=== PATIENT | male | born 1955 | race Caucasian/White ===

== ENCOUNTER 2017-09-08 15:36 | Inpatient (IN) | payer OTHER, MEDICARE ==
[~2017-09-08] VITALS: Ht 177.8 cm; Wt 88.0 kg
[~2017-09-08 15:36] MED LIST: ASPI-612 PO; ASPI325T70 PO; ATOR40TA59 PO; CARV6.252 PO; CLOP75TA PO; HYDR-2758 PO; LISI10TA2 PO; OMEG300C PO; PANT40TA3 PO; PANT40TA5 PO; PRAV40TA2 PO; RANO500T2 PO
--- NOTE | 2017-09-08 15:54 | EKG ---
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
--- NOTE | 2017-09-08 15:54 | PHYS DOC ---
Past Medical History Past Medical History: CAD, CVA, MS Additional Past Medical Histor: cvd Past Surgical History: Appendectomy, Cholecystectomy, Coronary Bypass Surgery, Other Additional Past Surgical Histo: SBO SURGERY, 3x bypass x 2 Alcohol Use: Occasionally Drug Use: None Adult General Chief Complaint Chief Complaint: CHEST PAIN HPI HPI Patient is a 62 year old male with chest pain 62-year-old male history of coronary artery disease status post CABG. This morning began having chest pain radiating to his left shoulder into his jaw. It is worse with ambulation. It's been constant. He has had no pain like this in over a year. He went to see his hand rounder Dr. Gaines who saw him and asked that he come here for evaluation of ongoing chest pain. He has no other current complaints right now. He denies diabetes or other significant medical problems. He did take aspirin today and has been taking his medicines. Review of Systems Review of Systems Constitutional: Denies fever or chills Eyes: Denies change in visual acuity, redness, or eye pain HENT: Denies nasal congestion or sore throat Respiratory: Denies cough or shortness of breath Cardiovascular: No additional information not addressed in HPI GI: Denies abdominal pain, nausea, vomiting, bloody stools or diarrhea : Denies dysuria or hematuria Musculoskeletal: Denies back pain or joint pain Integument: Denies rash or skin lesions Neurologic: Denies headache, focal weakness or sensory changes Endocrine: Denies polyuria or polydipsia Family History Family History non contributory Current Medications Current Medications Current Medications Medications (Trade) Dose Ordered Sig/[facility] Start Time Stop Time Status Last Admin Dose Admin Ketorolac Tromethamine (Toradol) 15 mg 1X ONCE 09/08/17 17:30 09/08/17 17:31 DC 09/08/17 17:29 15 MG Nitroglycerin/ Dextrose 250 ml @ 3 mls/hr 1X ONCE 09/08/17 16:00 09/12/17 03:19 09/08/17 16:15 3 MLS/HR Allergies Allergies Allergies Coded Allergies Type Severity Reaction Last Updated Verified morphine Adverse Reaction Mild Agitation 02/24/17 Yes Physical Exam Physical Exam Constitutional: Well developed, well nourished, no acute distress, non-toxic appearance. HENT: Normocephalic, atraumatic, bilateral external ears normal, oropharynx moist, no oral exudates, nose normal. Eyes: PERRLA, EOMI, conjunctiva normal, no discharge. Neck: Normal range of motion, no tenderness, supple, no stridor. Cardiovascular:Heart rate regular rhythm, no murmur Lungs & Thorax: Bilateral breath sounds clear to auscultation Abdomen: Bowel sounds normal, soft, no tenderness, no masses, no pulsatile masses. Skin: Warm, dry, no erythema, no rash. [ Back: No tenderness, no CVA tenderness. Extremities: No tenderness, no cyanosis, no clubbing, ROM intact, no edema. Neurologic: Alert and oriented X 3, normal motor function, normal sensory function, no focal deficits noted. Psychologic: Affect normal, judgement normal, mood normal. Current Patient Data Vital Signs Vital Signs Date Time Temp Pulse Resp B/P (MAP) Pulse Ox O2 Delivery O2 Flow Rate FiO2 09/08/17 17:40 63 19 141/70 (93) 99 Room Air 09/08/17 15:51 97.7 97.7 Lab Values Laboratory Tests Test 09/08/17 15:55 09/08/17 18:04 White Blood Count 6.6 x10^3/uL (4.0-11.0) Red Blood Count 4.41 x10^6/uL (4.30-5.70) Hemoglobin 13.5 g/dL (13.0-17.5) Hematocrit 39.4 % (39.0-53.0) Mean Corpuscular Volume 90 fL (79-100) Mean Corpuscular Hemoglobin 31 pg (25-35) Mean Corpuscular Hemoglobin Concent 34 g/dL (31-37) Red Cell Distribution Width 13.5 % (11.5-14.5) Platelet Count 176 x10^3/uL (140-400) Neutrophils (%) (Auto) 53 % (31-73) Lymphocytes (%) (Auto) 39 % (24-48) Monocytes (%) (Auto) 7 % (0-9) Eosinophils (%) (Auto) 1 % (0-3) Basophils (%) (Auto) 0 % (0-3) Neutrophils # (Auto) 3.5 x10^3uL (1.8-7.7) Lymphocytes # (Auto) 2.6 x10^3/uL (1.0-4.8) Monocytes # (Auto) 0.4 x10^3/uL (0.0-1.1) Eosinophils # (Auto) 0.1 x10^3/uL (0.0-0.7) Basophils # (Auto) 0.0 x10^3/uL (0.0-0.2) Sodium Level 140 mmol/L (136-145) Potassium Level 3.7 mmol/L (3.5-5.1) Chloride Level 105 mmol/L (98-107) Carbon Dioxide Level 27 mmol/L (21-32) Anion Gap 8 (6-14) Blood Urea Nitrogen 21 mg/dL (8-26) Creatinine 1.0 mg/dL (0.7-1.3) Estimated GFR (Cockcroft-Gault) 76.0 BUN/Creatinine Ratio 21 (6-20) H Glucose Level 114 mg/dL (70-99) H Calcium Level 8.5 mg/dL (8.5-10.1) Total Bilirubin 0.4 mg/dL (0.2-1.0) Aspartate Amino Transferase (AST) 13 U/L (15-37) L Alanine Aminotransferase (ALT) 24 U/L (16-63) Alkaline Phosphatase 80 U/L (46-116) Troponin I Quantitative < 0.017 ng/mL (0.000-0.055) Total Protein 7.2 g/dL (6.4-8.2) Albumin 3.9 g/dL (3.4-5.0) Albumin/Globulin Ratio 1.2 (1.0-1.7) Lactic Acid Level 1.3 mmol/L (0.4-2.0) Laboratory Tests 09/08/17 15:55 Laboratory Tests 09/08/17 15:55 EKG EKG Normal sinus rhythm with RSR prime without acute findings of ischemia. Interpretation Time: 1545 Radiology/Procedures Radiology/Procedures [Chest x-rays interpreted by radiologist no acute abnormalities. Course & Med Decision Making Course & Med Decision Making Pertinent Labs and Imaging studies reviewed. (See chart for details) 1554: Ongoing chest pain with known history coronary artery disease has already taken aspirin. I will initiate nitroglycerin for the pain. Anticipated admission Patient essentially has a negative workup here. However given his history will admit to telemetry to Dr. vela. Dr. Gaines does not buy and recommends an NPI in the morning. Dragon Disclaimer Dragon Disclaimer This electronic medical record was generated, in whole or in part, using a voice recognition dictation system. Departure Departure Referrals: NO PCP (PCP) DENVER WHITE MD Sep 08, 2017 15:54
[2017-09-08] MEDS ORDERED: NITROGLYCERIN PREMIX 250 ML IV ONE (16:00)
[2017-09-08 16:07] LABS: BASO % 0 % (0-3); EOS % 1 % (0-3); HEMATOCRIT 39.4 % (39.0-53.0); HEMOGLOBIN 13.5 g/dL (13.0-17.5); LYMPH # 2.6 x10^3/uL (1.0-4.8); LYMPH % 39 % (24-48); MEAN CORPUSCULAR HEMOGLOBIN 31 pg (25-35); MEAN CORPUSCULAR HGB CONC 34 g/dL (31-37); MEAN CORPUSCULAR VOLUME 90 fL (79-100); MONO % 7 % (0-9); NEUT % 53 % (31-73); PLATELET COUNT 176 x10^3/uL (140-400); RED BLOOD COUNT 4.41 x10^6/uL (4.30-5.70); RED CELL DISTRIBUTION WIDTH 13.5 % (11.5-14.5); WHITE BLOOD COUNT 6.6 x10^3/uL (4.0-11.0)
[2017-09-08 16:19] LABS: CALCIUM 8.5 mg/dL (8.5-10.1); POTASSIUM 3.7 mmol/L (3.5-5.1)
[2017-09-08 16:25] LABS: ALBUMIN 3.9 g/dL (3.4-5.0); ALBUMIN/GLOBULIN RATIO 1.2 (1.0-1.7); TOTAL BILIRUBIN 0.4 mg/dL (0.2-1.0); TOTAL PROTEIN 7.2 g/dL (6.4-8.2)
--- NOTE | 2017-09-08 16:52 | RAD ---
Portable chest, 09/08/2017: History: Midsternal pressure Comparison is made to a study from 02/23/2017. There has been a previous median sternotomy. A left-sided transvenous pacemaker remains in place with 2 leads extending in the right heart. The heart size and pulmonary vascularity are normal. No pulmonary infiltrates are seen. There is no evidence of pleural fluid. IMPRESSION: No acute cardiopulmonary abnormality is detected.
[2017-09-08] MEDS ORDERED: KETOROLAC 15 MG/ML VIAL. IV ONE (17:30)
--- NOTE | 2017-09-08 18:22 | PDOC1 ---
History and Physical Date of Admission Date of Admission DATE: 09/08/17 TIME: 18:18 Identification/Chief Complaint Chief Complaint chest pain and neck pain Problems: Source Source: Chart review, Patient History of Present Illness History of Present Illness Mr. North is a 62-year-old male, admit from ER for acute chest pain radiating to his left shoulder into his jaw. Nitro gtt has caused a headache, and his left neck hurts worse, chest pain maybe better. 8/10 pain Pain was worse with ambulation. It's been constant. He has had no pain like this in over a year. Dr. Gaines saw him in clinic and here, would like to r/o and consider MPI in AM Past Medical History Past Medical History history of coronary artery disease status post CABG and pacer Cardiovascular: CAD, HTN, Syncope, Hyperlipidemia, Other CENTRAL NERVOUS SYSTEM: CVA GI: GERD Psych: Anxiety, Other Past Surgical History Past Surgical History: Appendectomy, Cholecystectomy, CABG, Other Family History Family History: Diabetes Social History ALCOHOL: social Drugs: Ecstasy Current Medications Current Medications Current Medications Nitroglycerin/ Dextrose 250 ml @ 3 mls/hr 1X ONCE IV Last administered on 16:15; Start 09/08/17 at 16:00; Stop 09/12/17 at 03:19 Ketorolac Tromethamine (Toradol) 15 mg 1X ONCE IV Last administered on 17:29; Start 09/08/17 at 17:30; Stop 09/08/17 at 17:31; Status DC Active Scripts Active Ranexa (Ranolazine) 500 Mg Tab.er.12h 1,000 Mg PO BID Atorvastatin Calcium 40 Mg Tablet 40 Mg PO QHS Protonix (Pantoprazole Sodium) 40 Mg Tablet. 40 Mg PO BID Reported Aspirin Ec (Aspirin) 81 Mg Tablet.dr 81 Mg PO DAILY08 Carvedilol 6.25 Mg Tablet 6.25 Mg PO BIDWMEALS Fish Oil ([place]-3 Fatty Acids) 300 Mg Capsule 300 Mg PO DAILY Clopidogrel (Clopidogrel Bisulfate) 75 Mg Tablet 75 Mg PO DAILY07 Allergies Allergies: Coded Allergies: morphine (Verified Adverse Reaction, Mild, Agitation, 02/24/17) ROS General: No: Chills, Night Sweats, Fatigue, Malaise, Appetite, Other PSYCHOLOGICAL ROS: No: Anxiety, Behavioral Disorder, Concentration difficultie , Decreased libido, Depression, Disorientation, Hallucinations, Hostility, Irritablity, Memory difficulties, Mood Swings, Obsessive thoughts, Other Eyes: No Blurry vision, No Decreased vision, No Double vision, No Dry eyes, No Excessive tearing, No Eye Pain, No Itchy Eyes, No Loss of vision, No Photophobia , No Scotomata, No Uses contacts, No Uses glasses, No Other HEENT: No: Heacaches, Visual Changes, Hearing change, Nasal congestion, Nasal discharge, Oral lesions, Sinus pain, Sore Throat, Epistaxis, Sneezing, Snoring, Tinnitus, Vertigo, Vocal changes, Other ALLERGY AND IMMUNOLOGY: No: Hives, Insect Bite Sensitivity, Itchy/Watery Eyes, Nasal Congestion, Post Nasal Drip, Seasonal Allergies, Other Respiratory: No: Cough, Hemoptysis, Orthopnea, Pleuritic Pain, Shortness of breath, SOB with excertion, Sputum Changes, Stridor, Tachypnea, Wheezing, Other Cardiovascular: yes Chest Pain, No Palpitations, No Orthopnea, No Paroxysmal Noc. Dyspnea, No Edema, No Lt Headedness, No Other Gastrointestinal: No Nausea, No Vomiting, No Abdominal Pain, No Diarrhea, No Constipation, No Melena, No Hematochezia, No Other Genitourinary: No Dysuria, No Frequency, No Incontinence, No Hematuria, No Retention, No Discharge, No Urgency, No Pain, No Flank Pain, No Other, No , No , No , No , No , No , No Musculoskeletal: Yes Joint Pain, No Gait Disturbance, No Joint Stiffness, No Joint Swelling, No Muscle Pain, No Muscular Weakness, No Pain In:, No Swelling In:, No Other Neurological: No Behavorial Changes, No Bowel/Bladder ControlChng, No Confusion , No Dizziness, No Gait Disturbance, No Headaches, No Impaired Coord/balance, No Memory Loss, No Numbness/Tingling, No Seizures, No Speech Problems, No Tremors, No Visual Changes, No Weakness, No Other Skin: Yes Dry Skin, No Eczema, No Hair Changes, No Lumps, No Mole Changes, No Mottling, No Nail Changes, No Pruritus, No Rash, No Skin Lesion Changes, No Other, No Acne Physical Exam General: Alert, Oriented X3, Cooperative, mild distress HEENT: Atraumatic, EOMI, Mucous membr. moist/pink Lungs: Clear to auscultation, Normal air movement Heart: S1S2, no gallops, no murmurs Extremities: No edema Skin: No rashes, No significant lesion Neuro: Normal speech, Normal tone, Cranial nerves 3-12 NL Psych/Mental Status: Mental status NL Vitals Vitals Vital Signs Date Time Temp Pulse Resp B/P (MAP) Pulse Ox O2 Delivery O2 Flow Rate FiO2 09/08/17 16:35 65 138/79 (98) 98 Room Air 09/08/17 15:51 97.7 16 97.7 Labs Labs Laboratory Tests Test 09/08/17 15:55 White Blood Count 6.6 x10^3/uL (4.0-11.0) Red Blood Count 4.41 x10^6/uL (4.30-5.70) Hemoglobin 13.5 g/dL (13.0-17.5) Hematocrit 39.4 % (39.0-53.0) Mean Corpuscular Volume 90 fL (79-100) Mean Corpuscular Hemoglobin 31 pg (25-35) Mean Corpuscular Hemoglobin Concent 34 g/dL (31-37) Red Cell Distribution Width 13.5 % (11.5-14.5) Platelet Count 176 x10^3/uL (140-400) Neutrophils (%) (Auto) 53 % (31-73) Lymphocytes (%) (Auto) 39 % (24-48) Monocytes (%) (Auto) 7 % (0-9) Eosinophils (%) (Auto) 1 % (0-3) Basophils (%) (Auto) 0 % (0-3) Neutrophils # (Auto) 3.5 x10^3uL (1.8-7.7) Lymphocytes # (Auto) 2.6 x10^3/uL (1.0-4.8) Monocytes # (Auto) 0.4 x10^3/uL (0.0-1.1) Eosinophils # (Auto) 0.1 x10^3/uL (0.0-0.7) Basophils # (Auto) 0.0 x10^3/uL (0.0-0.2) Sodium Level 140 mmol/L (136-145) Potassium Level 3.7 mmol/L (3.5-5.1) Chloride Level 105 mmol/L (98-107) Carbon Dioxide Level 27 mmol/L (21-32) Anion Gap 8 (6-14) Blood Urea Nitrogen 21 mg/dL (8-26) Creatinine 1.0 mg/dL (0.7-1.3) Estimated GFR (Cockcroft-Gault) 76.0 BUN/Creatinine Ratio 21 (6-20) Glucose Level 114 mg/dL (70-99) Calcium Level 8.5 mg/dL (8.5-10.1) Total Bilirubin 0.4 mg/dL (0.2-1.0) Aspartate Amino Transf (AST/SGOT) 13 U/L (15-37) Alanine Aminotransferase (ALT/SGPT) 24 U/L (16-63) Alkaline Phosphatase 80 U/L (46-116) Troponin I Quantitative < 0.017 ng/mL (0.000-0.055) Total Protein 7.2 g/dL (6.4-8.2) Albumin 3.9 g/dL (3.4-5.0) Albumin/Globulin Ratio 1.2 (1.0-1.7) Laboratory Tests Test 09/08/17 15:55 White Blood Count 6.6 x10^3/uL (4.0-11.0) Red Blood Count 4.41 x10^6/uL (4.30-5.70) Hemoglobin 13.5 g/dL (13.0-17.5) Hematocrit 39.4 % (39.0-53.0) Mean Corpuscular Volume 90 fL (79-100) Mean Corpuscular Hemoglobin 31 pg (25-35) Mean Corpuscular Hemoglobin Concent 34 g/dL (31-37) Red Cell Distribution Width 13.5 % (11.5-14.5) Platelet Count 176 x10^3/uL (140-400) Neutrophils (%) (Auto) 53 % (31-73) Lymphocytes (%) (Auto) 39 % (24-48) Monocytes (%) (Auto) 7 % (0-9) Eosinophils (%) (Auto) 1 % (0-3) Basophils (%) (Auto) 0 % (0-3) Neutrophils # (Auto) 3.5 x10^3uL (1.8-7.7) Lymphocytes # (Auto) 2.6 x10^3/uL (1.0-4.8) Monocytes # (Auto) 0.4 x10^3/uL (0.0-1.1) Eosinophils # (Auto) 0.1 x10^3/uL (0.0-0.7) Basophils # (Auto) 0.0 x10^3/uL (0.0-0.2) Sodium Level 140 mmol/L (136-145) Potassium Level 3.7 mmol/L (3.5-5.1) Chloride Level 105 mmol/L (98-107) Carbon Dioxide Level 27 mmol/L (21-32) Anion Gap 8 (6-14) Blood Urea Nitrogen 21 mg/dL (8-26) Creatinine 1.0 mg/dL (0.7-1.3) Estimated GFR (Cockcroft-Gault) 76.0 BUN/Creatinine Ratio 21 (6-20) Glucose Level 114 mg/dL (70-99) Calcium Level 8.5 mg/dL (8.5-10.1) Total Bilirubin 0.4 mg/dL (0.2-1.0) Aspartate Amino Transf (AST/SGOT) 13 U/L (15-37) Alanine Aminotransferase (ALT/SGPT) 24 U/L (16-63) Alkaline Phosphatase 80 U/L (46-116) Troponin I Quantitative < 0.017 ng/mL (0.000-0.055) Total Protein 7.2 g/dL (6.4-8.2) Albumin 3.9 g/dL (3.4-5.0) Albumin/Globulin Ratio 1.2 (1.0-1.7) VTE Prophylaxis Ordered VTE Prophylaxis Devices: Yes VTE Pharmacological Prophylaxi: Yes Assessment/Plan Assessment/Plan angina, R.o ACS has history of CAD, morphine allergy, try oxycodone, tramadol given in ER, after aspirin, Dr. Gaines to follow also GERD has pacer admit ZULEYMA LITTLE MD Sep 08, 2017 18:22
[2017-09-08] MEDS: fentaNYL PF VIAL 100 MCG/2 ML VIAL IV PRN ×3 (18:41→23:29)
[2017-09-08 19:00] VITALS: BP 166/88
[2017-09-08] MEDS: ATORVASTATIN CALCIUM 40 MG TABLET. PO SCH (20:48)
[2017-09-08] MEDS: PANTOPRAZOLE 40 MG TABLET.DR. PO SCH (20:48)
[2017-09-08] MEDS: RANOLAZINE 500 MG TAB.ER.12H PO SCH (20:49)
[2017-09-08 23:00] VITALS: BP 133/69
[2017-09-09 03:00] VITALS: BP 129/73
[2017-09-09] MEDS: fentaNYL PF VIAL 100 MCG/2 ML VIAL IV PRN ×4 (03:03→21:16)
[2017-09-09] MEDS: CLOPIDOGREL BISULFATE 75 MG TABLET PO SCH ×2 (05:55→07:00)
[2017-09-09 07:00] VITALS: BP 130/73
[2017-09-09] MEDS: CARVEDILOL 6.25 MG TABLET. PO SCH ×2 (08:00→17:47)
[2017-09-09] MEDS: ASPIRIN ENTERIC COATED 81 MG TABLET.DR. PO SCH (09:07)
[2017-09-09] MEDS: PANTOPRAZOLE 40 MG TABLET.DR. PO SCH ×2 (09:07→21:00)
[2017-09-09] MEDS: RANOLAZINE 500 MG TAB.ER.12H PO SCH ×2 (09:08→21:01)
--- NOTE | 2017-09-09 10:34 | PDOC2 ---
CONSULT Date of Consult Date of Consult DATE: 09/09/17 TIME: 10:22 Reason for Consult Reason for Consult: Angina Referring Physician Referring Physician: Dr. Madalyn Ruiz Identification/Chief Complaint Chief Complaint Chest pain Problems: Source Source: Patient History of Present Illness Reason for Visit: Mr. North is a 62 year old male with a hx of CAD, HTN, syncope, hyperlipidemia, post CABG, pacer; presents with sternal/substernal chest pain. It started yesterday morning, where he came and visited me and was sent to the ED later that day. The pain still persists. He stated that the chest pain felt like a sharp knife through the center of the chest, with someone sitting on his chest (pressure). He stated that it became worse with exercise, and got better with rest. The pain radiated to his neck, jaw, and shoulder. He also got dizzy and short of breath with exertion. He stated he has had episodes like this twice now, both right before his CABG's in the past. He stated that the pain was an 8/10 during the worst part of the episode, and about a 6/10 right now. He also has migraines caused by nitroglycerin. Past Medical History Cardiovascular: CAD, HTN, Syncope, Hyperlipidemia, Other CENTRAL NERVOUS SYSTEM: CVA GI: GERD Psych: Anxiety, Other Past Surgical History Past Surgical History: Appendectomy, Cholecystectomy, CABG, Other Family History Family History: Diabetes Social History ALCOHOL: social Drugs: Ecstasy Lives: with Family Domestic Violence: Neg Current Problem List Problem List Problems Medical Problems: (1) CAD (coronary artery disease) of artery bypass graft Status: Acute (2) Chest pain Status: Acute Current Medications Current Medications Current Medications Nitroglycerin/ Dextrose 250 ml @ 3 mls/hr 1X ONCE IV Last administered on 16:15; Start 09/08/17 at 16:00; Stop 09/12/17 at 03:19 Ketorolac Tromethamine (Toradol) 15 mg 1X ONCE IV Last administered on 17:29; Start 09/08/17 at 17:30; Stop 09/08/17 at 17:31; Status DC Aspirin (Ecotrin) 81 mg DAILY08 PO Last administered on 09/09/17 09:07; Start 09/09/17 at 08:00 Atorvastatin Calcium (Lipitor) 40 mg QHS PO Last administered on 09/08/17 20: 48; Start 09/08/17 at 21:00 Carvedilol (Coreg) 6.25 mg BIDWMEALS PO ; Start 09/09/17 at 08:00 Clopidogrel Bisulfate (Plavix) 75 mg DAILY07 PO Last administered on 07:00; Start 09/09/17 at 07:00 Pantoprazole Sodium (Protonix) 40 mg BID PO Last administered on 09/09/17 09: 07; Start 09/08/17 at 21:00 Ranolazine (Ranexa) 1,000 mg BID PO Last administered on 09/09/17 09:08; Start 09/08/17 at 21:00 Fentanyl Citrate (Fentanyl 2ml Vial) 50 mcg PRN Q2HR PRN IV PAIN Last administered on 09/09/17 09:07; Start 09/08/17 at 18:45 Active Scripts Active Ranexa (Ranolazine) 500 Mg Tab.er.12h 1,000 Mg PO BID Atorvastatin Calcium 40 Mg Tablet 40 Mg PO QHS Protonix (Pantoprazole Sodium) 40 Mg Tablet.dr 40 Mg PO BID Reported Aspirin Ec (Aspirin) 81 Mg Tablet.dr 81 Mg PO DAILY08 Carvedilol 6.25 Mg Tablet 6.25 Mg PO BIDWMEALS Fish Oil ([place]-3 Fatty Acids) 300 Mg Capsule 300 Mg PO DAILY Clopidogrel (Clopidogrel Bisulfate) 75 Mg Tablet 75 Mg PO DAILY07 Allergies Allergies: Coded Allergies: morphine (Verified Adverse Reaction, Mild, Agitation, 02/24/17) Physical Exam General: Alert, Oriented X3, Cooperative HEENT: Atraumatic, PERRLA, EOMI Lungs: Clear to auscultation, Normal air movement Heart: Regular rate, Normal S1, Normal S2, No murmurs Abdomen: Normal bowel sounds, Soft, No tenderness Extremities: No clubbing, No cyanosis, No edema Skin: No rashes, No breakdown, No significant lesion Psych/Mental Status: Mental status NL, Mood NL MUSCULOSKELETAL: No joint tenderness, No deformity, No swelling Vitals VITALS Vital Signs Date Time Temp Pulse Resp B/P (MAP) Pulse Ox O2 Delivery O2 Flow Rate FiO2 09/09/17 09:08 68 130/73 09/09/17 09:07 96 Room Air 09/09/17 07:00 97.4 18 97.4 Labs Labs Laboratory Tests Test 09/08/17 15:55 09/08/17 18:04 09/09/17 04:42 White Blood Count 6.6 x10^3/uL (4.0-11.0) Red Blood Count 4.41 x10^6/uL (4.30-5.70) Hemoglobin 13.5 g/dL (13.0-17.5) Hematocrit 39.4 % (39.0-53.0) Mean Corpuscular Volume 90 fL (79-100) Mean Corpuscular Hemoglobin 31 pg (25-35) Mean Corpuscular Hemoglobin Concent 34 g/dL (31-37) Red Cell Distribution Width 13.5 % (11.5-14.5) Platelet Count 176 x10^3/uL (140-400) Neutrophils (%) (Auto) 53 % (31-73) Lymphocytes (%) (Auto) 39 % (24-48) Monocytes (%) (Auto) 7 % (0-9) Eosinophils (%) (Auto) 1 % (0-3) Basophils (%) (Auto) 0 % (0-3) Neutrophils # (Auto) 3.5 x10^3uL (1.8-7.7) Lymphocytes # (Auto) 2.6 x10^3/uL (1.0-4.8) Monocytes # (Auto) 0.4 x10^3/uL (0.0-1.1) Eosinophils # (Auto) 0.1 x10^3/uL (0.0-0.7) Basophils # (Auto) 0.0 x10^3/uL (0.0-0.2) Sodium Level 140 mmol/L (136-145) Potassium Level 3.7 mmol/L (3.5-5.1) Chloride Level 105 mmol/L (98-107) Carbon Dioxide Level 27 mmol/L (21-32) Anion Gap 8 (6-14) Blood Urea Nitrogen 21 mg/dL (8-26) Creatinine 1.0 mg/dL (0.7-1.3) Estimated GFR (Cockcroft-Gault) 76.0 BUN/Creatinine Ratio 21 (6-20) Glucose Level 114 mg/dL (70-99) Calcium Level 8.5 mg/dL (8.5-10.1) Total Bilirubin 0.4 mg/dL (0.2-1.0) Aspartate Amino Transf (AST/SGOT) 13 U/L (15-37) Alanine Aminotransferase (ALT/SGPT) 24 U/L (16-63) Alkaline Phosphatase 80 U/L (46-116) Troponin I Quantitative < 0.017 ng/mL (0.000-0.055) < 0.017 ng/mL (0.000-0.055) Total Protein 7.2 g/dL (6.4-8.2) Albumin 3.9 g/dL (3.4-5.0) Albumin/Globulin Ratio 1.2 (1.0-1.7) Lactic Acid Level 1.3 mmol/L (0.4-2.0) Laboratory Tests Test 09/08/17 15:55 09/08/17 18:04 09/09/17 04:42 White Blood Count 6.6 x10^3/uL (4.0-11.0) Red Blood Count 4.41 x10^6/uL (4.30-5.70) Hemoglobin 13.5 g/dL (13.0-17.5) Hematocrit 39.4 % (39.0-53.0) Mean Corpuscular Volume 90 fL (79-100) Mean Corpuscular Hemoglobin 31 pg (25-35) Mean Corpuscular Hemoglobin Concent 34 g/dL (31-37) Red Cell Distribution Width 13.5 % (11.5-14.5) Platelet Count 176 x10^3/uL (140-400) Neutrophils (%) (Auto) 53 % (31-73) Lymphocytes (%) (Auto) 39 % (24-48) Monocytes (%) (Auto) 7 % (0-9) Eosinophils (%) (Auto) 1 % (0-3) Basophils (%) (Auto) 0 % (0-3) Neutrophils # (Auto) 3.5 x10^3uL (1.8-7.7) Lymphocytes # (Auto) 2.6 x10^3/uL (1.0-4.8) Monocytes # (Auto) 0.4 x10^3/uL (0.0-1.1) Eosinophils # (Auto) 0.1 x10^3/uL (0.0-0.7) Basophils # (Auto) 0.0 x10^3/uL (0.0-0.2) Sodium Level 140 mmol/L (136-145) Potassium Level 3.7 mmol/L (3.5-5.1) Chloride Level 105 mmol/L (98-107) Carbon Dioxide Level 27 mmol/L (21-32) Anion Gap 8 (6-14) Blood Urea Nitrogen 21 mg/dL (8-26) Creatinine 1.0 mg/dL (0.7-1.3) Estimated GFR (Cockcroft-Gault) 76.0 BUN/Creatinine Ratio 21 (6-20) Glucose Level 114 mg/dL (70-99) Calcium Level 8.5 mg/dL (8.5-10.1) Total Bilirubin 0.4 mg/dL (0.2-1.0) Aspartate Amino Transf (AST/SGOT) 13 U/L (15-37) Alanine Aminotransferase (ALT/SGPT) 24 U/L (16-63) Alkaline Phosphatase 80 U/L (46-116) Troponin I Quantitative < 0.017 ng/mL (0.000-0.055) < 0.017 ng/mL (0.000-0.055) Total Protein 7.2 g/dL (6.4-8.2) Albumin 3.9 g/dL (3.4-5.0) Albumin/Globulin Ratio 1.2 (1.0-1.7) Lactic Acid Level 1.3 mmol/L (0.4-2.0) Assessment/Plan Assessment/Plan Mr. North is a 62 year old male with a hx of CAD, HTN, syncope, hyperlipidemia, post CABG, pacer; presents with sternal/substernal chest pain. Assessment and Plan: * Angina- MPI stress test, and then depending on results will have further recommendations. Thank you very much for asking me to participate in the care of this patient TALIA OLEA MD Sep 09, 2017 10:34
[2017-09-09 10:57] VITALS: BP 136/81
[2017-09-09] MEDS ORDERED: REGADENOSON 0.4 MG/5 ML DISP.SYRIN. IV ONE (13:00)
[2017-09-09] MEDS: NITROGLYCERIN 0.2MG/HR PATCH. TD SCH (13:30)
--- NOTE | 2017-09-09 14:46 | PDOC ---
PROGRESS NOTES Chief Complaint Chief Complaint angina, R.o ACS has history of CAD, GERD has pacer ongoing chest pain, some pleuritic component, but no benefit to NSAID yesterday History of Present Illness History of Present Illness morphine allergy, try oxycodone PRN, some benefit to fentanyl tramadol given in ER, no benefit to pain MPI stress test today Vitals Vitals Vital Signs Date Time Temp Pulse Resp B/P (MAP) Pulse Ox O2 Delivery O2 Flow Rate FiO2 09/09/17 13:39 96 Room Air 09/09/17 10:57 97.6 63 18 136/81 (99) 97.6 Physical Exam General: Alert, Oriented X3, Cooperative Heart: Regular rate, Normal S1, Normal S2, No murmurs Lungs: Clear Abdomen: Normal bowel sounds, Soft, No tenderness Extremities: No clubbing, No cyanosis, No edema Skin: No rashes, No breakdown, No significant lesion Labs LABS Laboratory Tests Test 09/08/17 15:55 09/08/17 18:04 09/09/17 04:42 White Blood Count 6.6 x10^3/uL (4.0-11.0) Red Blood Count 4.41 x10^6/uL (4.30-5.70) Hemoglobin 13.5 g/dL (13.0-17.5) Hematocrit 39.4 % (39.0-53.0) Mean Corpuscular Volume 90 fL (79-100) Mean Corpuscular Hemoglobin 31 pg (25-35) Mean Corpuscular Hemoglobin Concent 34 g/dL (31-37) Red Cell Distribution Width 13.5 % (11.5-14.5) Platelet Count 176 x10^3/uL (140-400) Neutrophils (%) (Auto) 53 % (31-73) Lymphocytes (%) (Auto) 39 % (24-48) Monocytes (%) (Auto) 7 % (0-9) Eosinophils (%) (Auto) 1 % (0-3) Basophils (%) (Auto) 0 % (0-3) Neutrophils # (Auto) 3.5 x10^3uL (1.8-7.7) Lymphocytes # (Auto) 2.6 x10^3/uL (1.0-4.8) Monocytes # (Auto) 0.4 x10^3/uL (0.0-1.1) Eosinophils # (Auto) 0.1 x10^3/uL (0.0-0.7) Basophils # (Auto) 0.0 x10^3/uL (0.0-0.2) Sodium Level 140 mmol/L (136-145) Potassium Level 3.7 mmol/L (3.5-5.1) Chloride Level 105 mmol/L (98-107) Carbon Dioxide Level 27 mmol/L (21-32) Anion Gap 8 (6-14) Blood Urea Nitrogen 21 mg/dL (8-26) Creatinine 1.0 mg/dL (0.7-1.3) Estimated GFR (Cockcroft-Gault) 76.0 BUN/Creatinine Ratio 21 (6-20) Glucose Level 114 mg/dL (70-99) Calcium Level 8.5 mg/dL (8.5-10.1) Total Bilirubin 0.4 mg/dL (0.2-1.0) Aspartate Amino Transf (AST/SGOT) 13 U/L (15-37) Alanine Aminotransferase (ALT/SGPT) 24 U/L (16-63) Alkaline Phosphatase 80 U/L (46-116) Troponin I Quantitative < 0.017 ng/mL (0.000-0.055) < 0.017 ng/mL (0.000-0.055) Total Protein 7.2 g/dL (6.4-8.2) Albumin 3.9 g/dL (3.4-5.0) Albumin/Globulin Ratio 1.2 (1.0-1.7) Lactic Acid Level 1.3 mmol/L (0.4-2.0) Review of Systems Review of Systems no n.vd chest pain 05/19 Assessment and Plan Assessmemt and Plan Problems Medical Problems: (1) CAD (coronary artery disease) of artery bypass graft Status: Acute (2) Chest pain Status: Acute Problems: Comment Review of Relevant I have reviewed the following items mirian (where applicable) has been applied. Labs Laboratory Tests Test 09/08/17 15:55 09/08/17 18:04 09/09/17 04:42 White Blood Count 6.6 x10^3/uL (4.0-11.0) Red Blood Count 4.41 x10^6/uL (4.30-5.70) Hemoglobin 13.5 g/dL (13.0-17.5) Hematocrit 39.4 % (39.0-53.0) Mean Corpuscular Volume 90 fL (79-100) Mean Corpuscular Hemoglobin 31 pg (25-35) Mean Corpuscular Hemoglobin Concent 34 g/dL (31-37) Red Cell Distribution Width 13.5 % (11.5-14.5) Platelet Count 176 x10^3/uL (140-400) Neutrophils (%) (Auto) 53 % (31-73) Lymphocytes (%) (Auto) 39 % (24-48) Monocytes (%) (Auto) 7 % (0-9) Eosinophils (%) (Auto) 1 % (0-3) Basophils (%) (Auto) 0 % (0-3) Neutrophils # (Auto) 3.5 x10^3uL (1.8-7.7) Lymphocytes # (Auto) 2.6 x10^3/uL (1.0-4.8) Monocytes # (Auto) 0.4 x10^3/uL (0.0-1.1) Eosinophils # (Auto) 0.1 x10^3/uL (0.0-0.7) Basophils # (Auto) 0.0 x10^3/uL (0.0-0.2) Sodium Level 140 mmol/L (136-145) Potassium Level 3.7 mmol/L (3.5-5.1) Chloride Level 105 mmol/L (98-107) Carbon Dioxide Level 27 mmol/L (21-32) Anion Gap 8 (6-14) Blood Urea Nitrogen 21 mg/dL (8-26) Creatinine 1.0 mg/dL (0.7-1.3) Estimated GFR (Cockcroft-Gault) 76.0 BUN/Creatinine Ratio 21 (6-20) Glucose Level 114 mg/dL (70-99) Calcium Level 8.5 mg/dL (8.5-10.1) Total Bilirubin 0.4 mg/dL (0.2-1.0) Aspartate Amino Transf (AST/SGOT) 13 U/L (15-37) Alanine Aminotransferase (ALT/SGPT) 24 U/L (16-63) Alkaline Phosphatase 80 U/L (46-116) Troponin I Quantitative < 0.017 ng/mL (0.000-0.055) < 0.017 ng/mL (0.000-0.055) Total Protein 7.2 g/dL (6.4-8.2) Albumin 3.9 g/dL (3.4-5.0) Albumin/Globulin Ratio 1.2 (1.0-1.7) Lactic Acid Level 1.3 mmol/L (0.4-2.0) Laboratory Tests Test 09/08/17 15:55 09/08/17 18:04 09/09/17 04:42 White Blood Count 6.6 x10^3/uL (4.0-11.0) Red Blood Count 4.41 x10^6/uL (4.30-5.70) Hemoglobin 13.5 g/dL (13.0-17.5) Hematocrit 39.4 % (39.0-53.0) Mean Corpuscular Volume 90 fL (79-100) Mean Corpuscular Hemoglobin 31 pg (25-35) Mean Corpuscular Hemoglobin Concent 34 g/dL (31-37) Red Cell Distribution Width 13.5 % (11.5-14.5) Platelet Count 176 x10^3/uL (140-400) Neutrophils (%) (Auto) 53 % (31-73) Lymphocytes (%) (Auto) 39 % (24-48) Monocytes (%) (Auto) 7 % (0-9) Eosinophils (%) (Auto) 1 % (0-3) Basophils (%) (Auto) 0 % (0-3) Neutrophils # (Auto) 3.5 x10^3uL (1.8-7.7) Lymphocytes # (Auto) 2.6 x10^3/uL (1.0-4.8) Monocytes # (Auto) 0.4 x10^3/uL (0.0-1.1) Eosinophils # (Auto) 0.1 x10^3/uL (0.0-0.7) Basophils # (Auto) 0.0 x10^3/uL (0.0-0.2) Sodium Level 140 mmol/L (136-145) Potassium Level 3.7 mmol/L (3.5-5.1) Chloride Level 105 mmol/L (98-107) Carbon Dioxide Level 27 mmol/L (21-32) Anion Gap 8 (6-14) Blood Urea Nitrogen 21 mg/dL (8-26) Creatinine 1.0 mg/dL (0.7-1.3) Estimated GFR (Cockcroft-Gault) 76.0 BUN/Creatinine Ratio 21 (6-20) Glucose Level 114 mg/dL (70-99) Calcium Level 8.5 mg/dL (8.5-10.1) Total Bilirubin 0.4 mg/dL (0.2-1.0) Aspartate Amino Transf (AST/SGOT) 13 U/L (15-37) Alanine Aminotransferase (ALT/SGPT) 24 U/L (16-63) Alkaline Phosphatase 80 U/L (46-116) Troponin I Quantitative < 0.017 ng/mL (0.000-0.055) < 0.017 ng/mL (0.000-0.055) Total Protein 7.2 g/dL (6.4-8.2) Albumin 3.9 g/dL (3.4-5.0) Albumin/Globulin Ratio 1.2 (1.0-1.7) Lactic Acid Level 1.3 mmol/L (0.4-2.0) Medications Current Medications Nitroglycerin/ Dextrose 250 ml @ 3 mls/hr 1X ONCE IV Last administered on 16:15; Start 09/08/17 at 16:00; Stop 09/09/17 at 12:59; Status DC Ketorolac Tromethamine (Toradol) 15 mg 1X ONCE IV Last administered on 17:29; Start 09/08/17 at 17:30; Stop 09/08/17 at 17:31; Status DC Aspirin (Ecotrin) 81 mg DAILY08 PO Last administered on 09/09/17 09:07; Start 09/09/17 at 08:00 Atorvastatin Calcium (Lipitor) 40 mg QHS PO Last administered on 09/08/17 20: 48; Start 09/08/17 at 21:00 Carvedilol (Coreg) 6.25 mg BIDWMEALS PO ; Start 09/09/17 at 08:00 Clopidogrel Bisulfate (Plavix) 75 mg DAILY07 PO Last administered on 07:00; Start 09/09/17 at 07:00 Pantoprazole Sodium (Protonix) 40 mg BID PO Last administered on 09/09/17 09: 07; Start 09/08/17 at 21:00 Ranolazine (Ranexa) 1,000 mg BID PO Last administered on 09/09/17 09:08; Start 09/08/17 at 21:00 Fentanyl Citrate (Fentanyl 2ml Vial) 50 mcg PRN Q2HR PRN IV PAIN Last administered on 09/09/17 13:09; Start 09/08/17 at 18:45 Nitroglycerin (Nitro-Dur) 1 patch DAILY TD ; Start 09/09/17 at 13:30 Regadenoson (Lexiscan) 0.4 mg 1X ONCE IV ; Start 09/09/17 at 13:00; Stop at 13:02; Status DC Active Scripts Active Ranexa (Ranolazine) 500 Mg Tab.er.12h 1,000 Mg PO BID Atorvastatin Calcium 40 Mg Tablet 40 Mg PO QHS Protonix (Pantoprazole Sodium) 40 Mg Tablet.dr 40 Mg PO BID Reported Aspirin Ec (Aspirin) 81 Mg Tablet.dr 81 Mg PO DAILY08 Carvedilol 6.25 Mg Tablet 6.25 Mg PO BIDWMEALS Fish Oil (Ubly-3 Fatty Acids) 300 Mg Capsule 300 Mg PO DAILY Clopidogrel (Clopidogrel Bisulfate) 75 Mg Tablet 75 Mg PO DAILY07 Vitals/I & O Vital Sign - Last 24 Hours 09/08/17 09/08/17 09/08/17 09/08/17 15:51 16:09 16:20 16:25 Temp 97.7 97.7 Pulse 84 68 70 64 Resp 16 B/P (MAP) 192/92 (125) 148/77 (100) 148/78 (101) 140/76 (97) Pulse Ox 99 97 98 97 O2 Delivery Room Air Room Air Room Air Room Air 09/08/17 09/08/17 09/08/17 09/08/17 16:30 16:35 17:10 17:15 Pulse 63 65 65 65 Resp 15 14 B/P (MAP) 138/77 (97) 138/79 (98) 144/78 (100) 140/76 (97) Pulse Ox 97 98 65 96 O2 Delivery Room Air Room Air Room Air Room Air 09/08/17 09/08/17 09/08/17 09/08/17 17:20 17:25 17:30 17:35 Pulse 63 63 66 65 Resp 12 15 19 16 B/P (MAP) 145/88 (107) 141/81 (101) 168/83 (111) 139/79 (99) Pulse Ox 97 98 97 97 O2 Delivery Room Air Room Air Room Air Room Air 09/08/17 09/08/17 09/08/17 09/08/17 17:40 18:41 19:00 19:00 Temp 97.6 97.6 97.6 97.6 Pulse 63 66 83 Resp 19 18 18 16 B/P (MAP) 141/70 (93) 166/88 (114) 166/88 (114) Pulse Ox 99 99 98 97 O2 Delivery Room Air Room Air Room Air Room Air 09/08/17 09/08/17 09/08/17 09/08/17 20:49 21:03 23:00 23:29 Temp 97.7 97.7 Pulse 83 67 Resp 20 18 20 B/P (MAP) 166/88 133/69 (90) Pulse Ox 99 100 99 O2 Delivery Room Air Room Air Room Air 09/09/17 09/09/17 09/09/17 09/09/17 03:00 03:03 03:33 07:00 Temp 97.7 97.4 97.7 97.4 Pulse 68 76 Resp 18 18 18 18 B/P (MAP) 129/73 (91) 130/73 (92) Pulse Ox 96 99 96 O2 Delivery Room Air Room Air Room Air 09/09/17 09/09/17 09/09/17 09/09/17 07:52 09:07 09:08 10:57 Temp 97.6 97.6 Pulse 68 63 Resp 18 B/P (MAP) 130/73 136/81 (99) Pulse Ox 96 96 O2 Delivery Room Air Room Air Room Air 09/09/17 09/09/17 13:09 13:39 Pulse Ox 96 96 O2 Delivery Room Air Room Air ZULEYMA LITTLE MD Sep 09, 2017 14:46
[2017-09-09 15:00] VITALS: BP 137/84
[2017-09-09] MEDS: oxyCODONE/APAP 7.5/325 1 TAB TABLET PO PRN ×2 (17:51→23:34)
[2017-09-09 19:00] VITALS: BP 144/80
--- NOTE | 2017-09-09 19:27 | RAD ---
APPROVED REPORT Test Type: Pharmacological Stress Nurse/Tech: cain smith Test Indications: CHEST PAIN Cardiac History: IA, CABG, PACEMAKER, SEE EHR Medications: SEE EHR Medical History: PAST SMOKER, SEE EHR Resting ECG: SR Resting Heart Rate: 67 bpm Resting Blood Pressure: 152/83mmHg Pretest Chest Pain: No chest pain Nurse/Tech Notes NO RESPIRATORY DISTRESS, NO CHEST PAIN STATED. Consent: The procedure was explained to the patient in lay terms. Informed consent was witnessed. Jm eout was entered into [employer]. History and Stress Test performed by Carmela Cox, AMINA, ARRT (R) (N) Pharm. Details Pharmacologic stress testing was performed using 0.4mg per 5ml of regadenoson given intravenously ove r 7-10 seconds. Stress Symptoms NAUSEA, VOMITTING. POST EXERCISE Reason for Termination: Infusion complete Max HR: 139 bpm Max Blood Pressure: 165/95mmHg Chest Pain: No. Arrhythmia: No. ST Change: No. Conclusion 1. No electrocardiographic changes suggestive of myocardial ischemia with pharmacological stress. 2. No perfusion defects to suggest myocardial ischemia or scar. 3. Normal wall motion and wall thickening with an ejection fraction of 69%. 4. Scan indicates low risk for future cardiac events.
[2017-09-09] MEDS: ATORVASTATIN CALCIUM 40 MG TABLET. PO SCH (21:00)
[2017-09-09 23:05] VITALS: BP 132/78
[2017-09-10] MEDS: fentaNYL PF VIAL 100 MCG/2 ML VIAL IV PRN ×2 (03:07→09:44)
[2017-09-10 03:30] VITALS: BP 131/83
[2017-09-10] MEDS: CLOPIDOGREL BISULFATE 75 MG TABLET PO SCH (06:32)
[2017-09-10 07:00] VITALS: BP 104/68
[2017-09-10] MEDS: NITROGLYCERIN 0.2MG/HR PATCH. TD SCH (09:00)
--- NOTE | 2017-09-10 09:28 | PDOC ---
PROGRESS NOTES Subjective Subjective Max stated that he was feeling better, and he was ready to go home. He had his stress test, and it said it made him feel a little bit sick, flushed, but said the reaction stopped soon after. He denied weakness, syncope, and endorsed some slight chest pain and shortness of breath on exertion (to bathroom). Objective Objective Vital Signs Date Time Temp Pulse Resp B/P (MAP) Pulse Ox O2 Delivery O2 Flow Rate FiO2 09/10/17 07:00 97.4 83 18 104/68 (80) 98 Room Air 97.4 Physical Exam Physical Exam no significant changes Assessment Assessment The MPI is normal with a normal LV EF. Pt may be discharged to have further work up as an out-pt. Problems Medical Problems: (1) CAD (coronary artery disease) of artery bypass graft Status: Acute (2) Chest pain Status: Acute Plan Plan of Care Mr. North is a 62 year old male with a hx of CAD, HTN, syncope, hyperlipidemia, post CABG, pacer; presents with sternal/substernal chest pain. Assessment and Plan: * Angina- MPI stress test, and then depending on results will have further recommendations. Thank you very much for asking me to participate in the care of this patient Comment Review of Relevant I have reviewed the following items mirian (where applicable) has been applied. Labs Laboratory Tests Test 09/08/17 15:55 09/08/17 18:04 09/09/17 04:42 White Blood Count 6.6 x10^3/uL (4.0-11.0) Red Blood Count 4.41 x10^6/uL (4.30-5.70) Hemoglobin 13.5 g/dL (13.0-17.5) Hematocrit 39.4 % (39.0-53.0) Mean Corpuscular Volume 90 fL (79-100) Mean Corpuscular Hemoglobin 31 pg (25-35) Mean Corpuscular Hemoglobin Concent 34 g/dL (31-37) Red Cell Distribution Width 13.5 % (11.5-14.5) Platelet Count 176 x10^3/uL (140-400) Neutrophils (%) (Auto) 53 % (31-73) Lymphocytes (%) (Auto) 39 % (24-48) Monocytes (%) (Auto) 7 % (0-9) Eosinophils (%) (Auto) 1 % (0-3) Basophils (%) (Auto) 0 % (0-3) Neutrophils # (Auto) 3.5 x10^3uL (1.8-7.7) Lymphocytes # (Auto) 2.6 x10^3/uL (1.0-4.8) Monocytes # (Auto) 0.4 x10^3/uL (0.0-1.1) Eosinophils # (Auto) 0.1 x10^3/uL (0.0-0.7) Basophils # (Auto) 0.0 x10^3/uL (0.0-0.2) Sodium Level 140 mmol/L (136-145) Potassium Level 3.7 mmol/L (3.5-5.1) Chloride Level 105 mmol/L (98-107) Carbon Dioxide Level 27 mmol/L (21-32) Anion Gap 8 (6-14) Blood Urea Nitrogen 21 mg/dL (8-26) Creatinine 1.0 mg/dL (0.7-1.3) Estimated GFR (Cockcroft-Gault) 76.0 BUN/Creatinine Ratio 21 (6-20) Glucose Level 114 mg/dL (70-99) Calcium Level 8.5 mg/dL (8.5-10.1) Total Bilirubin 0.4 mg/dL (0.2-1.0) Aspartate Amino Transf (AST/SGOT) 13 U/L (15-37) Alanine Aminotransferase (ALT/SGPT) 24 U/L (16-63) Alkaline Phosphatase 80 U/L (46-116) Troponin I Quantitative < 0.017 ng/mL (0.000-0.055) < 0.017 ng/mL (0.000-0.055) Total Protein 7.2 g/dL (6.4-8.2) Albumin 3.9 g/dL (3.4-5.0) Albumin/Globulin Ratio 1.2 (1.0-1.7) Lactic Acid Level 1.3 mmol/L (0.4-2.0) Medications Current Medications Nitroglycerin/ Dextrose 250 ml @ 3 mls/hr 1X ONCE IV Last administered on t 16:15; Start 09/08/17 at 16:00; Stop 09/09/17 at 12:59; Status DC Ketorolac Tromethamine (Toradol) 15 mg 1X ONCE IV Last administered on 17:29; Start 09/08/17 at 17:30; Stop 09/08/17 at 17:31; Status DC Aspirin (Ecotrin) 81 mg DAILY08 PO Last administered on 09/09/17 09:07; Start 09/09/17 at 08:00 Atorvastatin Calcium (Lipitor) 40 mg QHS PO Last administered on 09/09/17 21: 00; Start 09/08/17 at 21:00 Carvedilol (Coreg) 6.25 mg BIDWMEALS PO Last administered on 09/09/17 17:47; Start 09/09/17 at 08:00 Clopidogrel Bisulfate (Plavix) 75 mg DAILY07 PO Last administered on 09/10/17 06:32; Start 09/09/17 at 07:00 Pantoprazole Sodium (Protonix) 40 mg BID PO Last administered on 09/09/17 21: 00; Start 09/08/17 at 21:00 Ranolazine (Ranexa) 1,000 mg BID PO Last administered on 09/09/17 21:01; Start 09/08/17 at 21:00 Fentanyl Citrate (Fentanyl 2ml Vial) 50 mcg PRN Q2HR PRN IV PAIN Last administered on 09/10/17 03:07; Start 09/08/17 at 18:45 Nitroglycerin (Nitro-Dur) 1 patch DAILY TD ; Start 09/09/17 at 13:30 Regadenoson (Lexiscan) 0.4 mg 1X ONCE IV Last administered on 09/09/17 15:35 ; Start 09/09/17 at 13:00; Stop 09/09/17 at 13:02; Status DC Oxycodone/ Acetaminophen (Percocet 7.5/ 325) 1 tab PRN Q4HRS PRN PO PAIN Last administered on 09/09/17 23:34; Start 09/09/17 at 15:30 Active Scripts Active Ranexa (Ranolazine) 500 Mg Tab.er.12h 1,000 Mg PO BID Atorvastatin Calcium 40 Mg Tablet 40 Mg PO QHS Protonix (Pantoprazole Sodium) 40 Mg Tablet. 40 Mg PO BID Reported Aspirin Ec (Aspirin) 81 Mg Tablet.dr 81 Mg PO DAILY08 Carvedilol 6.25 Mg Tablet 6.25 Mg PO BIDWMEALS Fish Oil (Otis-3 Fatty Acids) 300 Mg Capsule 300 Mg PO DAILY Clopidogrel (Clopidogrel Bisulfate) 75 Mg Tablet 75 Mg PO DAILY07 Vitals/I & O Vital Sign - Last 24 Hours 09/09/17 09/09/17 09/09/17 09/09/17 10:57 13:09 15:00 17:47 Temp 97.6 97.5 97.6 97.5 Pulse 63 64 77 Resp 18 18 B/P (MAP) 136/81 (99) 137/84 (101) 148/85 Pulse Ox 96 96 97 O2 Delivery Room Air Room Air Room Air 09/09/17 09/09/17 09/09/17 09/09/17 17:51 19:00 19:54 21:01 Temp 98.2 98.2 Pulse 72 72 Resp 18 B/P (MAP) 144/80 (101) 144/80 Pulse Ox 97 97 O2 Delivery Room Air Room Air Room Air 09/09/17 09/09/17 09/09/17 09/10/17 21:16 23:05 23:34 00:45 Temp 97.9 97.9 Pulse 82 Resp 16 B/P (MAP) 132/78 (96) Pulse Ox 97 97 97 97 O2 Delivery Room Air Room Air Room Air Room Air 09/10/17 09/10/17 09/10/17 09/10/17 03:07 03:30 03:42 07:00 Temp 98.1 97.4 98.1 97.4 Pulse 66 83 Resp 18 18 B/P (MAP) 131/83 (99) 104/68 (80) Pulse Ox 97 98 97 98 O2 Delivery Room Air Room Air Room Air Room Air TALIA OLEA MD Sep 10, 2017 09:28
[2017-09-10] MEDS: RANOLAZINE 500 MG TAB.ER.12H PO SCH (09:34)
[2017-09-10] MEDS: PANTOPRAZOLE 40 MG TABLET.DR. PO SCH (09:35)
[2017-09-10] MEDS: CARVEDILOL 6.25 MG TABLET. PO SCH (09:35)
[2017-09-10] MEDS: ASPIRIN ENTERIC COATED 81 MG TABLET.DR. PO SCH (09:35)
[2017-09-10 10:48] VITALS: BP 104/68
[2017-09-10] MEDS ORDERED: OXYC1TAB8 PO (12:17)
== END 2017-09-10 14:24 | disposition home or self-care (01) | DRG 303 ==
LOC: ER 15:36 → 2 SOUTH 18:27
PROVIDERS: ADMIT Internal Medicine; ATTEND Internal Medicine
DX: I25.119 Atherosclerotic heart disease of native coronary artery with unspecified angina pectoris (principal); E78.5 Hyperlipidemia, unspecified; F41.9 Anxiety disorder, unspecified; G43.909 Migraine, unspecified, not intractable, without status migrainosus; I10 Essential (primary) hypertension; K21.9 Gastro-esophageal reflux disease without esophagitis; Z83.3 Family history of diabetes mellitus; Z86.73 Personal history of transient ischemic attack (TIA), and cerebral infarction without residual deficits; Z88.5 Allergy status to narcotic agent; Z90.49 Acquired absence of other specified parts of digestive tract; Z95.0 Presence of cardiac pacemaker; I25.2 Old myocardial infarction
CPT/HCPCS: 36415; 71010; 78452; 80053; 83605; 84484; 85025; 93005; 93017; 96361; 96374; 96375; 96376; A9500; J1885; J2785; J3010; J3490; 99285-25

== ENCOUNTER → 2018-04-21 | Day surgery (SDC) | payer OTHER ==
[~2018-04-21] MED LIST changes: -ASPI-612 PO; -ASPI325T70 PO; -ATOR40TA59 PO; -CARV6.252 PO; -CLOP75TA PO; +GLYCOPYRROLATE 1 MG/5 ML VIAL.; -HYDR-2758 PO; +LIDOCAINE 1% PF 2 ML VIAL. ID; -LISI10TA2 PO; +NEOSTIGMINE METHYLSULFATE 5 MG/5 ML SYRINGE.; -OMEG300C PO; +ONDANSETRON PF 4 MG/2 ML VIAL. IV; -PANT40TA3 PO; -PANT40TA5 PO; -PRAV40TA2 PO; +PROCHLORPERAZINE 10 MG/2 ML VIAL.; -RANO500T2 PO; +ROCURONIUM 50 MG/5 ML VIAL.; +fentaNYL PF VIAL 100 MCG/2 ML VIAL; +fentaNYL PF VIAL 100 MCG/2 ML VIAL IV
[2018-04-21] MEDS: IV RINGERS,LACTATED 1000ML 1,000 ML IV (10:12)
[2018-04-21 10:20] LABS: ADD MAN DIFF? NO
[2018-04-21 10:23] LABS: BASO % 0 % (0-3); EOS # 0.1 x10^3/uL (0.0-0.7); EOS % 1 % (0-3); HEMATOCRIT 41.6 % (39.0-53.0); HEMOGLOBIN 14.4 g/dL (13.0-17.5); LYMPH # 2.8 x10^3/uL (1.0-4.8); LYMPH % 44 % (24-48); MEAN CORPUSCULAR HEMOGLOBIN 31 pg (25-35); MEAN CORPUSCULAR HGB CONC 35 g/dL (31-37); MEAN CORPUSCULAR VOLUME 89 fL (79-100); MONO # 0.3 x10^3/uL (0.0-1.1); MONO % 5 % (0-9); NEUT # 3.2 x10^3uL (1.8-7.7); NEUT % 49 % (31-73); PLATELET COUNT 158 x10^3/uL (140-400); RED BLOOD COUNT 4.66 x10^6/uL (4.30-5.70); RED CELL DISTRIBUTION WIDTH 13.3 % (11.5-14.5); WHITE BLOOD COUNT 6.4 x10^3/uL (4.0-11.0)
[2018-04-21 10:54] LABS: ALBUMIN 4.1 g/dL (3.4-5.0); ANION GAP 11 (6-14); BLOOD UREA NITROGEN 18 mg/dL (8-26); CALCIUM 9.4 mg/dL (8.5-10.1); CARBON DIOXIDE 25 mmol/L (21-32); CHLORIDE 105 mmol/L (98-107); GFR 75.7; GLUCOSE 89 mg/dL (70-99); POTASSIUM 4.1 mmol/L (3.5-5.1); SODIUM 141 mmol/L (136-145)
[2018-04-21] MEDS: BUPIVACAINE-EPI 0.25%-1:200000 50 ML VIAL. (11:53)
[2018-04-21] MEDS: fentaNYL PF VIAL 100 MCG/2 ML VIAL IV ×4 (13:15→13:46)
[2018-04-21] MEDS: PROCHLORPERAZINE 10 MG/2 ML VIAL. IV (13:15)
[2018-04-21] MEDS: oxyCODONE/APAP 5/325 1 TAB TABLET PO (13:30)
== END | disposition home or self-care (01) ==
LOC: SURG 09:10
DX: K40.90 Unilateral inguinal hernia, without obstruction or gangrene, not specified as recurrent (principal); D17.6 Benign lipomatous neoplasm of spermatic cord; Z86.73 Personal history of transient ischemic attack (TIA), and cerebral infarction without residual deficits; Z98.52 Vasectomy status; Z79.82 Long term (current) use of aspirin; I25.2 Old myocardial infarction; E78.00 Pure hypercholesterolemia, unspecified; Z95.0 Presence of cardiac pacemaker; Z90.49 Acquired absence of other specified parts of digestive tract; Z95.1 Presence of aortocoronary bypass graft; Z98.890 Other specified postprocedural states; I25.119 Atherosclerotic heart disease of native coronary artery with unspecified angina pectoris; Z95.5 Presence of coronary angioplasty implant and graft; Z86.711 Personal history of pulmonary embolism; Z79.01 Long term (current) use of anticoagulants; K21.9 Gastro-esophageal reflux disease without esophagitis; F41.9 Anxiety disorder, unspecified; Z82.49 Family history of ischemic heart disease and other diseases of the circulatory system; Z82.0 Family history of epilepsy and other diseases of the nervous system; Z88.5 Allergy status to narcotic agent; Z87.891 Personal history of nicotine dependence
CPT/HCPCS: 36415; 80048; 82040; 85025; A7015; C1781; J0690; J0780; J2710; J3010; J3490; J7120

== ENCOUNTER 2018-06-16 18:47 | Inpatient (IN) | payer OTHER, MEDICARE ==
[2018-06-16 19:22] LABS: ADD MAN DIFF? NO
[2018-06-16 19:25] LABS: BASO % 1 % (0-3); EOS # 0.1 x10^3/uL (0.0-0.7); EOS % 1 % (0-3); HEMATOCRIT 40.9 % (39.0-53.0); HEMOGLOBIN 14.2 g/dL (13.0-17.5); LYMPH % 44 % (24-48); MEAN CORPUSCULAR HEMOGLOBIN 31 pg (25-35); MEAN CORPUSCULAR HGB CONC 35 g/dL (31-37); MEAN CORPUSCULAR VOLUME 89 fL (79-100); MONO # 0.5 x10^3/uL (0.0-1.1); MONO % 8 % (0-9); NEUT # 3.2 x10^3uL (1.8-7.7); NEUT % 47 % (31-73); PLATELET COUNT 207 x10^3/uL (140-400); RED BLOOD COUNT 4.62 x10^6/uL (4.30-5.70); RED CELL DISTRIBUTION WIDTH 13.9 % (11.5-14.5); WHITE BLOOD COUNT 6.8 x10^3/uL (4.0-11.0)
[2018-06-16] MEDS: ASPIRIN CHEWABLE 81 MG TABLET. PO (19:25)
[2018-06-16 19:26] LABS: ANION GAP 10 (6-14); BLOOD UREA NITROGEN 18 mg/dL (8-26); BUN/CREATININE RATIO 20 (6-20); CALCIUM 9.5 mg/dL (8.5-10.1); CARBON DIOXIDE 24 mmol/L (21-32); CHLORIDE 103 mmol/L (98-107); CREATININE 0.9 mg/dL (0.7-1.3); GFR 85.5; GLUCOSE 101 mg/dL (70-99); SODIUM 137 mmol/L (136-145)
[2018-06-16] MEDS: NITROGLYCERIN SUBLINGUAL 0.4 MG BOTTLE OF 25. SL ×2 (19:26→19:39)
[2018-06-16 19:29] LABS: ALBUMIN 4.2 g/dL (3.4-5.0); ALK PHOS 90 U/L (46-116); ALT (SGPT) 29 U/L (16-63); AST (SGOT) 16 U/L (15-37); MAGNESIUM 2.3 mg/dL (1.8-2.4); TOTAL BILIRUBIN 0.4 mg/dL (0.2-1.0); TOTAL PROTEIN 8.3 g/dL (6.4-8.2)
[2018-06-16 19:34] LABS: INR 0.9 (0.8-1.1); PROTHROMBIN TIME PATIENT 11.7 SEC (11.7-14.0)
[2018-06-16 19:35] LABS: TROPONINI < 0.017 ng/mL (0.000-0.055)
[2018-06-16] MEDS: MORPHINE SULFATE 4 MG/ML DISP.SYRIN. IV (20:00)
[2018-06-16] MEDS: fentaNYL PF VIAL 100 MCG/2 ML VIAL IV ×2 (20:21→21:47)
[2018-06-17 00:03] LABS: TROPONINI < 0.017 ng/mL (0.000-0.055)
[2018-06-17] MEDS: fentaNYL PF VIAL 100 MCG/2 ML VIAL IV ×2 (00:51→08:50)
[2018-06-17 05:22] LABS: TROPONINI < 0.017 ng/mL (0.000-0.055)
[2018-06-17] MEDS ORDERED: oxyCODONE/APAP 5/325 1 TAB TABLET PO (07:30)
[2018-06-17] MEDS ORDERED: CYCLOBENZAPRINE 10 MG TABLET. PO (07:45)
[2018-06-17] MEDS ORDERED: MAGNESIUM SULFATE 2GM 50 ML IV (07:45)
[2018-06-17] MEDS ORDERED: CARVEDILOL 3.125 MG TABLET. PO (08:00)
[2018-06-17] MEDS: OMEGA-3 FATTY ACIDS/FISH OIL 1,000 MG CAPSULE. PO (08:48)
[2018-06-17] MEDS: ASPIRIN ENTERIC COATED 81 MG TABLET.DR. PO (08:49)
[2018-06-17] MEDS: CARVEDILOL 6.25 MG TABLET. PO (08:49)
[2018-06-17] MEDS: CLOPIDOGREL BISULFATE 75 MG TABLET PO (08:49)
[2018-06-17] MEDS: MAGNESIUM SULFATE 2GM 50 ML IV (10:01)
== END 2018-06-17 13:00 | disposition home or self-care (01) | DRG 303 ==
LOC: ER 18:47 → 5 SOUTH 21:16
DX: I25.119 Atherosclerotic heart disease of native coronary artery with unspecified angina pectoris (principal); I10 Essential (primary) hypertension; E78.5 Hyperlipidemia, unspecified; K21.9 Gastro-esophageal reflux disease without esophagitis; F41.9 Anxiety disorder, unspecified; F10.10 Alcohol abuse, uncomplicated; Z86.73 Personal history of transient ischemic attack (TIA), and cerebral infarction without residual deficits; I25.2 Old myocardial infarction; Z90.49 Acquired absence of other specified parts of digestive tract; Z95.1 Presence of aortocoronary bypass graft; Z88.5 Allergy status to narcotic agent; Z82.49 Family history of ischemic heart disease and other diseases of the circulatory system; Z83.3 Family history of diabetes mellitus
CPT/HCPCS: 36415; 71045; 80053; 83735; 84484; 85025; 85610; 93005; 99285; 99285-25; J3010; J3475

== ENCOUNTER 2019-03-29 12:02 | Inpatient (IN) | payer OTHER, MEDICARE ==
[~2019-03-29] VITALS: Ht 177.8 cm; Wt 91.9 kg
[~2019-03-29 12:02] MED LIST changes: +ASPI-612 PO; +ASPI325T70 PO; +ATOR40TA59 PO; +CARV6.2511 PO; +CLOP75TA PO; +DOCU-150 PO; -GLYCOPYRROLATE 1 MG/5 ML VIAL.; +HYDR-2761 PO; -LIDOCAINE 1% PF 2 ML VIAL. ID; +LISI10TA2 PO; -NEOSTIGMINE METHYLSULFATE 5 MG/5 ML SYRINGE.; +OMEG300C PO; -ONDANSETRON PF 4 MG/2 ML VIAL. IV; +OXYC1TAB15 PO; +OXYC1TAB8 PO; +PANT40TA3 PO; +PANT40TA5 PO; +PRAV40TA2 PO; -PROCHLORPERAZINE 10 MG/2 ML VIAL.; +RANO10002 PO; +RANO500T2 PO; -ROCURONIUM 50 MG/5 ML VIAL.; -fentaNYL PF VIAL 100 MCG/2 ML VIAL; -fentaNYL PF VIAL 100 MCG/2 ML VIAL IV
[2019-03-29] MEDS ORDERED: ASPIRIN CHEWABLE 81 MG TABLET. PO ONE (12:15)
--- NOTE | 2019-03-29 12:30 | RAD ---
Single view of the chest. 03/29/2019 12:08 PM Indication: Chest pain Comparison: Chest radiograph June 16, 2020 Findings: Prior median sternotomy noted. Pacemaking device from left subclavian approach is similar in configuration. There is no focal consolidation. There is no pleural effusion or pneumothorax. Heart size is normal. Bony thorax is grossly intact. Impression: No radiographic evidence of acute cardiopulmonary process. Electronically signed by: Win Diaz MD (03/29/2019 12:27 PM) [id number]
--- NOTE | 2019-03-29 12:53 | EKG ---
[facility] [address] [place] [address] Test Date: 2019-03-29 Test Time: 12:08:25 Pat Name: ERICA CUNHA Department: Room: Gender: M Machine Iii Coremaker: SHALONDA : 1955 Requested By: GINA DELCID Order Number: [id number] Reading MD: Measurements Intervals Danielson Rate: 70 P: 0 NH: 164 QRS: -2 QRSD: 104 T: 11 QT: 384 QTc: 417 Interpretive Statements SINUS RHYTHM LEFTWARD AXIS INCOMPLETE RIGHT BUNDLE BRANCH BLOCK OTHERWISE NORMAL ECG No previous ECG available for comparison
[2019-03-29 12:57] LABS: BASO % 0 % (0-3); EOS # 0.1 x10^3/uL (0.0-0.7); EOS % 2 % (0-3); HEMATOCRIT 40.6 % (39.0-53.0); HEMOGLOBIN 13.7 g/dL (13.0-17.5); LYMPH # 2.3 x10^3/uL (1.0-4.8); LYMPH % 37 % (24-48); MEAN CORPUSCULAR HEMOGLOBIN 30 pg (25-35); MEAN CORPUSCULAR HGB CONC 34 g/dL (31-37); MEAN CORPUSCULAR VOLUME 89 fL (79-100); MONO # 0.4 x10^3/uL (0.0-1.1); MONO % 6 % (0-9); NEUT # 3.4 x10^3uL (1.8-7.7); NEUT % 55 % (31-73); PLATELET COUNT 186 x10^3/uL (140-400); RED BLOOD COUNT 4.56 x10^6/uL (4.30-5.70); RED CELL DISTRIBUTION WIDTH 13.9 % (11.5-14.5); WHITE BLOOD COUNT 6.3 x10^3/uL (4.0-11.0)
[2019-03-29] MEDS ORDERED: NITROGLYCERIN SUBLINGUAL 0.4 MG BOTTLE OF 25. SL PRN (13:00)
[2019-03-29] MEDS ORDERED: fentaNYL PF VIAL 100 MCG/2 ML VIAL IV ONE (13:00)
[2019-03-29 13:10] LABS: CALCIUM 9.7 mg/dL (8.5-10.1); GFR 75.7; POTASSIUM 4.4 mmol/L (3.5-5.1)
[2019-03-29 13:16] LABS: TOTAL BILIRUBIN 0.6 mg/dL (0.2-1.0); TOTAL PROTEIN 7.9 g/dL (6.4-8.2)
[2019-03-29] MEDS ORDERED: NITROGLYCERIN OINT 1 GM PACKET. TP ONE (13:30)
[2019-03-29 13:46] LABS: PROTHROMBIN TIME PATIENT 12.9 SEC (11.7-14.0)
--- NOTE | 2019-03-29 14:00 | PHYS DOC ---
Past Medical History Past Medical History: CAD, CVA, MA, Other Additional Past Medical Histor: cvd Past Surgical History: Appendectomy, Cholecystectomy, Coronary Bypass Surgery, Pacemaker, Other Additional Past Surgical Histo: SBO SURGERY, CABG X 3 2006,2011 Additional Information: pt uses chewing tobacco Alcohol Use: None Drug Use: None Adult General Chief Complaint Chief Complaint: CHEST PAIN HPI HPI Patient is a 63 year old male presents with chest pain.*[place] diffuse across the chest like something was sitting on his chest some nausea but little sweaty he took nitroglycerin the pain got better but then it came back last chest pain like this was almost a year ago he does not have a manager acquisition he has had triple bypass Review of Systems Review of Systems Constitutional: Denies fever or chills [] Eyes: Denies change in visual acuity, redness, or eye pain [] HENT: Denies nasal congestion or sore throat [] GI: Denies abdominal pain, nausea, vomiting, bloody stools or diarrhea [] : Denies dysuria or hematuria [] Musculoskeletal: Denies back pain or joint pain [] All other systems were reviewed and found to be within normal limits, except as documented in this note. Current Medications Current Medications Current Medications Medications (Trade) Dose Ordered Sig/Saad Start Time Stop Time Status Last Admin Dose Admin Aspirin (Children'S Aspirin) 324 mg 1X ONCE 03/29/19 12:15 03/29/19 12:16 DC Fentanyl Citrate (Fentanyl 2ml Vial) 50 mcg 1X ONCE 03/29/19 13:00 03/29/19 13:01 DC 03/29/19 13:17 50 MCG Nitroglycerin (Nitro-Bid Oint) 1 inch 1X ONCE 03/29/19 13:30 03/29/19 13:31 DC 03/29/19 13:23 1 INCH Nitroglycerin (Nitrostat) 0.4 mg PRN Q5MIN PRN 03/29/19 13:00 03/29/19 13:05 0.4 MG Allergies Allergies Allergies Coded Allergies Type Severity Reaction Last Updated Verified morphine Adverse Reaction Mild Agitation 04/21/18 Yes Physical Exam Physical Exam Constitutional: Well developed, well nourished, no acute distress, non-toxic appearance. [] HENT: Normocephalic, atraumatic, bilateral external ears normal, oropharynx moist, no oral exudates, nose normal. [] Eyes: PERRLA, EOMI, conjunctiva normal, no discharge. [] Neck: Normal range of motion, no tenderness, supple, no stridor. [] Cardiovascular:Heart rate regular rhythm, no murmur [] Lungs & Thorax: Bilateral breath sounds clear to auscultation [] Abdomen: Bowel sounds normal, soft, no tenderness, no masses, no pulsatile masses. [] Skin: Warm, dry, no erythema, no rash. [] Back: No tenderness, no CVA tenderness. [] Extremities: No tenderness, no cyanosis, no clubbing, ROM intact, no edema. [] Neurologic: Alert and oriented X 3, normal motor function, normal sensory function, no focal deficits noted. [] Psychologic: Affect normal, judgement normal, mood normal. [] Current Patient Data Vital Signs Vital Signs Date Time Temp Pulse Resp B/P (MAP) Pulse Ox O2 Delivery O2 Flow Rate FiO2 03/29/19 13:23 72 118/66 03/29/19 13:17 16 98 Room Air 03/29/19 12:08 97.5 97.5 Lab Values Laboratory Tests Test 03/29/19 12:48 White Blood Count 6.3 x10^3/uL (4.0-11.0) Red Blood Count 4.56 x10^6/uL (4.30-5.70) Hemoglobin 13.7 g/dL (13.0-17.5) Hematocrit 40.6 % (39.0-53.0) Mean Corpuscular Volume 89 fL (79-100) Mean Corpuscular Hemoglobin 30 pg (25-35) Mean Corpuscular Hemoglobin Concent 34 g/dL (31-37) Red Cell Distribution Width 13.9 % (11.5-14.5) Platelet Count 186 x10^3/uL (140-400) Neutrophils (%) (Auto) 55 % (31-73) Lymphocytes (%) (Auto) 37 % (24-48) Monocytes (%) (Auto) 6 % (0-9) Eosinophils (%) (Auto) 2 % (0-3) Basophils (%) (Auto) 0 % (0-3) Neutrophils # (Auto) 3.4 x10^3uL (1.8-7.7) Lymphocytes # (Auto) 2.3 x10^3/uL (1.0-4.8) Monocytes # (Auto) 0.4 x10^3/uL (0.0-1.1) Eosinophils # (Auto) 0.1 x10^3/uL (0.0-0.7) Basophils # (Auto) 0.0 x10^3/uL (0.0-0.2) Prothrombin Time 12.9 SEC (11.7-14.0) Prothrombin Time INR 1.0 (0.8-1.1) Sodium Level 139 mmol/L (136-145) Potassium Level 4.4 mmol/L (3.5-5.1) Chloride Level 103 mmol/L (98-107) Carbon Dioxide Level 25 mmol/L (21-32) Anion Gap 11 (6-14) Blood Urea Nitrogen 15 mg/dL (8-26) Creatinine 1.0 mg/dL (0.7-1.3) Estimated GFR (Cockcroft-Gault) 75.7 BUN/Creatinine Ratio 15 (6-20) Glucose Level 100 mg/dL (70-99) H Calcium Level 9.7 mg/dL (8.5-10.1) Total Bilirubin 0.6 mg/dL (0.2-1.0) Aspartate Amino Transferase (AST) 25 U/L (15-37) Alanine Aminotransferase (ALT) 37 U/L (16-63) Alkaline Phosphatase 95 U/L (46-116) Troponin I Quantitative < 0.017 ng/mL (0.000-0.055) TD-Xmd-C-Type Natriuretic Peptide 29 pg/mL (0-124) Total Protein 7.9 g/dL (6.4-8.2) Albumin 4.0 g/dL (3.4-5.0) Albumin/Globulin Ratio 1.0 (1.0-1.7) Laboratory Tests 03/29/19 12:48 Laboratory Tests 03/29/19 12:48 EKG EKG Sinus rhythm rate 71 incomplete right bundle branch block no STEMI nonspecific change in the inferior leads[] Radiology/Procedures Radiology/Procedures [] Impressions: Findings: Prior median sternotomy noted. Pacemaking device from left subclavian approach is similar in configuration. There is no focal consolidation. There is no pleural effusion or pneumothorax. Heart size is normal. Bony thorax is grossly intact. Impression: No radiographic evidence of acute cardiopulmonary process. Electronically signed by: Win Cotto MD (03/29/2019 12:27 PM) [id number] DICTATED and SIGNED BY: WIN COTTO MD DATE: 03/29/19 1227 Course & Med Decision Making Course & Med Decision Making Pertinent Labs and Imaging studies reviewed. (See chart for details) E 63-year-old male presenting with chest pain no cardiac disease chest pain does sound typical he has been here in the past fairly frequently but not for almost a year and does describe classic symptoms needs admission for risk stra tification and rule out. I spoke with Dr. Brunson I placed a routine admission consult for cardiology Dragon Disclaimer Dragon Disclaimer This electronic medical record was generated, in whole or in part, using a voice recognition dictation system. Departure Departure Impression: Primary Impression: Chest pain Disposition: ADMITTED INPATIENT Admitting Physician: Other Condition: STABLE Referrals: NO PCP (PCP) GINA DELCID MD March 29, 2019 14:00
[2019-03-29] MEDS ORDERED: HYDROcodone/APAP 5/325MG 1 TAB TABLET PO PRN (15:15)
[2019-03-29] MEDS ORDERED: MAG HYDROX/ALUMINUM HYD/SIMETH 30 ML ORAL.SUSP PO PRN (15:15)
[2019-03-29] MEDS ORDERED: MAGNESIUM HYDROXIDE 2,400 MG/30 ML ORAL.SUSP. PO PRN (15:15)
--- NOTE | 2019-03-29 15:22 | PDOC1 ---
History and Physical Date of Admission Date of Admission DATE: 03/29/19 TIME: 15:08 Identification/Chief Complaint Chief Complaint chest pain Problems: (1) Chest pain Source Source: Chart review, Patient History of Present Illness History of Present Illness 63 year old male with hx of cad s/p cabg 2006 and [address] Aguilar who presents with CP while at work today. 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 he walked up a hill and [address] experienced chest pain and substernal CP. patient stopped and went back to rest and subsequently vomited. he came home and told him to go to ED. presenting with chest pain. chest pain 7/10 still. no improvement with NTG. reports taking all meds as prescribed, on dual anti-plt therapy. no hx of DVT or PE. reports stress test 1 year ago which was negative. in the ED patient had neg trop and no obvious ST or T wave changes on EKG. Hospitalist called for admission. Past Medical History Cardiovascular: CAD, HTN, Syncope, Hyperlipidemia, Other CENTRAL NERVOUS SYSTEM: CVA GI: GERD Psych: Anxiety, Other Past Surgical History Past Surgical History: Appendectomy, Cholecystectomy, CABG, Other Family History Family History: Coronary Artery Disease, Diabetes Family History: Grandparents Social History ALCOHOL: none Drugs: None, Ecstasy, Other Current Problem List Problem List Problems Medical Problems: (1) Chest pain Status: Acute Current Medications Current Medications Current Medications Aspirin (Children'S Aspirin) 324 mg 1X ONCE PO ; Start 03/29/19 at 12:15; Stop 03/29/19 at 12:16; Status DC Nitroglycerin (Nitrostat) 0.4 mg PRN Q5MIN PRN SL CHEST PAIN Last administered on 03/29/19at 13:05; Start 03/29/19 at 13:00 Fentanyl Citrate (Fentanyl 2ml Vial) 50 mcg 1X ONCE IV Last administered on 03/29/19at 13:17; Start 03/29/19 at 13:00; Stop 03/29/19 at 13:01; Status DC Nitroglycerin (Nitro-Bid Oint) 1 inch 1X ONCE TP Last administered on 03/29/19at 13:23; Start 03/29/19 at 13:30; Stop 03/29/19 at 13:31; Status DC Active Scripts Active Carvedilol (Carvedilol) 6.25 Mg Tablet 6.25 Mg PO BIDWMEALS Reported Percocet 5-325 Mg Tablet (Oxycodone/Acetaminophen) 1 Each Tablet 1 Tab PO PRN Q4HRS PRN Aspirin Ec (Aspirin) 81 Mg Tablet.dr 81 Mg PO DAILY08 Fish Oil ([place]-3 Fatty Acids) 300 Mg Capsule 1,000 Mg PO DAILY Clopidogrel (Clopidogrel Bisulfate) 75 Mg Tablet 75 Mg PO DAILY07 Allergies Allergies: Coded Allergies: morphine (Verified Adverse Reaction, Mild, Agitation, 04/21/18) ROS Review of System CONSTITUTIONAL: No fever or chills EYES: No recent changes SKIN: No rash or itching CARDIOVASCULAR: No chest pain, syncope, palpitations, or edema RESPIRATORY: No SOB or cough GASTROINTESTINAL: No nausea, vomiting or abdominal pain NEUROLOGICAL: No headaches or weakness ENDOCRINE: No cold or heat intolerance GENITOURINARY: No urgency or frequency of urination MUSCULOSKELETAL: No back pain or joint pain LYMPHATICS: No enlarged lymph nodes PSYCHIATRIC: No anxiety or depression Physical Exam Physical Exam GENERAL: No apparent distress. Alert and oriented. HEENT: Head normocephalic, atraumatic. NECK: Supple LUNGS: Clear to auscultation. HEART: RRR, S1, S2 present, pulses intact ABDOMEN: Soft, positive bowel sounds. EXTREMITIES: No cyanosis or edema. NEUROLOGIC: Normal speech, normal tone PSYCHIATRIC: Normal affect, normal mood. SKIN: No ulceration. Vitals Vitals Vital Signs Date Time Temp Pulse Resp B/P (MAP) Pulse Ox O2 Delivery O2 Flow Rate FiO2 03/29/19 14:40 68 16 115/80 (92) 100 Room Air 03/29/19 12:08 97.5 97.5 Labs Labs Laboratory Tests Test 03/29/19 12:48 White Blood Count 6.3 x10^3/uL (4.0-11.0) Red Blood Count 4.56 x10^6/uL (4.30-5.70) Hemoglobin 13.7 g/dL (13.0-17.5) Hematocrit 40.6 % (39.0-53.0) Mean Corpuscular Volume 89 fL (79-100) Mean Corpuscular Hemoglobin 30 pg (25-35) Mean Corpuscular Hemoglobin Concent 34 g/dL (31-37) Red Cell Distribution Width 13.9 % (11.5-14.5) Platelet Count 186 x10^3/uL (140-400) Neutrophils (%) (Auto) 55 % (31-73) Lymphocytes (%) (Auto) 37 % (24-48) Monocytes (%) (Auto) 6 % (0-9) Eosinophils (%) (Auto) 2 % (0-3) Basophils (%) (Auto) 0 % (0-3) Neutrophils # (Auto) 3.4 x10^3uL (1.8-7.7) Lymphocytes # (Auto) 2.3 x10^3/uL (1.0-4.8) Monocytes # (Auto) 0.4 x10^3/uL (0.0-1.1) Eosinophils # (Auto) 0.1 x10^3/uL (0.0-0.7) Basophils # (Auto) 0.0 x10^3/uL (0.0-0.2) Prothrombin Time 12.9 SEC (11.7-14.0) Prothromb Time International Ratio 1.0 (0.8-1.1) Sodium Level 139 mmol/L (136-145) Potassium Level 4.4 mmol/L (3.5-5.1) Chloride Level 103 mmol/L (98-107) Carbon Dioxide Level 25 mmol/L (21-32) Anion Gap 11 (6-14) Blood Urea Nitrogen 15 mg/dL (8-26) Creatinine 1.0 mg/dL (0.7-1.3) Estimated GFR (Cockcroft-Gault) 75.7 BUN/Creatinine Ratio 15 (6-20) Glucose Level 100 mg/dL (70-99) Calcium Level 9.7 mg/dL (8.5-10.1) Total Bilirubin 0.6 mg/dL (0.2-1.0) Aspartate Amino Transf (AST/SGOT) 25 U/L (15-37) Alanine Aminotransferase (ALT/SGPT) 37 U/L (16-63) Alkaline Phosphatase 95 U/L (46-116) Troponin I Quantitative < 0.017 ng/mL (0.000-0.055) AH-Aqd-H-Type Natriuretic Peptide 29 pg/mL (0-124) Total Protein 7.9 g/dL (6.4-8.2) Albumin 4.0 g/dL (3.4-5.0) Albumin/Globulin Ratio 1.0 (1.0-1.7) Laboratory Tests Test 03/29/19 12:48 White Blood Count 6.3 x10^3/uL (4.0-11.0) Red Blood Count 4.56 x10^6/uL (4.30-5.70) Hemoglobin 13.7 g/dL (13.0-17.5) Hematocrit 40.6 % (39.0-53.0) Mean Corpuscular Volume 89 fL (79-100) Mean Corpuscular Hemoglobin 30 pg (25-35) Mean Corpuscular Hemoglobin Concent 34 g/dL (31-37) Red Cell Distribution Width 13.9 % (11.5-14.5) Platelet Count 186 x10^3/uL (140-400) Neutrophils (%) (Auto) 55 % (31-73) Lymphocytes (%) (Auto) 37 % (24-48) Monocytes (%) (Auto) 6 % (0-9) Eosinophils (%) (Auto) 2 % (0-3) Basophils (%) (Auto) 0 % (0-3) Neutrophils # (Auto) 3.4 x10^3uL (1.8-7.7) Lymphocytes # (Auto) 2.3 x10^3/uL (1.0-4.8) Monocytes # (Auto) 0.4 x10^3/uL (0.0-1.1) Eosinophils # (Auto) 0.1 x10^3/uL (0.0-0.7) Basophils # (Auto) 0.0 x10^3/uL (0.0-0.2) Prothrombin Time 12.9 SEC (11.7-14.0) Prothromb Time International Ratio 1.0 (0.8-1.1) Sodium Level 139 mmol/L (136-145) Potassium Level 4.4 mmol/L (3.5-5.1) Chloride Level 103 mmol/L (98-107) Carbon Dioxide Level 25 mmol/L (21-32) Anion Gap 11 (6-14) Blood Urea Nitrogen 15 mg/dL (8-26) Creatinine 1.0 mg/dL (0.7-1.3) Estimated GFR (Cockcroft-Gault) 75.7 BUN/Creatinine Ratio 15 (6-20) Glucose Level 100 mg/dL (70-99) Calcium Level 9.7 mg/dL (8.5-10.1) Total Bilirubin 0.6 mg/dL (0.2-1.0) Aspartate Amino Transf (AST/SGOT) 25 U/L (15-37) Alanine Aminotransferase (ALT/SGPT) 37 U/L (16-63) Alkaline Phosphatase 95 U/L (46-116) Troponin I Quantitative < 0.017 ng/mL (0.000-0.055) QK-Sif-H-Type Natriuretic Peptide 29 pg/mL (0-124) Total Protein 7.9 g/dL (6.4-8.2) Albumin 4.0 g/dL (3.4-5.0) Albumin/Globulin Ratio 1.0 (1.0-1.7) VTE Prophylaxis Ordered VTE Prophylaxis Devices: Yes VTE Pharmacological Prophylaxi: Yes Assessment/Plan Assessment/Plan ASSESSMENT Angina, rule out ACS - hx of CAD s/p CABG - admit to tele bed - continue ASA, statin, plavix, BB therapy - trend trop - prn NTG - cards consult HTN - continue BB HLD - continue statin therapy NPO past midnight cards eval pending dvt ppx: heparin full code Problem Qualifiers (1) Chest pain: Chest pain type: other chest pain Qualified Codes: R07.89 - Other chest pain JESUS GABRIEL MD March 29, 2019 15:22
[2019-03-29 15:55] VITALS: BP 142/86
[2019-03-29] MEDS: oxyCODONE/APAP 5/325 1 TAB TABLET PO PRN (16:47)
[2019-03-29] MEDS: CARVEDILOL 6.25 MG TABLET. PO SCH (17:48)
[2019-03-29] MEDS: ISOSORBIDE MONONITRATE ER 30 MG TAB.ER.24H PO SCH (17:50)
[2019-03-29 19:50] VITALS: BP 112/69
[2019-03-29] MEDS: ATORVASTATIN CALCIUM 40 MG TABLET. PO SCH (22:44)
[2019-03-29] MEDS: SENNOSIDES/DOCUSATE 8.6/50MG TABLET. PO SCH (22:44)
[2019-03-29] MEDS: HEPARIN for SUB-Q USE 5,000 UNIT/ML VIAL. SQ SCH (22:46)
[2019-03-29 23:30] VITALS: BP 98/54
[2019-03-30] VITALS (14 sets, daily range): BP systolic 94–129; BP diastolic 56–88
[2019-03-30] MEDS: oxyCODONE/APAP 5/325 1 TAB TABLET PO PRN ×2 (02:47→09:21)
[2019-03-30] MEDS ORDERED: IV NORMAL SALINE 1000ML BAG 1,000 ML IV ONE (09:00)
--- NOTE | 2019-03-30 09:00 | PDOC2 ---
MAJO BALTAZAR [employer] 03/30/19 0900: CARDIAC CONSULT DATE OF CONSULT Date of Consult DATE: 03/30/19 TIME: 08:48 REASON FOR CONSULT Reason for Consult: Chest pain REFERRING PHYSICIAN Referring Physician: Marie SOURCE Source: Chart review, Patient HISTORY OF PRESENT ILLNESS HISTORY OF PRESENT ILLNESS This is a pleasant 63 yo male admitted for complains of chest pain. Reports that he was at work and eas going to get an equipment and had to walk across [facility] region and that area was uphill and upon start of uphill he started having mid chest tightness and nauseated ("Sick to my stomach")and felt weak. He sat down waited for someone and was brought to the office via golf cart. He then went home and took total of 2 NTG and it helped a little. His persuaded him to go to ED. His symptoms lasted for about 2.5 hours before dissipating. He has been taking his meds including plavix. He did take ASA yesterday. Denies any recent falls or injury, no prior long distance travel. No recent infection. He is significant for CAD. PAST MEDICAL HISTORY Cardiovascular: CAD, HTN, [place], Syncope, Hyperlipidemia, Other (symptomatic steve with syncope) Pulmonary: Pulmonary embolus (2007 with DVT) CENTRAL NERVOUS SYSTEM: CVA (remotely) GI: Other (SBO) Heme/Onc: No pertinent hx Hepatobiliary: No pertinent hx Psych: No pertinent hx Musculoskeletal: Osteoarthritis Rheumatologic: No pertinent hx Infectious disease: No pertinent hx ENT: No pertinent hx Renal/: No pertinent hx Endocrine: No pertinent hx Dermatology: No pertinent hx PAST SURGICAL HISTORY Past Surgical History: Pacemaker (medtronic), Appendectomy, Cholecystectomy, CABG (2005 and 2010), Hernia Repair, Tonsillectomy, Other (bowel resection; hand surgery) FAMILY HISTORY Family History: Coronary Artery Disease (grandfather) SOCIAL HISTORY Smoke: Quit (remotely) ALCOHOL: none Drugs: None Lives: with Family CURRENT MEDICATIONS CURRENT MEDICATIONS Current Medications Medications (Trade) Dose Ordered Sig/Saad Route PRN Reason Start Time Stop Time Status Last Admin Dose Admin Nitroglycerin (Nitrostat) 0.4 mg PRN Q5MIN PRN SL CHEST PAIN 03/29/19 13:00 03/29/19 13:05 Fentanyl Citrate (Fentanyl 2ml Vial) 50 mcg 1X ONCE IV 03/29/19 13:00 03/29/19 13:01 DC 03/29/19 13:17 Nitroglycerin (Nitro-Bid Oint) 1 inch 1X ONCE TP 03/29/19 13:30 03/29/19 13:31 DC 03/29/19 13:23 Al Hydroxide/Mg Hydroxide (Mylanta Plus Xs) 30 ml PRN Q3HRS PRN PO HEARTBURN / GAS 03/29/19 15:15 03/30/19 02:47 Acetaminophen/ Hydrocodone Bitart (Lortab 5/325) 1 tab PRN Q4HRS PRN PO MILD PAIN 1-3 03/29/19 15:15 03/29/19 22:50 Senna/Docusate Sodium (Senna Plus) 1 tab BID PO 03/29/19 21:00 03/29/19 22:44 Heparin Sodium (Porcine) (Heparin Sodium) 5,000 unit Q12HR SQ 03/29/19 21:00 03/29/19 22:46 Carvedilol (Coreg) 6.25 mg BIDWMEALS PO 03/29/19 17:00 03/29/19 17:48 Oxycodone/ Acetaminophen (Percocet 5/325) 1 tab PRN Q4HRS PRN PO MODERATE PAIN 03/29/19 15:15 03/30/19 02:47 Atorvastatin Calcium (Lipitor) 40 mg QHS PO 03/29/19 21:00 03/29/19 22:44 ALLERGIES ALLERGIES: Coded Allergies: morphine (Verified Adverse Reaction, Mild, Agitation, 04/21/18) ROS Review of System 14 point ROS evaluated with pertinent positives noted per HPI PHYSICAL EXAM General: Alert, Oriented X3, Cooperative, No acute distress HEENT: Atraumatic, Mucous membr. moist/pink Lungs: Clear to auscultation, Normal air movement Heart: Regular rate (SR no ectopies+), Normal S1, Normal S2, Other (2/6 systolic murmur to LLS border) Abdomen: Soft, No tenderness Extremities: No cyanosis, No edema Skin: No breakdown, No significant lesion Neuro: Normal speech, Sensation intact Psych/Mental Status: Mental status NL, Mood NL MUSCULOSKELETAL: Osteoarthritic changes both hands VITALS VITALS Vital Signs Date Time Temp Pulse Resp B/P (MAP) Pulse Ox O2 Delivery O2 Flow Rate FiO2 03/30/19 07:00 97.4 67 18 107/56 (73) 97 Room Air 97.4 LABS Lab: Laboratory Tests Test 03/29/19 12:48 03/29/19 17:10 03/29/19 19:45 White Blood Count 6.3 x10^3/uL (4.0-11.0) Red Blood Count 4.56 x10^6/uL (4.30-5.70) Hemoglobin 13.7 g/dL (13.0-17.5) Hematocrit 40.6 % (39.0-53.0) Mean Corpuscular Volume 89 fL (79-100) Mean Corpuscular Hemoglobin 30 pg (25-35) Mean Corpuscular Hemoglobin Concent 34 g/dL (31-37) Red Cell Distribution Width 13.9 % (11.5-14.5) Platelet Count 186 x10^3/uL (140-400) Neutrophils (%) (Auto) 55 % (31-73) Lymphocytes (%) (Auto) 37 % (24-48) Monocytes (%) (Auto) 6 % (0-9) Eosinophils (%) (Auto) 2 % (0-3) Basophils (%) (Auto) 0 % (0-3) Neutrophils # (Auto) 3.4 x10^3uL (1.8-7.7) Lymphocytes # (Auto) 2.3 x10^3/uL (1.0-4.8) Monocytes # (Auto) 0.4 x10^3/uL (0.0-1.1) Eosinophils # (Auto) 0.1 x10^3/uL (0.0-0.7) Basophils # (Auto) 0.0 x10^3/uL (0.0-0.2) Prothrombin Time 12.9 SEC (11.7-14.0) Prothromb Time International Ratio 1.0 (0.8-1.1) Sodium Level 139 mmol/L (136-145) Potassium Level 4.4 mmol/L (3.5-5.1) Chloride Level 103 mmol/L (98-107) Carbon Dioxide Level 25 mmol/L (21-32) Anion Gap 11 (6-14) Blood Urea Nitrogen 15 mg/dL (8-26) Creatinine 1.0 mg/dL (0.7-1.3) Estimated GFR (Cockcroft-Gault) 75.7 BUN/Creatinine Ratio 15 (6-20) Glucose Level 100 mg/dL (70-99) Calcium Level 9.7 mg/dL (8.5-10.1) Total Bilirubin 0.6 mg/dL (0.2-1.0) Aspartate Amino Transf (AST/SGOT) 25 U/L (15-37) Alanine Aminotransferase (ALT/SGPT) 37 U/L (16-63) Alkaline Phosphatase 95 U/L (46-116) Troponin I Quantitative < 0.017 ng/mL (0.000-0.055) < 0.017 ng/mL (0.000-0.055) < 0.017 ng/mL (0.000-0.055) GS-Njt-C-Type Natriuretic Peptide 29 pg/mL (0-124) Total Protein 7.9 g/dL (6.4-8.2) Albumin 4.0 g/dL (3.4-5.0) Albumin/Globulin Ratio 1.0 (1.0-1.7) ECHOCARDIOGRAM ECHOCARDIOGRAM <Conclusion> Left ventricle systolic function is mildly impaired. The Ejection Fraction is 38%. Transmitral Doppler flow pattern is Grade II-pseudonormal filling dynamics. The left atrium size is normal. The right atrium size is normal. The aortic valve is mildly thickened. The aortic valve is trileaflet. The mitral valve leaflets are thickened. The tricuspid valve is normal in structure and function. Doppler and Color Flow revealed mild pulmonic valvular regurgitation. There is no evidence of significant pericardial effusion. DATE: 12/25/16 1223 HEART CATH HEART CATH Coronary Angiography The patient's coronary anatomy is right dominant. The left main coronary artery is a medium size vessel with stenosis. There is a 60% stenosis in the mid segment. The left main bifurcates to the left anterior descending and circumflex. The left anterior descending artery is a medium size vessel with moderate diffused disease. There is a 80% stenosis in the proximal segment. The first diagonal branch is a small size vessel with mild diffused disease. The second diagonal branch is a small size vessel with mild-moderate diffused disease. The third diagonal branch is a small size vessel with mild diffused disease. The circumflex artery is a medium size vessel with stenosis. There is a 100% stenosis in the proximal segment. The first obtuse marginal branch is a medium size vessel with intimal irregularities and without significant stenosis. The second obtuse marginal branch is a small size vessel with intimal irregularities and without significant stenosis. The third obtuse marginal branch is a small size vessel with intimal irregularities and without significant stenosis. The right coronary artery is a medium size vessel with stenosis. There is a 100% stenosis in the proximal segment. The left internal mammary artery to the mid left anterior descending artery segment is patent . The saphenous vein graft to the distal right coronary artery reveals a stenosis in the entire graft of 50% to 95% and there is no significant branches distal to the SVG.. The saphenous vein graft to the first obtuse margin al branch segment is patent with good distal flow. Left Ventriculography The left ventricle is normal in size with normal contractility. The left ventricular ejection fraction is estimated to be 50%. The left ventricular end diastolic pressure is 14 mmHg. There was no gradient across the aortic valve upon pullback. The inferior wall is akinetic Conclusion This pt has Graft disease and [place] vessel disease as well as small vessel coronary artery disease. I recommend medical treatment. DATE: 01/12/181927 ASSESSMENT/PLAN ASSESSMENT/PLAN 1. Unstable angina 2. CAD; CABG 2005 and 2010 3. 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 HTN: controlled 5. HLP Recommendations 1. C today, risks and benefits discussed and agreeable to proceed. 2. ASA. Takes plavix at home. Cotninue secondary prevention measures. IVF 3. TTE, lipids. ALLIE ESPARZA MD 03/30/19 1516: CARDIAC CONSULT ASSESSMENT/PLAN ASSESSMENT/PLAN Patient seen and examined. Agree with TAKE OUT WAITRESS's assessment and plan. Clinical picture consistent with unstable angina. Plan for cardiac catheterization and possible angioplasty. Risks and benefits were explained and he is agreeable. 2-D echo showed normal LV systolic function. PPM status clinically stable Continue current medical regimen. Thank you for your consultation. MAJO BALTAZAR APRN March 30, 2019 09:00 ALLIE ESPARZA MD March 30, 2019 15:16
[2019-03-30] MEDS: ASPIRIN ENTERIC COATED 81 MG TABLET.DR. PO SCH (09:04)
[2019-03-30] MEDS: CLOPIDOGREL BISULFATE 75 MG TABLET PO SCH (09:04)
[2019-03-30] MEDS: ISOSORBIDE MONONITRATE ER 30 MG TAB.ER.24H PO SCH (09:05)
[2019-03-30] MEDS: CARVEDILOL 6.25 MG TABLET. PO SCH ×2 (09:05→16:46)
[2019-03-30] MEDS: SENNOSIDES/DOCUSATE 8.6/50MG TABLET. PO SCH ×2 (09:05→20:17)
[2019-03-30] MEDS: OMEGA-3 FATTY ACIDS/FISH OIL 1,000 MG CAPSULE. PO SCH (09:20)
--- NOTE | 2019-03-30 09:24 | PDOC ---
PROGRESS NOTES History of Present Illness History of Present Illness VTE Prophylaxis Ordered VTE Prophylaxis Devices: Yes VTE Pharmacological Prophylaxi: Yes Assessment/Plan Assessment/Plan ASSESSMENT Angina, rule out ACS - hx of CAD s/p CABG - cvc tele bed - continue ASA, statin, plavix, BB therapy - trend trop - prn NTG - cards consult - Severe [place] vessel coronary artery disease s/p coronary artery bypass surgery with patent CARRERO to LAD, patent SVG to obtuse marginal branch of left circumflex artery and also patent SVG to RCA (with resolution of previously described lesions probably thrombus) HTN - continue BB HLD - continue statin therapy cards eval dvt ppx: heparin full code 47 MIN PT EXAM, CHART REVIEW, > 50% OF time spent with exam, chart review, pt care coordination Vitals Vitals Vital Signs Date Time Temp Pulse Resp B/P (MAP) Pulse Ox O2 Delivery O2 Flow Rate FiO2 03/30/19 09:21 97 Room Air 03/30/19 09:05 67 107/56 03/30/19 07:00 97.4 18 97.4 Physical Exam General: Alert, Oriented X3, Cooperative, No acute distress Heart: Regular rate (SR no ectopies+), Normal S1, Normal S2, Other (2/6 systol ic murmur to LLS border) Lungs: Clear Abdomen: Normal bowel sounds, Soft, No tenderness Extremities: No clubbing, No cyanosis, No edema Skin: No breakdown, No significant lesion Labs LABS Single view of the chest. 03/29/2019 12:08 PM Indication: Chest pain Comparison: Chest radiograph June 16, 2020 Findings: Prior median sternotomy noted. Pacemaking device from left subclavian approach is similar in configuration. There is no focal consolidation. There is no pleural effusion or pneumothorax. Heart size is normal. Bony thorax is grossly intact. Impression: No radiographic evidence of acute cardiopulmonary process. Electronically signed by: Win Diaz MD (03/29/2019 12:27 PM) [id number] DICTATED and SIGNED BY: WIN DIAZ MD DATE: 03/29/19 1227 Procedure(s) performed: Left heart catheterization, Selective coronary angio graphy and selective angiography of bypass grafts via left transradial approach Moderate sedation:60 mins Fluoro time: 25 min Dose: 89.1 GYCM2 Contrast: 169 INDICATION The indication(s) include : unstable angina . CSHA Clinical Frailty Scale CSHA Clinical Frailty Scale: Very Fit Heart Failure Heart Failure: No PROCEDURE NARRATIVE After explaining the risks, benefits and alternative options, informed consent was obtained from patient. Patient was brought to the cardiac [employer] and his left wrist was prepped and draped in the usual fashion after confirming a positive modified Mika's test. Arterial access was obtained in the left radial artery and 6 [place] sheath was inserted. 6 [place] JR4 catheter was used to perform selective angiography of the left internal mammary artery graft to the left anterior descending artery, [place] right coronary artery, saphenous vein graft to the right coronary artery and also the saphenous vein graft to the obtuse marginal branch of left circumflex artery. After several initial unsuccessful attempts at engaging the left main coronary artery with 6 [place] JL4, 6 [place] JL 3.5, AL0.75 catheters, this was engaged with 6 [place] multipurpose catheter and angiography was performed. LVEDP and transaortic gradients were measured. Left ventriculogram was not performed due to contrast load used during the procedure and since recent echo showed normal LV function. Patient tolerated the procedure well. Hemostasis was achieved using TR band. There were no immediate complications. The following findings were noted. FINDINGS 1. Hemodynamics: Left ventricle end-diastolic pressure 15 mmHg. No pullback gradient across the aortic valve. 2. Coronary and bypass graft angiography: a. The left main coronary artery arose from the left sinus of Valsalva, gave rise to the left anterior descending and left circumflex arteries and showed 70% stenosis in the distal segment. b. The left anterior descending artery showed 80% stenosis in the proximal to midsegment. c. The left circumflex artery showed 100% occlusion in the proximal segment. d. The right coronary artery arose from the right sinus of Valsalva and showed 100% occlusion in the proximal segment. e. The left internal mammary artery graft to the left anterior descending artery was widely patent. f. The saphenous vein graft to the obtuse marginal branch of left circumflex artery was widely patent. g. The saphenous vein graft to the right coronary artery the previously was found to have significant lesions on cardiac catheterization one year ago did not show any significant stenosis raising the possibility that the previously described lesions were probably from thrombus that has presently resolved. Conclusion Severe [place] vessel coronary artery disease s/p coronary artery bypass surgery with patent CARRERO to LAD, patent SVG to obtuse marginal branch of left circumflex artery and also patent SVG to RCA (with resolution of previously described lesions probably thrombus). No lesions needing intervention were noted. Recommendations Optimization of medical therapy including maximizing antianginal therapy and cardiovascular risk factor modification. Signed by : Allie Esparza, LEFT VENTRICLE The left ventricle is normal size. There is normal left ventricular wall thickness. The left ventricular systolic function is normal. The Ejection Fraction is 55-60%. There is normal LV segmental wall motion. The left ventricular diastolic function and filling is normal for age. RIGHT VENTRICLE The right ventricle is normal size. There is normal right ventricular wall thickness. The right ventricular systolic function is normal. There is a pacemaker lead in the right ventricle. ATRIA The left atrium size is normal. The right atrium size is normal. The interatrial septum is intact with no evidence for an atrial septal defect or patent foramen ovale as noted on 2-D or Doppler imaging. AORTIC VALVE The aortic valve is thickened but opens well. Doppler and Color Flow revealed no significant aortic regurgitation. There is no significant aortic valvular st enosis. MITRAL VALVE The mitral valve is thickened but opens well. There is no evidence of mitral valve prolapse. There is no mitral valve stenosis. Doppler and Color Flow revealed no mitral valve regurgitation noted. TRICUSPID VALVE The tricuspid valve is normal in structure and function. Doppler and Color Flow revealed trace tricuspid regurgitation with an estimated PAP of 27 mmHg. There is no tricuspid valve stenosis. PULMONIC VALVE The pulmonary valve is normal in structure and function. Doppler and Color Flow revealed trace to mild pulmonic valvular regurgitation. GREAT VESSELS The aortic root is normal in size. The IVC was not visualized. PERICARDIAL EFFUSION There is no evidence of significant pericardial effusion. Critical Notification Critical Value: No <Conclusion> The left ventricular systolic function is normal. The Ejection Fraction is 55-60%. There is normal LV segmental wall motion. There is a pacemaker lead in the right atrium and right ventricle. Trace tricuspid regurgitation with an estimated PAP of 27 mmHg. There is no evidence of significant pericardial effusion. Signed by : Allie Esparza, Electronically Approved : 03/30/2019 12:39:14 DICTATED and SIGNED BY: ALLIE ESPARZA MD DATE: 03/30/19 1239 MTH0 0 Laboratory Tests Test 03/29/19 12:48 03/29/19 17:10 03/29/19 19:45 White Blood Count 6.3 x10^3/uL (4.0-11.0) Red Blood Count 4.56 x10^6/uL (4.30-5.70) Hemoglobin 13.7 g/dL (13.0-17.5) Hematocrit 40.6 % (39.0-53.0) Mean Corpuscular Volume 89 fL (79-100) Mean Corpuscular Hemoglobin 30 pg (25-35) Mean Corpuscular Hemoglobin Concent 34 g/dL (31-37) Red Cell Distribution Width 13.9 % (11.5-14.5) Platelet Count 186 x10^3/uL (140-400) Neutrophils (%) (Auto) 55 % (31-73) Lymphocytes (%) (Auto) 37 % (24-48) Monocytes (%) (Auto) 6 % (0-9) Eosinophils (%) (Auto) 2 % (0-3) Basophils (%) (Auto) 0 % (0-3) Neutrophils # (Auto) 3.4 x10^3uL (1.8-7.7) Lymphocytes # (Auto) 2.3 x10^3/uL (1.0-4.8) Monocytes # (Auto) 0.4 x10^3/uL (0.0-1.1) Eosinophils # (Auto) 0.1 x10^3/uL (0.0-0.7) Basophils # (Auto) 0.0 x10^3/uL (0.0-0.2) Prothrombin Time 12.9 SEC (11.7-14.0) Prothromb Time International Ratio 1.0 (0.8-1.1) Sodium Level 139 mmol/L (136-145) Potassium Level 4.4 mmol/L (3.5-5.1) Chloride Level 103 mmol/L (98-107) Carbon Dioxide Level 25 mmol/L (21-32) Anion Gap 11 (6-14) Blood Urea Nitrogen 15 mg/dL (8-26) Creatinine 1.0 mg/dL (0.7-1.3) Estimated GFR (Cockcroft-Gault) 75.7 BUN/Creatinine Ratio 15 (6-20) Glucose Level 100 mg/dL (70-99) Calcium Level 9.7 mg/dL (8.5-10.1) Total Bilirubin 0.6 mg/dL (0.2-1.0) Aspartate Amino Transf (AST/SGOT) 25 U/L (15-37) Alanine Aminotransferase (ALT/SGPT) 37 U/L (16-63) Alkaline Phosphatase 95 U/L (46-116) Troponin I Quantitative < 0.017 ng/mL (0.000-0.055) < 0.017 ng/mL (0.000-0.055) < 0.017 ng/mL (0.000-0.055) KM-Lai-X-Type Natriuretic Peptide 29 pg/mL (0-124) Total Protein 7.9 g/dL (6.4-8.2) Albumin 4.0 g/dL (3.4-5.0) Albumin/Globulin Ratio 1.0 (1.0-1.7) Assessment and Plan Assessmemt and Plan Problems Medical Problems: (1) Chest pain Status: Acute Comment Review of Relevant I have reviewed the following items mirian (where applicable) has been applied. Labs Laboratory Tests Test 03/29/19 12:48 03/29/19 17:10 03/29/19 19:45 White Blood Count 6.3 x10^3/uL (4.0-11.0) Red Blood Count 4.56 x10^6/uL (4.30-5.70) Hemoglobin 13.7 g/dL (13.0-17.5) Hematocrit 40.6 % (39.0-53.0) Mean Corpuscular Volume 89 fL (79-100) Mean Corpuscular Hemoglobin 30 pg (25-35) Mean Corpuscular Hemoglobin Concent 34 g/dL (31-37) Red Cell Distribution Width 13.9 % (11.5-14.5) Platelet Count 186 x10^3/uL (140-400) Neutrophils (%) (Auto) 55 % (31-73) Lymphocytes (%) (Auto) 37 % (24-48) Monocytes (%) (Auto) 6 % (0-9) Eosinophils (%) (Auto) 2 % (0-3) Basophils (%) (Auto) 0 % (0-3) Neutrophils # (Auto) 3.4 x10^3uL (1.8-7.7) Lymphocytes # (Auto) 2.3 x10^3/uL (1.0-4.8) Monocytes # (Auto) 0.4 x10^3/uL (0.0-1.1) Eosinophils # (Auto) 0.1 x10^3/uL (0.0-0.7) Basophils # (Auto) 0.0 x10^3/uL (0.0-0.2) Prothrombin Time 12.9 SEC (11.7-14.0) Prothromb Time International Ratio 1.0 (0.8-1.1) Sodium Level 139 mmol/L (136-145) Potassium Level 4.4 mmol/L (3.5-5.1) Chloride Level 103 mmol/L (98-107) Carbon Dioxide Level 25 mmol/L (21-32) Anion Gap 11 (6-14) Blood Urea Nitrogen 15 mg/dL (8-26) Creatinine 1.0 mg/dL (0.7-1.3) Estimated GFR (Cockcroft-Gault) 75.7 BUN/Creatinine Ratio 15 (6-20) Glucose Level 100 mg/dL (70-99) Calcium Level 9.7 mg/dL (8.5-10.1) Total Bilirubin 0.6 mg/dL (0.2-1.0) Aspartate Amino Transf (AST/SGOT) 25 U/L (15-37) Alanine Aminotransferase (ALT/SGPT) 37 U/L (16-63) Alkaline Phosphatase 95 U/L (46-116) Troponin I Quantitative < 0.017 ng/mL (0.000-0.055) < 0.017 ng/mL (0.000-0.055) < 0.017 ng/mL (0.000-0.055) GE-Szv-P-Type Natriuretic Peptide 29 pg/mL (0-124) Total Protein 7.9 g/dL (6.4-8.2) Albumin 4.0 g/dL (3.4-5.0) Albumin/Globulin Ratio 1.0 (1.0-1.7) Laboratory Tests Test 03/29/19 12:48 03/29/19 17:10 03/29/19 19:45 White Blood Count 6.3 x10^3/uL (4.0-11.0) Red Blood Count 4.56 x10^6/uL (4.30-5.70) Hemoglobin 13.7 g/dL (13.0-17.5) Hematocrit 40.6 % (39.0-53.0) Mean Corpuscular Volume 89 fL (79-100) Mean Corpuscular Hemoglobin 30 pg (25-35) Mean Corpuscular Hemoglobin Concent 34 g/dL (31-37) Red Cell Distribution Width 13.9 % (11.5-14.5) Platelet Count 186 x10^3/uL (140-400) Neutrophils (%) (Auto) 55 % (31-73) Lymphocytes (%) (Auto) 37 % (24-48) Monocytes (%) (Auto) 6 % (0-9) Eosinophils (%) (Auto) 2 % (0-3) Basophils (%) (Auto) 0 % (0-3) Neutrophils # (Auto) 3.4 x10^3uL (1.8-7.7) Lymphocytes # (Auto) 2.3 x10^3/uL (1.0-4.8) Monocytes # (Auto) 0.4 x10^3/uL (0.0-1.1) Eosinophils # (Auto) 0.1 x10^3/uL (0.0-0.7) Basophils # (Auto) 0.0 x10^3/uL (0.0-0.2) Prothrombin Time 12.9 SEC (11.7-14.0) Prothromb Time International Ratio 1.0 (0.8-1.1) Sodium Level 139 mmol/L (136-145) Potassium Level 4.4 mmol/L (3.5-5.1) Chloride Level 103 mmol/L (98-107) Carbon Dioxide Level 25 mmol/L (21-32) Anion Gap 11 (6-14) Blood Urea Nitrogen 15 mg/dL (8-26) Creatinine 1.0 mg/dL (0.7-1.3) Estimated GFR (Cockcroft-Gault) 75.7 BUN/Creatinine Ratio 15 (6-20) Glucose Level 100 mg/dL (70-99) Calcium Level 9.7 mg/dL (8.5-10.1) Total Bilirubin 0.6 mg/dL (0.2-1.0) Aspartate Amino Transf (AST/SGOT) 25 U/L (15-37) Alanine Aminotransferase (ALT/SGPT) 37 U/L (16-63) Alkaline Phosphatase 95 U/L (46-116) Troponin I Quantitative < 0.017 ng/mL (0.000-0.055) < 0.017 ng/mL (0.000-0.055) < 0.017 ng/mL (0.000-0.055) XX-Bjj-F-Type Natriuretic Peptide 29 pg/mL (0-124) Total Protein 7.9 g/dL (6.4-8.2) Albumin 4.0 g/dL (3.4-5.0) Albumin/Globulin Ratio 1.0 (1.0-1.7) Medications Current Medications Aspirin (Children'S Aspirin) 324 mg 1X ONCE PO ; Start 03/29/19 at 12:15; Stop 03/29/19 at 12:16; Status DC Nitroglycerin (Nitrostat) 0.4 mg PRN Q5MIN PRN SL CHEST PAIN Last administered on 03/29/19at 13:05; Start 03/29/19 at 13:00 Fentanyl Citrate (Fentanyl 2ml Vial) 50 mcg 1X ONCE IV Last administered on 03/29/19at 13:17; Start 03/29/19 at 13:00; Stop 03/29/19 at 13:01; Status DC Nitroglycerin (Nitro-Bid Oint) 1 inch 1X ONCE TP Last administered on 03/29/19at 13:23; Start 03/29/19 at 13:30; Stop 03/29/19 at 13:31; Status DC Al Hydroxide/Mg Hydroxide (Mylanta Plus Xs) 30 ml PRN Q3HRS PRN PO HEARTBURN / GAS Last administered on 03/30/19at 02:47; Start 03/29/19 at 15:15 Acetaminophen/ Hydrocodone Bitart (Lortab 5/325) 1 tab PRN Q4HRS PRN PO MILD PAIN 1-3 Last administered on 03/29/19at 22:50; Start 03/29/19 at 15:15 Senna/Docusate Sodium (Senna Plus) 1 tab BID PO Last administered on 03/30/19at 09:05; Start 03/29/19 at 21:00 Magnesium Hydroxide (Milk Of Magnesia) 2,400 mg PRN Q12HR PRN PO CONSTIPATION; Start 03/29/19 at 15:15 Heparin Sodium (Porcine) (Heparin Sodium) 5,000 unit Q12HR SQ Last administered on 03/29/19at 22:46; Start 03/29/19 at 21:00 Aspirin (Ecotrin) 81 mg DAILY08 PO Last administered on 03/30/19at 09:04; Start 03/30/19 at 08:00 Carvedilol (Coreg) 6.25 mg BIDWMEALS PO Last administered on 03/30/19at 09:05; Start 03/29/19 at 17:00 Clopidogrel Bisulfate (Plavix) 75 mg DAILY08 PO Last administered on 03/30/19 09:04; Start 03/30/19 at 08:00 Oxycodone/ Acetaminophen (Percocet 5/325) 1 tab PRN Q4HRS PRN PO MODERATE PAIN Last administered on 03/30/19at 09:21; Start 03/29/19 at 15:15 Fish Oil (Fish Oil) 1,000 mg DAILY PO Last administered on 03/30/19at 09:20; Start 03/30/19 at 09:00 Atorvastatin Calcium (Lipitor) 40 mg QHS PO Last administered on 03/29/19at 22:44; Start 03/29/19 at 21:00 Isosorbide Mononitrate (Imdur) 30 mg DAILY PO Last administered on 03/30/19 09:05; Start 03/29/19 at 18:00 Sodium Chloride 1,000 ml @ 75 mls/hr 1X ONCE IV Last administered on 03/30/19at 09:04; Start 03/30/19 at 09:00; Stop 03/30/19 at 22:19 Active Scripts Active Carvedilol (Carvedilol) 6.25 Mg Tablet 6.25 Mg PO BIDWMEALS Reported Percocet 5-325 Mg Tablet (Oxycodone/Acetaminophen) 1 Each Tablet 1 Tab PO PRN Q4HRS PRN Aspirin Ec (Aspirin) 81 Mg Tablet.dr 81 Mg PO DAILY08 Fish Oil ([place]-3 Fatty Acids) 300 Mg Capsule 1,000 Mg PO DAILY Clopidogrel (Clopidogrel Bisulfate) 75 Mg Tablet 75 Mg PO DAILY07 Vitals/I & O Vital Sign - Last 24 Hours 03/29/19 03/29/19 03/29/19 03/29/19 12:08 12:40 13:04 13:05 Temp 97.5 97.5 Pulse 72 72 68 65 Resp 16 25 15 B/P (MAP) 134/86 (102) 134/77 (96) 124/82 (96) 124/82 Pulse Ox 100 100 100 O2 Delivery Room Air Room Air Room Air 03/29/19 03/29/19 03/29/19 03/29/19 13:17 13:23 13:40 14:10 Pulse 72 66 64 Resp 16 13 15 B/P (MAP) 118/66 126/70 (88) 112/65 (81) Pulse Ox 98 98 99 O2 Delivery Room Air Room Air Room Air 03/29/19 03/29/19 03/29/19 03/29/19 14:40 15:55 16:47 17:47 Temp 97.6 97.6 Pulse 68 65 Resp 16 18 B/P (MAP) 115/80 (92) 142/86 (104) Pulse Ox 100 100 99 99 O2 Delivery Room Air Room Air Room Air 03/29/19 03/29/19 03/29/19 03/30/19 17:48 19:50 23:30 03:05 Temp 98.1 97.7 97.8 98.1 97.7 97.8 Pulse 74 75 81 64 Resp 20 20 18 B/P (MAP) 124/68 112/69 (83) 98/54 (69) 103/56 (72) Pulse Ox 94 94 98 O2 Delivery Room Air Room Air Room Air 03/30/19 03/30/19 03/30/19 03/30/19 07:00 09:05 09:05 09:21 Temp 97.4 97.4 Pulse 67 67 67 Resp 18 B/P (MAP) 107/56 (73) 107/56 107/56 Pulse Ox 97 97 O2 Delivery Room Air Room Air Intake and Output 03/29/19 03/29/19 03/30/19 14:59 22:59 06:59 Intake Total 300 ml 600 ml Balance 300 ml 600 ml SESAR SHINE MD March 30, 2019 09:24
--- NOTE | 2019-03-30 09:47 | EKG ---
[facility] [address] [place] [address] Test Date: 2019-03-29 Test Time: 15:10:49 Pat Name: ERICA CUNHA Department: Room: Gender: M Research Support Specialist: : [id number] Requested By: GNIA DELCID Order Number: [id number] Reading MD: Measurements Intervals [place] Rate: 66 P: 24 AK: 168 QRS: -2 QRSD: 96 T: 17 QT: 412 QTc: 434 Interpretive Statements SINUS RHYTHM LEFTWARD AXIS INCOMPLETE RIGHT BUNDLE BRANCH BLOCK NO SPECIFIC ECG ABNORMALITIES RI6.01 No previous ECG available for comparison
[2019-03-30] MEDS ORDERED: LIDOCAINE 1% PF 2 ML VIAL. ONE (12:03)
[2019-03-30] MEDS ORDERED: IOHEXOL 300 MG/ML 100ML VIAL. ONE (12:03)
--- NOTE | 2019-03-30 12:11 | NUR ---
SS following for discharge planning. SS reviewed pt chart. Pt is from home with spouse and is currently on room air. No discharge needs noted at this time. SS will continue to follow for discharge planning.
--- NOTE | 2019-03-30 12:39 | CARD ---
MR#: [id number] Date of Study: 03/30/2019 Ordering Physician: MAJO BALTAZAR, Referring Physician: JESUS GABRIEL Tech: Delmi Bernaladrielpaz APPROVED REPORT EXAM: Two-dimensional and M-mode echocardiogram with Doppler and color Doppler. Other Information Quality : GoodHR: 65bpm Rhythm : Pacemaker INDICATION CAD Chest Pain Surgery/Intervention Pacemaker: Date: 2010 2D DIMENSIONS RVDd3.5 (2.9-3.5cm)Left Atrium(2D)3.8 (1.6-4.0cm) IVSd1.1 (0.7-1.1cm)Aortic Root(2D)3.1 (2.0-3.7cm) LVDd4.7 (3.9-5.9cm)LVOT Diameter2.1 (1.8-2.4cm) PWd1.0 (0.7-1.1cm)LVDs3.4 (2.5-4.0cm) FS (%) 27.7 %SV54.4 ml LVEF(%)53.7 (>50%) Aortic Valve AoV Peak Evert.133.5cm/sAoV VTI22.2cm AO Peak GR.7.1mmHgLVOT Peak Evert.102.1cm/s LVOT VTI 21.11cmAO Mean GR.3mmHg TYRA (VMAX)1.63hu1SXF (VTI)3.21cm2 Mitral Valve MV E Idbhbhah00.0cm/sMV DECEL MDIO220xk MV A Rhdwhdro42.2cm/sMV VBQ08zg E/A Ratio1.1MVA (PHT)3.71cm2 TDI E/Lateral E'5.7E/Medial E'8.0 Pulmonary Valve PV Peak Aznwgwvf78.9cm/sPV Peak Grad.3mmHg Tricuspid Valve TR P. [place]arg[place]ou888wl/sRAP WEQTKTXI3fyHj TR Peak Gr.52xkEzISRM82lvGa Pulmonary Vein S1 Jynscgwz39.6cm/sD2 Jkxceodx36.4cm/s PVa [id number] LEFT VENTRICLE The left ventricle is normal size. There is normal left ventricular wall thickness. The left ventricu lar systolic function is normal. The Ejection Fraction is 55-60%. There is normal LV segmental wall m otion. The left ventricular diastolic function and filling is normal for age. RIGHT VENTRICLE The right ventricle is normal size. There is normal right ventricular wall thickness. The right ventr icular systolic function is normal. There is a pacemaker lead in the right ventricle. ATRIA The left atrium size is normal. The right atrium size is normal. The interatrial septum is intact wit h no evidence for an atrial septal defect or patent foramen ovale as noted on 2-D or Doppler imaging. AORTIC VALVE The aortic valve is thickened but opens well. Doppler and Color Flow revealed no significant aortic r egurgitation. There is no significant aortic valvular stenosis. MITRAL VALVE The mitral valve is thickened but opens well. There is no evidence of mitral valve prolapse. There is no mitral valve stenosis. Doppler and Color Flow revealed no mitral valve regurgitation noted. TRICUSPID VALVE The tricuspid valve is normal in structure and function. Doppler and Color Flow revealed trace tricus pid regurgitation with an estimated PAP of 27 mmHg. There is no tricuspid valve stenosis. PULMONIC VALVE The pulmonary valve is normal in structure and function. Doppler and Color Flow revealed trace to mil d pulmonic valvular regurgitation. GREAT VESSELS The aortic root is normal in size. The IVC was not visualized. PERICARDIAL EFFUSION There is no evidence of significant pericardial effusion. Critical Notification Critical Value: No <Conclusion> The left ventricular systolic function is normal. The Ejection Fraction is 55-60%. There is normal LV segmental wall motion. There is a pacemaker lead in the right atrium and right ventricle. Trace tricuspid regurgitation with an estimated PAP of 27 mmHg. There is no evidence of significant pericardial effusion. Signed by : Rustam Le, Electronically Approved : 03/30/2019 12:39:14
[2019-03-30] MEDS ORDERED: fentaNYL PF VIAL 100 MCG/2 ML VIAL ONE ×2 (14:05→14:28)
[2019-03-30] MEDS ORDERED: VERAPAMIL 5 MG/2 ML VIAL. ONE (14:05)
[2019-03-30] MEDS ORDERED: NITROGLYCERIN 200 MCG/2 ML SYRINGE FOR CATH/VASC LAB. ONE (14:05)
[2019-03-30] MEDS ORDERED: MIDAZOLAM HCL/PF 2 MG/2 ML VIAL. ONE ×2 (14:05→14:28)
[2019-03-30] MEDS ORDERED: HEPARIN for IV BOLUS 10,000 UNIT/10 ML VIAL. ONE (14:05)
[2019-03-30] MEDS ORDERED: VERAPAMIL 5 MG/2 ML VIAL. IART ONE (14:15)
[2019-03-30] MEDS ORDERED: NITROGLYCERIN 200 MCG/2 ML SYRINGE FOR CATH/VASC LAB. IART ONE (14:15)
[2019-03-30] MEDS ORDERED: LIDOCAINE 1% PF 2 ML VIAL. INJ ONE (14:15)
[2019-03-30] MEDS ORDERED: IOHEXOL 300 MG/ML 100ML VIAL. IART ONE (14:15)
[2019-03-30] MEDS ORDERED: HEPARIN for IV BOLUS 10,000 UNIT/10 ML VIAL. IART ONE (14:15)
[2019-03-30] MEDS ORDERED: MIDAZOLAM HCL/PF 2 MG/2 ML VIAL. IV ONE ×2 (14:15→15:00)
[2019-03-30] MEDS ORDERED: fentaNYL PF VIAL 100 MCG/2 ML VIAL IV ONE ×2 (14:15→15:00)
[2019-03-30] MEDS ORDERED: CONTRAST GIVEN. MC PRN (14:30)
[2019-03-30] MEDS ORDERED: IV 1/2 NORMAL SALINE 1,000 ML IV SCH (15:16)
--- NOTE | 2019-03-30 15:16 | PDOC ---
MODERATE SEDATION ASSESSMENT RISKS/ALTERNATIVES Risks/Alternatives Risks and alternatives of this type of sedation and procedure discussed with: RISK/ALTERNATIVES: Patient H & P ON CHART H & P H & P on chart and reviewed for co-morbid conditions and appropriate labs. H&P ON CHART: Yes STATUS PREG STATUS ASSESSED: N/A MEDS/ALLERGIES REVIEWED Meds/Allergies Reviewed Medications and Allergies including time and route of recently administered narcotics and sedatives. MEDS/ALLERGIES REVIEWED: Yes ASA RATING ASA RATING: II AIRWAY ASSESSMENT Airway Assessment Airway patency, oral function limitations, presence of caps, crowns, dentures, partials, and ability to extend neck assessed. AIRWAY ASSESSMENT: Yes MALLAMPATI SCORE MALLAMPATI SCORE: II PRE-SEDATION ASSESSMENT PRE-SEDATION ASSESSMENT: Yes ALLIE ESPARZA MD March 30, 2019 15:16
--- NOTE | 2019-03-30 15:27 | CARD ---
MR#: [id number] Date of Study: 03/30/2019 Ordering Physician: MAJO BALTAZAR, Referring Physician: JESUS GABRIEL Tech: RADHA SHAH RTR APPROVED REPORT Technologist: RADHA SHAH RTR Nurse: AMY SCHNEIDER RN Procedure(s) performed: Left heart catheterization, Selective coronary angiography and selective cheryle ography of bypass grafts via left transradial approach Moderate sedation:60 mins Fluoro time: 25 min Dose: 89.1 GYCM2 Contrast: 169 INDICATION The indication(s) include : unstable angina . CSHA Clinical Frailty Scale CSHA Clinical Frailty Scale: Very Fit Heart Failure Heart Failure: No PROCEDURE NARRATIVE After explaining the risks, benefits and alternative options, informed consent was obtained from christin ent. Patient was brought to the cardiac Marketing Copywriter and his left wrist was prepped and draped in the usu al fashion after confirming a positive modified Mika's test. Arterial access was obtained in the lef t radial artery and 6 [place] sheath was inserted. 6 [place] JR4 catheter was used to perform selective angiography of the left internal mammary artery graft to the left anterior descending artery, [place] right coronary artery, saphenous vein graft to the right coronary artery and also the saphenous vein graft to the obtuse marginal branch of left circumflex artery. After several initial unsuccessful at tempts at engaging the left main coronary artery with 6 [place] JL4, 6 [place] JL 3.5, AL0.75 catheters , this was engaged with 6 [place] multipurpose catheter and angiography was performed. LVEDP and trans aortic gradients were measured. Left ventriculogram was not performed due to contrast load used durin g the procedure and since recent echo showed normal LV function. Patient tolerated the procedure well . Hemostasis was achieved using TR band. There were no immediate complications. The following finding s were noted. FINDINGS 1. Hemodynamics: Left ventricle end-diastolic pressure 15 mmHg. No pullback gradient across the aor tic valve. 2. Coronary and bypass graft angiography: a. The left main coronary artery arose from the left sinus of Valsalva, gave rise to the left anteri or descending and left circumflex arteries and showed 70% stenosis in the distal segment. b. The left anterior descending artery showed 80% stenosis in the proximal to midsegment. c. The left circumflex artery showed 100% occlusion in the proximal segment. d. The right coronary artery arose from the right sinus of Valsalva and showed 100% occlusion in the proximal segment. e. The left internal mammary artery graft to the left anterior descending artery was widely patent. f. The saphenous vein graft to the obtuse marginal branch of left circumflex artery was widely paten t. g. The saphenous vein graft to the right coronary artery the previously was found to have significan t lesions on cardiac catheterization one year ago did not show any significant stenosis raising the p ossibility that the previously described lesions were probably from thrombus that has presently resol jayy. Conclusion Severe [place] vessel coronary artery disease s/p coronary artery bypass surgery with patent CARRERO to L AD, patent SVG to obtuse marginal branch of left circumflex artery and also patent SVG to RCA (with r esolution of previously described lesions probably thrombus). No lesions needing intervention were no tyrone. Recommendations Optimization of medical therapy including maximizing antianginal therapy and cardiovascular risk fact or modification. Signed by : Rustam Le, Electronically Approved : 03/30/2019 15:26:59
[2019-03-30] MEDS ORDERED: 0.9 % SODIUM CHLORIDE 10 ML DISP.SYRIN. IV PRN (15:30)
[2019-03-30] MEDS ORDERED: NITROGLYCERIN SUBLINGUAL 0.4 MG BOTTLE OF 25. SL PRN (15:30)
[2019-03-30] MEDS: HEPARIN for SUB-Q USE 5,000 UNIT/ML VIAL. SQ SCH ×2 (16:53→20:30)
[2019-03-30] MEDS: ATORVASTATIN CALCIUM 40 MG TABLET. PO SCH (20:17)
--- NOTE | 2019-03-31 00:07 | NUR ---
TR band removed at 2100, site cleaned with warm wipes, scant old drainage noted, and transparent tegaderm dressing applied. Arm board still on, pt advised of activity restrictions to L wrist.
[2019-03-31 03:25] VITALS: BP 106/54
[2019-03-31 06:38] LABS: BASO % 0 % (0-3); EOS # 0.1 x10^3/uL (0.0-0.7); EOS % 2 % (0-3); HEMOGLOBIN 12.9 g/dL (13.0-17.5); LYMPH % 34 % (24-48); MEAN CORPUSCULAR HEMOGLOBIN 31 pg (25-35); MEAN CORPUSCULAR HGB CONC 35 g/dL (31-37); MEAN CORPUSCULAR VOLUME 89 fL (79-100); MONO # 0.4 x10^3/uL (0.0-1.1); MONO % 7 % (0-9); NEUT # 3.4 x10^3uL (1.8-7.7); NEUT % 57 % (31-73); PLATELET COUNT 170 x10^3/uL (140-400); RED BLOOD COUNT 4.17 x10^6/uL (4.30-5.70); RED CELL DISTRIBUTION WIDTH 13.6 % (11.5-14.5); WHITE BLOOD COUNT 5.9 x10^3/uL (4.0-11.0)
[2019-03-31 07:24] VITALS: BP 122/77
[2019-03-31 07:34] LABS: CALCIUM 8.8 mg/dL (8.5-10.1); GFR 75.7
[2019-03-31] MEDS: CLOPIDOGREL BISULFATE 75 MG TABLET PO SCH (08:33)
[2019-03-31] MEDS: SENNOSIDES/DOCUSATE 8.6/50MG TABLET. PO SCH (08:33)
[2019-03-31] MEDS: CARVEDILOL 6.25 MG TABLET. PO SCH (08:33)
[2019-03-31] MEDS: ASPIRIN ENTERIC COATED 81 MG TABLET.DR. PO SCH (08:33)
[2019-03-31] MEDS: OMEGA-3 FATTY ACIDS/FISH OIL 1,000 MG CAPSULE. PO SCH (08:34)
[2019-03-31] MEDS: ISOSORBIDE MONONITRATE ER 30 MG TAB.ER.24H PO SCH (08:34)
[2019-03-31] MEDS: HEPARIN for SUB-Q USE 5,000 UNIT/ML VIAL. SQ SCH (08:40)
--- NOTE | 2019-03-31 10:04 | PDOC3 ---
Discharge Summary Visit Information Date of Admission: March 29, 2019 Date of Discharge: March 31, 2019 Final Diagnosis Problems Medical Problems: (1) Chest pain Status: Acute Brief Hospital Course Allergies Allergies Coded Allergies Type Severity Reaction Last Updated Verified morphine Adverse Reaction Mild Agitation 04/21/18 Yes Vital Signs Vital Signs Date Time Temp Pulse Resp B/P (MAP) Pulse Ox O2 Delivery O2 Flow Rate FiO2 03/31/19 08:34 65 122/77 03/31/19 08:00 Room Air 03/31/19 07:24 98.0 16 96 98.0 03/30/19 15:09 2.0 Lab Results Laboratory Tests Test 03/29/19 12:48 03/29/19 17:10 03/29/19 19:45 03/30/19 09:00 White Blood Count 6.3 x10^3/uL (4.0-11.0) Red Blood Count 4.56 x10^6/uL (4.30-5.70) Hemoglobin 13.7 g/dL (13.0-17.5) Hematocrit 40.6 % (39.0-53.0) Mean Corpuscular Volume 89 fL (79-100) Mean Corpuscular Hemoglobin 30 pg (25-35) Mean Corpuscular Hemoglobin Concent 34 g/dL (31-37) Red Cell Distribution Width 13.9 % (11.5-14.5) Platelet Count 186 x10^3/uL (140-400) Neutrophils (%) (Auto) 55 % (31-73) Lymphocytes (%) (Auto) 37 % (24-48) Monocytes (%) (Auto) 6 % (0-9) Eosinophils (%) (Auto) 2 % (0-3) Basophils (%) (Auto) 0 % (0-3) Neutrophils # (Auto) 3.4 x10^3uL (1.8-7.7) Lymphocytes # (Auto) 2.3 x10^3/uL (1.0-4.8) Monocytes # (Auto) 0.4 x10^3/uL (0.0-1.1) Eosinophils # (Auto) 0.1 x10^3/uL (0.0-0.7) Basophils # (Auto) 0.0 x10^3/uL (0.0-0.2) Prothrombin Time 12.9 SEC (11.7-14.0) Prothromb Time International Ratio 1.0 (0.8-1.1) Sodium Level 139 mmol/L (136-145) Potassium Level 4.4 mmol/L (3.5-5.1) Chloride Level 103 mmol/L (98-107) Carbon Dioxide Level 25 mmol/L (21-32) Anion Gap 11 (6-14) Blood Urea Nitrogen 15 mg/dL (8-26) Creatinine 1.0 mg/dL (0.7-1.3) Estimated GFR (Cockcroft-Gault) 75.7 BUN/Creatinine Ratio 15 (6-20) Glucose Level 100 mg/dL (70-99) Calcium Level 9.7 mg/dL (8.5-10.1) Total Bilirubin 0.6 mg/dL (0.2-1.0) Aspartate Amino Transf (AST/SGOT) 25 U/L (15-37) Alanine Aminotransferase (ALT/SGPT) 37 U/L (16-63) Alkaline Phosphatase 95 U/L (46-116) Troponin I Quantitative < 0.017 ng/mL (0.000-0.055) < 0.017 ng/mL (0.000-0.055) < 0.017 ng/mL (0.000-0.055) MA-Zwb-X-Type Natriuretic Peptide 29 pg/mL (0-124) Total Protein 7.9 g/dL (6.4-8.2) Albumin 4.0 g/dL (3.4-5.0) Albumin/Globulin Ratio 1.0 (1.0-1.7) Triglycerides Level 175 mg/dL (0-150) Cholesterol Level 159 mg/dL (0-200) LDL Cholesterol, Calculated 92 mg/dL (0-100) VLDL Cholesterol, Calculated 35 mg/dL (0-40) Non-HDL Cholesterol Calculated 127 mg/dL (0-129) HDL Cholesterol 32 mg/dL (40-60) Cholesterol/HDL Ratio 5.0 Test 03/31/19 05:52 White Blood Count 5.9 x10^3/uL (4.0-11.0) Red Blood Count 4.17 x10^6/uL (4.30-5.70) Hemoglobin 12.9 g/dL (13.0-17.5) Hematocrit 37.0 % (39.0-53.0) Mean Corpuscular Volume 89 fL (79-100) Mean Corpuscular Hemoglobin 31 pg (25-35) Mean Corpuscular Hemoglobin Concent 35 g/dL (31-37) Red Cell Distribution Width 13.6 % (11.5-14.5) Platelet Count 170 x10^3/uL (140-400) Neutrophils (%) (Auto) 57 % (31-73) Lymphocytes (%) (Auto) 34 % (24-48) Monocytes (%) (Auto) 7 % (0-9) Eosinophils (%) (Auto) 2 % (0-3) Basophils (%) (Auto) 0 % (0-3) Neutrophils # (Auto) 3.4 x10^3uL (1.8-7.7) Lymphocytes # (Auto) 2.0 x10^3/uL (1.0-4.8) Monocytes # (Auto) 0.4 x10^3/uL (0.0-1.1) Eosinophils # (Auto) 0.1 x10^3/uL (0.0-0.7) Basophils # (Auto) 0.0 x10^3/uL (0.0-0.2) Sodium Level 140 mmol/L (136-145) Potassium Level 4.0 mmol/L (3.5-5.1) Chloride Level 104 mmol/L (98-107) Carbon Dioxide Level 25 mmol/L (21-32) Anion Gap 11 (6-14) Blood Urea Nitrogen 15 mg/dL (8-26) Creatinine 1.0 mg/dL (0.7-1.3) Estimated GFR (Cockcroft-Gault) 75.7 Glucose Level 115 mg/dL (70-99) Calcium Level 8.8 mg/dL (8.5-10.1) Laboratory Tests Test 03/31/19 05:52 White Blood Count 5.9 x10^3/uL (4.0-11.0) Red Blood Count 4.17 x10^6/uL (4.30-5.70) Hemoglobin 12.9 g/dL (13.0-17.5) Hematocrit 37.0 % (39.0-53.0) Mean Corpuscular Volume 89 fL (79-100) Mean Corpuscular Hemoglobin 31 pg (25-35) Mean Corpuscular Hemoglobin Concent 35 g/dL (31-37) Red Cell Distribution Width 13.6 % (11.5-14.5) Platelet Count 170 x10^3/uL (140-400) Neutrophils (%) (Auto) 57 % (31-73) Lymphocytes (%) (Auto) 34 % (24-48) Monocytes (%) (Auto) 7 % (0-9) Eosinophils (%) (Auto) 2 % (0-3) Basophils (%) (Auto) 0 % (0-3) Neutrophils # (Auto) 3.4 x10^3uL (1.8-7.7) Lymphocytes # (Auto) 2.0 x10^3/uL (1.0-4.8) Monocytes # (Auto) 0.4 x10^3/uL (0.0-1.1) Eosinophils # (Auto) 0.1 x10^3/uL (0.0-0.7) Basophils # (Auto) 0.0 x10^3/uL (0.0-0.2) Sodium Level 140 mmol/L (136-145) Potassium Level 4.0 mmol/L (3.5-5.1) Chloride Level 104 mmol/L (98-107) Carbon Dioxide Level 25 mmol/L (21-32) Anion Gap 11 (6-14) Blood Urea Nitrogen 15 mg/dL (8-26) Creatinine 1.0 mg/dL (0.7-1.3) Estimated GFR (Cockcroft-Gault) 75.7 Glucose Level 115 mg/dL (70-99) Calcium Level 8.8 mg/dL (8.5-10.1) Brief Hospital Course 63 year old male with hx of cad s/p cabg 2006 [address] Aguilar who presents with CP while at work today. 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 he walked up a hill and [address] experienced chest pain and substernal CP. patient stopped and went back to rest and subsequently vomited. he came home and told him to go to ED. presenting with chest pain. chest pain 7/10 still. no improvement with NTG. reports taking all meds as prescribed, on dual anti-plt therapy. no hx of DVT or PE. reports stress test 1 year ago which was negative. in the ED patient had neg trop and no obvious ST or T wave changes on EKG. Hospitalist called for admission. patient admitted to a tele bed. no events on tele. trops were trended and negative. cards consulted. echo done and normal EF without WMA. cardiac cath performed and showed Severe [place] vessel coronary artery disease s/p coronary artery bypass surgery with patent CARRERO to LAD, patent SVG to obtuse marginal branch of left circumflex artery and also patent SVG to RCA (with resolution of previously described lesions probably thrombus). recommendation was medical management. plan to continue ASA, statin, plavix, BB therapy. patient chest pain free at time of discharge. he has scheduled follow up with cardiology 04/01 per patient. patient discharged home in stable condition. Discharge Information Condition at Discharge: Stable Follow Up: Weeks Disposition/Orders: D/C to Home Scheduled Aspirin (Aspirin Ec) 81 Mg Tablet.dr, 81 MG PO DAILY08 for heart, (Reported) Entered as Reported by: SHER MANRIQUEZ on 12/04/14 1742 Last Action: Continued on 03/29/191506 by JESUS GABRIEL MD Carvedilol (Carvedilol ) 6.25 Mg Tablet, 6.25 MG PO BIDWMEALS, #60 Prescribed by: ZULEYMA LITTLE on 06/17/18 1240 Last Action: Continued on 03/29/191506 by JESUS GABRIEL MD Clopidogrel Bisulfate (Clopidogrel) 75 Mg Tablet, 75 MG PO DAILY07 for blood thinner, (Reported) Entered as Reported by: AMISHA STAUFFER on 10/25/132124 Last Action: Continued on 03/29/191506 by JESUS GABRIEL MD Aubrey-3 Fatty Acids (Fish Oil) 300 Mg Capsule, 1,000 MG PO DAILY for cholesterol , (Reported) Entered as Reported by: AMISHA STAUFFER on 10/25/132125 Last Action: Converted on 03/29/191506 by JESUS GABRIEL MD Scheduled PRN Oxycodone/Apap 5-325 (Percocet 5-325 Mg Tablet ) 1 Each Tablet, 1 TAB PO PRN Q4HRS PRN for PAIN, #32 Ref 0 (Reported) Entered as Reported by: TOBY CALLAWAY RN on 04/21/18 1319 Last Action: Continued on 03/29/19 1507 by MD NERY JAMIL MANEESH MD March 31, 2019 10:04
[2019-03-31 11:08] VITALS: BP 114/73
[2019-03-31] MEDS ORDERED: ISOS30TA4 PO ×2 (11:17→11:18)
[2019-03-31] MEDS ORDERED: ATOR40TA59 PO (11:20)
--- NOTE | 2019-03-31 13:00 | NUR ---
Discharge Note: ERICA CUNHA [facility] Discharge instructions and discharge home medications reviewed with Patient and a copy given. All questions have been answered and understanding verbalized. The following instructions and handouts were given: Post cardiac cath instructions and cardiac diet. Discontinued iv lines and catheter intact. Patient discharged to home with self-care via private vehicle.
== END 2019-03-31 12:40 | disposition home or self-care (01) | DRG 287 ==
LOC: ER 12:02 → 2 SOUTH 13:50
PROVIDERS: ADMIT Internal Medicine; ATTEND Internal Medicine
PROC: 4A023N7 Measurement of Cardiac Sampling and Pressure, Left Heart, Percutaneous Approach (ICD-10-PCS; principal; 2019-03-30)
PROC: B2111ZZ Fluoroscopy of Multiple Coronary Arteries using Low Osmolar Contrast (ICD-10-PCS; 2019-03-30)
PROC: B2131ZZ Fluoroscopy of Multiple Coronary Artery Bypass Grafts using Low Osmolar Contrast (ICD-10-PCS; 2019-03-30)
PROC: B2181ZZ Fluoroscopy of Left Internal Mammary Bypass Graft using Low Osmolar Contrast (ICD-10-PCS; 2019-03-30)
DX: I25.110 Atherosclerotic heart disease of native coronary artery with unstable angina pectoris (principal); I25.82 Chronic total occlusion of coronary artery; I10 Essential (primary) hypertension; E78.5 Hyperlipidemia, unspecified; K21.9 Gastro-esophageal reflux disease without esophagitis; F41.9 Anxiety disorder, unspecified; M19.90 Unspecified osteoarthritis, unspecified site; R07.89 Other chest pain; I25.2 Old myocardial infarction; Z79.82 Long term (current) use of aspirin; Z79.899 Other long term (current) drug therapy; Z82.49 Family history of ischemic heart disease and other diseases of the circulatory system; Z86.711 Personal history of pulmonary embolism; Z86.73 Personal history of transient ischemic attack (TIA), and cerebral infarction without residual deficits; Z90.49 Acquired absence of other specified parts of digestive tract; Z95.1 Presence of aortocoronary bypass graft; Z87.891 Personal history of nicotine dependence; Z83.3 Family history of diabetes mellitus; Z86.718 Personal history of other venous thrombosis and embolism; Z79.01 Long term (current) use of anticoagulants
CPT/HCPCS: 36415; 71045; 80048; 80053; 80061; 83880; 84484; 85025; 85610; 93005; 93306; 93459; 96374; 99152; 99153; C1769; C1887; C1892; J1644; J2250; J3010; J3490; J7030; Q9967; 99285-25

== ENCOUNTER 2019-09-02 12:17 | Inpatient (IN) | payer OTHER, MEDICARE ==
[~2019-09-02] VITALS: Ht 180.3 cm; Wt 91.2 kg
[~2019-09-02 12:17] MED LIST changes: +ISOS30TA4 PO; -PANT40TA3 PO; -PANT40TA5 PO; +PANT40TA77 PO
[2019-09-02] MEDS ORDERED: IV NORMAL SALINE 1000ML BAG 1,000 ML IV SCH (12:32)
--- NOTE | 2019-09-02 12:38 | PHYS DOC ---
Past Medical History Past Medical History: CAD, CVA, SC, Other Additional Past Medical Histor: cvd Past Surgical History: Appendectomy, Cholecystectomy, Coronary Bypass Surgery, Pacemaker, Other Additional Past Surgical Histo: SBO SURGERY, CABG X 3 2006,2011 Alcohol Use: None Drug Use: None Adult General Chief Complaint Chief Complaint: CHEST PAIN HPI HPI Patient is a 64-year-old male who presents with complaint of chest pain that started about 2 hours ago while he was at work. 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 He denies any nausea, vomiting or diaphoresis. He does indicate that initially pain was quite severe and it continues to be severe but is lesser after resting. He rates it currently at an 8 out of 10. He states that over the last week he has had escalating exertional dyspnea as well as chest pressure when he walks short distances. He states that the symptoms would soon resolved with rest. He does have a strong cardiac history having had CABG 2.[] Review of Systems Review of Systems Constitutional: Denies fever or chills [] Respiratory: Denies cough or shortness of breath [] Cardiovascular: No additional information not addressed in HPI [] GI: Denies abdominal pain, nausea, vomiting or diarrhea [] Integument: Denies rash or skin lesions [] Neurologic: Denies headache, focal weakness or sensory changes [] All other systems were reviewed and found to be within normal limits, except as documented in this note. Current Medications Current Medications Current Medications Medications (Trade) Dose Ordered Sig/[facility] Start Time Stop Time Status Last Admin Dose Admin Aspirin (Children'S Aspirin) 324 mg 1X ONCE 09/02/19 13:00 09/02/19 13:01 DC Fentanyl Citrate (Fentanyl 2ml Vial) 50 mcg PRN Q15MIN PRN 09/02/19 12:45 09/03/19 12:44 Nitroglycerin (Nitrostat) 0.4 mg PRN Q5MIN PRN 09/02/19 12:45 09/03/19 12:44 Sodium Chloride 1,000 ml @ 1,000 mls/hr Q1H 09/02/19 12:32 09/02/19 13:31 DC 09/02/19 13:33 1,000 MLS/HR Allergies Allergies Allergies Coded Allergies Type Severity Reaction Last Updated Verified No Known Medication Allergies Allergy Unknown 03/31/19 Yes morphine Adverse Reaction Mild Agitation 04/21/18 Yes Physical Exam Physical Exam Constitutional: Well developed, well nourished, no acute distress, non-toxic appearance. [] HENT: Normocephalic, atraumatic, bilateral external ears normal, oropharynx moist, no oral exudates, nose normal. [] Eyes: PERRLA, EOMI, conjunctiva normal, no discharge. [] Neck: Normal range of motion, no tenderness, supple, no stridor. [] Cardiovascular: Regular rate and rhythm[] Lungs & Thorax: Bilateral breath sounds clear to auscultation [] Abdomen: Bowel sounds normal, soft, no tendernesss. [] Skin: Warm, dry, no erythema, no rash. [] Extremities: No tenderness, no cyanosis, no clubbing, ROM intact, no edema. [] Neurologic: Alert and oriented X 3, no focal deficits noted. [] Current Patient Data Vital Signs Vital Signs Date Time Temp Pulse Resp B/P (MAP) Pulse Ox O2 Delivery O2 Flow Rate FiO2 09/02/19 12:23 97.8 84 24 156/82 (106) 100 Room Air 97.8 Lab Values Laboratory Tests Test 09/02/19 12:23 09/02/19 12:53 Urine Collection Type Void Urine Color Yellow Urine Clarity Clear Urine pH 6.5 Urine Specific [place] 1.025 Urine Protein Negative mg/dL (NEG-TRACE) Urine Glucose (UA) Negative mg/dL (NEG) Urine Ketones (Stick) Negative mg/dL (NEG) Urine Blood Negative (NEG) Urine Nitrite Negative (NEG) Urine Bilirubin Negative (NEG) Urine Urobilinogen Dipstick 1.0 mg/dL (0.2 mg/dL) Urine Leukocyte Esterase Negative (NEG) Urine RBC 0 /HPF (0-2) Urine WBC 1-4 /HPF (0-4) Urine Squamous Epithelial Cells Occ /LPF Urine Bacteria Few /HPF (0-FEW) Urine Mucus Slight /LPF White Blood Count 4.9 x10^3/uL (4.0-11.0) Red Blood Count 4.37 x10^6/uL (4.30-5.70) Hemoglobin 13.3 g/dL (13.0-17.5) Hematocrit 38.5 % (39.0-53.0) L Mean Corpuscular Volume 88 fL (79-100) Mean Corpuscular Hemoglobin 31 pg (25-35) Mean Corpuscular Hemoglobin Concent 35 g/dL (31-37) Red Cell Distribution Width 13.9 % (11.5-14.5) Platelet Count 156 x10^3/uL (140-400) Neutrophils (%) (Auto) 50 % (31-73) Lymphocytes (%) (Auto) 43 % (24-48) Monocytes (%) (Auto) 6 % (0-9) Eosinophils (%) (Auto) 2 % (0-3) Basophils (%) (Auto) 0 % (0-3) Neutrophils # (Auto) 2.4 x10^3/uL (1.8-7.7) Lymphocytes # (Auto) 2.1 x10^3/uL (1.0-4.8) Monocytes # (Auto) 0.3 x10^3/uL (0.0-1.1) Eosinophils # (Auto) 0.1 x10^3/uL (0.0-0.7) Basophils # (Auto) 0.0 x10^3/uL (0.0-0.2) Prothrombin Time 12.3 SEC (11.7-14.0) Prothrombin Time INR 0.9 (0.8-1.1) D-Dimer (Sussy) 0.44 ug/mlFEU (0.00-0.50) Troponin I Quantitative < 0.017 ng/mL (0.000-0.055) Laboratory Tests 09/02/19 12:53 EKG EKG [] Interpretation Time: EKG demonstrates normal sinus rhythm with rate of 83. Radiology/Procedures Radiology/Procedures [] Impressions: PROCEDURE: PORTABLE CHEST 1V PORTABLE CHEST 1V History: Chest pain Comparison: March 29, 2019 Findings: No consolidation or pleural effusion. Normal heart size. Left-sided pacemaker, unchanged. Prior median sternotomy. No pneumothorax. Surgical clips right upper quadrant. Impression: 1. No acute cardiopulmonary process. Electronically signed by: Eder Cox DO (09/02/2019 12:53 PM) [facility] Course & Med Decision Making Course & Med Decision Making Pertinent Labs and Imaging studies reviewed. (See chart for details) [] Dragon Disclaimer Dragon Disclaimer This electronic medical record was generated, in whole or in part, using a voice recognition dictation system. Departure Departure Impression: Primary Impression: Unstable angina Disposition: 09 ADMITTED INPATIENT Admitting Physician: YENY (Dr. Magallanes) Condition: IMPROVED Referrals: NO PCP (PCP) JEFF JULIAN Jr. DO Sep 02, 2019 12:37
[2019-09-02 12:44] LABS: BILIRUBIN,URINE NEGATIVE (NEG); CLARITY,URINE CLEAR; COLOR,URINE YELLOW; NITRITE,URINE NEGATIVE (NEG); PH,URINE 6.5; PROTEIN,URINE NEGATIVE (NEG-TRACE)
--- NOTE | 2019-09-02 12:47 | EKG ---
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
[2019-09-02 12:48] LABS: BACTERIA,URINE FEW /HPF (0-FEW); RBC,URINE 0 /HPF (0-2); SQUAMOUS EPITHELIAL CELL,UR OCC /LPF
--- NOTE | 2019-09-02 12:56 | RAD ---
PORTABLE CHEST 1V History: Chest pain Comparison: March 29, 2019 Findings: No consolidation or pleural effusion. Normal heart size. Left-sided pacemaker, unchanged. Prior median sternotomy. No pneumothorax. Surgical clips right upper quadrant. Impression: 1. No acute cardiopulmonary process. Electronically signed by: Eder Cox DO (09/02/2019 12:53 PM) [facility]
[2019-09-02] MEDS ORDERED: ASPIRIN CHEWABLE 81 MG TABLET. PO ONE (13:00)
[2019-09-02 13:08] LABS: BASO % 0 % (0-3); EOS # 0.1 x10^3/uL (0.0-0.7); EOS % 2 % (0-3); HEMATOCRIT 38.5 % (39.0-53.0); HEMOGLOBIN 13.3 g/dL (13.0-17.5); LYMPH # 2.1 x10^3/uL (1.0-4.8); LYMPH % 43 % (24-48); MEAN CORPUSCULAR HEMOGLOBIN 31 pg (25-35); MEAN CORPUSCULAR HGB CONC 35 g/dL (31-37); MEAN CORPUSCULAR VOLUME 88 fL (79-100); MONO # 0.3 x10^3/uL (0.0-1.1); MONO % 6 % (0-9); NEUT # 2.4 x10^3/uL (1.8-7.7); NEUT % 50 % (31-73); PLATELET COUNT 156 x10^3/uL (140-400); RED BLOOD COUNT 4.37 x10^6/uL (4.30-5.70); RED CELL DISTRIBUTION WIDTH 13.9 % (11.5-14.5); WHITE BLOOD COUNT 4.9 x10^3/uL (4.0-11.0)
[2019-09-02 13:17] LABS: PROTHROMBIN TIME PATIENT 12.3 SEC (11.7-14.0)
[2019-09-02 13:21] LABS: D-DIMER 0.44 ug/mlFEU (0.00-0.50)
--- NOTE | 2019-09-02 13:41 | PDOC1 ---
History and Physical Date of Admission Date of Admission DATE: 09/02/19 TIME: 11:39 Identification/Chief Complaint Chief Complaint seen in er with chest pain, precordial on last stay 03/28cardiac cath performed and showed Severe [place] vessel coronary artery disease s/p coronary artery bypass surgery with patent CARRERO to LAD, patent SVG to obtuse marginal branch of left circumflex artery and also patent SVG to RCA (with resolution of previously described lesions probably thrombus). recommendation was medical management. plan to continue ASA, statin, plavix, BB therapy. complaint of chest pain that started about 2 hours ago while he was at work. 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 He denies any nausea, vomiting or diaphoresis. He does indicate that initially pain was quite severe and it continues to be severe but is lesser after resting. He rates it currently at an 8 out of 10. He states that over the last week he has had escalating exertional dyspnea as well as chest pressure when he walks short distances. Past Medical History Past Medical History Past Medical History Past Medical History Past Medical History: CAD, CVA, MD, Other Additional Past Medical Histor: cvd Past Surgical History: Appendectomy, Cholecystectomy, Coronary Bypass Surgery, Pacemaker, Other Additional Past Surgical Histo: SBO SURGERY, CABG X 3 2006,2011 Alcohol Use: None Drug Use: None fhx cad Cardiovascular: CAD, HTN, MD, Syncope, Hyperlipidemia, Other Pulmonary: Pulmonary embolus CENTRAL NERVOUS SYSTEM: CVA GI: Other Heme/Onc: No pertinent hx Hepatobiliary: No pertinent hx Psych: No pertinent hx Musculoskeletal: Osteoarthritis Rheumatologic: No pertinent hx Infectious disease: No pertinent hx Renal/: No pertinent hx Endocrine: No pertinent hx Past Surgical History Past Surgical History: Pacemaker, Appendectomy, Cholecystectomy, CABG, Hernia Repair, Tonsillectomy, Other Family History Family History: Coronary Artery Disease, High Cholestrol Family History: Grandparents Social History Smoke: No ALCOHOL: none Drugs: None Current Medications Current Medications Current Medications Aspirin (Children'S Aspirin) 324 mg 1X ONCE PO ; Start 09/02/19 at 13:00; Stop 09/02/19 at 13:01; Status DC Nitroglycerin (Nitrostat) 0.4 mg PRN Q5MIN PRN SL CP RATING > 1/10; Start 09/02/19 at 12:45; Stop 09/03/19 at 12:44 Fentanyl Citrate (Fentanyl 2ml Vial) 50 mcg PRN Q15MIN PRN IV PAIN GREATER THAN 3/10; Start 09/02/19 at 12:45; Stop 09/03/19 at 12:44 Sodium Chloride 1,000 ml @ 1,000 mls/hr Q1H IV Last administered on 09/02/19at 13:33; Start 09/02/19 at 12:32; Stop 09/02/19 at 13:31; Status DC Active Scripts Active Carvedilol (Carvedilol) 6.25 Mg Tablet 6.25 Mg PO BIDWMEALS Reported Atorvastatin Calcium 40 Mg Tablet 40 Mg PO DAILY Isosorbide Mononitrate Er (Isosorbide Mononitrate) 30 Mg Tab.er.24h 30 Mg PO DAILY Percocet 5-325 Mg Tablet (Oxycodone/Acetaminophen) 1 Each Tablet 1 Tab PO PRN Q4HRS PRN Aspirin Ec (Aspirin) 81 Mg Tablet.dr 81 Mg PO DAILY08 Fish Oil (Blanco-3 Fatty Acids) 300 Mg Capsule 1,000 Mg PO DAILY Clopidogrel (Clopidogrel Bisulfate) 75 Mg Tablet 75 Mg PO DAILY07 Allergies Allergies: Coded Allergies: No Known Medication Allergies (Verified Allergy, Unknown, 03/31/19) morphine (Verified Adverse Reaction, Mild, Agitation, 04/21/18) ROS Review of System Review of Systems Review of Systems Constitutional: Denies fever or chills [] Respiratory: Denies cough or shortness of breath [] Cardiovascular: No additional information not addressed in HPI [] GI: Denies abdominal pain, nausea, vomiting or diarrhea [] Integument: Denies rash or skin lesions [] Neurologic: Denies headache, focal weakness or sensory changes [] 14 pt systems were reviewed and found to be within normal limits, except as documented . Physical Exam Physical Exam Physical Exam Physical Exam Constitutional: Well developed, well nourished, no acute distress, non-toxic appearance. [] HENT: Normocephalic, atraumatic, bilateral external ears normal, oropharynx moist, no oral exudates, nose normal. [] Eyes: PERRLA, EOMI, conjunctiva normal, no discharge. [] Neck: Normal range of motion, no tenderness, supple, no stridor. [] Cardiovascular: Regular rate and rhythm[] Lungs & Thorax: Bilateral breath sounds clear to auscultation [] Abdomen: Bowel sounds normal, soft, no tendernesss. [] Skin: Warm, dry, no erythema, no rash. [] Extremities: No tenderness, no cyanosis, no clubbing, ROM intact, no edema. [] Neurologic: Alert and oriented X 3, no focal deficits noted. [] General: Alert, Oriented X3, Cooperative, No acute distress Lungs: Clear to auscultation, Normal air movement Heart: S1S2, RRR, no thrills Abdomen: Normal bowel sounds, Soft Rectal Exam: not examined PELVIC: Examination not indicated Extremities: No cyanosis Neuro: Normal speech, Cranial nerves 3-12 NL Psych/Mental Status: Mental status NL, Mood NL Vitals Vitals Vital Signs Date Time Temp Pulse Resp B/P (MAP) Pulse Ox O2 Delivery O2 Flow Rate FiO2 09/02/19 12:23 97.8 84 24 156/82 (106) 100 Room Air 97.8 Labs Labs Laboratory Tests Test 09/02/19 12:23 09/02/19 12:53 Urine Collection Type Void Urine Color Yellow Urine Clarity Clear Urine pH 6.5 Urine Specific [place] 1.025 Urine Protein Negative mg/dL (NEG-TRACE) Urine Glucose (UA) Negative mg/dL (NEG) Urine Ketones (Stick) Negative mg/dL (NEG) Urine Blood Negative (NEG) Urine Nitrite Negative (NEG) Urine Bilirubin Negative (NEG) Urine Urobilinogen Dipstick 1.0 mg/dL (0.2 mg/dL) Urine Leukocyte Esterase Negative (NEG) Urine RBC 0 /HPF (0-2) Urine WBC 1-4 /HPF (0-4) Urine Squamous Epithelial Cells Occ /LPF Urine Bacteria Few /HPF (0-FEW) Urine Mucus Slight /LPF White Blood Count 4.9 x10^3/uL (4.0-11.0) Red Blood Count 4.37 x10^6/uL (4.30-5.70) Hemoglobin 13.3 g/dL (13.0-17.5) Hematocrit 38.5 % (39.0-53.0) Mean Corpuscular Volume 88 fL (79-100) Mean Corpuscular Hemoglobin 31 pg (25-35) Mean Corpuscular Hemoglobin Concent 35 g/dL (31-37) Red Cell Distribution Width 13.9 % (11.5-14.5) Platelet Count 156 x10^3/uL (140-400) Neutrophils (%) (Auto) 50 % (31-73) Lymphocytes (%) (Auto) 43 % (24-48) Monocytes (%) (Auto) 6 % (0-9) Eosinophils (%) (Auto) 2 % (0-3) Basophils (%) (Auto) 0 % (0-3) Neutrophils # (Auto) 2.4 x10^3/uL (1.8-7.7) Lymphocytes # (Auto) 2.1 x10^3/uL (1.0-4.8) Monocytes # (Auto) 0.3 x10^3/uL (0.0-1.1) Eosinophils # (Auto) 0.1 x10^3/uL (0.0-0.7) Basophils # (Auto) 0.0 x10^3/uL (0.0-0.2) Prothrombin Time 12.3 SEC (11.7-14.0) Prothromb Time International Ratio 0.9 (0.8-1.1) D-Dimer (Sussy) 0.44 ug/mlFEU (0.00-0.50) Troponin I Quantitative < 0.017 ng/mL (0.000-0.055) Laboratory Tests Test 09/02/19 12:23 09/02/19 12:53 Urine Collection Type Void Urine Color Yellow Urine Clarity Clear Urine pH 6.5 Urine Specific [place] 1.025 Urine Protein Negative mg/dL (NEG-TRACE) Urine Glucose (UA) Negative mg/dL (NEG) Urine Ketones (Stick) Negative mg/dL (NEG) Urine Blood Negative (NEG) Urine Nitrite Negative (NEG) Urine Bilirubin Negative (NEG) Urine Urobilinogen Dipstick 1.0 mg/dL (0.2 mg/dL) Urine Leukocyte Esterase Negative (NEG) Urine RBC 0 /HPF (0-2) Urine WBC 1-4 /HPF (0-4) Urine Squamous Epithelial Cells Occ /LPF Urine Bacteria Few /HPF (0-FEW) Urine Mucus Slight /LPF White Blood Count 4.9 x10^3/uL (4.0-11.0) Red Blood Count 4.37 x10^6/uL (4.30-5.70) Hemoglobin 13.3 g/dL (13.0-17.5) Hematocrit 38.5 % (39.0-53.0) Mean Corpuscular Volume 88 fL (79-100) Mean Corpuscular Hemoglobin 31 pg (25-35) Mean Corpuscular Hemoglobin Concent 35 g/dL (31-37) Red Cell Distribution Width 13.9 % (11.5-14.5) Platelet Count 156 x10^3/uL (140-400) Neutrophils (%) (Auto) 50 % (31-73) Lymphocytes (%) (Auto) 43 % (24-48) Monocytes (%) (Auto) 6 % (0-9) Eosinophils (%) (Auto) 2 % (0-3) Basophils (%) (Auto) 0 % (0-3) Neutrophils # (Auto) 2.4 x10^3/uL (1.8-7.7) Lymphocytes # (Auto) 2.1 x10^3/uL (1.0-4.8) Monocytes # (Auto) 0.3 x10^3/uL (0.0-1.1) Eosinophils # (Auto) 0.1 x10^3/uL (0.0-0.7) Basophils # (Auto) 0.0 x10^3/uL (0.0-0.2) Prothrombin Time 12.3 SEC (11.7-14.0) Prothromb Time International Ratio 0.9 (0.8-1.1) D-Dimer (Sussy) 0.44 ug/mlFEU (0.00-0.50) Troponin I Quantitative < 0.017 ng/mL (0.000-0.055) Images Images Technologist: RADHA SHAH RTR Nurse: AMY SCHNEIDER RN Procedure(s) performed: Left heart catheterization, Selective coronary angiography and selective angiography of bypass grafts via left transradial approach Moderate sedation:60 mins Fluoro time: 25 min Dose: 89.1 GYCM2 Contrast: 169 INDICATION The indication(s) include : unstable angina . CS Clinical Frailty Scale [facility] Clinical Frailty Scale: Very Fit Heart Failure Heart Failure: No PROCEDURE NARRATIVE After explaining the risks, benefits and alternative options, informed consent was obtained from patient. Patient was brought to the cardiac [facility] and his left wrist was prepped and draped in the usual fashion after confirming a positive modified Mika's test. Arterial access was obtained in the left radial artery and 6 [place] sheath was inserted. 6 [place] JR4 catheter was used to perform selective angiography of the left internal mammary artery graft to the left anterior descending artery, [place] right coronary artery, saphenous vein graft to the right coronary artery and also the saphenous vein graft to the obtuse marginal branch of left circumflex artery. After several initial unsuccessful attempts at engaging the left main coronary artery with 6 [place] JL4, 6 [place] JL 3.5, AL0.75 catheters, this was engaged with 6 [place] multipurpose catheter and angiography was performed. LVEDP and transaortic gradients were measured. Left ventriculogram was not performed due to contrast load used during the procedure and since recent echo showed normal LV function. Patient tolerated the procedure well. Hemostasis was achieved using TR band. T here were no immediate complications. The following findings were noted. FINDINGS 1. Hemodynamics: Left ventricle end-diastolic pressure 15 mmHg. No pullback gradient across the aortic valve. 2. Coronary and bypass graft angiography: a. The left main coronary artery arose from the left sinus of Valsalva, gave rise to the left anterior descending and left circumflex arteries and showed 70% stenosis in the distal segment. b. The left anterior descending artery showed 80% stenosis in the proximal to midsegment. c. The left circumflex artery showed 100% occlusion in the proximal segment. d. The right coronary artery arose from the right sinus of Valsalva and showed 100% occlusion in the proximal segment. e. The left internal mammary artery graft to the left anterior descending artery was widely patent. f. The saphenous vein graft to the obtuse marginal branch of left circumflex artery was widely patent. g. The saphenous vein graft to the right coronary artery the previously was found to have significant lesions on cardiac catheterization one year ago did not show any significant stenosis raising the possibility that the previously described lesions were probably from thrombus that has presently resolved. Conclusion Severe [place] vessel coronary artery disease s/p coronary artery bypass surgery with patent CARRERO to LAD, patent SVG to obtuse marginal branch of left circumflex artery and also patent SVG to RCA (with resolution of previously described lesions probably thrombus). No lesions needing intervention were noted. Recommendations Optimization of medical therapy including maximizing antianginal therapy and cardiovascular risk factor modification. Signed by : Allie Esparza, Electronically Approved : 03/30/2019 15:26:59 DICTATED and SIGNED BY: ALLIE ESPARZA MD DATE: 03/30/19 1526 PORTABLE CHEST 1V History: Chest pain Comparison: March 29, 2019 Findings: No consolidation or pleural effusion. Normal heart size. Left-sided pacemaker, unchanged. Prior median sternotomy. No pneumothorax. Surgical clips right upper quadrant. Impression: 1. No acute cardiopulmonary process. Electronically signed by: Eder Martinez DO (09/02/2019 12:53 PM) [facility] DICTATED and SIGNED BY: EDER MARTINEZ DO DATE: 09/02/19 1253 VTE Prophylaxis Ordered VTE Prophylaxis Devices: Yes VTE Pharmacological Prophylaxi: Yes Assessment/Plan Assessment/Plan impression 1. angina 2. Severe [place] vessel coronary artery disease s/p coronary artery bypass surgery with patent CARRERO to LAD, patent SVG to obtuse marginal branch of left circumflex artery and also patent SVG to RCA plan admit consult cardiology hx of CAD s/p CABG remote - cvc tele bed - continue ASA, statin, plavix, BB therapy - trend trop - prn NTG - SERIAL TROPONIN I 52 MIN PT EXAM, CHART REVIEW, > 50% OF TIME SPENT WITH EXAM, CHART REVIEW, PT CARE COORDINATION SESAR SHINE MD Sep 02, 2019 13:41
[2019-09-02 13:42] LABS: CALCIUM 9.4 mg/dL (8.5-10.1); CREATININE 1.1 mg/dL (0.7-1.3); GFR 67.6; POTASSIUM 3.8 mmol/L (3.5-5.1)
[2019-09-02 13:47] LABS: ALBUMIN 4.2 g/dL (3.4-5.0); ALBUMIN/GLOBULIN RATIO 1.3 (1.0-1.7); MAGNESIUM 2.3 mg/dL (1.8-2.4); TOTAL BILIRUBIN 0.5 mg/dL (0.2-1.0); TOTAL PROTEIN 7.4 g/dL (6.4-8.2)
[2019-09-02] MEDS: NITROGLYCERIN SUBLINGUAL 0.4 MG BOTTLE OF 25. SL PRN ×3 (13:54→21:55)
[2019-09-02] MEDS: fentaNYL PF VIAL 100 MCG/2 ML VIAL IV PRN ×2 (14:32→16:01)
--- NOTE | 2019-09-02 16:29 | PDOC2 ---
MAJO BALTAZAR REWARDS CONSULTANT 09/02/19 1629: CARDIAC CONSULT DATE OF CONSULT Date of Consult DATE: 09/02/19 TIME: 16:26 REASON FOR CONSULT Reason for Consult: unstable angina REFERRING PHYSICIAN Referring Physician: Mata SOURCE Source: Chart review, Patient HISTORY OF PRESENT ILLNESS HISTORY OF PRESENT ILLNESS This is a 64 yo male admitted for complains of chest pain. This is left chest sharp pressure. 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 This radiated to his left side and radiated to his neck with some numbness to face, left arm and shoulder. No nausea, vomiting or diaphoresis. No palpitations. He has been having HOYT in the last week and also his endurance has decreased and also has been having lightheadedness and actually fell 3 times this week. No injury. His PPM has not been checked for a while. He has been complaint with his medications. No recent fever, chills, MVA. No recent long distance travels. PAST MEDICAL HISTORY Past Medical History Cardiovascular: CAD, HTN, [place], Syncope, Hyperlipidemia, Other (symptomatic steve with syncope) Pulmonary: Pulmonary embolus (2007 with DVT) CENTRAL NERVOUS SYSTEM: CVA (remotely) GI: Other (SBO) Heme/Onc: No pertinent hx Hepatobiliary: No pertinent hx Psych: No pertinent hx Musculoskeletal: Osteoarthritis Rheumatologic: No pertinent hx Infectious disease: No pertinent hx ENT: No pertinent hx Renal/: No pertinent hx Endocrine: No pertinent hx Dermatology: No pertinent hx PAST SURGICAL HISTORY Past Surgical History Pacemaker (medtronic), Appendectomy, Cholecystectomy, CABG (2005 and 2010), Hernia Repair, Tonsillectomy, Other (bowel resection; hand surgery) FAMILY HISTORY Family History Coronary Artery Disease (grandfather) SOCIAL HISTORY Social History Smoke: Quit (remotely) ALCOHOL: none Drugs: None Lives: with Family CURRENT MEDICATIONS CURRENT MEDICATIONS Current Medications Medications (Trade) Dose Ordered Sig/Saad Route PRN Reason Start Time Stop Time Status Last Admin Dose Admin Aspirin (Children'S Aspirin) 324 mg 1X ONCE PO 09/02/19 13:00 09/02/19 13:01 DC 09/02/19 13:52 Nitroglycerin (Nitrostat) 0.4 mg PRN Q5MIN PRN SL CP RATING > 11/1909/02/19 12:45 09/03/19 12:44 09/02/19 13:54 Fentanyl Citrate (Fentanyl 2ml Vial) 50 mcg PRN Q15MIN PRN IV PAIN GREATER THAN 3/10 09/02/19 12:45 09/03/19 12:44 09/02/19 16:01 Sodium Chloride 1,000 ml @ 1,000 mls/hr Q1H IV 09/02/19 12:32 09/02/19 13:31 DC 09/02/19 13:33 ALLERGIES ALLERGIES: Coded Allergies: No Known Medication Allergies (Verified Allergy, Unknown, 03/31/19) morphine (Verified Adverse Reaction, Mild, Agitation, 04/21/18) ROS Review of System 14 point ROS evaluated with pertinent positives noted per HPI PHYSICAL EXAM General: Alert, Oriented X3, Cooperative, No acute distress HEENT: Atraumatic, Mucous membr. moist/pink Lungs: Clear to auscultation, Normal air movement Heart: Regular rate (SR), Normal S1, Normal S2, No murmurs Abdomen: Soft, No tenderness Extremities: No cyanosis, No edema Skin: No breakdown, No significant lesion Neuro: Normal speech, Sensation intact Psych/Mental Status: Mental status NL, Mood NL MUSCULOSKELETAL: Osteoarthritic changes both hands VITALS/I&O VITALS/I&O: Vital Signs Date Time Temp Pulse Resp B/P (MAP) Pulse Ox O2 Delivery O2 Flow Rate FiO2 09/02/19 16:01 16 100 Room Air 09/02/19 14:35 68 133/73 (93) 09/02/19 12:23 97.8 97.8 LABS Lab: Laboratory Tests Test 09/02/19 12:23 09/02/19 12:53 Urine Collection Type Void Urine Color Yellow Urine Clarity Clear Urine pH 6.5 Urine Specific [place] 1.025 Urine Protein Negative mg/dL (NEG-TRACE) Urine Glucose (UA) Negative mg/dL (NEG) Urine Ketones (Stick) Negative mg/dL (NEG) Urine Blood Negative (NEG) Urine Nitrite Negative (NEG) Urine Bilirubin Negative (NEG) Urine Urobilinogen Dipstick 1.0 mg/dL (0.2 mg/dL) Urine Leukocyte Esterase Negative (NEG) Urine RBC 0 /HPF (0-2) Urine WBC 1-4 /HPF (0-4) Urine Squamous Epithelial Cells Occ /LPF Urine Bacteria Few /HPF (0-FEW) Urine Mucus Slight /LPF White Blood Count 4.9 x10^3/uL (4.0-11.0) Red Blood Count 4.37 x10^6/uL (4.30-5.70) Hemoglobin 13.3 g/dL (13.0-17.5) Hematocrit 38.5 % (39.0-53.0) L Mean Corpuscular Volume 88 fL (79-100) Mean Corpuscular Hemoglobin 31 pg (25-35) Mean Corpuscular Hemoglobin Concent 35 g/dL (31-37) Red Cell Distribution Width 13.9 % (11.5-14.5) Platelet Count 156 x10^3/uL (140-400) Neutrophils (%) (Auto) 50 % (31-73) Lymphocytes (%) (Auto) 43 % (24-48) Monocytes (%) (Auto) 6 % (0-9) Eosinophils (%) (Auto) 2 % (0-3) Basophils (%) (Auto) 0 % (0-3) Neutrophils # (Auto) 2.4 x10^3/uL (1.8-7.7) Lymphocytes # (Auto) 2.1 x10^3/uL (1.0-4.8) Monocytes # (Auto) 0.3 x10^3/uL (0.0-1.1) Eosinophils # (Auto) 0.1 x10^3/uL (0.0-0.7) Basophils # (Auto) 0.0 x10^3/uL (0.0-0.2) Prothrombin Time 12.3 SEC (11.7-14.0) Prothrombin Time INR 0.9 (0.8-1.1) D-Dimer (Sussy) 0.44 ug/mlFEU (0.00-0.50) Sodium Level 144 mmol/L (136-145) Potassium Level 3.8 mmol/L (3.5-5.1) Chloride Level 106 mmol/L (98-107) Carbon Dioxide Level 23 mmol/L (21-32) Anion Gap 15 (6-14) H Blood Urea Nitrogen 25 mg/dL (8-26) Creatinine 1.1 mg/dL (0.7-1.3) Estimated GFR (Cockcroft-Gault) 67.6 BUN/Creatinine Ratio 23 (6-20) H Glucose Level 153 mg/dL (70-99) H Calcium Level 9.4 mg/dL (8.5-10.1) Magnesium Level 2.3 mg/dL (1.8-2.4) Total Bilirubin 0.5 mg/dL (0.2-1.0) Aspartate Amino Transferase (AST) 26 U/L (15-37) Alanine Aminotransferase (ALT) 50 U/L (16-63) Alkaline Phosphatase 100 U/L (46-116) Troponin I Quantitative < 0.017 ng/mL (0.000-0.055) XY-[id number]-Type Natriuretic Peptide 51 pg/mL (0-124) Total Protein 7.4 g/dL (6.4-8.2) Albumin 4.2 g/dL (3.4-5.0) Albumin/Globulin Ratio 1.3 (1.0-1.7) Lipase 473 U/L (73-393) H Laboratory Tests 09/02/19 12:53 Laboratory Tests 09/02/19 12:53 IMAGES IMAGES IMPRESSION: 1. Mild atherosclerotic plaquing at both carotid bifurcations with only mild associated narrowing of the proximal internal carotid arteries bilaterally. 2. Mild to moderate calcific plaquing involving the cavernous segments of both distal internal carotid arteries without evidence of high-grade stenosis. 3. Moderate focal stenosis of the distal left vertebral artery due to atherosclerotic plaquing. DATE: 01/30/15 1448 ECHOCARDIOGRAM ECHOCARDIOGRAM <Conclusion> The left ventricular systolic function is normal. The Ejection Fraction is 55-60%. There is normal LV segmental wall motion. There is a pacemaker lead in the right atrium and right ventricle. Trace tricuspid regurgitation with an estimated PAP of 27 mmHg. There is no evidence of significant pericardial effusion. DATE: 03/30/19 1239 HEART CATH HEART CATH FINDINGS 1. Hemodynamics: Left ventricle end-diastolic pressure 15 mmHg. No pullback gradient across the aortic valve. 2. Coronary and bypass graft angiography: a. The left main coronary artery arose from the left sinus of Valsalva, gave rise to the left anterior descending and left circumflex arteries and showed 70% stenosis in the distal segment. b. The left anterior descending artery showed 80% stenosis in the proximal to midsegment. c. The left circumflex artery showed 100% occlusion in the proximal segment. d. The right coronary artery arose from the right sinus of Valsalva and showed 100% occlusion in the proximal segment. e. The left internal mammary artery graft to the left anterior descending artery was widely patent. f. The saphenous vein graft to the obtuse marginal branch of left circumflex artery was widely patent. g. The saphenous vein graft to the right coronary artery the previously was found to have significant lesions on cardiac catheterization one year ago did not show any significant stenosis raising the possibility that the previously described lesions were probably from thrombus that has presently resolved. Conclusion Severe [place] vessel coronary artery disease s/p coronary artery bypass surgery with patent CARRERO to LAD, patent SVG to obtuse marginal branch of left circumflex artery and also patent SVG to RCA (with resolution of previously described lesions probably thrombus). No lesions needing intervention were noted. Recommendations Optimization of medical therapy including maximizing antianginal therapy and cardiovascular risk factor modification. DATE: 03/30/19 152 ASSESSMENT/PLAN ASSESSMENT/PLAN 1. Chest pain: concerning of UA. EKG SR without acute changes. initial trop nml. 2. Presyncope with fall: 3 times this week, nontraumatic. 3. PPM in situ: Body Central for SSS placed at least 10 yrs ago 4. CAD; recent LHC with patent grafts. past CABG 2005 and 2010 5. 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 DDIMER nml 6. HTN: controlled 7. HLP 8. Hx of CVA with carotid artery disease Recommendations 1. Limited. TTE. Noncontrast head CT, carotid doppler. NPO at [place]. 2. TSH, lipids. Trend troponin. UDS. 3. Continue home regimen. ASA. 4. Orthostatic readings. Interrogate device. ALLIE ESPARZA MD 09/03/19 0855: CARDIAC CONSULT ASSESSMENT/PLAN ASSESSMENT/PLAN Patient seen and examined 09/02/19. Agree with MANAGER GRANT's assessment and plan. Chest pain with typical features Myocardial infarction has been ruled out Recent cardiac catheterization did not show any lesions needing intervention LDL significantly elevated. Increase Lipitor dose to 80 mg daily at bedtime for better control Agree with pacemaker interrogation Thank you for your consultation MAJO BALTAZAR APRN Sep 02, 2019 16:29 ALLIE ESPARZA MD Sep 03, 2019 08:55
[2019-09-02 17:00] VITALS: BP 129/73
[2019-09-02] MEDS: CARVEDILOL 6.25 MG TABLET. PO SCH (17:28)
[2019-09-02 17:29] LABS: CHOLESTEROL/HDL RATIO 7.8
[2019-09-02] MEDS: oxyCODONE/APAP 5/325 1 TAB TABLET PO PRN ×2 (19:30→23:25)
[2019-09-02 19:49] VITALS: BP 129/70
[2019-09-02 20:30] LABS: AMPHETAMINE/METHAMPHETAMINE NEG (NEG); BARBITURATES NEG (NEG); BENZODIAZEPINES NEG (NEG); CANNABINOIDS NEG (NEG); COCAINE NEG (NEG); METHADONE NEG (NEG); OPIATES NEG (NEG); PHENCYCLIDINE NEG (NEG)
[2019-09-02] MEDS ORDERED: ATORVASTATIN CALCIUM 40 MG TABLET. PO SCH (21:00)
[2019-09-02] MEDS ORDERED: MAG HYDROX/ALUMINUM HYD/SIMETH 30 ML ORAL.SUSP PO PRN (21:45)
[2019-09-02 23:04] VITALS: BP 112/64
[2019-09-03] VITALS (7 sets, daily range): BP systolic 108–151; BP diastolic 56–89
--- NOTE | 2019-09-03 02:37 | RAD ---
DOPPLER CAROTID BILAT Clinical Indication: Carotid artery disease. Presyncope.. Procedure: Pulsed wave and color-flow duplex imaging was utilized to evaluate the extracranial carotid arteries. Comparison: None. Findings: RIGHT SIDE: Mild atherosclerotic plaque on pitts-scale images. Distal CCA peak systolic velocity 86 cm/sec. ICA peak systolic velocity 75 cm/sec. The right ICA/CCA ratio is 0.9. Flow within the right vertebral artery and right ECA is directed antegrade. LEFT SIDE: Mild atherosclerotic plaque on pitts-scale images. Distal CCA peak systolic velocity 92 cm/sec. ICA peak systolic velocity 102 cm/sec. The left ICA/CCA ratio is 1.1.. Flow within the left vertebral artery and left ECA is directed antegrade. Carotid legend: CCA = common carotid artery ICA = internal carotid artery ECA = external carotid artery IMPRESSION: Less than 50 percent stenosis bilaterally. Electronically signed by: Diaz Duran DO (09/03/2019 2:34 AM) [facility]
[2019-09-03] MEDS: oxyCODONE/APAP 5/325 1 TAB TABLET PO PRN ×2 (03:37→08:56)
[2019-09-03] MEDS: CLOPIDOGREL BISULFATE 75 MG TABLET PO SCH (07:00)
--- NOTE | 2019-09-03 07:41 | RAD ---
CT HEAD AND CERVICAL SPINE WO History: Dizziness. Fall. History of CVA. Comparison: September 12, 2015. Technique: Noncontrast CT imaging was performed of the head and cervical spine. Coronal and sagittal reconstructions were performed. Exposure: One or more of the following individualized dose reduction techniques were utilized for this examination: 1. Automated exposure control 2. Adjustment of the mA and/or kV according to patient size 3. Use of iterative reconstruction technique. Findings: Head CT: No intracranial hemorrhage. No mass effect. No hydrocephalus. Extra-axial spaces are unremarkable. Imaged orbits are unremarkable. Imaged paranasal sinuses and mastoid air cells are clear. Right frontal outer table benign bony exostosis, unchanged. Cervical spine CT: Normal vertebral body height and alignment. No fracture. Mild multilevel degenerative disc disease most prominent C5-C6 and C6-C7. Multilevel facet arthropathy most prominent left C4-C5. C6 vertebral body hemangioma. Soft tissues unremarkable. Impression: 1. No acute intracranial abnormality. 2. No acute fracture or subluxation of the cervical spine. 3. Mild multilevel cervical spondylosis. Electronically signed by: Eder Cox DO (09/03/2019 7:38 AM) [id number]
[2019-09-03] MEDS ORDERED: ASPIRIN ENTERIC COATED 81 MG TABLET.DR. PO SCH (08:00)
[2019-09-03] MEDS: CARVEDILOL 6.25 MG TABLET. PO SCH ×2 (08:00→17:05)
--- NOTE | 2019-09-03 09:21 | PDOC ---
PROGRESS NOTES History of Present Illness History of Present Illness VTE Prophylaxis Ordered VTE Prophylaxis Devices: Yes VTE Pharmacological Prophylaxi: Yes Assessment/Plan Assessment/Plan impression 1. angina 2. Severe [place] vessel coronary artery disease s/p coronary artery bypass surgery with patent CARRERO to LAD, patent SVG to obtuse marginal branch of left circumflex artery and also patent SVG to RCA plan admit CVC BED consult cardiology hx of CAD s/p CABG remote - cvc tele bed - continue ASA, statin, plavix, BB therapy - trend trop - prn NTG - SERIAL TROPONIN I - CLOTH WINDER TODAY 38 MIN PT EXAM, CHART REVIEW, > 50% OF TIME SPENT WITH EXAM, CHART REVIEW, PT CARE COORDINATION Vitals Vitals Vital Signs Date Time Temp Pulse Resp B/P (MAP) Pulse Ox O2 Delivery O2 Flow Rate FiO2 09/03/19 08:56 95 Room Air 09/03/19 07:37 97.2 64 16 108/58 (75) 97.2 Physical Exam General: Alert, Oriented X3, Cooperative, No acute distress Heart: Regular rate (SR), Normal S1, Normal S2, No murmurs Lungs: Clear Abdomen: Soft, No tenderness Extremities: No cyanosis Skin: No breakdown, No significant lesion Labs LABS SEX: M EXAM STATUS: ADM IN ORD. PHYSICIAN: MAJO BALTAZAR APRN REASON: carotid artery disease, presyncope PROCEDURE: DOPPLER CAROTID BILAT DOPPLER CAROTID BILAT Clinical Indication: Carotid artery disease. Presyncope.. Procedure: Pulsed wave and color-flow duplex imaging was utilized to evaluate the extracranial carotid arteries. Comparison: None. Findings: RIGHT SIDE: Mild atherosclerotic plaque on pitts-scale images. Distal CCA peak systolic velocity 86 cm/sec. ICA peak systolic velocity 75 cm/sec. The right ICA/CCA ratio is 0.9. Flow within the right vertebral artery and right ECA is directed antegrade. LEFT SIDE: Mild atherosclerotic plaque on pitts-scale images. Distal CCA peak systolic velocity 92 cm/sec. ICA peak systolic velocity 102 cm/sec. The left ICA/CCA ratio is 1.1.. Flow within the left vertebral artery and left ECA is directed antegrade. Carotid legend: CCA = common carotid artery ICA = internal carotid artery ECA = external carotid artery IMPRESSION: Less than 50 percent stenosis bilaterally. Electronically signed by: Diaz Duran DO (09/03/2019 2:34 AM) [facility] Laboratory Tests Test 09/02/19 12:23 09/02/19 12:53 09/02/19 16:50 09/02/19 16:55 Urine Collection Type Void Urine Color Yellow Urine Clarity Clear Urine pH 6.5 Urine Specific [place] 1.025 Urine Protein Negative mg/dL (NEG-TRACE) Urine Glucose (UA) Negative mg/dL (NEG) Urine Ketones (Stick) Negative mg/dL (NEG) Urine Blood Negative (NEG) Urine Nitrite Negative (NEG) Urine Bilirubin Negative (NEG) Urine Urobilinogen Dipstick 1.0 mg/dL (0.2 mg/dL) Urine Leukocyte Esterase Negative (NEG) Urine RBC 0 /HPF (0-2) Urine WBC 1-4 /HPF (0-4) Urine Squamous Epithelial Cells Occ /LPF Urine Bacteria Few /HPF (0-FEW) Urine Mucus Slight /LPF White Blood Count 4.9 x10^3/uL (4.0-11.0) Red Blood Count 4.37 x10^6/uL (4.30-5.70) Hemoglobin 13.3 g/dL (13.0-17.5) Hematocrit 38.5 % (39.0-53.0) Mean Corpuscular Volume 88 fL (79-100) Mean Corpuscular Hemoglobin 31 pg (25-35) Mean Corpuscular Hemoglobin Concent 35 g/dL (31-37) Red Cell Distribution Width 13.9 % (11.5-14.5) Platelet Count 156 x10^3/uL (140-400) Neutrophils (%) (Auto) 50 % (31-73) Lymphocytes (%) (Auto) 43 % (24-48) Monocytes (%) (Auto) 6 % (0-9) Eosinophils (%) (Auto) 2 % (0-3) Basophils (%) (Auto) 0 % (0-3) Neutrophils # (Auto) 2.4 x10^3/uL (1.8-7.7) Lymphocytes # (Auto) 2.1 x10^3/uL (1.0-4.8) Monocytes # (Auto) 0.3 x10^3/uL (0.0-1.1) Eosinophils # (Auto) 0.1 x10^3/uL (0.0-0.7) Basophils # (Auto) 0.0 x10^3/uL (0.0-0.2) Prothrombin Time 12.3 SEC (11.7-14.0) Prothromb Time International Ratio 0.9 (0.8-1.1) D-Dimer (Sussy) 0.44 ug/mlFEU (0.00-0.50) Sodium Level 144 mmol/L (136-145) Potassium Level 3.8 mmol/L (3.5-5.1) Chloride Level 106 mmol/L (98-107) Carbon Dioxide Level 23 mmol/L (21-32) Anion Gap 15 (6-14) Blood Urea Nitrogen 25 mg/dL (8-26) Creatinine 1.1 mg/dL (0.7-1.3) Estimated GFR (Cockcroft-Gault) 67.6 BUN/Creatinine Ratio 23 (6-20) Glucose Level 153 mg/dL (70-99) Calcium Level 9.4 mg/dL (8.5-10.1) Magnesium Level 2.3 mg/dL (1.8-2.4) Total Bilirubin 0.5 mg/dL (0.2-1.0) Aspartate Amino Transf (AST/SGOT) 26 U/L (15-37) Alanine Aminotransferase (ALT/SGPT) 50 U/L (16-63) Alkaline Phosphatase 100 U/L (46-116) Troponin I Quantitative < 0.017 ng/mL (0.000-0.055) < 0.017 ng/mL (0.000-0.055) NL-Nxk-Q-Type Natriuretic Peptide 51 pg/mL (0-124) Total Protein 7.4 g/dL (6.4-8.2) Albumin 4.2 g/dL (3.4-5.0) Albumin/Globulin Ratio 1.3 (1.0-1.7) Lipase 473 U/L (73-393) Triglycerides Level 235 mg/dL (0-150) Cholesterol Level 259 mg/dL (0-200) LDL Cholesterol, Calculated 179 mg/dL (0-100) VLDL Cholesterol, Calculated 47 mg/dL (0-40) Non-HDL Cholesterol Calculated 226 mg/dL (0-129) HDL Cholesterol 33 mg/dL (40-60) Cholesterol/HDL Ratio 7.8 Thyroid Stimulating Hormone (TSH) 1.851 uIU/mL (0.358-3.74) Test 09/02/19 20:10 09/02/19 20:30 Urine Opiates Screen Neg (NEG) Urine Methadone Screen Neg (NEG) Urine Barbiturates Neg (NEG) Urine Phencyclidine Screen Neg (NEG) Urine Amphetamine/Methamphetamine Neg (NEG) Urine Benzodiazepines Screen Neg (NEG) Urine Cocaine Screen Neg (NEG) Urine Cannabinoids Screen Neg (NEG) Urine Ethyl Alcohol Neg (NEG) Troponin I Quantitative < 0.017 ng/mL (0.000-0.055) Comment Review of Relevant I have reviewed the following items mirian (where applicable) has been applied. Labs Laboratory Tests Test 09/02/19 12:23 09/02/19 12:53 09/02/19 16:50 09/02/19 16:55 Urine Collection Type Void Urine Color Yellow Urine Clarity Clear Urine pH 6.5 Urine Specific [place] 1.025 Urine Protein Negative mg/dL (NEG-TRACE) Urine Glucose (UA) Negative mg/dL (NEG) Urine Ketones (Stick) Negative mg/dL (NEG) Urine Blood Negative (NEG) Urine Nitrite Negative (NEG) Urine Bilirubin Negative (NEG) Urine Urobilinogen Dipstick 1.0 mg/dL (0.2 mg/dL) Urine Leukocyte Esterase Negative (NEG) Urine RBC 0 /HPF (0-2) Urine WBC 1-4 /HPF (0-4) Urine Squamous Epithelial Cells Occ /LPF Urine Bacteria Few /HPF (0-FEW) Urine Mucus Slight /LPF White Blood Count 4.9 x10^3/uL (4.0-11.0) Red Blood Count 4.37 x10^6/uL (4.30-5.70) Hemoglobin 13.3 g/dL (13.0-17.5) Hematocrit 38.5 % (39.0-53.0) Mean Corpuscular Volume 88 fL (79-100) Mean Corpuscular Hemoglobin 31 pg (25-35) Mean Corpuscular Hemoglobin Concent 35 g/dL (31-37) Red Cell Distribution Width 13.9 % (11.5-14.5) Platelet Count 156 x10^3/uL (140-400) Neutrophils (%) (Auto) 50 % (31-73) Lymphocytes (%) (Auto) 43 % (24-48) Monocytes (%) (Auto) 6 % (0-9) Eosinophils (%) (Auto) 2 % (0-3) Basophils (%) (Auto) 0 % (0-3) Neutrophils # (Auto) 2.4 x10^3/uL (1.8-7.7) Lymphocytes # (Auto) 2.1 x10^3/uL (1.0-4.8) Monocytes # (Auto) 0.3 x10^3/uL (0.0-1.1) Eosinophils # (Auto) 0.1 x10^3/uL (0.0-0.7) Basophils # (Auto) 0.0 x10^3/uL (0.0-0.2) Prothrombin Time 12.3 SEC (11.7-14.0) Prothromb Time International Ratio 0.9 (0.8-1.1) D-Dimer (Sussy) 0.44 ug/mlFEU (0.00-0.50) Sodium Level 144 mmol/L (136-145) Potassium Level 3.8 mmol/L (3.5-5.1) Chloride Level 106 mmol/L (98-107) Carbon Dioxide Level 23 mmol/L (21-32) Anion Gap 15 (6-14) Blood Urea Nitrogen 25 mg/dL (8-26) Creatinine 1.1 mg/dL (0.7-1.3) Estimated GFR (Cockcroft-Gault) 67.6 BUN/Creatinine Ratio 23 (6-20) Glucose Level 153 mg/dL (70-99) Calcium Level 9.4 mg/dL (8.5-10.1) Magnesium Level 2.3 mg/dL (1.8-2.4) Total Bilirubin 0.5 mg/dL (0.2-1.0) Aspartate Amino Transf (AST/SGOT) 26 U/L (15-37) Alanine Aminotransferase (ALT/SGPT) 50 U/L (16-63) Alkaline Phosphatase 100 U/L (46-116) Troponin I Quantitative < 0.017 ng/mL (0.000-0.055) < 0.017 ng/mL (0.000-0.055) LL-Fmv-X-Type Natriuretic Peptide 51 pg/mL (0-124) Total Protein 7.4 g/dL (6.4-8.2) Albumin 4.2 g/dL (3.4-5.0) Albumin/Globulin Ratio 1.3 (1.0-1.7) Lipase 473 U/L (73-393) Triglycerides Level 235 mg/dL (0-150) Cholesterol Level 259 mg/dL (0-200) LDL Cholesterol, Calculated 179 mg/dL (0-100) VLDL Cholesterol, Calculated 47 mg/dL (0-40) Non-HDL Cholesterol Calculated 226 mg/dL (0-129) HDL Cholesterol 33 mg/dL (40-60) Cholesterol/HDL Ratio 7.8 Thyroid Stimulating Hormone (TSH) 1.851 uIU/mL (0.358-3.74) Test 09/02/19 20:10 09/02/19 20:30 Urine Opiates Screen Neg (NEG) Urine Methadone Screen Neg (NEG) Urine Barbiturates Neg (NEG) Urine Phencyclidine Screen Neg (NEG) Urine Amphetamine/Methamphetamine Neg (NEG) Urine Benzodiazepines Screen Neg (NEG) Urine Cocaine Screen Neg (NEG) Urine Cannabinoids Screen Neg (NEG) Urine Ethyl Alcohol Neg (NEG) Troponin I Quantitative < 0.017 ng/mL (0.000-0.055) Laboratory Tests Test 09/02/19 12:23 09/02/19 12:53 09/02/19 16:50 09/02/19 16:55 Urine Collection Type Void Urine Color Yellow Urine Clarity Clear Urine pH 6.5 Urine Specific [place] 1.025 Urine Protein Negative mg/dL (NEG-TRACE) Urine Glucose (UA) Negative mg/dL (NEG) Urine Ketones (Stick) Negative mg/dL (NEG) Urine Blood Negative (NEG) Urine Nitrite Negative (NEG) Urine Bilirubin Negative (NEG) Urine Urobilinogen Dipstick 1.0 mg/dL (0.2 mg/dL) Urine Leukocyte Esterase Negative (NEG) Urine RBC 0 /HPF (0-2) Urine WBC 1-4 /HPF (0-4) Urine Squamous Epithelial Cells Occ /LPF Urine Bacteria Few /HPF (0-FEW) Urine Mucus Slight /LPF White Blood Count 4.9 x10^3/uL (4.0-11.0) Red Blood Count 4.37 x10^6/uL (4.30-5.70) Hemoglobin 13.3 g/dL (13.0-17.5) Hematocrit 38.5 % (39.0-53.0) Mean Corpuscular Volume 88 fL (79-100) Mean Corpuscular Hemoglobin 31 pg (25-35) Mean Corpuscular Hemoglobin Concent 35 g/dL (31-37) Red Cell Distribution Width 13.9 % (11.5-14.5) Platelet Count 156 x10^3/uL (140-400) Neutrophils (%) (Auto) 50 % (31-73) Lymphocytes (%) (Auto) 43 % (24-48) Monocytes (%) (Auto) 6 % (0-9) Eosinophils (%) (Auto) 2 % (0-3) Basophils (%) (Auto) 0 % (0-3) Neutrophils # (Auto) 2.4 x10^3/uL (1.8-7.7) Lymphocytes # (Auto) 2.1 x10^3/uL (1.0-4.8) Monocytes # (Auto) 0.3 x10^3/uL (0.0-1.1) Eosinophils # (Auto) 0.1 x10^3/uL (0.0-0.7) Basophils # (Auto) 0.0 x10^3/uL (0.0-0.2) Prothrombin Time 12.3 SEC (11.7-14.0) Prothromb Time International Ratio 0.9 (0.8-1.1) D-Dimer (Sussy) 0.44 ug/mlFEU (0.00-0.50) Sodium Level 144 mmol/L (136-145) Potassium Level 3.8 mmol/L (3.5-5.1) Chloride Level 106 mmol/L (98-107) Carbon Dioxide Level 23 mmol/L (21-32) Anion Gap 15 (6-14) Blood Urea Nitrogen 25 mg/dL (8-26) Creatinine 1.1 mg/dL (0.7-1.3) Estimated GFR (Cockcroft-Gault) 67.6 BUN/Creatinine Ratio 23 (6-20) Glucose Level 153 mg/dL (70-99) Calcium Level 9.4 mg/dL (8.5-10.1) Magnesium Level 2.3 mg/dL (1.8-2.4) Total Bilirubin 0.5 mg/dL (0.2-1.0) Aspartate Amino Transf (AST/SGOT) 26 U/L (15-37) Alanine Aminotransferase (ALT/SGPT) 50 U/L (16-63) Alkaline Phosphatase 100 U/L (46-116) Troponin I Quantitative < 0.017 ng/mL (0.000-0.055) < 0.017 ng/mL (0.000-0.055) UX-Tso-O-Type Natriuretic Peptide 51 pg/mL (0-124) Total Protein 7.4 g/dL (6.4-8.2) Albumin 4.2 g/dL (3.4-5.0) Albumin/Globulin Ratio 1.3 (1.0-1.7) Lipase 473 U/L (73-393) Triglycerides Level 235 mg/dL (0-150) Cholesterol Level 259 mg/dL (0-200) LDL Cholesterol, Calculated 179 mg/dL (0-100) VLDL Cholesterol, Calculated 47 mg/dL (0-40) Non-HDL Cholesterol Calculated 226 mg/dL (0-129) HDL Cholesterol 33 mg/dL (40-60) Cholesterol/HDL Ratio 7.8 Thyroid Stimulating Hormone (TSH) 1.851 uIU/mL (0.358-3.74) Test 09/02/19 20:10 09/02/19 20:30 Urine Opiates Screen Neg (NEG) Urine Methadone Screen Neg (NEG) Urine Barbiturates Neg (NEG) Urine Phencyclidine Screen Neg (NEG) Urine Amphetamine/Methamphetamine Neg (NEG) Urine Benzodiazepines Screen Neg (NEG) Urine Cocaine Screen Neg (NEG) Urine Cannabinoids Screen Neg (NEG) Urine Ethyl Alcohol Neg (NEG) Troponin I Quantitative < 0.017 ng/mL (0.000-0.055) Medications Current Medications Aspirin (Children'S Aspirin) 324 mg 1X ONCE PO Last administered on 09/02/19at 13:52; Start 09/02/19 at 13:00; Stop 09/02/19 at 13:01; Status DC Nitroglycerin (Nitrostat) 0.4 mg PRN Q5MIN PRN SL CP RATING > 1/10 Last administered on 09/02/19at 21:55; Start 09/02/19 at 12:45; Stop 09/03/19 at 12:44 Fentanyl Citrate (Fentanyl 2ml Vial) 50 mcg PRN Q15MIN PRN IV PAIN GREATER THAN 3/10 Last administered on 09/02/19at 16:01; Start 09/02/19 at 12:45; Stop 09/03/19 at 12:44 Sodium Chloride 1,000 ml @ 1,000 mls/hr Q1H IV Last administered on 09/02/19at 13:33; Start 09/02/19 at 12:32; Stop 09/02/19 at 13:31; Status DC Aspirin (Ecotrin) 81 mg DAILY08 PO ; Start 09/03/19 at 08:00 Atorvastatin Calcium (Lipitor) 40 mg QHS PO Last administered on 09/02/19at 20:45; Start 09/02/19 at 21:00; Stop 09/03/19 at 09:02; Status DC Carvedilol (Coreg) 6.25 mg BIDWMEALS PO Last administered on 09/02/19at 17:28; Start 09/02/19 at 17:00 Clopidogrel Bisulfate (Plavix) 75 mg DAILY07 PO ; Start 09/03/19 at 07:00 Isosorbide Mononitrate (Imdur) 30 mg DAILY PO ; Start 09/03/19 at 09:00 Oxycodone/ Acetaminophen (Percocet 5/325) 1 tab PRN Q4HRS PRN PO PAIN Last administered on 09/03/19at 08:56; Start 09/02/19 at 14:00 Fish Oil (Fish Oil) 1,000 mg DAILY PO ; Start 09/03/19 at 09:00 Al Hydroxide/Mg Hydroxide (Mylanta Plus Xs) 30 ml PRN Q2HR PRN PO HEARTBURN / GAS; Start 09/02/19 at 21:45 Atorvastatin Calcium (Lipitor) 80 mg QHS PO ; Start 09/03/19 at 21:00 Active Scripts Active Carvedilol (Carvedilol) 6.25 Mg Tablet 6.25 Mg PO BIDWMEALS Reported Atorvastatin Calcium 40 Mg Tablet 40 Mg PO DAILY Isosorbide Mononitrate Er (Isosorbide Mononitrate) 30 Mg Tab.er.24h 30 Mg PO DAILY Percocet 5-325 Mg Tablet (Oxycodone/Acetaminophen) 1 Each Tablet 1 Tab PO PRN Q4HRS PRN Aspirin Ec (Aspirin) 81 Mg Tablet.dr 81 Mg PO DAILY08 Fish Oil ([place]-3 Fatty Acids) 300 Mg Capsule 1,000 Mg PO DAILY Clopidogrel (Clopidogrel Bisulfate) 75 Mg Tablet 75 Mg PO DAILY07 Vitals/I & O Vital Sign - Last 24 Hours 09/02/19 09/02/19 09/02/19 09/02/19 12:23 13:30 13:54 14:32 Temp 97.8 97.8 Pulse 84 76 75 Resp 24 18 16 B/P (MAP) 156/82 (106) 140/69 (92) 144/73 Pulse Ox 100 100 100 O2 Delivery Room Air Room Air Room Air 09/02/19 09/02/19 09/02/19 09/02/19 14:35 16:01 16:44 17:00 Temp 97.6 97.6 Pulse 68 71 Resp 20 16 18 B/P (MAP) 133/73 (93) 129/73 (91) Pulse Ox 99 100 100 100 O2 Delivery Room Air Room Air Room Air 09/02/19 09/02/19 09/02/19 09/02/19 17:28 17:59 19:30 19:49 Temp 97.7 97.7 Pulse 68 66 Resp 16 16 B/P (MAP) 133/73 129/70 (89) Pulse Ox 100 98 O2 Delivery Room Air Room Air Room Air 09/02/19 09/02/19 09/02/19 09/02/19 20:00 20:30 21:46 21:55 Pulse 66 73 Resp 16 B/P (MAP) 129/70 121/60 Pulse Ox 97 O2 Delivery Room Air Room Air 09/02/19 09/02/19 09/03/19 09/03/19 23:04 23:25 00:25 02:05 Temp 97.9 97.3 97.9 97.3 Pulse 64 66 Resp 16 16 16 B/P (MAP) 112/64 (80) 118/65 (82) Pulse Ox 97 97 97 97 O2 Delivery Room Air Room Air Room Air Room Air 09/03/19 09/03/19 09/03/19 09/03/19 03:37 04:37 07:37 08:56 Temp 97.2 97.2 Pulse 64 Resp 16 16 B/P (MAP) 108/58 (75) Pulse Ox 97 97 95 95 O2 Delivery Room Air Room Air Room Air Room Air Intake and Output 09/02/19 09/02/19 09/03/19 15:00 23:00 07:00 Intake Total 600 ml 240 ml Output Total 300 ml 375 ml Balance 300 ml -135 ml SESAR SHINE MD Sep 03, 2019 09:21
--- NOTE | 2019-09-03 10:16 | PDOC ---
PROGRESS NOTES Subjective Subjective Patient continues to complain of retrosternal chest pressure with exertion Objective Objective Vital Signs Date Time Temp Pulse Resp B/P (MAP) Pulse Ox O2 Delivery O2 Flow Rate FiO2 09/03/19 08:56 95 Room Air 09/03/19 07:37 97.2 64 16 108/58 (75) 97.2 Intake and Output 09/03/19 07:00 Intake Total 840 ml Output Total 675 ml Balance 165 ml Intake Oral 840 ml Output Urine Total 675 ml Physical Exam Abdomen: Soft, No tenderness Heart: Regular rate (SR), Normal S1, Normal S2, No murmurs Extremities: No cyanosis General: Alert, Oriented X3, Cooperative, No acute distress HEENT: Atraumatic, Mucous membr. moist/pink Lungs: Clear to auscultation, Normal air movement Neuro: Normal speech, Sensation intact Psych/Mental Status: Mental status NL, Mood NL Skin: No breakdown, No significant lesion Assessment Assessment 1. Chest pain with typical features concerning for unstable angina. Myocardial infarction has been ruled out. Last cardiac catheterization results noted. We will proceed with repeat coronary angiography and consider PCI to LAD to restore better flow to diagonal branch. Continue current secondary prevention measures. 2. Presyncope with fall: 3 times this week, nontraumatic. Uncertain etiology. Pacemaker check showed normal function. 3. PPM in situ: medtronic for SSS placed at least 10 yrs ago 4. CAD; recent LHC with patent grafts. past CABG 2005 and 2010 5. 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 DDIMER nml 6. HTN: controlled 7. HLP: LDL significantly elevated. Lipitor dose increased to 80 mg daily at bedtime. 8. Hx of CVA with carotid artery disease Comment Review of Relevant I have reviewed the following items mirian (where applicable) has been applied. Labs Laboratory Tests Test 09/02/19 12:23 09/02/19 12:53 09/02/19 16:50 09/02/19 16:55 Urine Collection Type Void Urine Color Yellow Urine Clarity Clear Urine pH 6.5 Urine Specific [place] 1.025 Urine Protein Negative mg/dL (NEG-TRACE) Urine Glucose (UA) Negative mg/dL (NEG) Urine Ketones (Stick) Negative mg/dL (NEG) Urine Blood Negative (NEG) Urine Nitrite Negative (NEG) Urine Bilirubin Negative (NEG) Urine Urobilinogen Dipstick 1.0 mg/dL (0.2 mg/dL) Urine Leukocyte Esterase Negative (NEG) Urine RBC 0 /HPF (0-2) Urine WBC 1-4 /HPF (0-4) Urine Squamous Epithelial Cells Occ /LPF Urine Bacteria Few /HPF (0-FEW) Urine Mucus Slight /LPF White Blood Count 4.9 x10^3/uL (4.0-11.0) Red Blood Count 4.37 x10^6/uL (4.30-5.70) Hemoglobin 13.3 g/dL (13.0-17.5) Hematocrit 38.5 % (39.0-53.0) Mean Corpuscular Volume 88 fL (79-100) Mean Corpuscular Hemoglobin 31 pg (25-35) Mean Corpuscular Hemoglobin Concent 35 g/dL (31-37) Red Cell Distribution Width 13.9 % (11.5-14.5) Platelet Count 156 x10^3/uL (140-400) Neutrophils (%) (Auto) 50 % (31-73) Lymphocytes (%) (Auto) 43 % (24-48) Monocytes (%) (Auto) 6 % (0-9) Eosinophils (%) (Auto) 2 % (0-3) Basophils (%) (Auto) 0 % (0-3) Neutrophils # (Auto) 2.4 x10^3/uL (1.8-7.7) Lymphocytes # (Auto) 2.1 x10^3/uL (1.0-4.8) Monocytes # (Auto) 0.3 x10^3/uL (0.0-1.1) Eosinophils # (Auto) 0.1 x10^3/uL (0.0-0.7) Basophils # (Auto) 0.0 x10^3/uL (0.0-0.2) Prothrombin Time 12.3 SEC (11.7-14.0) Prothromb Time International Ratio 0.9 (0.8-1.1) D-Dimer (Sussy) 0.44 ug/mlFEU (0.00-0.50) Sodium Level 144 mmol/L (136-145) Potassium Level 3.8 mmol/L (3.5-5.1) Chloride Level 106 mmol/L (98-107) Carbon Dioxide Level 23 mmol/L (21-32) Anion Gap 15 (6-14) Blood Urea Nitrogen 25 mg/dL (8-26) Creatinine 1.1 mg/dL (0.7-1.3) Estimated GFR (Cockcroft-Gault) 67.6 BUN/Creatinine Ratio 23 (6-20) Glucose Level 153 mg/dL (70-99) Calcium Level 9.4 mg/dL (8.5-10.1) Magnesium Level 2.3 mg/dL (1.8-2.4) Total Bilirubin 0.5 mg/dL (0.2-1.0) Aspartate Amino Transf (AST/SGOT) 26 U/L (15-37) Alanine Aminotransferase (ALT/SGPT) 50 U/L (16-63) Alkaline Phosphatase 100 U/L (46-116) Troponin I Quantitative < 0.017 ng/mL (0.000-0.055) < 0.017 ng/mL (0.000-0.055) UM-Yia-N-Type Natriuretic Peptide 51 pg/mL (0-124) Total Protein 7.4 g/dL (6.4-8.2) Albumin 4.2 g/dL (3.4-5.0) Albumin/Globulin Ratio 1.3 (1.0-1.7) Lipase 473 U/L (73-393) Triglycerides Level 235 mg/dL (0-150) Cholesterol Level 259 mg/dL (0-200) LDL Cholesterol, Calculated 179 mg/dL (0-100) VLDL Cholesterol, Calculated 47 mg/dL (0-40) Non-HDL Cholesterol Calculated 226 mg/dL (0-129) HDL Cholesterol 33 mg/dL (40-60) Cholesterol/HDL Ratio 7.8 Thyroid Stimulating Hormone (TSH) 1.851 uIU/mL (0.358-3.74) Test 09/02/19 20:10 09/02/19 20:30 Urine Opiates Screen Neg (NEG) Urine Methadone Screen Neg (NEG) Urine Barbiturates Neg (NEG) Urine Phencyclidine Screen Neg (NEG) Urine Amphetamine/Methamphetamine Neg (NEG) Urine Benzodiazepines Screen Neg (NEG) Urine Cocaine Screen Neg (NEG) Urine Cannabinoids Screen Neg (NEG) Urine Ethyl Alcohol Neg (NEG) Troponin I Quantitative < 0.017 ng/mL (0.000-0.055) Medications Current Medications Al Hydroxide/Mg Hydroxide (Mylanta Plus Xs) 30 ml PRN Q2HR PRN PO HEARTBURN / GAS; Start 09/02/19 at 21:45 Aspirin (Children'S Aspirin) 324 mg 1X ONCE PO Last administered on 09/02/19at 13:52; Start 09/02/19 at 13:00; Stop 09/02/19 at 13:01; Status DC Aspirin (Ecotrin) 81 mg DAILY08 PO ; Start 09/03/19 at 08:00 Atorvastatin Calcium (Lipitor) 40 mg QHS PO Last administered on 09/02/19at 20:45; Start 09/02/19 at 21:00; Stop 09/03/19 at 09:02; Status DC Atorvastatin Calcium (Lipitor) 80 mg QHS PO ; Start 09/03/19 at 21:00 Carvedilol (Coreg) 6.25 mg BIDWMEALS PO Last administered on 09/02/19at 17:28; Start 09/02/19 at 17:00 Clopidogrel Bisulfate (Plavix) 75 mg DAILY07 PO ; Start 09/03/19 at 07:00 Fentanyl Citrate (Fentanyl 2ml Vial) 50 mcg PRN Q15MIN PRN IV PAIN GREATER THAN 3/10 Last administered on 09/02/19at 16:01; Start 09/02/19 at 12:45; Stop 09/03/19 at 12:44 Fish Oil (Fish Oil) 1,000 mg DAILY PO ; Start 09/03/19 at 09:00 Isosorbide Mononitrate (Imdur) 30 mg DAILY PO ; Start 09/03/19 at 09:00 Nitroglycerin (Nitrostat) 0.4 mg PRN Q5MIN PRN SL CP RATING > 1/10 Last administered on 09/02/19at 21:55; Start 09/02/19 at 12:45; Stop 09/03/19 at 12:44 Oxycodone/ Acetaminophen (Percocet 5/325) 1 tab PRN Q4HRS PRN PO PAIN Last administered on 09/03/19at 08:56; Start 09/02/19 at 14:00 Sodium Chloride 1,000 ml @ 1,000 mls/hr Q1H IV Last administered on 09/02/19at 13:33; Start 09/02/19 at 12:32; Stop 09/02/19 at 13:31; Status DC Vitals/I & O Vital Sign - Last 24 Hours 09/02/19 09/02/19 09/02/19 09/02/19 12:23 13:30 13:54 14:32 Temp 97.8 97.8 Pulse 84 76 75 Resp 24 18 16 B/P (MAP) 156/82 (106) 140/69 (92) 144/73 Pulse Ox 100 100 100 O2 Delivery Room Air Room Air Room Air 09/02/19 09/02/19 09/02/19 09/02/19 14:35 16:01 16:44 17:00 Temp 97.6 97.6 Pulse 68 71 Resp 20 16 18 B/P (MAP) 133/73 (93) 129/73 (91) Pulse Ox 99 100 100 100 O2 Delivery Room Air Room Air Room Air 09/02/19 09/02/19 09/02/19 09/02/19 17:28 17:59 19:30 19:49 Temp 97.7 97.7 Pulse 68 66 Resp 16 16 B/P (MAP) 133/73 129/70 (89) Pulse Ox 100 98 O2 Delivery Room Air Room Air Room Air 09/02/19 09/02/19 09/02/19 09/02/19 20:00 20:30 21:46 21:55 Pulse 66 73 Resp 16 B/P (MAP) 129/70 121/60 Pulse Ox 97 O2 Delivery Room Air Room Air 09/02/19 09/02/19 09/03/19 09/03/19 23:04 23:25 00:25 02:05 Temp 97.9 97.3 97.9 97.3 Pulse 64 66 Resp 16 16 16 B/P (MAP) 112/64 (80) 118/65 (82) Pulse Ox 97 97 97 97 O2 Delivery Room Air Room Air Room Air Room Air 09/03/19 09/03/19 09/03/19 09/03/19 03:37 04:37 07:37 08:00 Temp 97.2 97.2 Pulse 64 Resp 16 16 B/P (MAP) 108/58 (75) Pulse Ox 97 97 95 O2 Delivery Room Air Room Air Room Air Room Air 09/03/19 08:56 Pulse Ox 95 O2 Delivery Room Air Intake and Output 09/02/19 09/02/19 09/03/19 15:00 23:00 07:00 Intake Total 600 ml 240 ml Output Total 300 ml 375 ml Balance 300 ml -135 ml ALLIE ESPARZA MD Sep 03, 2019 10:16
--- NOTE | 2019-09-03 11:42 | CARD ---
MR#: [id number] Date of Study: 09/03/2019 Ordering Physician: MAJO BALTAZAR, Referring Physician: MAJO BALTAZAR, Tech: Teena Perdue JUANY APPROVED REPORT EXAM: LIMITED Two-dimensional and M-mode echocardiogram. Other Information Quality : GoodHR: 67bpm Rhythm : NSR INDICATION Chest Pain 2D DIMENSIONS RVDd3.2 (2.9-3.5cm)Left Atrium(2D)4.0 (1.6-4.0cm) IVSd1.2 (0.7-1.1cm)Aortic Root(2D)3.1 (2.0-3.7cm) LVDd4.2 (3.9-5.9cm)PWd1.1 (0.7-1.1cm) LVDs3.3 (2.5-4.0cm)FS (%) 20.1 % SV32.2 mlLVEF(%)41.5 (>50%) LEFT VENTRICLE The left ventricle is normal size. There is mild concentric left ventricular hypertrophy. Left ventri farida systolic function is mildly impaired. The Ejection Fraction is 45-50%. Septal motion suggestive o f conduction defect/prior CABG. RIGHT VENTRICLE The right ventricle is normal size. There is normal right ventricular wall thickness. The right ventr icular systolic function is normal. Pacer lead noted in RV/RA. ATRIA The left atrium is mildly dilated. The right atrium size is normal. The interatrial septum is intact with no evidence for an atrial septal defect or patent foramen ovale as noted on 2-D or Doppler imagi ng. AORTIC VALVE The aortic valve is mildly calcified. The aortic valve is trileaflet. MITRAL VALVE The mitral valve is normal in structure and function. There is no evidence of mitral valve prolapse. TRICUSPID VALVE The tricuspid valve is normal in structure and function. PULMONIC VALVE The pulmonic valve is not well visualized. GREAT VESSELS The aortic root is normal in size. The ascending aorta is normal in size. PERICARDIAL EFFUSION There is no evidence of significant pericardial effusion. Critical Notification Critical Value: No <Conclusion> Left ventricle systolic function is mildly impaired. The Ejection Fraction is 45-50%. Septal motion suggestive of conduction defect/prior CABG. Pacer lead noted in RV/RA. Limited echo only Signed by : Efrain Molina, Electronically Approved : 09/03/2019 11:41:31
--- NOTE | 2019-09-03 12:18 | NUR ---
SS following for discharge planning. SS reviewed pt chart. Pt is from home with spouse and is currently on room air. SS will continue to follow for discharge planning.
[2019-09-03] MEDS ORDERED: LIDOCAINE 1% PF 2 ML VIAL. ONE (12:37)
[2019-09-03] MEDS ORDERED: IODIXANOL 320 MG/ML 100 ML VIAL. ONE ×3 (12:37→14:50)
[2019-09-03] MEDS ORDERED: MIDAZOLAM HCL/PF 2 MG/2 ML VIAL. ONE ×3 (13:30→14:13)
[2019-09-03] MEDS ORDERED: fentaNYL PF VIAL 100 MCG/2 ML VIAL ONE ×2 (13:30→14:13)
[2019-09-03] MEDS ORDERED: LIDOCAINE 1% Multi-Dose 20 ML VIAL. ONE (13:43)
[2019-09-03] MEDS ORDERED: IODIXANOL 320 MG/ML 100 ML VIAL. IART ONE (14:00)
[2019-09-03] MEDS ORDERED: LIDOCAINE 1% Multi-Dose 20 ML VIAL. INJ ONE (14:00)
[2019-09-03] MEDS ORDERED: MIDAZOLAM HCL/PF 2 MG/2 ML VIAL. IV ONE ×3 (14:00→14:30)
[2019-09-03] MEDS ORDERED: fentaNYL PF VIAL 100 MCG/2 ML VIAL IV ONE ×2 (14:00→14:30)
[2019-09-03] MEDS ORDERED: CONTRAST GIVEN. MC PRN (14:00)
[2019-09-03] MEDS ORDERED: BIVALIRUDIN 250 MG VIAL. IV ONE ×2 (14:13→14:30)
[2019-09-03] MEDS ORDERED: CLOPIDOGREL BISULFATE 75 MG TABLET ONE (15:06)
[2019-09-03] MEDS ORDERED: ASPIRIN 325 MG TABLET ONE (15:06)
[2019-09-03] MEDS ORDERED: CLOPIDOGREL BISULFATE 75 MG TABLET PO ONE (15:15)
[2019-09-03] MEDS ORDERED: ASPIRIN 325 MG TABLET PO ONE (15:15)
[2019-09-03] MEDS ORDERED: IV 1/2 NORMAL SALINE 1,000 ML IV SCH (15:19)
--- NOTE | 2019-09-03 15:19 | PDOC ---
MODERATE SEDATION ASSESSMENT RISKS/ALTERNATIVES Risks/Alternatives Risks and alternatives of this type of sedation and procedure discussed with: RISK/ALTERNATIVES: Patient H & P ON CHART H & P H & P on chart and reviewed for co-morbid conditions and appropriate labs. H&P ON CHART: Yes STATUS PREG STATUS ASSESSED: N/A MEDS/ALLERGIES REVIEWED Meds/Allergies Reviewed Medications and Allergies including time and route of recently administered narcotics and sedatives. MEDS/ALLERGIES REVIEWED: Yes ASA RATING ASA RATING: II AIRWAY ASSESSMENT Airway Assessment Airway patency, oral function limitations, presence of caps, crowns, dentures, partials, and ability to extend neck assessed. AIRWAY ASSESSMENT: Yes MALLAMPATI SCORE MALLAMPATI SCORE: II PRE-SEDATION ASSESSMENT PRE-SEDATION ASSESSMENT: Yes ALLIE ESPARZA MD Sep 03, 2019 15:18
[2019-09-03] MEDS ORDERED: NITROGLYCERIN SUBLINGUAL 0.4 MG BOTTLE OF 25. SL PRN (15:30)
[2019-09-03] MEDS ORDERED: ACETAMINOPHEN 325 MG TABLET. PO PRN (15:30)
[2019-09-03] MEDS ORDERED: AMIODARONE 150 MG in IV DEXTROSE 5% 100ML 100 ML IV PRN (15:30)
--- NOTE | 2019-09-03 15:38 | CARD ---
MR#: [id number] Date of Study: 09/03/2019 Ordering Physician: ALLIE ESPARZA, Referring Physician: ALLIE ESPARZA Tech: RT Francisco (R) APPROVED REPORT Technologist: RT Francisco (R) Nurse: Maira Lopez RN Procedure(s) performed: 1. Left heart catheterization, selective coronary angiography and selective angiography of the bypass grafts 2. Successful PCI/drug eluting stent placement to the distal left main coronary artery/proximal left anterior descending artery and complex PTCA to the left circumflex artery via saphenous vein graft Sedation Time: 95 Minutes Dose: 140 Gycm2 Fluoro Time: 28.1Minutes Contrast: 229mL Visipaque INDICATION The indication(s) include : unstable angina . CS Clinical Frailty Scale [facility] Clinical Frailty Scale: Managing Well Heart Failure Heart Failure: No PROCEDURE NARRATIVE After explaining the risks, benefits and alternative options, informed consent was obtained from christin ent. Patient was brought to the cardiac [employer] [facility] and his right groin was prepped and draped in the us ual fashion. 20 mL of 2% lidocaine was infiltrated into the skin and subcutaneous tissues for local a nesthesia. Arterial access was obtained in the right common femoral artery and a 6 Afghan sheath was inserted. 6 Afghan JR4 catheter was used to perform selective angiography of the saphenous vein graft to the right coronary artery, saphenous vein graft to the obtuse marginal branch of left circumflex artery and also the left internal mammary artery graft to the left anterior descending artery. The ri [facility] coronary artery was known to be chronically occluded proximally from prior cardiac catheterizatio ns and hence was not engaged. After initial unsuccessful attempts at engaging the left main coronary artery with 6 Afghan JL4 catheter, this was engaged with a 6 Afghan AL 0.75 guide catheter and select ludivina angiography was performed. Left ventriculography was not performed due to contrast load used for intervention. The following findings were noted. FINDINGS 1. The left main coronary artery arose from the left sinus of Valsalva, gave rise to the left anteri or descending and left circumflex arteries and showed 80% stenosis extending from the distal segment into the proximal left anterior descending artery. 2. The left anterior descending artery showed 80% stenosis in the proximal segment. 3. The left circumflex artery showed 100% occlusion in the proximal segment. 4. The right coronary artery was noted to be chronically occluded proximally from prior cardiac cath eterizations. 5. The saphenous vein graft to the right coronary artery that was patent in last cardiac catheteriza tion showed 100% chronic total occlusion in the proximal segment. 6. The saphenous vein graft to the obtuse marginal branch of left circumflex artery was patent. The midsegment of the left circumflex artery showed 80% calcified stenosis in a tortuous segment. This ap peared to compromise flow to the second obtuse marginal branch. 7. The left internal mammary artery graft to the left anterior descending artery was widely patent. The [place] left anterior descending artery did not show any significant stenosis beyond the anastomos is. INTERVENTION The saphenous vein graft to the right coronary artery appeared to be chronically occluded. Since christin ent presented with very concerning symptoms of chest pain and dyspnea on minimal exertion, we decided to intervene on the lesion in the distal LMCA/proximal LAD and also the left circumflex artery via t he saphenous vein graft. The left main coronary artery was engaged with 6 Afghan AL 0.75 guide cathet er and the stenosis in the distal LMCA/LAD was crossed with a 0.014 inch Archite[employer] Pro water guidewire. T his was predilated with a 2.5 x 15 mm trek balloon following which this was successfully treated with a 2.5 x 15 mm Castellanos Xience Kadie drug-eluting stent. Follow-up angiorrhaphy showed resolution of t he stenosis to 0% with WATSON-3 distal flow. Subsequently, the saphenous vein graft to the obtuse marginal branch of left circumflex artery was en gaged with a 6 Afghan JR4 guide catheter and the stenosis crossed with the same Pro water guidewire. This was predilated with a 2.5 x 12 mm trek balloon. Attempts to advance a 2.5 x 12 mm drug-eluting s tent were unsuccessful due to tortuous nature of the vessel. A 6 Afghan guide liner inner catheter wa s then positioned in the distal segment of the graft for better backup support. Several attempts to a dvance the stents in spite of this were unsuccessful. Hence we decided to accept angioplasty results which were good. Final angiography showed resolution of the stenosis from 80% to 30% with WATSON-3 dist al flow. Patient tolerated the procedure well. Hemostasis was achieved using Angio-Seal. There were n o immediate complications. Conclusion 1. Coronary artery disease s/p coronary artery bypass surgery as described above with patent CARRERO to LAD, patent saphenous vein graft to OM/LCx with the midsegment of LCx showing 80% stenosis compromis ing flow to second obtuse marginal branch, chronically occluded saphenous vein graft to the right cor onary artery and 80% stenosis involving the distal LMCA/proximal LAD compromising flow to a diagonal branch. 2. Successful PCI/JOSE G to LMCA/LAD and complex PTCA to the left circumflex artery via saphenous vein graft. Recommendations 1. Aspirin 325 mg daily for one month followed by 81 mg daily 2. Plavix 75 mg daily for preferably one year 3. Cardiovascular risk factor modification Signed by : Allie Esparza, Electronically Approved : 09/03/2019 15:38:14
[2019-09-03] MEDS ORDERED: ISOSORBIDE MONONITRATE ER 30 MG TAB.ER.24H PO ONE (17:00)
[2019-09-03] MEDS ORDERED: OMEGA-3 FATTY ACIDS/FISH OIL 1,000 MG CAPSULE. PO ONE (17:00)
[2019-09-03] MEDS ORDERED: CARVEDILOL 6.25 MG TABLET. ONE (17:00)
[2019-09-03] MEDS ORDERED: oxyCODONE/APAP 7.5/325 1 TAB TABLET ONE (17:00)
[2019-09-03] MEDS: oxyCODONE/APAP 7.5/325 1 TAB TABLET PO PRN ×2 (17:05→21:13)
[2019-09-03] MEDS: ISOSORBIDE MONONITRATE ER 30 MG TAB.ER.24H PO SCH (17:05)
[2019-09-03] MEDS: OMEGA-3 FATTY ACIDS/FISH OIL 1,000 MG CAPSULE. PO SCH (17:05)
[2019-09-03] MEDS ORDERED: ATORVASTATIN CALCIUM 40 MG TABLET. PO SCH (21:00)
[2019-09-04 00:07] LABS: HEMOGLOBIN A1C 5.3 % (4.8-5.6)
[2019-09-04] MEDS: oxyCODONE/APAP 7.5/325 1 TAB TABLET PO PRN ×2 (02:11→06:16)
[2019-09-04 02:30] VITALS: BP 118/64
[2019-09-04] MEDS: CLOPIDOGREL BISULFATE 75 MG TABLET PO SCH (06:16)
[2019-09-04 07:00] VITALS: BP 116/57
[2019-09-04] MEDS ORDERED: ASPIRIN ENTERIC COATED 325 MG TABLET.DR. PO SCH (08:00)
[2019-09-04] MEDS ORDERED: CLOPIDOGREL BISULFATE 75 MG TABLET PO SCH (08:00)
[2019-09-04] MEDS ORDERED: LISINOPRIL 5 MG TABLET. PO SCH (09:00)
--- NOTE | 2019-09-04 09:07 | PDOC ---
PROGRESS NOTES History of Present Illness History of Present Illness VTE Prophylaxis Ordered VTE Prophylaxis Devices: Yes VTE Pharmacological Prophylaxi: Yes Assessment/Plan Assessment/Plan impression 1. angina 2. Severe [place] vessel coronary artery disease s/p coronary artery bypass surgery with patent CARRERO to LAD, patent SVG to obtuse marginal branch of left circumflex artery and also patent SVG to RCA 3. Left ventricle systolic function is mildly impaired. The Ejection Fraction is 45-50%.Septal motion suggestive of conduction defect/prior CABG. Pacer lead noted in RV/RA. on echo plan admit CVC BED consult cardiology hx of CAD s/p CABG remote - cvc tele bed - continue ASA, statin, plavix, BB therapy - trend trop - prn NTG - SERIAL TROPONIN I - [employer] 09/03 STENTS PLACED 36 MIN PT EXAM, CHART REVIEW d/c planning time, > 50% OF TIME SPENT WITH EXAM, CHART REVIEW, PT CARE COORDINATION Vitals Vitals Vital Signs Date Time Temp Pulse Resp B/P (MAP) Pulse Ox O2 Delivery O2 Flow Rate FiO2 09/04/19 06:16 Room Air 09/04/19 02:30 97.7 75 118/64 (82) 98 97.7 09/03/19 23:00 21 09/03/19 18:40 2.0 Physical Exam General: Alert, Oriented X3, Cooperative, No acute distress Heart: Regular rate (SR), Normal S1, Normal S2, No murmurs Lungs: Clear Abdomen: Normal bowel sounds, Soft, No tenderness Extremities: No cyanosis Skin: No breakdown, No significant lesion Labs LABS LEFT VENTRICLE The left ventricle is normal size. There is mild concentric left ventricular hypertrophy. Left ventricle systolic function is mildly impaired. The Ejection Fraction is 45-50%. Septal motion suggestive of conduction defect/prior CABG. RIGHT VENTRICLE The right ventricle is normal size. There is normal right ventricular wall thickness. The right ventricular systolic function is normal. Pacer lead noted in RV/RA. ATRIA The left atrium is mildly dilated. The right atrium size is normal. The interatrial septum is intact with no evidence for an atrial septal defect or patent foramen ovale as noted on 2-D or Doppler imaging. AORTIC VALVE The aortic valve is mildly calcified. The aortic valve is trileaflet. MITRAL VALVE The mitral valve is normal in structure and function. There is no evidence of mitral valve prolapse. TRICUSPID VALVE The tricuspid valve is normal in structure and function. PULMONIC VALVE The pulmonic valve is not well visualized. GREAT VESSELS The aortic root is normal in size. The ascending aorta is normal in size. PERICARDIAL EFFUSION There is no evidence of significant pericardial effusion. Critical Notification Critical Value: No <Conclusion> Left ventricle systolic function is mildly impaired. The Ejection Fraction is 45-50%. Septal motion suggestive of conduction defect/prior CABG. Pacer lead noted in RV/RA. Limited echo only Signed by : Efrain Molina, Electronically Approved : 09/03/2019 11:41:31 Comment Review of Relevant I have reviewed the following items mirian (where applicable) has been applied. Labs Laboratory Tests Test 09/02/19 12:23 09/02/19 12:53 09/02/19 16:50 09/02/19 16:55 Urine Collection Type Void Urine Color Yellow Urine Clarity Clear Urine pH 6.5 Urine Specific [place] 1.025 Urine Protein Negative mg/dL (NEG-TRACE) Urine Glucose (UA) Negative mg/dL (NEG) Urine Ketones (Stick) Negative mg/dL (NEG) Urine Blood Negative (NEG) Urine Nitrite Negative (NEG) Urine Bilirubin Negative (NEG) Urine Urobilinogen Dipstick 1.0 mg/dL (0.2 mg/dL) Urine Leukocyte Esterase Negative (NEG) Urine RBC 0 /HPF (0-2) Urine WBC 1-4 /HPF (0-4) Urine Squamous Epithelial Cells Occ /LPF Urine Bacteria Few /HPF (0-FEW) Urine Mucus Slight /LPF White Blood Count 4.9 x10^3/uL (4.0-11.0) Red Blood Count 4.37 x10^6/uL (4.30-5.70) Hemoglobin 13.3 g/dL (13.0-17.5) Hematocrit 38.5 % (39.0-53.0) Mean Corpuscular Volume 88 fL (79-100) Mean Corpuscular Hemoglobin 31 pg (25-35) Mean Corpuscular Hemoglobin Concent 35 g/dL (31-37) Red Cell Distribution Width 13.9 % (11.5-14.5) Platelet Count 156 x10^3/uL (140-400) Neutrophils (%) (Auto) 50 % (31-73) Lymphocytes (%) (Auto) 43 % (24-48) Monocytes (%) (Auto) 6 % (0-9) Eosinophils (%) (Auto) 2 % (0-3) Basophils (%) (Auto) 0 % (0-3) Neutrophils # (Auto) 2.4 x10^3/uL (1.8-7.7) Lymphocytes # (Auto) 2.1 x10^3/uL (1.0-4.8) Monocytes # (Auto) 0.3 x10^3/uL (0.0-1.1) Eosinophils # (Auto) 0.1 x10^3/uL (0.0-0.7) Basophils # (Auto) 0.0 x10^3/uL (0.0-0.2) Prothrombin Time 12.3 SEC (11.7-14.0) Prothromb Time International Ratio 0.9 (0.8-1.1) D-Dimer (Sussy) 0.44 ug/mlFEU (0.00-0.50) Sodium Level 144 mmol/L (136-145) Potassium Level 3.8 mmol/L (3.5-5.1) Chloride Level 106 mmol/L (98-107) Carbon Dioxide Level 23 mmol/L (21-32) Anion Gap 15 (6-14) Blood Urea Nitrogen 25 mg/dL (8-26) Creatinine 1.1 mg/dL (0.7-1.3) Estimated GFR (Cockcroft-Gault) 67.6 BUN/Creatinine Ratio 23 (6-20) Glucose Level 153 mg/dL (70-99) Calcium Level 9.4 mg/dL (8.5-10.1) Magnesium Level 2.3 mg/dL (1.8-2.4) Total Bilirubin 0.5 mg/dL (0.2-1.0) Aspartate Amino Transf (AST/SGOT) 26 U/L (15-37) Alanine Aminotransferase (ALT/SGPT) 50 U/L (16-63) Alkaline Phosphatase 100 U/L (46-116) Troponin I Quantitative < 0.017 ng/mL (0.000-0.055) < 0.017 ng/mL (0.000-0.055) RF-Soh-W-Type Natriuretic Peptide 51 pg/mL (0-124) Total Protein 7.4 g/dL (6.4-8.2) Albumin 4.2 g/dL (3.4-5.0) Albumin/Globulin Ratio 1.3 (1.0-1.7) Lipase 473 U/L (73-393) Triglycerides Level 235 mg/dL (0-150) Cholesterol Level 259 mg/dL (0-200) LDL Cholesterol, Calculated 179 mg/dL (0-100) VLDL Cholesterol, Calculated 47 mg/dL (0-40) Non-HDL Cholesterol Calculated 226 mg/dL (0-129) HDL Cholesterol 33 mg/dL (40-60) Cholesterol/HDL Ratio 7.8 Thyroid Stimulating Hormone (TSH) 1.851 uIU/mL (0.358-3.74) Hemoglobin A1c 5.3 % (4.8-5.6) Test 09/02/19 20:10 09/02/19 20:30 Urine Opiates Screen Neg (NEG) Urine Methadone Screen Neg (NEG) Urine Barbiturates Neg (NEG) Urine Phencyclidine Screen Neg (NEG) Urine Amphetamine/Methamphetamine Neg (NEG) Urine Benzodiazepines Screen Neg (NEG) Urine Cocaine Screen Neg (NEG) Urine Cannabinoids Screen Neg (NEG) Urine Ethyl Alcohol Neg (NEG) Troponin I Quantitative < 0.017 ng/mL (0.000-0.055) Medications Current Medications Aspirin (Children'S Aspirin) 324 mg 1X ONCE PO Last administered on 09/02/19at 13:52; Start 09/02/19 at 13:00; Stop 09/02/19 at 13:01; Status DC Nitroglycerin (Nitrostat) 0.4 mg PRN Q5MIN PRN SL CP RATING > 1/10 Last administered on 09/02/19at 21:55; Start 09/02/19 at 12:45; Stop 09/03/19 at 12:44; Status DC Fentanyl Citrate (Fentanyl 2ml Vial) 50 mcg PRN Q15MIN PRN IV PAIN GREATER THAN 3/10 Last administered on 09/02/19at 16:01; Start 09/02/19 at 12:45; Stop 09/03/19 at 12:44; Status DC Sodium Chloride 1,000 ml @ 1,000 mls/hr Q1H IV Last administered on 09/02/19at 13:33; Start 09/02/19 at 12:32; Stop 09/02/19 at 13:31; Status DC Aspirin (Ecotrin) 81 mg DAILY08 PO ; Start 09/03/19 at 08:00; Stop 09/03/19 at 15:22; Status DC Atorvastatin Calcium (Lipitor) 40 mg QHS PO Last administered on 09/02/19at 20:45; Start 09/02/19 at 21:00; Stop 09/03/19 at 09:02; Status DC Carvedilol (Coreg) 6.25 mg BIDWMEALS PO Last administered on 09/03/19at 17:05; Start 09/02/19 at 17:00 Clopidogrel Bisulfate (Plavix) 75 mg DAILY07 PO Last administered on 09/04/19at 06:16; Start 09/03/19 at 07:00 Isosorbide Mononitrate (Imdur) 30 mg DAILY PO Last administered on 09/03/19at 17:05; Start 09/03/19 at 09:00 Oxycodone/ Acetaminophen (Percocet 5/325) 1 tab PRN Q4HRS PRN PO PAIN Last administered on 09/03/19at 08:56; Start 09/02/19 at 14:00; Stop 09/03/19 at 13:01; Status DC Fish Oil (Fish Oil) 1,000 mg DAILY PO Last administered on 09/03/19at 17:05; Start 09/03/19 at 09:00 Al Hydroxide/Mg Hydroxide (Mylanta Plus Xs) 30 ml PRN Q2HR PRN PO HEARTBURN / GAS; Start 09/02/19 at 21:45 Atorvastatin Calcium (Lipitor) 80 mg QHS PO Last administered on 09/03/19at 21:12; Start 09/03/19 at 21:00 Iodixanol (Visipaque 320) 100 ml STK-MED ONCE .ROUTE ; Start 09/03/19 at 12:37; Stop 09/03/19 at 12:37; Status DC Lidocaine HCl (Xylocaine-Mpf 1% 2ml Vial) 2 ml STK-MED ONCE .ROUTE ; Start 09/03/19 at 12:37; Stop 09/03/19 at 12:37; Status DC Heparin Sodium/ Sodium Chloride 1,000 ml @ As Directed STK-MED ONCE .ROUTE ; Start 09/03/19 at 12:37; Stop 09/03/19 at 12:38; Status DC Oxycodone/ Acetaminophen (Percocet 7.5/ 325) 1 tab PRN Q4HRS PRN PO MODERATE PAIN, SEVERE PAIN Last administered on 09/04/19at 06:16; Start 09/03/19 at 13:00 Fentanyl Citrate (Fentanyl 2ml Vial) 100 mcg STK-MED ONCE .ROUTE ; Start 09/03/19 at 13:30; Stop 09/03/19 at 13:30; Status DC Midazolam HCl (Versed) 2 mg STK-MED ONCE .ROUTE ; Start 09/03/19 at 13:30; Stop 09/03/19 at 13:31; Status DC Lidocaine HCl (Lidocaine 1% 20ml Vial) 20 ml STK-MED ONCE .ROUTE ; Start 09/03/19 at 13:43; Stop 09/03/19 at 13:43; Status DC Midazolam HCl (Versed) 2 mg STK-MED ONCE .ROUTE ; Start 09/03/19 at 13:49; Stop 09/03/19 at 13:50; Status DC Heparin Sodium/ Sodium Chloride (HEPARIN for ARTERIAL LINE FLUSH) 1,000 unit 1X ONCE IART Last administered on 09/03/19at 14:00; Start 09/03/19 at 14:00; Stop 09/03/19 at 14:01; Status DC Heparin Sodium/ Sodium Chloride (HEPARIN for ARTERIAL LINE FLUSH) 1,000 unit 1X ONCE IART Last administered on 09/03/19at 14:00; Start 09/03/19 at 14:00; Stop 09/03/19 at 14:01; Status DC Midazolam HCl (Versed) 2 mg 1X ONCE IV Last administered on 09/03/19at 14:00; Start 09/03/19 at 14:00; Stop 09/03/19 at 14:01; Status DC Fentanyl Citrate (Fentanyl 2ml Vial) 100 mcg 1X ONCE IV Last administered on 09/03/19at 14:00; Start 09/03/19 at 14:00; Stop 09/03/19 at 14:01; Status DC Iodixanol (Visipaque 320) 100 ml 1X ONCE IART Last administered on 09/03/19at 14:00; Start 09/03/19 at 14:00; Stop 09/03/19 at 14:01; Status DC Lidocaine HCl (Lidocaine 1% 20ml Vial) 20 ml 1X ONCE INJ Last administered on 09/03/19at 13:51; Start 09/03/19 at 14:00; Stop 09/03/19 at 14:01; Status DC Midazolam HCl (Versed) 2 mg 1X ONCE IV Last administered on 09/03/19at 14:00; Start 09/03/19 at 14:00; Stop 09/03/19 at 14:01; Status DC Info (CONTRAST GIVEN -- Rx MONITORING) 1 each PRN DAILY PRN MC SEE COMMENTS; Start 09/03/19 at 14:00; Stop 09/05/19 at 13:59 Iodixanol (Visipaque 320) 100 ml STK-MED ONCE .ROUTE ; Start 09/03/19 at 14:08; Stop 09/03/19 at 14:08; Status DC Fentanyl Citrate (Fentanyl 2ml Vial) 100 mcg STK-MED ONCE .ROUTE ; Start 09/03/19 at 14:13; Stop 09/03/19 at 14:13; Status DC Midazolam HCl (Versed) 2 mg STK-MED ONCE .ROUTE ; Start 09/03/19 at 14:13; Stop 09/03/19 at 14:13; Status DC Bivalirudin (Angiomax) 250 mg STK-MED ONCE IV ; Start 09/03/19 at 14:13; Stop 09/03/19 at 14:13; Status DC Midazolam HCl (Versed) 2 mg 1X ONCE IV Last administered on 09/03/19at 14:30; Start 09/03/19 at 14:30; Stop 09/03/19 at 14:31; Status DC Fentanyl Citrate (Fentanyl 2ml Vial) 100 mcg 1X ONCE IV Last administered on 09/03/19at 14:30; Start 09/03/19 at 14:30; Stop 09/03/19 at 14:31; Status DC Bivalirudin (Angiomax) 250 mg 1X ONCE IV Last administered on 09/03/19at 14:16; Start 09/03/19 at 14:30; Stop 09/03/19 at 14:31; Status DC Iodixanol (Visipaque 320) 100 ml STK-MED ONCE .ROUTE ; Start 09/03/19 at 14:50; Stop 09/03/19 at 14:50; Status DC Clopidogrel Bisulfate (Plavix) 300 mg 1X ONCE PO Last administered on 09/03/19at 15:14; Start 09/03/19 at 15:15; Stop 09/03/19 at 15:16; Status DC Aspirin (Kiley Aspirin) 325 mg 1X ONCE PO Last administered on 09/03/19at 15:14; Start 09/03/19 at 15:15; Stop 09/03/19 at 15:16; Status DC Clopidogrel Bisulfate (Plavix) 75 mg STK-MED ONCE .ROUTE ; Start 09/03/19 at 15:06; Stop 09/03/19 at 15:07; Status DC Aspirin ([place]iley Aspirin) 325 mg STK-MED ONCE .ROUTE ; Start 09/03/19 at 15:06; Stop 09/03/19 at 15:07; Status DC Sodium Chloride 1,000 ml @ 100 mls/hr Q10H IV ; Start 09/03/19 at 15:19; Stop 09/04/19 at 01:18; Status DC Aspirin (Ecotrin) 325 mg DAILYWBKFT PO ; Start 09/04/19 at 08:00 Clopidogrel Bisulfate (Plavix) 75 mg DAILYWBKFT PO ; Start 09/04/19 at 08:00; Status UNV Lisinopril (Prinivil) 5 mg DAILY PO ; Start 09/04/19 at 09:00 Acetaminophen (Tylenol) 650 mg PRN Q6HRS PRN PO MILD PAIN / TEMP; Start 09/03/19 at 15:30 Nitroglycerin (Nitrostat) 0.4 mg PRN Q5MIN PRN SL CHEST PAIN; Start 09/03/19 at 15:30 Amiodarone HCl 150 mg/Dextrose 103 ml @ 600 mls/hr 1X PRN PRN IV FOR VENTRICULAR TACHYCARDIA; Start 09/03/19 at 15:30 Carvedilol (Coreg) 6.25 mg STK-MED ONCE .ROUTE ; Start 09/03/19 at 17:00; Stop 09/03/19 at 18:24; Status DC Isosorbide Mononitrate (Imdur) 30 mg STK-MED ONCE PO ; Start 09/03/19 at 17:00; Stop 09/03/19 at 18:24; Status DC Fish Oil (Fish Oil) 1,000 mg STK-MED ONCE PO ; Start 09/03/19 at 17:00; Stop 09/03/19 at 18:24; Status DC Oxycodone/ Acetaminophen (Percocet 7.5/ 325) 1 tab STK-MED ONCE .ROUTE ; Start 09/03/19 at 17:00; Stop 09/03/19 at 18:24; Status DC Active Scripts Active Carvedilol (Carvedilol) 6.25 Mg Tablet 6.25 Mg PO BIDWMEALS Reported Atorvastatin Calcium 40 Mg Tablet 40 Mg PO DAILY Isosorbide Mononitrate Er (Isosorbide Mononitrate) 30 Mg Tab.er.24h 30 Mg PO DAILY Percocet 5-325 Mg Tablet (Oxycodone/Acetaminophen) 1 Each Tablet 1 Tab PO PRN Q4HRS PRN Aspirin Ec (Aspirin) 81 Mg Tablet.dr 81 Mg PO DAILY08 Fish Oil ([place]-3 Fatty Acids) 300 Mg Capsule 1,000 Mg PO DAILY Clopidogrel (Clopidogrel Bisulfate) 75 Mg Tablet 75 Mg PO DAILY07 Vitals/I & O Vital Sign - Last 24 Hours 09/03/19 09/03/19 09/03/19 09/03/19 10:34 12:53 14:00 14:30 Pulse 79 Resp 16 18 18 B/P (MAP) 135/65 (88) Pulse Ox 97 97 100 99 O2 Delivery Room Air Room Air Nasal Cannula Nasal Cannula O2 Flow Rate 2.0 2.0 09/03/19 09/03/19 09/03/19 09/03/19 15:00 15:15 17:05 17:05 Temp 96.3 96.3 Pulse 77 68 68 68 Resp 16 20 B/P (MAP) 150/81 (104) 151/83 151/83 Pulse Ox 99 99 O2 Delivery Room Air Room Air 09/03/19 09/03/19 09/03/19 09/03/19 17:05 18:40 18:40 18:40 Pulse Ox 99 99 99 99 O2 Delivery Room Air Room Air Room Air Room Air O2 Flow Rate 2.0 2.0 2.0 2.0 09/03/19 09/03/19 09/03/19 09/03/19 19:45 20:00 21:13 22:13 Temp 97.1 97.1 Pulse 74 Resp 21 B/P (MAP) 143/89 (107) Pulse Ox 98 O2 Delivery Room Air Room Air Room Air Room Air 09/03/19 09/04/19 09/04/19 09/04/19 23:00 02:11 02:30 03:11 Temp 97.1 97.7 97.1 97.7 Pulse 75 75 Resp 21 B/P (MAP) 108/56 (73) 118/64 (82) Pulse Ox 97 98 O2 Delivery Room Air Room Air Room Air Room Air 09/04/19 06:16 O2 Delivery Room Air Intake and Output 09/03/19 09/03/19 09/04/19 15:00 23:00 07:00 Intake Total 300 ml 120 ml Balance 300 ml 120 ml SESAR SHINE MD Sep 04, 2019 09:07
[2019-09-04] MEDS: CARVEDILOL 6.25 MG TABLET. PO SCH (09:16)
[2019-09-04] MEDS: OMEGA-3 FATTY ACIDS/FISH OIL 1,000 MG CAPSULE. PO SCH (09:16)
[2019-09-04] MEDS: ISOSORBIDE MONONITRATE ER 30 MG TAB.ER.24H PO SCH (09:17)
[2019-09-04 11:00] VITALS: BP 107/58
--- NOTE | 2019-09-04 11:48 | PDOC ---
PROGRESS NOTES Subjective Subjective Patient feeling much better after angioplasty yesterday Objective Objective Vital Signs Date Time Temp Pulse Resp B/P (MAP) Pulse Ox O2 Delivery O2 Flow Rate FiO2 09/04/19 09:17 73 116/57 09/04/19 08:00 Room Air 09/04/19 07:16 96 09/04/19 07:00 97.1 18 97.1 09/03/19 18:40 2.0 Intake and Output 09/04/19 07:00 Intake Total 420 ml Balance 420 ml Intake Oral 420 ml # Voids 4 Physical Exam Abdomen: Soft, No tenderness Heart: Regular rate (SR), Normal S1, Normal S2, No murmurs Extremities: No cyanosis General: Alert, Oriented X3, Cooperative, No acute distress HEENT: Atraumatic, Mucous membr. moist/pink Lungs: Clear to auscultation, Normal air movement Neuro: Normal speech, Sensation intact Psych/Mental Status: Mental status NL, Mood NL Skin: No breakdown, No significant lesion Assessment Assessment 1. Unstable angina in a patient with known history of coronary artery disease. He underwent cardiac catheterization and successful PCI/JOSE G to LMCA/LAD and PTCA to LCx with improvement in symptoms. Continue dual antiplatelet therapy. 2. Presyncope with fall: 3 times this week, nontraumatic. Uncertain etiology. Pacemaker check showed normal function. 3. PPM in situ: medtronic for SSS placed at least 10 yrs ago 4. CAD; recent LHC with patent grafts. past CABG 2005 and 2010 5. 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 DDIMER nml 6. HTN: controlled 7. HLP: LDL significantly elevated. Lipitor dose increased to 80 mg daily at bedtime. 8. Hx of CVA with carotid artery disease Follow-up with our office in 1 month. Comment Review of Relevant I have reviewed the following items mirian (where applicable) has been applied. Medications Current Medications Acetaminophen (Tylenol) 650 mg PRN Q6HRS PRN PO MILD PAIN / TEMP; Start 09/03/19 at 15:30 Amiodarone HCl 150 mg/Dextrose 103 ml @ 600 mls/hr 1X PRN PRN IV FOR VENTRICULAR TACHYCARDIA; Start 09/03/19 at 15:30 Aspirin (Kiley Aspirin) 325 mg 1X ONCE PO Last administered on 09/03/19at 15:14; Start 09/03/19 at 15:15; Stop 09/03/19 at 15:16; Status DC Aspirin (Kiley Aspirin) 325 mg STK-MED ONCE .ROUTE ; Start 09/03/19 at 15:06; Stop 09/03/19 at 15:07; Status DC Aspirin (Ecotrin) 325 mg DAILYWBKFT PO Last administered on 09/04/19at 09:16; Start 09/04/19 at 08:00 Atorvastatin Calcium (Lipitor) 80 mg QHS PO Last administered on 09/03/19at 21:12; Start 09/03/19 at 21:00 Bivalirudin (Angiomax) 250 mg 1X ONCE IV Last administered on 09/03/19at 14:16; Start 09/03/19 at 14:30; Stop 09/03/19 at 14:31; Status DC Bivalirudin (Angiomax) 250 mg STK-MED ONCE IV ; Start 09/03/19 at 14:13; Stop 09/03/19 at 14:13; Status DC Carvedilol (Coreg) 6.25 mg STK-MED ONCE .ROUTE ; Start 09/03/19 at 17:00; Stop 09/03/19 at 18:24; Status DC Clopidogrel Bisulfate (Plavix) 75 mg DAILYWBKFT PO ; Start 09/04/19 at 08:00; Status UNV Clopidogrel Bisulfate (Plavix) 75 mg STK-MED ONCE .ROUTE ; Start 09/03/19 at 15:06; Stop 09/03/19 at 15:07; Status DC Clopidogrel Bisulfate (Plavix) 300 mg 1X ONCE PO Last administered on 09/03/19at 15:14; Start 09/03/19 at 15:15; Stop 09/03/19 at 15:16; Status DC Fentanyl Citrate (Fentanyl 2ml Vial) 100 mcg 1X ONCE IV Last administered on 09/03/19at 14:00; Start 09/03/19 at 14:00; Stop 09/03/19 at 14:01; Status DC Fentanyl Citrate (Fentanyl 2ml Vial) 100 mcg 1X ONCE IV Last administered on 09/03/19at 14:30; Start 09/03/19 at 14:30; Stop 09/03/19 at 14:31; Status DC Fentanyl Citrate (Fentanyl 2ml Vial) 100 mcg STK-MED ONCE .ROUTE ; Start 09/03/19 at 13:30; Stop 09/03/19 at 13:30; Status DC Fentanyl Citrate (Fentanyl 2ml Vial) 100 mcg STK-MED ONCE .ROUTE ; Start 09/03/19 at 14:13; Stop 09/03/19 at 14:13; Status DC Fish Oil (Fish Oil) 1,000 mg STK-MED ONCE PO ; Start 09/03/19 at 17:00; Stop 09/03/19 at 18:24; Status DC Heparin Sodium/ Sodium Chloride 1,000 ml @ As Directed STK-MED ONCE .ROUTE ; Start 09/03/19 at 12:37; Stop 09/03/19 at 12:38; Status DC Heparin Sodium/ Sodium Chloride (HEPARIN for ARTERIAL LINE FLUSH) 1,000 unit 1X ONCE IART Last administered on 09/03/19at 14:00; Start 09/03/19 at 14:00; Stop 09/03/19 at 14:01; Status DC Heparin Sodium/ Sodium Chloride (HEPARIN for ARTERIAL LINE FLUSH) 1,000 unit 1X ONCE IART Last administered on 09/03/19at 14:00; Start 09/03/19 at 14:00; Stop 09/03/19 at 14:01; Status DC Info (CONTRAST GIVEN -- Rx MONITORING) 1 each PRN DAILY PRN MC SEE COMMENTS; Start 09/03/19 at 14:00; Stop 09/05/19 at 13:59 Iodixanol (Visipaque 320) 100 ml 1X ONCE IART Last administered on 09/03/19at 14:00; Start 09/03/19 at 14:00; Stop 09/03/19 at 14:01; Status DC Iodixanol (Visipaque 320) 100 ml STK-MED ONCE .ROUTE ; Start 09/03/19 at 12:37; Stop 09/03/19 at 12:37; Status DC Iodixanol (Visipaque 320) 100 ml STK-MED ONCE .ROUTE ; Start 09/03/19 at 14:08; Stop 09/03/19 at 14:08; Status DC Iodixanol (Visipaque 320) 100 ml STK-MED ONCE .ROUTE ; Start 09/03/19 at 14:50; Stop 09/03/19 at 14:50; Status DC Isosorbide Mononitrate (Imdur) 30 mg STK-MED ONCE PO ; Start 09/03/19 at 17:00; Stop 09/03/19 at 18:24; Status DC Lidocaine HCl (Lidocaine 1% 20ml Vial) 20 ml 1X ONCE INJ Last administered on 09/03/19at 13:51; Start 09/03/19 at 14:00; Stop 09/03/19 at 14:01; Status DC Lidocaine HCl (Lidocaine 1% 20ml Vial) 20 ml STK-MED ONCE .ROUTE ; Start 09/03/19 at 13:43; Stop 09/03/19 at 13:43; Status DC Lidocaine HCl (Xylocaine-Mpf 1% 2ml Vial) 2 ml STK-MED ONCE .ROUTE ; Start 09/03/19 at 12:37; Stop 09/03/19 at 12:37; Status DC Lisinopril (Prinivil) 5 mg DAILY PO Last administered on 09/04/19at 09:17; Start 09/04/19 at 09:00 Midazolam HCl (Versed) 2 mg 1X ONCE IV Last administered on 09/03/19at 14:00; Start 09/03/19 at 14:00; Stop 09/03/19 at 14:01; Status DC Midazolam HCl (Versed) 2 mg 1X ONCE IV Last administered on 09/03/19at 14:00; Start 09/03/19 at 14:00; Stop 09/03/19 at 14:01; Status DC Midazolam HCl (Versed) 2 mg 1X ONCE IV Last administered on 09/03/19at 14:30; Start 09/03/19 at 14:30; Stop 09/03/19 at 14:31; Status DC Midazolam HCl (Versed) 2 mg STK-MED ONCE .ROUTE ; Start 09/03/19 at 13:30; Stop 09/03/19 at 13:31; Status DC Midazolam HCl (Versed) 2 mg STK-MED ONCE .ROUTE ; Start 09/03/19 at 13:49; Stop 09/03/19 at 13:50; Status DC Midazolam HCl (Versed) 2 mg STK-MED ONCE .ROUTE ; Start 09/03/19 at 14:13; Stop 09/03/19 at 14:13; Status DC Nitroglycerin (Nitrostat) 0.4 mg PRN Q5MIN PRN SL CHEST PAIN; Start 09/03/19 at 15:30 Oxycodone/ Acetaminophen (Percocet 7.5/ 325) 1 tab PRN Q4HRS PRN PO MODERATE PAIN, SEVERE PAIN Last administered on 09/04/19at 06:16; Start 09/03/19 at 13:00 Oxycodone/ Acetaminophen (Percocet 7.5/ 325) 1 tab STK-MED ONCE .ROUTE ; Start 09/03/19 at 17:00; Stop 09/03/19 at 18:24; Status DC Sodium Chloride 1,000 ml @ 100 mls/hr Q10H IV ; Start 09/03/19 at 15:19; Stop 09/04/19 at 01:18; Status DC Vitals/I & O Vital Sign - Last 24 Hours 09/03/19 09/03/19 09/03/19 09/03/19 12:53 14:00 14:30 15:00 Temp 96.3 96.3 Pulse 77 Resp 18 18 16 B/P (MAP) 150/81 (104) Pulse Ox 97 100 99 99 O2 Delivery Room Air Nasal Cannula Nasal Cannula Room Air O2 Flow Rate 2.0 2.0 09/03/19 09/03/19 09/03/19 09/03/19 15:15 17:05 17:05 17:05 Pulse 68 68 68 Resp 20 B/P (MAP) 151/83 151/83 Pulse Ox 99 99 O2 Delivery Room Air Room Air O2 Flow Rate 2.0 09/03/19 09/03/19 09/03/19 09/03/19 18:40 18:40 18:40 19:45 Temp 97.1 97.1 Pulse 74 Resp 21 B/P (MAP) 143/89 (107) Pulse Ox 99 99 99 98 O2 Delivery Room Air Room Air Room Air Room Air O2 Flow Rate 2.0 2.0 2.0 09/03/19 09/03/19 09/03/19 09/03/19 20:00 21:13 22:13 23:00 Temp 97.1 97.1 Pulse 75 Resp 21 B/P (MAP) 108/56 (73) Pulse Ox 97 O2 Delivery Room Air Room Air Room Air Room Air 09/04/19 09/04/19 09/04/19 09/04/19 02:11 02:30 03:11 06:16 Temp 97.7 97.7 Pulse 75 B/P (MAP) 118/64 (82) Pulse Ox 98 O2 Delivery Room Air Room Air Room Air Room Air 09/04/19 09/04/19 09/04/19 09/04/19 07:00 07:16 08:00 09:16 Temp 97.1 97.1 Pulse 73 73 Resp 18 B/P (MAP) 116/57 (76) 116/57 Pulse Ox 96 96 O2 Delivery Room Air Room Air Room Air 09/04/19 09/04/19 09:17 09:17 Pulse 73 73 B/P (MAP) 116/57 116/57 Intake and Output 09/03/19 09/03/19 09/04/19 15:00 23:00 07:00 Intake Total 300 ml 120 ml Balance 300 ml 120 ml ALLIE ESPARZA MD Sep 04, 2019 11:48
--- NOTE | 2019-09-04 13:00 | PDOC3 ---
Discharge Summary Date of Admission: Sep 02, 2019 Date of Discharge: Sep 04, 2019 Follow-Up: 3-5 days Admitting Diagnosis comment: DISCHARGE DX Assessment/Plan impression 1. angina, UNSTABLE 2. Severe [place] vessel coronary artery disease s/p coronary artery bypass surgery with patent CARRERO to LAD, patent SVG to obtuse marginal branch of left circumflex artery and also patent SVG to RCA 3. Left ventricle systolic function is mildly impaired. The Ejection Fraction is 45-50%.Septal motion suggestive of conduction defect/prior CABG. Pacer lead noted in RV/RA. on echo 4. HYPERLIPIDEMIA plan admit CVC BED consult cardiology hx of CAD s/p CABG remote - cvc tele bed - continue ASA, statin, plavix, BB therapy - trend trop - prn NTG - SERIAL TROPONIN I - SOILED [employer] 09/03 STENTS PLACED 36 MIN PT EXAM, CHART REVIEW d/c planning time, > 50% OF TIME SPENT WITH EXAM, CHART REVIEW, PT CARE COORDINATION Vitals Vitals Vital Signs Date Time Temp Pulse Resp B/P (MAP) Pulse Ox O2 Delivery O2 Flow Rate FiO2 09/04/19 06:16 Room Air 09/04/19 02:30 97.7 75 118/64 (82) 98 97.7 09/03/19 23:00 21 09/03/19 18:40 2.0 Physical Exam General: Alert, Oriented X3, Cooperative, No acute distress Heart: Regular rate (SR), Normal S1, Normal S2, No murmurs Lungs: Clear Abdomen: Normal bowel sounds, Soft, No tenderness Extremities: No cyanosis Skin: No breakdown, No significant lesion Labs LABS LEFT VENTRICLE The left ventricle is normal size. There is mild concentric left ventricular hypertrophy. Left ventricle systolic function is mildly impaired. The Ejection Fraction is 45-50%. Septal motion suggestive of conduction defect/prior CABG. RIGHT VENTRICLE The right ventricle is normal size. There is normal right ventricular wall thickness. The right ventricular systolic function is normal. Pacer lead noted in RV/RA. ATRIA The left atrium is mildly dilated. The right atrium size is normal. The interatrial septum is intact with no evidence for an atrial septal defect or patent foramen ovale as noted on 2-D or Doppler imaging. AORTIC VALVE The aortic valve is mildly calcified. The aortic valve is trileaflet. MITRAL VALVE The mitral valve is normal in structure and function. There is no evidence of mitral valve prolapse. TRICUSPID VALVE The tricuspid valve is normal in structure and function. PULMONIC VALVE The pulmonic valve is not well visualized. GREAT VESSELS The aortic root is normal in size. The ascending aorta is normal in size. PERICARDIAL EFFUSION There is no evidence of significant pericardial effusion. Critical Notification Critical Value: No <Conclusion> Left ventricle systolic function is mildly impaired. The Ejection Fraction is 45-50%. Septal motion suggestive of conduction defect/prior CABG. Pacer lead noted in RV/RA. Limited echo only Signed by : Efrain Molina, Electronically Approved : 09/03/2019 11:41:31 Brief Hospital Course Mr. North is a 64 old [sex] who presented with [ UNSTABLE ANGINA] CONDITION AT DISCHARGE: Improved Discharge Medications Current Medications Aspirin (Children'S Aspirin) 324 mg 1X ONCE PO Last administered on 09/02/19at 13:52; Start 09/02/19 at 13:00; Stop 09/02/19 at 13:01; Status DC Nitroglycerin (Nitrostat) 0.4 mg PRN Q5MIN PRN SL CP RATING > 1/10 Last administered on 09/02/19at 21:55; Start 09/02/19 at 12:45; Stop 09/03/19 at 12:44; Status DC Fentanyl Citrate (Fentanyl 2ml Vial) 50 mcg PRN Q15MIN PRN IV PAIN GREATER THAN 3/10 Last administered on 09/02/19at 16:01; Start 09/02/19 at 12:45; Stop 09/03/19 at 12:44; Status DC Sodium Chloride 1,000 ml @ 1,000 mls/hr Q1H IV Last administered on 09/02/19at 13:33; Start 09/02/19 at 12:32; Stop 09/02/19 at 13:31; Status DC Aspirin (Ecotrin) 81 mg DAILY08 PO ; Start 09/03/19 at 08:00; Stop 09/03/19 at 15:22; Status DC Atorvastatin Calcium (Lipitor) 40 mg QHS PO Last administered on 09/02/19at 20:45; Start 09/02/19 at 21:00; Stop 09/03/19 at 09:02; Status DC Carvedilol (Coreg) 6.25 mg BIDWMEALS PO Last administered on 09/04/19at 09:16; Start 09/02/19 at 17:00 Clopidogrel Bisulfate (Plavix) 75 mg DAILY07 PO Last administered on 09/04/19at 06:16; Start 09/03/19 at 07:00 Isosorbide Mononitrate (Imdur) 30 mg DAILY PO Last administered on 09/04/19at 09:17; Start 09/03/19 at 09:00 Oxycodone/ Acetaminophen (Percocet 5/325) 1 tab PRN Q4HRS PRN PO PAIN Last administered on 09/03/19at 08:56; Start 09/02/19 at 14:00; Stop 09/03/19 at 13:01; Status DC Fish Oil (Fish Oil) 1,000 mg DAILY PO Last administered on 09/04/19at 09:16; Start 09/03/19 at 09:00 Al Hydroxide/Mg Hydroxide (Mylanta Plus Xs) 30 ml PRN Q2HR PRN PO HEARTBURN / GAS; Start 09/02/19 at 21:45 Atorvastatin Calcium (Lipitor) 80 mg QHS PO Last administered on 09/03/19at 21:12; Start 09/03/19 at 21:00 Iodixanol (Visipaque 320) 100 ml STK-MED ONCE .ROUTE ; Start 09/03/19 at 12:37; Stop 09/03/19 at 12:37; Status DC Lidocaine HCl (Xylocaine-Mpf 1% 2ml Vial) 2 ml STK-MED ONCE .ROUTE ; Start 09/03/19 at 12:37; Stop 09/03/19 at 12:37; Status DC Heparin Sodium/ Sodium Chloride 1,000 ml @ As Directed STK-MED ONCE .ROUTE ; Start 09/03/19 at 12:37; Stop 09/03/19 at 12:38; Status DC Oxycodone/ Acetaminophen (Percocet 7.5/ 325) 1 tab PRN Q4HRS PRN PO MODERATE PAIN, SEVERE PAIN Last administered on 09/04/19at 06:16; Start 09/03/19 at 13:00 Fentanyl Citrate (Fentanyl 2ml Vial) 100 mcg STK-MED ONCE .ROUTE ; Start 09/03/19 at 13:30; Stop 09/03/19 at 13:30; Status DC Midazolam HCl (Versed) 2 mg STK-MED ONCE .ROUTE ; Start 09/03/19 at 13:30; Stop 09/03/19 at 13:31; Status DC Lidocaine HCl (Lidocaine 1% 20ml Vial) 20 ml STK-MED ONCE .ROUTE ; Start 09/03/19 at 13:43; Stop 09/03/19 at 13:43; Status DC Midazolam HCl (Versed) 2 mg STK-MED ONCE .ROUTE ; Start 09/03/19 at 13:49; Stop 09/03/19 at 13:50; Status DC Heparin Sodium/ Sodium Chloride (HEPARIN for ARTERIAL LINE FLUSH) 1,000 unit 1X ONCE IART Last administered on 09/03/19at 14:00; Start 09/03/19 at 14:00; Stop 09/03/19 at 14:01; Status DC Heparin Sodium/ Sodium Chloride (HEPARIN for ARTERIAL LINE FLUSH) 1,000 unit 1X ONCE IART Last administered on 09/03/19at 14:00; Start 09/03/19 at 14:00; Stop 09/03/19 at 14:01; Status DC Midazolam HCl (Versed) 2 mg 1X ONCE IV Last administered on 09/03/19at 14:00; Start 09/03/19 at 14:00; Stop 09/03/19 at 14:01; Status DC Fentanyl Citrate (Fentanyl 2ml Vial) 100 mcg 1X ONCE IV Last administered on 09/03/19at 14:00; Start 09/03/19 at 14:00; Stop 09/03/19 at 14:01; Status DC Iodixanol (Visipaque 320) 100 ml 1X ONCE IART Last administered on 09/03/19at 14:00; Start 09/03/19 at 14:00; Stop 09/03/19 at 14:01; Status DC Lidocaine HCl (Lidocaine 1% 20ml Vial) 20 ml 1X ONCE INJ Last administered on 09/03/19at 13:51; Start 09/03/19 at 14:00; Stop 09/03/19 at 14:01; Status DC Midazolam HCl (Versed) 2 mg 1X ONCE IV Last administered on 09/03/19at 14:00; Start 09/03/19 at 14:00; Stop 09/03/19 at 14:01; Status DC Info (CONTRAST GIVEN -- Rx MONITORING) 1 each PRN DAILY PRN MC SEE COMMENTS; Start 09/03/19 at 14:00; Stop 09/05/19 at 13:59 Iodixanol (Visipaque 320) 100 ml STK-MED ONCE .ROUTE ; Start 09/03/19 at 14:08; Stop 09/03/19 at 14:08; Status DC Fentanyl Citrate (Fentanyl 2ml Vial) 100 mcg STK-MED ONCE .ROUTE ; Start 09/03/19 at 14:13; Stop 09/03/19 at 14:13; Status DC Midazolam HCl (Versed) 2 mg STK-MED ONCE .ROUTE ; Start 09/03/19 at 14:13; Stop 09/03/19 at 14:13; Status DC Bivalirudin (Angiomax) 250 mg STK-MED ONCE IV ; Start 09/03/19 at 14:13; Stop 09/03/19 at 14:13; Status DC Midazolam HCl (Versed) 2 mg 1X ONCE IV Last administered on 09/03/19at 14:30; Start 09/03/19 at 14:30; Stop 09/03/19 at 14:31; Status DC Fentanyl Citrate (Fentanyl 2ml Vial) 100 mcg 1X ONCE IV Last administered on 09/03/19at 14:30; Start 09/03/19 at 14:30; Stop 09/03/19 at 14:31; Status DC Bivalirudin (Angiomax) 250 mg 1X ONCE IV Last administered on 09/03/19at 14:16; Start 09/03/19 at 14:30; Stop 09/03/19 at 14:31; Status DC Iodixanol (Visipaque 320) 100 ml STK-MED ONCE .ROUTE ; Start 09/03/19 at 14:50; Stop 09/03/19 at 14:50; Status DC Clopidogrel Bisulfate (Plavix) 300 mg 1X ONCE PO Last administered on 09/03/19at 15:14; Start 09/03/19 at 15:15; Stop 09/03/19 at 15:16; Status DC Aspirin (Kiley Aspirin) 325 mg 1X ONCE PO Last administered on 09/03/19at 15:14; Start 09/03/19 at 15:15; Stop 09/03/19 at 15:16; Status DC Clopidogrel Bisulfate (Plavix) 75 mg STK-MED ONCE .ROUTE ; Start 09/03/19 at 15:06; Stop 09/03/19 at 15:07; Status DC Aspirin (Kiley Aspirin) 325 mg STK-MED ONCE .ROUTE ; Start 09/03/19 at 15:06; Stop 09/03/19 at 15:07; Status DC Sodium Chloride 1,000 ml @ 100 mls/hr Q10H IV ; Start 09/03/19 at 15:19; Stop 09/04/19 at 01:18; Status DC Aspirin (Ecotrin) 325 mg DAILYWBKFT PO Last administered on 09/04/19at 09:16; Start 09/04/19 at 08:00 Clopidogrel Bisulfate (Plavix) 75 mg DAILYWBKFT PO ; Start 09/04/19 at 08:00; Status UNV Lisinopril (Prinivil) 5 mg DAILY PO Last administered on 09/04/19at 09:17; Start 09/04/19 at 09:00 Acetaminophen (Tylenol) 650 mg PRN Q6HRS PRN PO MILD PAIN / TEMP; Start 09/03/19 at 15:30 Nitroglycerin (Nitrostat) 0.4 mg PRN Q5MIN PRN SL CHEST PAIN; Start 09/03/19 at 15:30 Amiodarone HCl 150 mg/Dextrose 103 ml @ 600 mls/hr 1X PRN PRN IV FOR VENTRICULAR TACHYCARDIA; Start 09/03/19 at 15:30 Carvedilol (Coreg) 6.25 mg STK-MED ONCE .ROUTE ; Start 09/03/19 at 17:00; Stop 09/03/19 at 18:24; Status DC Isosorbide Mononitrate (Imdur) 30 mg STK-MED ONCE PO ; Start 09/03/19 at 17:00; Stop 09/03/19 at 18:24; Status DC Fish Oil (Fish Oil) 1,000 mg STK-MED ONCE PO ; Start 09/03/19 at 17:00; Stop 09/03/19 at 18:24; Status DC Oxycodone/ Acetaminophen (Percocet 7.5/ 325) 1 tab STK-MED ONCE .ROUTE ; Start 09/03/19 at 17:00; Stop 09/03/19 at 18:24; Status DC Active Scripts Active Carvedilol (Carvedilol) 6.25 Mg Tablet 6.25 Mg PO BIDWMEALS Reported Atorvastatin Calcium 40 Mg Tablet 40 Mg PO DAILY Isosorbide Mononitrate Er (Isosorbide Mononitrate) 30 Mg Tab.er.24h 30 Mg PO DAILY Percocet 5-325 Mg Tablet (Oxycodone/Acetaminophen) 1 Each Tablet 1 Tab PO PRN Q4HRS PRN Aspirin Ec (Aspirin) 81 Mg Tablet.dr 81 Mg PO DAILY08 Fish Oil ([place]-3 Fatty Acids) 300 Mg Capsule 1,000 Mg PO DAILY Clopidogrel (Clopidogrel Bisulfate) 75 Mg Tablet 75 Mg PO DAILY07 Vital Signs Vital Signs Date Time Temp Pulse Resp B/P (MAP) Pulse Ox O2 Delivery O2 Flow Rate FiO2 09/04/19 09:17 73 116/57 09/04/19 08:00 Room Air 09/04/19 07:16 96 09/04/19 07:00 97.1 18 97.1 09/03/19 18:40 2.0 Labs Laboratory Tests Test 09/02/19 16:50 09/02/19 16:55 09/02/19 20:10 09/02/19 20:30 Triglycerides Level 235 mg/dL (0-150) Cholesterol Level 259 mg/dL (0-200) LDL Cholesterol, Calculated 179 mg/dL (0-100) VLDL Cholesterol, Calculated 47 mg/dL (0-40) Non-HDL Cholesterol Calculated 226 mg/dL (0-129) HDL Cholesterol 33 mg/dL (40-60) Cholesterol/HDL Ratio 7.8 Thyroid Stimulating Hormone (TSH) 1.851 uIU/mL (0.358-3.74) Hemoglobin A1c 5.3 % (4.8-5.6) Troponin I Quantitative < 0.017 ng/mL (0.000-0.055) < 0.017 ng/mL (0.000-0.055) Urine Opiates Screen Neg (NEG) Urine Methadone Screen Neg (NEG) Urine Barbiturates Neg (NEG) Urine Phencyclidine Screen Neg (NEG) Urine Amphetamine/Methamphetamine Neg (NEG) Urine Benzodiazepines Screen Neg (NEG) Urine Cocaine Screen Neg (NEG) Urine Cannabinoids Screen Neg (NEG) Urine Ethyl Alcohol Neg (NEG) Allergies Allergies Coded Allergies Type Severity Reaction Last Updated Verified morphine Adverse Reaction Mild Agitation 04/21/18 Yes Disposition/Orders: D/C to Home FULBRIGHT,SESAR W MD Sep 04, 2019 13:00
[2019-09-04] MEDS ORDERED: LISI-338 PO (13:02)
[2019-09-04] MEDS ORDERED: ACET325T9 PO (13:02)
[2019-09-04] MEDS ORDERED: ASPI325T11 PO (13:02)
[2019-09-04] MEDS ORDERED: NITR0.4T24 SL (13:02)
--- NOTE | 2019-09-04 13:05 | DISCH ---
DISCHARGE INSTRUCTIONS Condition on Discharge Condition on Discharge: Stable Activity After Discharge Activity Instructions for Disc: Activity as tolerated Bathing Instructions: Shower-keep dressing dry Lifting Instructions after Dis: No heavy lifting, No pulling or pushing, Do not lift >10 pounds Exercise Instruction after Dis: Progress as tolerated Driving Instructions after Dis: Do not drive today Weight Bearing Status after Di: As tolerated Diet after Discharge Diet after Discharge: Cardiac Diet Texture: Regular Liquid Texture: Thin Liquid Swallowing Supervision: None needed Checks after Discharge Checks after discharge: Check blood press - daily, Check your Temp as needed Contacting the DR. after DC Call your doctor for: If your condition worsens Treatment/Equipment after DC Adaptive Equipment Issued: None SESAR SHINE MD Sep 04, 2019 13:05
[2019-09-04] MEDS ORDERED: ATORVASTATIN CA80 MG PO (13:32)
--- NOTE | 2019-09-04 17:06 | NUR ---
Discharge Note: ER[facility] Discharge instructions and discharge home medications reviewed with Patient and a copy given. All questions have been answered and understanding verbalized. The following instructions and handouts were given: Post heart cath discharge, cardiac diet, and chest pain. Discontinued iv lines and catheter intact. Patient discharged to home with self-care via private vehicle.
== END 2019-09-04 16:40 | disposition home or self-care (01) | DRG 247 ==
LOC: ER 12:17 → 2 SOUTH 14:08
PROVIDERS: ADMIT Family Medicine; ATTEND Family Medicine
PROC: 027034Z Dilation of Coronary Artery, One Artery with Drug-eluting Intraluminal Device, Percutaneous Approach (ICD-10-PCS; principal; 2019-09-03)
PROC: 02703ZZ Dilation of Coronary Artery, One Artery, Percutaneous Approach (ICD-10-PCS; 2019-09-03)
PROC: 4A023N7 Measurement of Cardiac Sampling and Pressure, Left Heart, Percutaneous Approach (ICD-10-PCS; 2019-09-03)
PROC: B211YZZ Fluoroscopy of Multiple Coronary Arteries using Other Contrast (ICD-10-PCS; 2019-09-03)
PROC: B213YZZ Fluoroscopy of Multiple Coronary Artery Bypass Grafts using Other Contrast (ICD-10-PCS; 2019-09-03)
PROC: B218YZZ Fluoroscopy of Left Internal Mammary Bypass Graft using Other Contrast (ICD-10-PCS; 2019-09-03)
DX: T82.858A Stenosis of other vascular prosthetic devices, implants and grafts, initial encounter (principal); I25.110 Atherosclerotic heart disease of native coronary artery with unstable angina pectoris; E78.5 Hyperlipidemia, unspecified; I49.5 Sick sinus syndrome; M19.90 Unspecified osteoarthritis, unspecified site; I25.82 Chronic total occlusion of coronary artery; I10 Essential (primary) hypertension; R29.6 Repeated falls; I25.2 Old myocardial infarction; Z90.49 Acquired absence of other specified parts of digestive tract; Z86.73 Personal history of transient ischemic attack (TIA), and cerebral infarction without residual deficits; Z95.1 Presence of aortocoronary bypass graft; Z95.0 Presence of cardiac pacemaker; Z88.5 Allergy status to narcotic agent; Z86.711 Personal history of pulmonary embolism; Z87.891 Personal history of nicotine dependence; Z82.49 Family history of ischemic heart disease and other diseases of the circulatory system
CPT/HCPCS: 92920; 92928; 93455; 99285; G0269; 36415; 70450; 71045; 72125; 80053; 80061; 80307; 81001; 83036; 83690; 83735; 83880; 84443; 84484; 85025; 85379; 85610; 93005; 93308; 93880; 99152; 99153; C1713; C1725; C1760; C1769; C1874; C1887; C1892; J0583; J1644; J2250; J3010; J7030; Q9967; C1771; G0378

== ENCOUNTER 2020-08-14 11:59 | Emergency (ER) | payer MEDICARE, OTHER ==
[~2020-08-14] VITALS: Ht 177.8 cm; Wt 88.6 kg
[~2020-08-14 11:59] MED LIST changes: +ACET325T9 PO; -ASPI-612 PO; +ASPI-886 PO; +ASPI325T11 PO; +ATORVASTATIN CA80 MG PO; +LISI-338 PO; +NITR0.4T24 SL
--- NOTE | 2020-08-14 12:25 | PHYS DOC ---
Past Medical History Past Medical History: CAD, CVA, CA, Other Additional Past Medical Histor: cvd Past Surgical History: Appendectomy, Cholecystectomy, Coronary Bypass Surgery, Pacemaker, Other Additional Past Surgical Histo: SBO SURGERY, CABG X 3 2006,2011 Smoking Status: Never Smoker Alcohol Use: None Drug Use: None General Adult EDM: Chief Complaint: CHEST PAIN HPI: HPI: Patient is a 65 year old male with history of CAD, CA, triple bypass twice, who presents to the ED today complaining of 8 out of 10 pressure-like substernal chest pain radiating to the left back that began yesterday. Patient denies anything specifically exacerbating or relieving the pain. Patient states this morning he was taking shower and fell in the bathroom. He states he was able to catch himself and did not hit the ground. Denies any loss of consciousness. Patient states around the end of June he was diagnosed with COVID19. Review of Systems: Review of Systems: Constitutional: Denies fever or chills. [] Eyes: Denies change in visual acuity. [] HENT: Denies nasal congestion or sore throat. [] Respiratory: Denies cough or shortness of breath. [] Cardiovascular: Reports substernal chest pain GI: Denies abdominal pain, nausea, vomiting, bloody stools or diarrhea. [] : Denies dysuria. [] Musculoskeletal: Denies back pain or joint pain. [] Integument: Denies rash. [] Neurologic: Reports generalized weakness. Denies headache, focal weakness or sensory changes. [] [] Psychiatric: Denies depression or anxiety. [] Heart Score: HEART Score for Chest Pain: HEART Score for Chest Pain Response (Comments) Value History Slighlty/Non-Suspicious 0 ECG Normal 0 Age >45 - < 65 1 Risk Factors 1 or 2 Risk Factors 1 Troponin < Normal Limit 0 Total 2 Risk Factors: Risk Factors: DM, Current or recent (<one month) smoker, HTN, HLP, family history of CAD, obesity. Risk Scores: Score 0 - 3: 2.5% MACE over next 6 weeks - Discharge Home Score 4 - 6: 20.3% MACE over next 6 weeks - Admit for Clinical Observation Score 7 - 10: 72.7% MACE over next 6 weeks - Early Invasive Strategies Current Medications: Current Medications Medications (Trade) Dose Ordered Sig/Saad Start Time Stop Time Status Last Admin Dose Admin Aspirin (Kiley Aspirin) 325 mg 1X ONCE 08/14/20 12:30 08/14/20 12:31 UNV Fentanyl Citrate (Fentanyl 2ml Vial) 50 mcg PRN Q15MIN PRN 08/14/20 12:30 08/15/20 12:29 UNV Nitroglycerin (Nitrostat) 0.4 mg PRN Q5MIN PRN 08/14/20 12:30 08/15/20 12:29 UNV Allergies: Allergies: Allergies Coded Allergies Type Severity Reaction Last Updated Verified morphine Adverse Reaction Mild Agitation 04/21/18 Yes Physical Exam: PE: Constitutional: Well developed, well nourished, no acute distress, non-toxic appearance. [] HENT: Normocephalic, atraumatic, bilateral external ears normal, oropharynx moist, no oral exudates, nose normal. [] Eyes: PERRLA, EOMI, conjunctiva normal, no discharge. [] Neck: Normal range of motion, no tenderness, supple, no stridor. [] Cardiovascular: Old healed surgical incision noted midline chest. Heart rate regular rhythm, no murmur [] Lungs & Thorax: Diminished breath sounds throughout the posterior lung bases Abdomen: Bowel sounds normal, soft, no tenderness, no masses, no pulsatile masses. [] Skin: Warm, dry, no erythema, no rash. [] Back: No tenderness, no CVA tenderness. [] Extremities: No tenderness, no cyanosis, no clubbing, ROM intact, no edema. [] Neurologic: Alert and oriented X 3, normal motor function, normal sensory function, no focal deficits noted. [] Psychologic: Affect normal, judgement normal, mood normal. [] EKG: EK interpreted by Dr. Love sinus rhythm HR 76 no STEMI[] Radiology/Procedures: Radiology/Procedures: []PROCEDURE: CT HEAD WO CONTRAST EXAM: CT head without contrast INDICATION: Weakness COMPARISON: CT head 09/02/2019 TECHNIQUE: Axial CT imaging through the head without intravenous contrast. One or more of the following individualized dose reduction techniques were utilized for this examination: 1. Automated exposure control 2. Adjustment of the mA and/or kV according to patient size 3. Use of iterative reconstruction technique. FINDINGS: The ventricles and sulci are normal. Mendoza-white matter differentiation is maintained. There is no intracranial hemorrhage, acute infarct, or mass lesion. Basal cisterns are clear. No acute fracture. Right frontal skull exostosis is unchanged. Scalp is intact. Paranasal sinuses and mastoid air cells are clear. Globes and orbits are intact.. IMPRESSION: No acute intracranial abnormality. Electronically signed by: Divine Brewer MD (08/14/2020 12:48 PM) [id number] DICTATED and SIGNED BY: DIVINE BREWER MD DATE: 08/14/20 1248 PROCEDURE: PORTABLE CHEST 1V EXAM: PORTABLE CHEST 1V 08/14/2020 12:17 PM CLINICAL INDICATION: Chest pain COMPARISON: Chest radiograph 01/07/2020 TECHNIQUE: AP upright view of the chest FINDINGS: Surgical changes of median sternotomy are redemonstrated. A dual-lead AICD is unchanged. The heart is normal in size. The lungs are hypoexpanded. No consolidation, pleural effusion, or pneumothorax. No acute osseous abnormality. IMPRESSION: No acute cardiopulmonary abnormality. Electronically signed by: Divine Brewer MD (08/14/2020 12:49 PM) [id number] DICTATED and SIGNED BY: DIVINE BREWER MD DATE: 08/14/20 1249 Course & Med Decision Making: Course & Med Decision Making Pertinent Labs and Imaging studies reviewed. (See chart for details) This is a 65-year-old male patient presenting to the ED today complaining of chest pain since yesterday. Also complained of weakness and falling in the shower this morning. CT of the head is negative, chest x-ray is negative. Cardiac lab work and the rest of his labs are negative for any acute findings. Spoke to Dr. Magallanes who accepted patient for admission Spoke to Shellie will follow up with patient Patient called for help in his room, went to assess patient, he was complaining that we are not doing anything for him and he is going to lay in the bed for days. Reminded patient we have done a cardiac work-up including chest x-ray troponin CBC CMP EKG CT of the head Ct. Informed i already consulted cardiology as well as an admitting physician. RN informs me Dr. Magallanes went and saw patient. Patient waited until Dr. Magallanes left his room and started saying he is cannot sign out AMA because the last time he was admitted under Dr. Magallanes he left him laying in the bed for 3 days without doing anything. Patient is alert oriented x4 and able to make his own decisions. I was informed he signed out AMA before i saw him Parth Disclaimer: Parth Disclaimer: This electronic medical record was generated, in whole or in part, using a voice recognition dictation system. Departure Departure Impression: Primary Impression: Chest pain Qualified Codes: R07.9 - Chest pain, unspecified Disposition: ADMITTED INPATIENT Condition: STABLE Referrals: NO PCP (PCP) ASH DONOVAN [employer] Aug 14, 2020 12:25
[2020-08-14] MEDS ORDERED: ASPIRIN 325 MG TABLET PO ONE (12:30)
[2020-08-14] MEDS ORDERED: fentaNYL PF VIAL 100 MCG/2 ML VIAL IV PRN ×2 (12:30→14:00)
[2020-08-14 12:36] LABS: BASO % 0 % (0-3); EOS # 0.1 x10^3/uL (0.0-0.7); EOS % 2 % (0-3); HEMATOCRIT 37.6 % (39.0-53.0); HEMOGLOBIN 13.1 g/dL (13.0-17.5); LYMPH # 2.2 x10^3/uL (1.0-4.8); LYMPH % 37 % (24-48); MEAN CORPUSCULAR HEMOGLOBIN 31 pg (25-35); MEAN CORPUSCULAR HGB CONC 35 g/dL (31-37); MEAN CORPUSCULAR VOLUME 89 fL (79-100); MONO # 0.3 x10^3/uL (0.0-1.1); MONO % 5 % (0-9); NEUT # 3.3 x10^3/uL (1.8-7.7); NEUT % 56 % (31-73); PLATELET COUNT 179 x10^3/uL (140-400); RED BLOOD COUNT 4.24 x10^6/uL (4.30-5.70); RED CELL DISTRIBUTION WIDTH 13.5 % (11.5-14.5)
[2020-08-14 12:43] LABS: PROTHROMBIN TIME PATIENT 11.9 SEC (11.7-14.0)
[2020-08-14 12:46] LABS: D-DIMER 0.46 ug/mlFEU (0.00-0.50)
[2020-08-14] MEDS: NITROGLYCERIN SUBLINGUAL 0.4 MG BOTTLE OF 25. SL PRN ×3 (12:46→13:10)
[2020-08-14 12:48] LABS: CALCIUM 9.2 mg/dL (8.5-10.1); CREATININE 1.1 mg/dL (0.7-1.3); GFR 67.4; POTASSIUM 4.2 mmol/L (3.5-5.1)
--- NOTE | 2020-08-14 12:51 | RAD ---
EXAM: CT head without contrast INDICATION: Weakness COMPARISON: CT head 09/02/2019 TECHNIQUE: Axial CT imaging through the head without intravenous contrast. One or more of the following individualized dose reduction techniques were utilized for this examination: 1. Automated exposure control 2. Adjustment of the mA and/or kV according to patient size 3. Use of iterative reconstruction technique. FINDINGS: The ventricles and sulci are normal. Mendoza-white matter differentiation is maintained. There is no intracranial hemorrhage, acute infarct, or mass lesion. Basal cisterns are clear. No acute fracture. Right frontal skull exostosis is unchanged. Scalp is intact. Paranasal sinuses and mastoid air cells are clear. Globes and orbits are intact.. IMPRESSION: No acute intracranial abnormality. Electronically signed by: Divine Brewer MD (08/14/2020 12:48 PM) [id number]
--- NOTE | 2020-08-14 12:52 | RAD ---
EXAM: PORTABLE CHEST 1V 08/14/2020 12:17 PM CLINICAL INDICATION: Chest pain COMPARISON: Chest radiograph 01/07/2020 TECHNIQUE: AP upright view of the chest FINDINGS: Surgical changes of median sternotomy are redemonstrated. A dual-lead AICD is unchanged. The heart is normal in size. The lungs are hypoexpanded. No consolidation, pleural effusion, or pneumothorax. No acute osseous abnormality. IMPRESSION: No acute cardiopulmonary abnormality. Electronically signed by: Divine Brewer MD (08/14/2020 12:49 PM) [id number]
[2020-08-14 12:53] LABS: ALBUMIN 3.8 g/dL (3.4-5.0); ALBUMIN/GLOBULIN RATIO 1.2 (1.0-1.7); MAGNESIUM 2.1 mg/dL (1.8-2.4); TOTAL BILIRUBIN 0.5 mg/dL (0.2-1.0); TOTAL PROTEIN 7.1 g/dL (6.4-8.2)
[2020-08-14 13:56] VITALS: BP 124/93
[2020-08-14] MEDS ORDERED: NITROGLYCERIN SUBLINGUAL 0.4 MG BOTTLE OF 25. SL PRN (14:00)
[2020-08-14] MEDS ORDERED: ONDANSETRON PF 4 MG/2 ML VIAL. IV PRN (14:00)
--- NOTE | 2020-08-14 15:09 | PDOC1 ---
History and Physical Date of Admission Date of Admission DATE: 08/14/20 TIME: 15:08 Identification/Chief Complaint Chief Complaint SEEN IN ER WITH CHEST PAIN, 65 year old male with history of CAD, [place], triple bypass twice, who presents to the ED today complaining of 8 out of 10 pressure- like substernal chest pain radiating to the left back that began yesterday. Patient denies anything specifically exacerbating or relieving the pain. Patient states this morning he was taking shower and fell in the bathroom. He states he was able to catch himself and did not hit the ground. Denies any loss of consciousness. Patient states around the end of June he was diagnosed with COVID19. s/p CABG in the past and more recent PCI/JOSE G to LMCA/LAD and LCx in August 2019 Past Medical History Past Medical History Past Medical History Past Medical History Past Medical History: CAD, CVA, MN, Other Additional Past Medical Histor: cvd Past Surgical History: Appendectomy, Cholecystectomy, Coronary Bypass Surgery, Pacemaker, Other Additional Past Surgical Histo: SBO SURGERY, CABG X 3 2006,2011 Smoking Status: Never Smoker Alcohol Use: None Drug Use: None FHX CAD Cardiovascular: CAD, HTN, MN, Syncope, Hyperlipidemia, Other Pulmonary: Pulmonary embolus CENTRAL NERVOUS SYSTEM: CVA GI: Other Heme/Onc: No pertinent hx Hepatobiliary: No pertinent hx Psych: No pertinent hx Musculoskeletal: Osteoarthritis Rheumatologic: No pertinent hx Infectious disease: No pertinent hx Renal/: No pertinent hx Endocrine: No pertinent hx Past Surgical History Past Surgical History: Pacemaker, Appendectomy, Cholecystectomy, CABG, Hernia Repair, Tonsillectomy, Other Family History Family History: Coronary Artery Disease, High Cholestrol, Hypertension Family History: Grandparents Social History Smoke: No ALCOHOL: none Drugs: None Current Problem List Problem List Problems Medical Problems: (1) Chest pain Status: Acute Current Medications Current Medications Current Medications Aspirin (Kiley Aspirin) 325 mg 1X ONCE PO Last administered on 08/14/20at 12:45; Start 08/14/20 at 12:30; Stop 08/14/20 at 12:31; Status DC Nitroglycerin (Nitrostat) 0.4 mg PRN Q5MIN PRN SL CP RATING > 1/10 Last administered on 08/14/20at 13:10; Start 08/14/20 at 12:30; Stop 08/14/20 at 13:52; Status DC Fentanyl Citrate (Fentanyl 2ml Vial) 50 mcg PRN Q15MIN PRN IV PAIN GREATER THAN 3/10; Start 08/14/20 at 12:30; Stop 08/14/20 at 14:35; Status DC Ondansetron HCl (Zofran) 4 mg PRN Q8HRS PRN IV NAUSEA/VOMITING; Start 08/14/20 at 14:00; Stop 08/14/20 at 14:36; Status DC Fentanyl Citrate (Fentanyl 2ml Vial) 50 mcg PRN Q1HR PRN IV PAIN; Start 08/14/20 at 14:00; Stop 08/14/20 at 14:36; Status DC Nitroglycerin (Nitrostat) 0.4 mg PRN Q5MIN PRN SL CHEST PAIN; Start 08/14/20 at 14:00; Stop 08/14/20 at 14:36; Status DC Active Scripts Active Tylenol (Acetaminophen) 325 Mg Tablet 650 Mg PO PRN Q6HRS PRN 30 Days Aspirin Ec (Aspirin) 325 Mg Tablet.dr 325 Mg PO DAILYWBKFT 30 Days Lisinopril 5 Mg Tablet 5 Mg PO DAILY 30 Days Nitrostat (Nitroglycerin) 0.4 Mg Tab.subl 0.4 Mg SL PRN Q5MIN PRN 30 Days Carvedilol (Carvedilol) 6.25 Mg Tablet 6.25 Mg PO BIDWMEALS Reported Atorvastatin Calcium 80 Mg Tablet 80 Mg PO HS Isosorbide Mononitrate Er (Isosorbide Mononitrate) 30 Mg Tab.er.24h 30 Mg PO DAILY Fish Oil (Dunlap-3 Fatty Acids) 300 Mg Capsule 1,000 Mg PO DAILY Clopidogrel (Clopidogrel Bisulfate) 75 Mg Tablet 75 Mg PO DAILY07 Allergies Allergies: Coded Allergies: morphine (Verified Adverse Reaction, Mild, Agitation, 04/21/18) ROS Review of System Constitutional: Denies fever or chills. [] Eyes: Denies change in visual acuity. [] HENT: Denies nasal congestion or sore throat. [] Respiratory: Denies cough or shortness of breath. [] Cardiovascular: Reports substernal chest pain GI: Denies abdominal pain, nausea, vomiting, bloody stools or diarrhea. [] : Denies dysuria. [] Musculoskeletal: Denies back pain or joint pain. [] Integument: Denies rash. [] Neurologic: Reports generalized weakness. Denies headache, focal weakness or sensory changes. [] [] Psychiatric: Denies depression or anxiety. [] 14 PT ROS OTHERWISE NEG Physical Exam Physical Exam Constitutional: Well developed, well nourished, no acute distress, non-toxic appearance. [] HENT: Normocephalic, atraumatic, bilateral external ears normal, oropharynx moist, no oral exudates, nose normal. [] Eyes: PERRLA, EOMI, conjunctiva normal, no discharge. [] Neck: Normal range of motion, no tenderness, supple, no stridor. [] Cardiovascular: Old healed surgical incision noted midline chest. Heart rate regular rhythm, no murmur [] Lungs & Thorax: Diminished breath sounds throughout the posterior lung bases Abdomen: Bowel sounds normal, soft, no tenderness, no masses, no pulsatile masses. [] Skin: Warm, dry, no erythema, no rash. [] Back: No tenderness, no CVA tenderness. [] Extremities: No tenderness, no cyanosis, no clubbing, ROM intact, no edema. [] Neurologic: Alert and oriented X 3, normal motor function, normal sensory function, no focal deficits noted. [] Psychologic: Affect normal, judgment normal, mood normal. [] General: Alert, Oriented X3, Cooperative, No acute distress HEENT: Atraumatic Heart: RRR, no thrills Breasts: Not examined Abdomen: Normal bowel sounds, Soft Rectal Exam: not examined Extremities: No cyanosis Neuro: Normal speech, Cranial nerves 3-12 NL Psych/Mental Status: Mental status NL, Mood NL Vitals Vitals Vital Signs Date Time Temp Pulse Resp B/P (MAP) Pulse Ox O2 Delivery O2 Flow Rate FiO2 08/14/20 13:10 77 129/72 08/14/20 12:04 97.3 20 100 Room Air 97.3 Labs Labs Laboratory Tests Test 08/14/20 12:20 White Blood Count 6.0 x10^3/uL (4.0-11.0) Red Blood Count 4.24 x10^6/uL (4.30-5.70) Hemoglobin 13.1 g/dL (13.0-17.5) Hematocrit 37.6 % (39.0-53.0) Mean Corpuscular Volume 89 fL (79-100) Mean Corpuscular Hemoglobin 31 pg (25-35) Mean Corpuscular Hemoglobin Concent 35 g/dL (31-37) Red Cell Distribution Width 13.5 % (11.5-14.5) Platelet Count 179 x10^3/uL (140-400) Neutrophils (%) (Auto) 56 % (31-73) Lymphocytes (%) (Auto) 37 % (24-48) Monocytes (%) (Auto) 5 % (0-9) Eosinophils (%) (Auto) 2 % (0-3) Basophils (%) (Auto) 0 % (0-3) Neutrophils # (Auto) 3.3 x10^3/uL (1.8-7.7) Lymphocytes # (Auto) 2.2 x10^3/uL (1.0-4.8) Monocytes # (Auto) 0.3 x10^3/uL (0.0-1.1) Eosinophils # (Auto) 0.1 x10^3/uL (0.0-0.7) Basophils # (Auto) 0.0 x10^3/uL (0.0-0.2) Prothrombin Time 11.9 SEC (11.7-14.0) Prothromb Time International Ratio 0.9 (0.8-1.1) D-Dimer (Sussy) 0.46 ug/mlFEU (0.00-0.50) Sodium Level 138 mmol/L (136-145) Potassium Level 4.2 mmol/L (3.5-5.1) Chloride Level 104 mmol/L (98-107) Carbon Dioxide Level 28 mmol/L (21-32) Anion Gap 6 (6-14) Blood Urea Nitrogen 16 mg/dL (8-26) Creatinine 1.1 mg/dL (0.7-1.3) Estimated GFR (Cockcroft-Gault) 67.4 BUN/Creatinine Ratio 15 (6-20) Glucose Level 147 mg/dL (70-99) Calcium Level 9.2 mg/dL (8.5-10.1) Magnesium Level 2.1 mg/dL (1.8-2.4) Total Bilirubin 0.5 mg/dL (0.2-1.0) Aspartate Amino Transf (AST/SGOT) 24 U/L (15-37) Alanine Aminotransferase (ALT/SGPT) 49 U/L (16-63) Alkaline Phosphatase 90 U/L (46-116) Troponin I Quantitative < 0.017 ng/mL (0.000-0.055) MG-Tsv-M-Type Natriuretic Peptide 34 pg/mL (0-124) Total Protein 7.1 g/dL (6.4-8.2) Albumin 3.8 g/dL (3.4-5.0) Albumin/Globulin Ratio 1.2 (1.0-1.7) Thyroid Stimulating Hormone (TSH) 1.828 uIU/mL (0.358-3.74) Laboratory Tests Test 08/14/20 12:20 White Blood Count 6.0 x10^3/uL (4.0-11.0) Red Blood Count 4.24 x10^6/uL (4.30-5.70) Hemoglobin 13.1 g/dL (13.0-17.5) Hematocrit 37.6 % (39.0-53.0) Mean Corpuscular Volume 89 fL (79-100) Mean Corpuscular Hemoglobin 31 pg (25-35) Mean Corpuscular Hemoglobin Concent 35 g/dL (31-37) Red Cell Distribution Width 13.5 % (11.5-14.5) Platelet Count 179 x10^3/uL (140-400) Neutrophils (%) (Auto) 56 % (31-73) Lymphocytes (%) (Auto) 37 % (24-48) Monocytes (%) (Auto) 5 % (0-9) Eosinophils (%) (Auto) 2 % (0-3) Basophils (%) (Auto) 0 % (0-3) Neutrophils # (Auto) 3.3 x10^3/uL (1.8-7.7) Lymphocytes # (Auto) 2.2 x10^3/uL (1.0-4.8) Monocytes # (Auto) 0.3 x10^3/uL (0.0-1.1) Eosinophils # (Auto) 0.1 x10^3/uL (0.0-0.7) Basophils # (Auto) 0.0 x10^3/uL (0.0-0.2) Prothrombin Time 11.9 SEC (11.7-14.0) Prothromb Time International Ratio 0.9 (0.8-1.1) D-Dimer (Sussy) 0.46 ug/mlFEU (0.00-0.50) Sodium Level 138 mmol/L (136-145) Potassium Level 4.2 mmol/L (3.5-5.1) Chloride Level 104 mmol/L (98-107) Carbon Dioxide Level 28 mmol/L (21-32) Anion Gap 6 (6-14) Blood Urea Nitrogen 16 mg/dL (8-26) Creatinine 1.1 mg/dL (0.7-1.3) Estimated GFR (Cockcroft-Gault) 67.4 BUN/Creatinine Ratio 15 (6-20) Glucose Level 147 mg/dL (70-99) Calcium Level 9.2 mg/dL (8.5-10.1) Magnesium Level 2.1 mg/dL (1.8-2.4) Total Bilirubin 0.5 mg/dL (0.2-1.0) Aspartate Amino Transf (AST/SGOT) 24 U/L (15-37) Alanine Aminotransferase (ALT/SGPT) 49 U/L (16-63) Alkaline Phosphatase 90 U/L (46-116) Troponin I Quantitative < 0.017 ng/mL (0.000-0.055) SK-Awg-I-Type Natriuretic Peptide 34 pg/mL (0-124) Total Protein 7.1 g/dL (6.4-8.2) Albumin 3.8 g/dL (3.4-5.0) Albumin/Globulin Ratio 1.2 (1.0-1.7) Thyroid Stimulating Hormone (TSH) 1.828 uIU/mL (0.358-3.74) Images Images MR#: [id number] Date of Study: 09/03/2019 Ordering Physician: ALLIE ESPARZA, Referring Physician: ALLIE ESPARZA, Tech: RT Francisco (R) APPROVED REPORT Technologist: RT Francisco (R) Nurse: Maira Lopez RN Procedure(s) performed: 1. Left heart catheterization, selective coronary angiography and selective angiography of the bypass grafts 2. Successful PCI/drug eluting stent placement to the distal left main coronary artery/proximal left anterior descending artery and complex PTCA to the left circumflex artery via saphenous vein graft Sedation Time: 95 Minutes Dose: 140 Gycm2 Fluoro Time: 28.1Minutes Contrast: 229mL Visipaque INDICATION The indication(s) include : unstable angina . CSHA Clinical Frailty Scale CSHA Clinical Frailty Scale: Managing Well Heart Failure Heart Failure: No PROCEDURE NARRATIVE After explaining the risks, benefits and alternative options, informed consent was obtained from patient. Patient was brought to the cardiac [facility] and his right groin was prepped and draped in the usual fashion. 20 mL of 2% lidocaine was infiltrated into the skin and subcutaneous tissues for local anesthesia. Arterial access was obtained in the right common femoral artery and a 6 Palestinian sheath was inserted. 6 Palestinian JR4 catheter was used to perform selective angiography of the saphenous vein graft to the right coronary artery, saphenous vein graft to the obtuse marginal branch of left circumflex artery and also the left internal mammary artery graft to the left anterior descending artery. The right coronary artery was known to be chronically occluded proximally from prior cardiac catheterizations and hence was not engaged. After initial unsuccessful attempts at engaging the left main coronary artery with 6 Palestinian JL4 catheter, this was engaged with a 6 Palestinian AL 0.75 guide catheter and selective a ngiography was performed. Left ventriculography was not performed due to contrast load used for intervention. The following findings were noted. FINDINGS 1. The left main coronary artery arose from the left sinus of Valsalva, gave rise to the left anterior descending and left circumflex arteries and showed 80% stenosis extending from the distal segment into the proximal left anterior descending artery. 2. The left anterior descending artery showed 80% stenosis in the proximal segment. 3. The left circumflex artery showed 100% occlusion in the proximal segment. 4. The right coronary artery was noted to be chronically occluded proximally from prior cardiac catheterizations. 5. The saphenous vein graft to the right coronary artery that was patent in last cardiac catheterization showed 100% chronic total occlusion in the proximal segment. 6. The saphenous vein graft to the obtuse marginal branch of left circumflex artery was patent. The midsegment of the left circumflex artery showed 80% calcified stenosis in a tortuous segment. This appeared to compromise flow to the second obtuse marginal branch. 7. The left internal mammary artery graft to the left anterior descending artery was widely patent. The anvik left anterior descending artery did not show any significant stenosis beyond the anastomosis. INTERVENTION The saphenous vein graft to the right coronary artery appeared to be chronically occluded. Since patient presented with very concerning symptoms of chest pain and dyspnea on minimal exertion, we decided to intervene on the lesion in the distal LMCA/proximal LAD and also the left circumflex artery via the saphenous vein graft. The left main coronary artery was engaged with 6 Palestinian AL 0.75 guide catheter and the stenosis in the distal LMCA/LAD was crossed with a 0.014 inch [employer] Pro water guidewire. This was predilated with a 2.5 x 15 mm trek balloon following which this was successfully treated with a 2.5 x 15 mm Castellanos Xience Kadie drug-eluting stent. Follow-up angiorrhaphy showed resolution of the stenosis to 0% with WATSON-3 distal flow. Subsequently, the saphenous vein graft to the obtuse marginal branch of left circumflex artery was engaged with a 6 Palestinian JR4 guide catheter and the stenosis crossed with the same Pro water guidewire. This was predilated with a 2.5 x 12 mm trek balloon. Attempts to advance a 2.5 x 12 mm drug-eluting stent were unsuccessful due to tortuous nature of the vessel. A 6 Palestinian guide liner inner catheter was then positioned in the distal segment of the graft for better backup support. Several attempts to advance the stents in spite of this were unsuccessful. Hence we decided to accept angioplasty results which were good. Final angiography showed resolution of the stenosis from 80% to 30% with WATSON-3 distal flow. Patient tolerated the procedure well. Hemostasis was achieved using Angio-Seal. There were no immediate complications. Conclusion 1. Coronary artery disease s/p coronary artery bypass surgery as described above with patent CARRERO to LAD, patent saphenous vein graft to OM/LCx with the midsegment of LCx showing 80% stenosis compromising flow to second obtuse marginal branch, chronically occluded saphenous vein graft to the right coronary artery and 80% stenosis involving the distal LMCA/proximal LAD compromising flow to a diagonal branch. 2. Successful PCI/JOSE G to LMCA/LAD and complex PTCA to the left circumflex artery via saphenous vein graft. Recommendations 1. Aspirin 325 mg daily for one month followed by 81 mg daily 2. Plavix 75 mg daily for preferably one year 3. Cardiovascular risk factor modification Signed by : Allie Esparza, Electronically Approved : 09/03/2019 15:38:14 DICTATED and SIGNED BY: ALLIE ESPARZA MD DATE: 09/03/19 1518 EXAM: CT head without contrast INDICATION: Weakness COMPARISON: CT head 09/02/2019 TECHNIQUE: Axial CT imaging through the head without intravenous contrast. One or more of the following individualized dose reduction techniques were utilized for this examination: 1. Automated exposure control 2. Adjustment of the mA and/or kV according to patient size 3. Use of iterative reconstruction technique. FINDINGS: The ventricles and sulci are normal. Mendoza-white matter differentiation is maintained. There is no intracranial hemorrhage, acute infarct, or mass lesion. Basal cisterns are clear. No acute fracture. Right frontal skull exostosis is unchanged. Scalp is intact. Paranasal sinuses and mastoid air cells are clear. Globes and orbits are intact.. IMPRESSION: No acute intracranial abnormality. Electronically signed by: Divine Brewer MD (08/14/2020 12:48 PM) [id number] DICTATED and SIGNED BY: DIVINE BREWER MD VTE Prophylaxis Ordered VTE Prophylaxis Devices: Yes VTE Pharmacological Prophylaxi: Yes Assessment/Plan Assessment/Plan Impression: Chest pain HX CAD s/p CABG in the past and more recent PCI/JOSE G to LMCA/LAD and LCx in August 2019 ADMITTED LEFT AMA CONSULT CARDIOLOGY Justifications for Admission Other Justification SESAR SHINE MD Aug 14, 2020 15:09
== END 2020-08-14 14:15 | disposition left against medical advice (07) ==
LOC: ER 11:59
DX: R07.2 Precordial pain (principal); R53.1 Weakness; I25.10 Atherosclerotic heart disease of native coronary artery without angina pectoris; I25.2 Old myocardial infarction; Z86.73 Personal history of transient ischemic attack (TIA), and cerebral infarction without residual deficits; Z90.49 Acquired absence of other specified parts of digestive tract; Z95.0 Presence of cardiac pacemaker; Z98.890 Other specified postprocedural states; Z88.6 Allergy status to analgesic agent
CPT/HCPCS: 36415; 70450; 71045; 80053; 83735; 83880; 84443; 84484; 85025; 85379; 85610; 99285

== ENCOUNTER 2021-01-01 13:23 | Observation (INO) | payer MEDICARE ==
[~2021-01-01] VITALS: Ht 180.3 cm; Wt 92.5 kg
[~2021-01-01 13:23] MED LIST changes: -ISOS30TA4 PO; +ISOS30TA68 PO; -LISI-338 PO; +LISI-517 PO; +LISI10TA16 PO; -LISI10TA2 PO
[2021-01-01] MEDS ORDERED: ASPIRIN CHEWABLE 81 MG TABLET. PO ONE (13:30)
--- NOTE | 2021-01-01 13:49 | RAD ---
INDICATION: Reason: chest pain / Spl. Instructions: / History: COMPARISON: August 14, 2020 FINDINGS: Single view of chest obtained. Poststernotomy changes. 2-lead pacemaker. Hypoexpanded exam with mild linear opacities at left lung b ase. IMPRESSION: * Mild linear opacities left lung base could be secondary to atelectasis. Electronically signed by: Esa Hughes MD (01/01/2021 1:47 PM) [id number]
[2021-01-01 14:01] LABS: BASO % 1 % (0-3); EOS # 0.1 x10^3/uL (0.0-0.7); EOS % 1 % (0-3); HEMATOCRIT 38.1 % (39.0-53.0); HEMOGLOBIN 13.6 g/dL (13.0-17.5); LYMPH # 2.6 x10^3/uL (1.0-4.8); LYMPH % 44 % (24-48); MEAN CORPUSCULAR HEMOGLOBIN 32 pg (25-35); MEAN CORPUSCULAR HGB CONC 36 g/dL (31-37); MEAN CORPUSCULAR VOLUME 89 fL (79-100); MONO # 0.4 x10^3/uL (0.0-1.1); MONO % 7 % (0-9); NEUT # 2.8 x10^3/uL (1.8-7.7); NEUT % 47 % (31-73); PLATELET COUNT 174 x10^3/uL (140-400); RED BLOOD COUNT 4.29 x10^6/uL (4.30-5.70); RED CELL DISTRIBUTION WIDTH 13.8 % (11.5-14.5); WHITE BLOOD COUNT 5.9 x10^3/uL (4.0-11.0)
--- NOTE | 2021-01-01 14:42 | ED.ADGEN ---
Past Medical History Past Medical History: CAD, CVA, [place], Other Additional Past Medical Histor: cvd Past Surgical History: Appendectomy, Cholecystectomy, Coronary Bypass Surgery, Pacemaker, Other Additional Past Surgical Histo: SBO SURGERY, CABG X 3 2006,2011 Smoking Status: Never Smoker Alcohol Use: None Drug Use: None General Adult EDM: Chief Complaint: CHEST PAIN-CARDIAC NATURE HPI: HPI: Patient is a 65-year-old male with past medical history of significant cardiac disease who presents to the emergency room complaining of chest pain, dizziness, shortness of breath, fatigue. Patient states that symptoms have been ongoing for the last couple of days. He has been getting these intermittent shocklike pains that will go down his arms and legs. The sharp pain starts on the left side of his chest. It only lasts a few seconds. When he woke up this morning he had chest pressure which has been constant. He states anytime he stands up he gets dizzy. If he tries to walk he gets significantly dizzy and short of breath where he has to stop and take a breath. He feels like this is related to his heart. He is not had any cough, fever, chills, sweats, URI symptoms, nausea, vomiting, abdominal pain. Review of Systems: Review of Systems: Review of systems negative other than noted Current Medications: Current Medications Medications (Trade) Dose Ordered Sig/Saad Start Time Stop Time Status Last Admin Dose Admin Aspirin (Aspirin Chewable) 324 mg 1X ONCE 01/01/21 13:30 01/01/21 13:31 DC 01/01/21 14:01 324 MG Morphine Sulfate (Morphine Sulfate) 4 mg 1X ONCE 01/01/21 15:15 01/01/21 15:16 DC 01/01/21 15:24 4 MG Allergies: Allergies: Allergies Coded Allergies Type Severity Reaction Last Updated Verified morphine Adverse Reaction Mild Agitation 04/21/18 Yes Physical Exam: PE: Constitutional: Well developed, well nourished, no acute distress, non-toxic appearance. [] HENT: Normocephalic, atraumatic, bilateral external ears normal, oropharynx moist, no oral exudates, nose normal. [] Eyes: PERRLA, EOMI, conjunctiva normal, no discharge. [] Neck: Normal range of motion, no tenderness, supple, no stridor. [] Cardiovascular:Heart rate regular rhythm, no murmur [] Lungs & Thorax: Bilateral breath sounds clear to auscultation [] Abdomen: Bowel sounds normal, soft, no tenderness, no masses, no pulsatile masses. [] Skin: Warm, dry, no erythema, no rash. [] Back: No tenderness, no CVA tenderness. [] Extremities: No tenderness, no cyanosis, no clubbing, ROM intact, no edema. [] Neurologic: Alert and oriented X 3, normal motor function, normal sensory function, no focal deficits noted. [] Psychologic: Affect normal, judgement normal, mood normal. [] Current Patient Data: Labs: Laboratory Tests Test 01/01/21 13:51 01/01/21 15:30 White Blood Count 5.9 x10^3/uL (4.0-11.0) Red Blood Count 4.29 x10^6/uL (4.30-5.70) L Hemoglobin 13.6 g/dL (13.0-17.5) Hematocrit 38.1 % (39.0-53.0) L Mean Corpuscular Volume 89 fL (79-100) Mean Corpuscular Hemoglobin 32 pg (25-35) Mean Corpuscular Hemoglobin Concent 36 g/dL (31-37) Red Cell Distribution Width 13.8 % (11.5-14.5) Platelet Count 174 x10^3/uL (140-400) Neutrophils (%) (Auto) 47 % (31-73) Lymphocytes (%) (Auto) 44 % (24-48) Monocytes (%) (Auto) 7 % (0-9) Eosinophils (%) (Auto) 1 % (0-3) Basophils (%) (Auto) 1 % (0-3) Neutrophils # (Auto) 2.8 x10^3/uL (1.8-7.7) Lymphocytes # (Auto) 2.6 x10^3/uL (1.0-4.8) Monocytes # (Auto) 0.4 x10^3/uL (0.0-1.1) Eosinophils # (Auto) 0.1 x10^3/uL (0.0-0.7) Basophils # (Auto) 0.0 x10^3/uL (0.0-0.2) Sodium Level 138 mmol/L (136-145) Potassium Level 4.2 mmol/L (3.5-5.1) Chloride Level 105 mmol/L (98-107) Carbon Dioxide Level 25 mmol/L (21-32) Anion Gap 8 (6-14) Blood Urea Nitrogen 24 mg/dL (8-26) Creatinine 0.9 mg/dL (0.7-1.3) Estimated GFR (Cockcroft-Gault) 85.0 Glucose Level 96 mg/dL (70-99) Calcium Level 8.6 mg/dL (8.5-10.1) Troponin I Quantitative < 0.017 ng/mL (0.000-0.055) Laboratory Tests 01/01/21 13:51 Laboratory Tests 01/01/21 15:30 Vital Signs: Vital Signs Date Time Temp Pulse Resp B/P (MAP) Pulse Ox O2 Delivery O2 Flow Rate FiO2 01/01/21 15:30 68 186/86 (119) 98 Room Air 01/01/21 15:24 16 01/01/21 13:27 98.0 98.0 EKG: EKG: [] Heart Score: Risk Factors: Risk Factors: DM, Current or recent (<one month) smoker, HTN, HLP, family history of CAD, obesity. Risk Scores: Score 0 - 3: 2.5% MACE over next 6 weeks - Discharge Home Score 4 - 6: 20.3% MACE over next 6 weeks - Admit for Clinical Observation Score 7 - 10: 72.7% MACE over next 6 weeks - Early Invasive Strategies Radiology/Procedures: Radiology/Procedures: [] Course & Med Decision Making: Course & Med Decision Making Pertinent Labs and Imaging studies reviewed. (See chart for details) Patient is a 65 year-old male who presents to the Emergency Room complaining of chest pain, dizziness, shortness of breath. History is significant for cardiac disease. At this time, given patient's risk factors and story there is concern for possible cardiac pathology. EKG was ordered and shows normal sinus rhythm. At this time there is no signs of STEMI, pericarditis, or unstable arrthymia on EKG. Patient has received aspirin today. CBC, BMP, troponin, CXR were ordered to evaluate for causes of chest pain including ACS, anemia, electrolyte abnormalities that can lead to arrhythmias, PTX, pneumonia, pneumomediastinum. Patient does not have any abdominal tenderness that would suggest pancreaititis or cholecystitis and does not need an abdominal work up at this time. Patient's HEART score is 5 placing the patient at moderate risk. Patient will be admitted due to moderate risk. Parth Disclaimer: Parth Disclaimer: This electronic medical record was generated, in whole or in part, using a voice recognition dictation system. Departure Departure Impression: Primary Impression: Chest pain Disposition: ADMITTED INPT THIS HOSP Condition: STABLE Referrals: NO PCP (PCP) ARSEN NOLASCO MD Jan 01, 2021 14:42
--- NOTE | 2021-01-01 14:59 | EKG ---
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
[2021-01-01] MEDS ORDERED: MORPHINE SULFATE 4 MG/ML VIAL. IV ONE (15:15)
[2021-01-01 16:35] LABS: CALCIUM 8.6 mg/dL (8.5-10.1); CREATININE 0.9 mg/dL (0.7-1.3); POTASSIUM 4.2 mmol/L (3.5-5.1)
[2021-01-01 18:30] VITALS: BP 155/75
[2021-01-01] MEDS ORDERED: AMIODARONE 450 MG in IV DEXTROSE 5% 250 ML IV PRN (19:00)
[2021-01-01] MEDS ORDERED: EPINEPHrine VIAL 5 MG in IV NORMAL SALINE 250ML 250 ML IV PRN (19:00)
[2021-01-01] MEDS ORDERED: CARV6.2511 PO (19:13)
--- NOTE | 2021-01-01 19:57 | NUR ---
Pt in bed assessment completed vss poc explained ,pt oriented to surroundings and call light pt c/o chest pain 05/[address] Bradshaw for further admit orders will resume care and continue to monitor pt.
[2021-01-01] MEDS ORDERED: ONDANSETRON PF 4 MG/2 ML VIAL. IVP PRN (20:15)
[2021-01-01] MEDS ORDERED: NITROGLYCERIN SUBLINGUAL 0.4 MG BOTTLE OF 25. SL PRN (20:15)
[2021-01-01] MEDS ORDERED: ACETAMINOPHEN 325 MG TABLET. PO PRN (20:15)
[2021-01-01] MEDS: fentaNYL PF VIAL 100 MCG/2 ML VIAL IVP PRN ×2 (20:41→23:45)
--- NOTE | 2021-01-01 20:55 | HP ---
ADMIT DATE: 01/01/2021 CHIEF COMPLAINT: Chest pain. HISTORY OF PRESENT ILLNESS: The patient is a pleasant 65-year-old male who has known coronary artery disease. He has had 2 coronary artery bypass surgeries in the past. He also has stents, one was placed 14 months ago. He states he has developed chest pain especially when he walks now and rated at 9/10. I discussed the case with ER physician. We are going to admit the patient and consult Cardiology. PAST MEDICAL HISTORY: CAD with 2 previous bypass surgeries, stroke, myocardial infarction, cardiac stents, pacemaker, appendectomy, small-bowel obstruction. ALLERGIES: MORPHINE. FAMILY HISTORY: Coronary artery disease. SOCIAL HISTORY: He does not drink, smoke or take drugs. Used to work at the [employer]. MEDICATIONS: Reviewed, please refer to the MRAD. REVIEW OF SYSTEMS: GENERAL: No history of weight change, weakness or fevers. SKIN: No bruising, hair changes or rashes. EYES: No blurred, double or loss of vision. NOSE AND THROAT: No history of nosebleeds, hoarseness or sore throat. HEART: He complains of chest pain. LUNGS: Denies cough, hemoptysis, wheezing or shortness of breath. GASTROINTESTINAL: Denies changes in appetite, nausea, vomiting, diarrhea or constipation. GENITOURINARY: No history of frequency, urgency, hesitancy or nocturia. NEUROLOGIC: Denies history of numbness, tingling, tremor or weakness. PSYCHIATRIC: No history of panic, anxiety or depression. ENDOCRINE: No history of heat or cold intolerance, polyuria or polydipsia. EXTREMITIES: Denies muscle weakness, joint pain, pain on walking or stiffness. PHYSICAL EXAMINATION: VITALS: Within normal limits and are stable. GENERAL: No apparent distress. Alert and oriented. HEENT: Normal cephalic atraumatic, external auditory canals are patent. EYES: Extraocular muscles are intact, pupils are equally round and reactive to light and accommodation. MUSCULOSKELETAL: Well developed, well nourished, good range of motion. ENDOCRINE: No thyromegaly was palpated. LYMPHATICS: No cervical chain or axillary nodes were noted. HEMATOPOIETIC: No bruising. NECK: Supple, no JVD, no thyromegaly was noted. LUNGS: Clear to auscultation in all lung abbott without rhonchi or wheezing. HEART: RRR, S1, S2 present. Peripheral pulses intact, no obvious murmurs were noted. ABDOMEN: Soft, nontender. Positive bowel sounds no organomegaly, normal bowel sounds. EXTREMITIES: Without any cyanosis, clubbing, or edema. Pedal pulses intact, Homans sign is negative. NEUROLOGIC: Normal speech, normal tone. A & O x3, moves all extremities, no obvious focal deficits. PSYCHIATRIC: Normal affect, normal mood. Stable. SKIN: No ulcerations or rashes, good skin turgor, no jaundice. VASCULAR: Good capillary refill, neurovascular bundle appears to be intact. LABORATORY DATA: Troponin is 0. ASSESSMENT AND PLAN: Chest pain in a middle-aged male with known coronary artery disease. The patient will be admitted. We will check serial enzymes, serial EKGs, cardiac monitoring, home meds, deep venous thrombosis prophylaxis. Full code. P.r.n. morphine. PROGNOSIS: Guarded. EMILI HUMMEL DO DR: MORIS/roma JOB#: [id number] / [id number]
[2021-01-01 22:14] VITALS: BP 144/79
[2021-01-01] MEDS: ZOLPIDEM 5 MG TABLET. PO PRN (23:44)
[2021-01-02] VITALS (13 sets, daily range): BP systolic 92–114; BP diastolic 51–66
[2021-01-02] MEDS: fentaNYL PF VIAL 100 MCG/2 ML VIAL IVP PRN ×5 (05:11→21:34)
[2021-01-02] MEDS ORDERED: CLOPIDOGREL BISULFATE 75 MG TABLET PO SCH (07:00)
[2021-01-02 08:28] LABS: CHOLESTEROL/HDL RATIO 9.8
[2021-01-02] MEDS: OMEGA-3 FATTY ACIDS/FISH OIL 1,000 MG CAPSULE. PO SCH (08:31)
[2021-01-02] MEDS: ISOSORBIDE MONONITRATE ER 30 MG TAB.ER.24H PO SCH (08:31)
[2021-01-02] MEDS: ASPIRIN ENTERIC COATED 325 MG TABLET.DR. PO SCH (08:31)
[2021-01-02] MEDS: CLOPIDOGREL BISULFATE 75 MG TABLET PO SCH (08:32)
[2021-01-02] MEDS: CARVEDILOL 6.25 MG TABLET. PO SCH (08:32)
--- NOTE | 2021-01-02 10:27 | PDOC2 ---
MAJO BALTAZAR TINT LAYER 01/02/21 1027: CARDIAC CONSULT DATE OF CONSULT Date of Consult DATE: 01/02/21 TIME: 10:18 REASON FOR CONSULT Reason for Consult: Chest pain REFERRING PHYSICIAN Referring Physician: Vishal SOURCE Source: Chart review, Patient HISTORY OF PRESENT ILLNESS HISTORY OF PRESENT ILLNESS This is a pleasant 65 yo male admitted for complains of chest pain. Pt reports that he just got back from [place] and was over there due to his father who is on hospice. He has not been seen in our office for over a yr. Reports that he has been having chest pain like a car on her chest in the last 2 days. He was sweaty and actually vomited yesterday morning. It was an 06/19 yesterday. His chest pain is nonradiating and reports HOYT and exertional CP. Reports no prior fever or chills and no covid-19 exposure. Denies any anosmia or ageusia. No recent falls or injury. His pain is the same as when he had his TX. He takes plavix, ASA, coreg and protonix. He could not explain to me why he does not have statin. PAST MEDICAL HISTORY Past Medical History Cardiovascular: CAD, HTN, TX, Syncope, Hyperlipidemia, Other Pulmonary: Pulmonary embolus, covid-19 06/2020 CENTRAL NERVOUS SYSTEM: CVA GI: GERD Heme/Onc: No pertinent hx Hepatobiliary: No pertinent hx Psych: No pertinent hx Musculoskeletal: Osteoarthritis Rheumatologic: No pertinent hx Infectious disease: No pertinent hx Renal/: No pertinent hx Endocrine: No pertinent hx PAST SURGICAL HISTORY Past Surgical History Pacemaker, Appendectomy, Cholecystectomy, CABG, Hernia Repair, Tonsillectomy, Other FAMILY HISTORY Family History Coronary Artery Disease, High Cholesterol SOCIAL HISTORY Social History ALCOHOL: none Drugs: None Lives: with Family Domestic Violence: Neg CURRENT MEDICATIONS CURRENT MEDICATIONS Current Medications Medications (Trade) Dose Ordered Sig/Saad Route PRN Reason Start Time Stop Time Status Last Admin Dose Admin Aspirin (Aspirin Chewable) 324 mg 1X ONCE PO 01/01/21 13:30 01/01/21 13:31 DC 01/01/21 14:01 Morphine Sulfate (Morphine Sulfate) 4 mg 1X ONCE IV 01/01/21 15:15 01/01/21 15:16 DC 01/01/21 15:24 Fentanyl Citrate (Fentanyl 2ml Vial) 25 mcg PRN Q2HR PRN IVP PAIN 01/01/21 20:15 01/02/21 08:31 Aspirin (Ecotrin) 325 mg DAILYWBKFT PO 01/02/21 08:00 01/02/21 08:31 Isosorbide Mononitrate (Imdur) 30 mg DAILY PO 01/02/21 09:00 01/02/21 08:31 Fish Oil (Fish Oil) 1,000 mg DAILY PO 01/02/21 09:00 01/02/21 08:31 Carvedilol (Coreg) 6.25 mg DAILY08 PO 01/02/21 08:00 01/02/21 08:32 Zolpidem Tartrate (Ambien) 5 mg PRN QHS PRN PO INSOMNIA 01/01/21 22:30 01/01/21 23:44 Clopidogrel Bisulfate (Plavix) 75 mg DAILY PO 01/02/21 09:00 01/02/21 08:32 ALLERGIES ALLERGIES: Coded Allergies: morphine (Verified Adverse Reaction, Mild, Agitation, 04/21/18) ROS Review of System 14 point ROS evaluated with pertinent positives noted per HPI PHYSICAL EXAM General: Alert, Oriented X3, Cooperative, No acute distress HEENT: Atraumatic, Mucous membr. moist/pink Lungs: Clear to auscultation, Normal air movement Heart: Regular rate (SR), Normal S1, Normal S2, No murmurs Abdomen: Soft, No tenderness Extremities: No cyanosis, No edema Skin: No breakdown, No significant lesion Neuro: Normal speech, Sensation intact Psych/Mental Status: Mental status NL, Mood NL MUSCULOSKELETAL: Osteoarthritic changes both hands VITALS/I&O VITALS/I&O: Vital Signs Date Time Temp Pulse Resp B/P (MAP) Pulse Ox O2 Delivery O2 Flow Rate FiO2 01/02/21 09:01 18 Room Air 01/02/21 08:32 68 104/60 01/02/21 07:00 97.6 96 97.6 I & O 01/01/21 01/01/21 01/02/21 15:00 23:00 07:00 Intake Total 220 ml Balance 220 ml LABS Lab: Laboratory Tests Test 01/01/21 13:51 01/01/21 15:30 01/02/21 07:20 White Blood Count 5.9 x10^3/uL (4.0-11.0) Red Blood Count 4.29 x10^6/uL (4.30-5.70) L Hemoglobin 13.6 g/dL (13.0-17.5) Hematocrit 38.1 % (39.0-53.0) L Mean Corpuscular Volume 89 fL (79-100) Mean Corpuscular Hemoglobin 32 pg (25-35) Mean Corpuscular Hemoglobin Concent 36 g/dL (31-37) Red Cell Distribution Width 13.8 % (11.5-14.5) Platelet Count 174 x10^3/uL (140-400) Neutrophils (%) (Auto) 47 % (31-73) Lymphocytes (%) (Auto) 44 % (24-48) Monocytes (%) (Auto) 7 % (0-9) Eosinophils (%) (Auto) 1 % (0-3) Basophils (%) (Auto) 1 % (0-3) Neutrophils # (Auto) 2.8 x10^3/uL (1.8-7.7) Lymphocytes # (Auto) 2.6 x10^3/uL (1.0-4.8) Monocytes # (Auto) 0.4 x10^3/uL (0.0-1.1) Eosinophils # (Auto) 0.1 x10^3/uL (0.0-0.7) Basophils # (Auto) 0.0 x10^3/uL (0.0-0.2) Sodium Level 138 mmol/L (136-145) Potassium Level 4.2 mmol/L (3.5-5.1) Chloride Level 105 mmol/L (98-107) Carbon Dioxide Level 25 mmol/L (21-32) Anion Gap 8 (6-14) Blood Urea Nitrogen 24 mg/dL (8-26) Creatinine 0.9 mg/dL (0.7-1.3) Estimated GFR (Cockcroft-Gault) 85.0 Glucose Level 96 mg/dL (70-99) Calcium Level 8.6 mg/dL (8.5-10.1) Troponin I Quantitative < 0.017 ng/mL (0.000-0.055) < 0.017 ng/mL (0.000-0.055) Triglycerides Level 265 mg/dL (0-150) H Cholesterol Level 285 mg/dL (0-200) H LDL Cholesterol, Calculated 203 mg/dL (0-100) H VLDL Cholesterol, Calculated 53 mg/dL (0-40) H Non-HDL Cholesterol Calculated 256 mg/dL (0-129) H HDL Cholesterol 29 mg/dL (40-60) L Cholesterol/HDL Ratio 9.8 Laboratory Tests 01/01/21 13:51 Laboratory Tests 01/01/21 15:30 ECHOCARDIOGRAM ECHOCARDIOGRAM <Conclusion> Left ventricle systolic function is mildly impaired. The Ejection Fraction is 4 5-50%. Septal motion suggestive of conduction defect/prior CABG. Pacer lead noted in RV/RA. Limited echo only DATE: 09/03/19 1133 HEART CATH HEART CATH Conclusion 1. Coronary artery disease s/p coronary artery bypass surgery as described above with patent CARRERO to LAD, patent saphenous vein graft to OM/LCx with the midsegment of LCx showing 80% stenosis compromising flow to second obtuse marginal branch, chronically occluded saphenous vein graft to the right coronary artery and 80% stenosis involving the distal LMCA/proximal LAD compromising flow to a diagonal branch. 2. Successful PCI/JOSE G to LMCA/LAD and complex PTCA to the left circumflex artery via saphenous vein graft. Recommendations 1. Aspirin 325 mg daily for one month followed by 81 mg daily 2. Plavix 75 mg daily for preferably one year 3. Cardiovascular risk factor modification DATE: 09/03/19 1518 Conclusion Severe [place] vessel coronary artery disease s/p coronary artery bypass surgery with patent CARRERO to LAD, patent SVG to obtuse marginal branch of left circumflex artery and also patent SVG to RCA (with resolution of previously described lesions probably thrombus). No lesions needing intervention were noted. Recommendations Optimization of medical therapy including maximizing antianginal therapy and cardiovascular risk factor modification. DATE: 03/30/19 1526 ASSESSMENT/PLAN ASSESSMENT/PLAN 1. Chest pain: concerning of UA 2. CAD: past CABG past CABG 2005 and 2010 and multiple PCI 3. PPM in situ: medtronic for SSS 4. Hx of remote PE after CABG 5. 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 not on statin 6. HTN: controlled 7. Hx of CVA with carotid artery disease 8. Recovered Covid-19: 06/2020 Recommendations 1. Rapid covid-19 test. Discussed ischemic workup and would like to have [facility]. Risks and benefits discussed and agreeable to proceed 2. TTE 2. Start on high dose statin 3. ASA 4. Interrogate device after C VARGHESE HUDDLESTON MD 01/02/214: CARDIAC CONSULT ASSESSMENT/PLAN ASSESSMENT/PLAN Patient seen and examined. Agree with above nurse practitioner note. 65-year-old man with unstable anginal features. 3 of 3 grafts patent. No new coronary disease identified. Previous stents are patent. Supportive care for now. Continue medical therapy. Okay to discharge from a cardiac standpoint. MAJO BALTAZAR APRN Jan 02, 2021 10:27 VARGHESE HUDDLESTON MD Jan 02, 2021 22:24
[2021-01-02] MEDS ORDERED: IV NORMAL SALINE 1000ML BAG 1,000 ML IV ONE (11:30)
--- NOTE | 2021-01-02 12:06 | NUR ---
SS following for discharge planning. SS reviewed pt chart and discussed with pt RN. Pt is from home with spouse and is currently on room air. Cardiology following and pt being scheduled for heart cath. COVID19 test pending. SS will continue to follow for discharge planning.
--- NOTE | 2021-01-02 12:39 | PDOC ---
[employer] PROGRESS NOTE Date of Service DOS: DATE: 01/02/21 TIME: 12:22 Chief Complaint Chief Complaint Acute chest pain concerning for non-STEMI History of CABG x2 History of dyslipidemia Pending cardiology evaluation History of Present Illness History of Present Illness 01/02/2021 No acute events overnight. Patient during my interview was having 7 out of 10 chest pain. Patient has followed with Dr Le in the past and his PCP was Dr. Gaines however he has been lost to follow-up because he lives in [place] and all the PCP are not available for him. Patient's chart, labs, images were reviewed and discussed with RN 65-year-old male who has known coronary artery disease. He has had 2 coronary artery bypass surgeries in the past. He also has stents, one was placed 14 months ago. He states he has developed chest pain especially when he walks now and rated at 9/10. I discussed the case with ER physician. We are going to admit the patient and consult Cardiology. Vitals/I&O Vitals/I&O: Vital Signs Date Time Temp Pulse Resp B/P (MAP) Pulse Ox O2 Delivery O2 Flow Rate FiO2 01/02/21 12:01 18 Room Air 01/02/21 11:24 97.8 75 104/60 (75) 98 97.8 I & O 01/01/21 01/01/21 01/02/21 15:00 23:00 07:00 Intake Total 220 ml Balance 220 ml Physical Exam General: Alert, Oriented X3, Cooperative, No acute distress Heart: Regular rate (SR), Normal S1, Normal S2, No murmurs Lungs: Clear Abdomen: Soft, No tenderness Extremities: No cyanosis, No edema Skin: No breakdown, No significant lesion Labs Labs: Laboratory Tests Test 01/01/21 13:51 01/01/21 15:30 01/02/21 07:20 White Blood Count 5.9 x10^3/uL (4.0-11.0) Red Blood Count 4.29 x10^6/uL (4.30-5.70) Hemoglobin 13.6 g/dL (13.0-17.5) Hematocrit 38.1 % (39.0-53.0) Mean Corpuscular Volume 89 fL (79-100) Mean Corpuscular Hemoglobin 32 pg (25-35) Mean Corpuscular Hemoglobin Concent 36 g/dL (31-37) Red Cell Distribution Width 13.8 % (11.5-14.5) Platelet Count 174 x10^3/uL (140-400) Neutrophils (%) (Auto) 47 % (31-73) Lymphocytes (%) (Auto) 44 % (24-48) Monocytes (%) (Auto) 7 % (0-9) Eosinophils (%) (Auto) 1 % (0-3) Basophils (%) (Auto) 1 % (0-3) Neutrophils # (Auto) 2.8 x10^3/uL (1.8-7.7) Lymphocytes # (Auto) 2.6 x10^3/uL (1.0-4.8) Monocytes # (Auto) 0.4 x10^3/uL (0.0-1.1) Eosinophils # (Auto) 0.1 x10^3/uL (0.0-0.7) Basophils # (Auto) 0.0 x10^3/uL (0.0-0.2) Sodium Level 138 mmol/L (136-145) Potassium Level 4.2 mmol/L (3.5-5.1) Chloride Level 105 mmol/L (98-107) Carbon Dioxide Level 25 mmol/L (21-32) Anion Gap 8 (6-14) Blood Urea Nitrogen 24 mg/dL (8-26) Creatinine 0.9 mg/dL (0.7-1.3) Estimated GFR (Cockcroft-Gault) 85.0 Glucose Level 96 mg/dL (70-99) Calcium Level 8.6 mg/dL (8.5-10.1) Troponin I Quantitative < 0.017 ng/mL (0.000-0.055) < 0.017 ng/mL (0.000-0.055) Triglycerides Level 265 mg/dL (0-150) Cholesterol Level 285 mg/dL (0-200) LDL Cholesterol, Calculated 203 mg/dL (0-100) VLDL Cholesterol, Calculated 53 mg/dL (0-40) Non-HDL Cholesterol Calculated 256 mg/dL (0-129) HDL Cholesterol 29 mg/dL (40-60) Cholesterol/HDL Ratio 9.8 Thyroid Stimulating Hormone (TSH) 2.200 uIU/mL (0.358-3.74) Assessment and Plan Assessmemt and Plan Problems Medical Problems: (1) Chest pain Status: Acute Comment Review of Relevant I have reviewed the following items mirian (where applicable) has been applied. Medications: Current Medications Medications (Trade) Dose Ordered Sig/Saad Route PRN Reason Start Time Stop Time Status Last Admin Dose Admin Aspirin (Aspirin Chewable) 324 mg 1X ONCE PO 01/01/21 13:30 01/01/21 13:31 DC 01/01/21 14:01 Morphine Sulfate (Morphine Sulfate) 4 mg 1X ONCE IV 01/01/21 15:15 01/01/21 15:16 DC 01/01/21 15:24 Fentanyl Citrate (Fentanyl 2ml Vial) 25 mcg PRN Q2HR PRN IVP PAIN 01/01/21 20:15 01/02/21 12:01 Aspirin (Ecotrin) 325 mg DAILYWBKFT PO 01/02/21 08:00 01/02/21 08:31 Isosorbide Mononitrate (Imdur) 30 mg DAILY PO 01/02/21 09:00 01/02/21 08:31 Fish Oil (Fish Oil) 1,000 mg DAILY PO 01/02/21 09:00 01/02/21 08:31 Carvedilol (Coreg) 6.25 mg DAILY08 PO 01/02/21 08:00 01/02/21 08:32 Zolpidem Tartrate (Ambien) 5 mg PRN QHS PRN PO INSOMNIA 01/01/21 22:30 01/01/21 23:44 Clopidogrel Bisulfate (Plavix) 75 mg DAILY PO 01/02/21 09:00 01/02/21 08:32 Sodium Chloride 1,000 ml @ 75 mls/hr 1X ONCE IV 01/02/21 11:30 01/03/21 00:49 01/02/21 11:44 Justifications for Admission Other Justification VIK US MD Jan 02, 2021 12:39
[2021-01-02] MEDS ORDERED: IOHEXOL 300 MG/ML 100ML VIAL. ONE ×2 (12:57→14:05)
[2021-01-02] MEDS ORDERED: LIDOCAINE 1% Multi-Dose 20 ML VIAL. ONE (12:57)
[2021-01-02] MEDS ORDERED: fentaNYL PF VIAL 100 MCG/2 ML VIAL ONE ×2 (12:58→14:02)
[2021-01-02] MEDS ORDERED: MIDAZOLAM HCL/PF 2 MG/2 ML VIAL. ONE ×2 (12:58→14:03)
--- NOTE | 2021-01-02 13:20 | NUR ---
Pt taken to lift slab operator per bed.
[2021-01-02] MEDS ORDERED: MIDAZOLAM HCL/PF 2 MG/2 ML VIAL. IV ONE (14:45)
[2021-01-02] MEDS ORDERED: IOHEXOL 300 MG/ML 100ML VIAL. IART ONE (14:45)
[2021-01-02] MEDS ORDERED: LIDOCAINE 1% Multi-Dose 20 ML VIAL. INJ ONE (14:45)
[2021-01-02] MEDS ORDERED: fentaNYL PF VIAL 100 MCG/2 ML VIAL IV ONE (14:45)
--- NOTE | 2021-01-02 15:00 | NUR ---
Pt returned from [facility]. Grafts open. No intervention. Pt still c/o chest pain and SOB. Patient may need medication adjustments. Dressing to right groin dry and intact. No bleeding noted. Groin soft and nontender. Freq vitals and assessments started per protocol. Pt will lie flat for 4 hours and is able to sit up at 1845. Pedal pulses strong and lower extremities are warm to touch. No discoloring noted. Pt alert and oriented. Will resume cardiac diet. is at bedside.
--- NOTE | 2021-01-02 16:18 | CARD ---
MR#: [id number] Date of Study: 01/02/2021 Ordering Physician: MAJO BALTAZAR, Referring Physician: MAJO BALTAZAR, Tech: Virgie Ramirez APPROVED REPORT Technologist: Virgie Ramirez Nurse: Nancy Agosto Procedure(s) performed: fl time: 5.9 mins dose: 48 gycm2 contrast: 99 ml moderate sedation: 52 mins LHC, Coronary angiography, bypass angiography HISTORY The patient is a 65 year-old male with a history of : coronary artery disease, hypertension, dyslipid emia. INDICATION The indication(s) include : unstable angina . CSHA Clinical Frailty Scale CS Clinical Frailty Scale: Mildly Frail Heart Failure Heart Failure: Yes If Yes, Newly Diagnosed: No If Yes, HF Type: Diastolic If Yes, NYHA Class: Class II PROCEDURE NARRATIVE Clinical information: 65-year-old male with prior history of coronary artery disease status post left main stenting and eagle or three-vessel bypass comes to the hospital in the setting of worsening unstable angina despite adeq uate medical therapy and excellent blood pressure and heart rate control. Procedure details: After appropriate informed consent the [facility] groin was prepped and draped in usual sterile fashion. U nder 1% lidocaine local anesthesia a 6 Czech introducer sheath was placed in the right common femora l artery via the modified Seldinger technique without significant difficulty. Next diagnostic angiog bruna was performed with a 6 Czech JL 3.5, JR4, and LYNN catheters. A pigtail catheter was advanced to the left ventricle and pressures were obtained. A pullback was performed after left ventriculogra phy. At case completion the right groin sheath was removed and hemostasis was achieved with manual c ompression. Findings: Aorta: 110/60 LVEDP 18 mmHg Left ventriculogram: Normal LV systolic function without any evidence of significant aortic or mitral insufficiency No pullback gradient across aortic valve Coronary angiography: Left main is a moderate caliber vessel with a patent stent extending into the proximal LAD LAD is a small caliber vessel with a mid 100% occlusion after the first septal parts data writer which provi rodolfo a robust collateral to the distal right coronary artery. D1 is a small caliber vessel with mild diffuse disease Left circumflex is proximally occluded OM1 is seen to fill via a patent vein graft and has a proximal 70% stenosis prior to vein graft anast omosis, distal to the anastomosis there is no significant disease OM2 and distal circumflex are seen to fill via retrograde flow from the vein graft and has mild diffu se irregularities up to 50%. RCA is a large caliber vessel with a proximal 100% occlusion RPDA and RPL are seen to fill via a patent vein graft and have mild diffuse irregularities of up to 3 0%. Bypass angiography: CARRERO to the LAD is widely patent without any evidence of anastomotic stenosis SVG to OM1 has a distal 50% stenosis SVG to RCA is widely patent without any evidence of anastomotic stenosis *Of note the patient has a previous SVG to RCA from his first bypass surgery in 2005 which is known o ccluded. Conclusion 1. Mildly elevated left-sided filling pressures 2. Normal LV systolic function, EF 55% 3. Three-vessel coronary artery disease with patent left main stent 4. 3 of 3 bypass grafts patent. Recommendations Aggressive Medical Therapy Signed by : Efrain Molina, Electronically Approved : 01/02/2021 16:18:01
--- NOTE | 2021-01-02 19:20 | NUR ---
Assessment completed vss poc explained pt c/o pain 02/17 pt medicated prior rt groin site soft with sm area of shadowing will resume care and continue to monitor pt. Call light in reach.
[2021-01-02] MEDS ORDERED: ATORVASTATIN CALCIUM 40 MG TABLET. PO SCH (21:00)
[2021-01-02] MEDS: ZOLPIDEM 5 MG TABLET. PO PRN (21:33)
[2021-01-03] MEDS: fentaNYL PF VIAL 100 MCG/2 ML VIAL IVP PRN (02:38)
[2021-01-03 02:45] VITALS: BP 118/62
[2021-01-03 07:00] VITALS: BP 92/61
[2021-01-03] MEDS: OMEGA-3 FATTY ACIDS/FISH OIL 1,000 MG CAPSULE. PO SCH (08:28)
[2021-01-03] MEDS: ASPIRIN ENTERIC COATED 325 MG TABLET.DR. PO SCH (08:28)
[2021-01-03] MEDS: CARVEDILOL 6.25 MG TABLET. PO SCH (08:29)
[2021-01-03] MEDS: CLOPIDOGREL BISULFATE 75 MG TABLET PO SCH (08:29)
--- NOTE | 2021-01-03 08:31 | NUR ---
Nursing: blood pressure 92/61. Spoke with Dr. Black on unit. Told to give Coreg and Hold Imdur. See eMAR. Will continue to monitor.
[2021-01-03] MEDS: ISOSORBIDE MONONITRATE ER 30 MG TAB.ER.24H PO SCH (08:33)
[2021-01-03] MEDS ORDERED: HYDROcodone/APAP 5/325MG 1 TAB TABLET PO PRN (09:00)
[2021-01-03 11:00] VITALS: BP 120/67
[2021-01-03] MEDS ORDERED: ATOR40TA59 PO (11:14)
--- NOTE | 2021-01-03 11:16 | DISCH ---
DISCHARGE INSTRUCTIONS Condition on Discharge Condition on Discharge: Stable Activity After Discharge Activity Instructions for Disc: Activity as tolerated Bathing Instructions: Shower-keep dressing dry, No Tub Bath until see Lifting Instructions after Dis: No heavy lifting, No pulling or pushing, Do not lift >10 pounds Exercise Instruction after Dis: Walk 10 min, 3 x per day, Progress as tolerated Driving Instructions after Dis: Do not drive today, Other, see below Weight Bearing Status after Di: As tolerated Diet after Discharge Diet after Discharge: Cardiac Diet Texture: Regular Liquid Texture: Thin Liquid Swallowing Supervision: None needed Checks after Discharge Checks after discharge: Check blood press - daily, Check your Temp as needed, Weigh Yourself Daily Contacting the DRLance after DC Call your doctor for: If your condition worsens Follow-Up Follow up with: PCP within 2 weeks of discharge Follow Up With: Cardiology as scheduled Treatment/Equipment after DC Adaptive Equipment Issued: None VIK US MD Jan 03, 2021 11:16
--- NOTE | 2021-01-03 11:58 | NUR ---
SS following up with discharge planning. SS reviewed pt chart and discussed with pt RN. Pt is currently on room air. Pt had clean heart cath on 01/02/2021. Discharge order on the chart for home with self care.
--- NOTE | 2021-01-03 13:17 | PDOC ---
MAJO BALTAZAR APRN 01/03/21 1316: CARDIO Progress Notes Date and Time Date of Service 01/03/2021 Time of Evaluation 1300 Subjective Subjective: No Chest Pain, No shortness of breath, No Palpitations Vitals Vitals Vital Signs Date Time Temp Pulse Resp B/P (MAP) Pulse Ox O2 Delivery O2 Flow Rate FiO2 01/03/21 11:00 97.6 71 19 120/67 (84) 99 Room Air 97.6 01/02/21 22:07 2.0 Weight Weight [ ] Input and Output Intake and Output Intake and Output 01/03/21 07:00 Intake Total 1240 ml Output Total 200 ml Balance 1040 ml Intake Oral 1240 ml Output Urine Total 200 ml # Voids 2 Physical Exam HEENT: Neck Supple W Full Motion Chest: Symmetric LUNGS: Clear to Auscultation Heart: S1S2, RRR (SR with intermittent atrial pacing) Abdomen: Soft N/T Extremities: No Edema, No Calf Tenderness Neurology: alert, oriented, follow commands Assessment Assessment 1. Chest pain: Possibly MSK. LHC revealed patent stents, grafts patent 2. CAD: past CABG past CABG 2005 and 2010 and multiple PCI 3. PPM in situ: medtronic for SSS 4. Hx of remote PE after CABG 5. 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 not on statin 6. HTN: controlled 7. Hx of CVA with carotid artery disease 8. Recovered Covid-19: 06/2020 Recommendations 1. Continue secondary prevention measures. Continue ASA/ plavix 2. outpt TTE 3. Start on high dose statin 4. Interrogate device device. today. Anticipate DC today Justicifation of Admission Dx: Justifications for Admission: Justification of Admission Dx: Yes ALLIE ESPARZA MD 01/03/21 2003: CARDIO Progress Notes Assessment Assessment Patient seen and examined. Agree with COIL FINISHER's assessment and plan. Cardiac cath did not show any lesions needing intervention Patient presently chest pain free PPM interrogation showed normal function OK for DC from cardiac standpoint Follow up as scheduled MAJO BALTAZAR APRN Jan 03, 2021 13:16 ALLIE ESPARZA MD Jan 03, 2021 20:03
[2021-01-03] MEDS ORDERED: ASPI-886 PO (14:56)
[2021-01-03 15:00] VITALS: BP 122/71
--- NOTE | 2021-01-03 21:22 | PDOC3 ---
[facility]-Discharge Summary Discharge Diagnosis: Discharge Diagnosis: 1. Chest pain: [facility] on 01/02/21 revealed patent stents, grafts patent 2. CAD: past CABG past CABG 2005 and 2010 and multiple PCI 3. PPM in situ: medtronic for SSS 4. Hx of remote PE after CABG 5. 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 not on statin 6. HTN: controlled 7. Hx of CVA with carotid artery disease 8. Recovered Covid-19: 06/2020 Hospital Course: Hospital Course: On day of discharge, chest pain free. PPM interogated without any changes. Secondary prevention measures were optimized. 01/02/2021 No acute events overnight. Patient during my interview was having 7 out of 10 chest pain. Patient has followed with Dr Le in the past and his PCP was Dr. Gaines however he has been lost to follow-up because he lives in [place] and all the PCP are not available for him. Patient's chart, labs, images were reviewed and discussed with RN 65-year-old male who has known coronary artery disease. He has had 2 coronary artery bypass surgeries in the past. He also has stents, one was placed 14 months ago. He states he has developed chest pain especially when he walks now and rated at 9/10. I discussed the case with ER physician. We are going to admit the patient and consult Cardiology. Activity: Activity: Resume previous activity Medications: Home Meds Active Scripts Aspirin (ASPIRIN EC) 81 Mg Tablet., 1 TAB PO DAILY for CAD for 30 Days, #30 TAB 3 Refills Prov:MAJO BALTAZAR ENVIRONMENTAL TECHNOLOGY PROFESSOR 01/03/21 Atorvastatin Calcium (ATORVASTATIN CALCIUM) 40 Mg Tablet, 40 MG PO QHS for cholesterol for 30 Days, #30 TAB Prov:VIK US MD 01/03/21 Acetaminophen (TYLENOL) 325 Mg Tablet, 650 MG PO PRN Q6HRS PRN for MILD PAIN / TEMP for 30 Days, #30 TAB Prov:SESAR SHINE MD 09/04/19 Nitroglycerin (NITROSTAT) 0.4 Mg Tab.subl, 0.4 MG SL PRN Q5MIN PRN for CHEST P AIN for 30 Days, #90 TAB Prov:SESAR SHINE MD 09/04/19 Reported Medications Carvedilol (CARVEDILOL ) 6.25 Mg Tablet, 6.25 MG PO DAILY08 for CARDIAC, TAB 01/01/21 Isosorbide Mononitrate (ISOSORBIDE MONONITRATE ER) 30 Mg Tab.er.24h, 30 MG PO DAILY for Blood Pressure, TAB.SR 03/31/19 [place]-3 Fatty Acids (FISH OIL) 300 Mg Capsule, 1000 MG PO DAILY for cholesterol 10/25/13 Clopidogrel Bisulfate (CLOPIDOGREL) 75 Mg Tablet, 75 MG PO DAILY07 for blood thinner 10/25/13 Discontinued Scripts Aspirin (ASPIRIN EC) 325 Mg Tablet.dr, 325 MG PO DAILYWBKFT for HEART HEALTH for 30 Days, #30 TAB.SR Prov:SESAR SHINE MD 09/04/19 Scheduled Aspirin (Aspirin Ec), 1 TAB PO DAILY Atorvastatin Calcium (Atorvastatin Calcium), 40 MG PO QHS Carvedilol (Carvedilol ), 6.25 MG PO DAILY08, (Reported) Clopidogrel Bisulfate (Clopidogrel), 75 MG PO DAILY07, (Reported) Isosorbide Mononitrate (Isosorbide Mononitrate Er), 30 MG PO DAILY, (Reported) [place]-3 Fatty Acids (Fish Oil), 1,000 MG PO DAILY, (Reported) Scheduled PRN Acetaminophen (Tylenol), 650 MG PO PRN Q6HRS PRN for MILD PAIN / TEMP Nitroglycerin (Nitrostat), 0.4 MG SL PRN Q5MIN PRN for CHEST PAIN Discontinued Medications Aspirin (Aspirin Ec), 325 MG PO DAILYWBKFT Justicifation of Admission Dx: Justifications for Admission: Justification of Admission Dx: Yes VIK US MD Jan 03, 2021 21:22
== END 2021-01-03 17:30 | disposition home or self-care (01) ==
LOC: ER 13:23 → 2 SOUTH 17:13
PROVIDERS: ADMIT Internal Medicine; ATTEND Internal Medicine
DX: I25.110 Atherosclerotic heart disease of native coronary artery with unstable angina pectoris (principal); Z20.822 Contact with and (suspected) exposure to COVID-19; I49.5 Sick sinus syndrome; I25.2 Old myocardial infarction; I10 Essential (primary) hypertension; M19.90 Unspecified osteoarthritis, unspecified site; K21.9 Gastro-esophageal reflux disease without esophagitis; K56.609 Unspecified intestinal obstruction, unspecified as to partial versus complete obstruction; E78.5 Hyperlipidemia, unspecified; Z90.49 Acquired absence of other specified parts of digestive tract; Z95.0 Presence of cardiac pacemaker; Z95.1 Presence of aortocoronary bypass graft; Z86.73 Personal history of transient ischemic attack (TIA), and cerebral infarction without residual deficits; Z86.711 Personal history of pulmonary embolism; Z98.890 Other specified postprocedural states; Z79.82 Long term (current) use of aspirin; Z79.02 Long term (current) use of antithrombotics/antiplatelets; Z95.5 Presence of coronary angioplasty implant and graft
CPT/HCPCS: 36415; 71045; 80048; 80061; 84443; 84484; 85025; 87426; 93005; 93459; 96361; 96374; 96375; 96376; 99152; 99153; 99285; C1769; C1892; G0378; J1644; J2250; J2270; J2405; J3010; J3490; J7030; Q9967; U0003; G0379

== ENCOUNTER → 2021-02-01 | Outpatient (CLI) | payer MEDICARE ==
[2021-01-03 15:00] VITALS: BP 122/71
--- NOTE | 2021-02-01 16:08 | CARD ---
MR#: [id number] Date of Study: 02/01/2021 Ordering Physician: ALLIE ESPARZA, Referring Physician: ALLIE ESPARZA Tech: Jaelyn Flores RDCS APPROVED REPORT EXAM: Two-dimensional and M-mode echocardiogram with Doppler and color Doppler. Other Information Quality : Good INDICATION Congestive Heart Failure Surgery/Intervention Pacemaker: Date: 02/21/14 CABG: Date: 2006 & 2013 2D DIMENSIONS RVDd2.9 (2.9-3.5cm)Left Atrium(2D)3.7 (1.6-4.0cm) IVSd1.0 (0.7-1.1cm)Aortic Root(2D)3.1 (2.0-3.7cm) LVDd4.9 (3.9-5.9cm)LVOT Diameter2.0 (1.8-2.4cm) PWd1.0 (0.7-1.1cm)LVDs3.3 (2.5-4.0cm) FS (%) 31.4 %SV65.3 ml LVEF(%)59.1 (>50%) Aortic Valve AoV Peak Evert.143.0cm/sAoV VTI25.8cm AO Peak GR.8.2mmHgLVOT Peak Evert.104.2cm/s LVOT VTI 21.33cmAO Mean GR.4mmHg TYRA (VMAX)2.45vu8RNN (VTI)2.60cm2 Mitral Valve MV E Xepjsrdl04.4cm/sMV DECEL [id number] MV A Glxmhojm80.7cm/sMV ZCS87et E/A Ratio1.0MVA (PHT)3.92cm2 TDI E/Lateral E'6.9E/Medial E'14.6 Pulmonary Vein S1 Cdnonmhf53.5cm/sD2 Hqsujwnc68.4cm/s LEFT VENTRICLE The left ventricle is normal size. There is normal left ventricular wall thickness. The left ventricu lar systolic function is normal. The Ejection Fraction is 55-60%. There is normal LV segmental wall m otion. RIGHT VENTRICLE The right ventricle is normal size. The right ventricular systolic function is normal. There is a pac emaker lead in the right ventricle. ATRIA The left atrium size is normal. The right atrium size is normal. A pacemaker is seen in the right atr ium consistent with history. The interatrial septum is intact with no evidence for an atrial septal d efect or patent foramen ovale as noted on 2-D or Doppler imaging. AORTIC VALVE The aortic valve is calcified but opens well. Doppler and Color Flow revealed no significant aortic r egurgitation. There is no significant aortic valvular stenosis. MITRAL VALVE The mitral valve is calcified but opens well. Mitral annular calcification is mild. There is no evide nce of mitral valve prolapse. There is no mitral valve stenosis. Doppler and Color-flow revealed trac e mitral regurgitation. TRICUSPID VALVE The tricuspid valve is normal in structure and function. Doppler and Color Flow revealed no tricuspid valve regurgitation noted. There is no tricuspid valve stenosis. PULMONIC VALVE The pulmonary valve is normal in structure and function. Doppler and Color Flow revealed mild pulmoni c valvular regurgitation. There is no pulmonic valvular stenosis. GREAT VESSELS The aortic root is normal in size. The ascending aorta is not well seen. The IVC is normal in size an d collapses >50% with inspiration. PERICARDIAL EFFUSION There is no evidence of significant pericardial effusion. Critical Notification Critical Value: No <Conclusion> The left ventricular systolic function is normal. The Ejection Fraction is 55-60%. There is normal LV segmental wall motion. Pacer lead noted RA/RV. Trace mitral regurgitation. There is no evidence of significant pericardial effusion. Signed by : Allie Esparza, Electronically Approved : 02/01/2021 16:08:03
== END ==
LOC: ECHO 12:25
PROVIDERS: ATTEND Internal Medicine Cardiovascular Disease
DX: I08.8 Other rheumatic multiple valve diseases (principal); I50.9 Heart failure, unspecified
CPT/HCPCS: 93306

== ENCOUNTER 2021-06-16 07:04 | Observation (INO) | payer MEDICARE ==
[~2021-06-16] VITALS: Ht 180.3 cm; Wt 91.3 kg
[~2021-06-16 07:04] MED LIST changes: -DOCU-150 PO; +DOCU-158 PO
--- NOTE | 2021-06-16 07:18 | PHYS DOC ---
Past Medical History Past Medical History: CAD, CVA, [place], Other Additional Past Medical Histor: cvd Past Surgical History: Appendectomy, Cholecystectomy, Coronary Bypass Surgery, Pacemaker, Other Additional Past Surgical Histo: SBO SURGERY, CABG X 3 2006,2011 Smoking Status: Never Smoker Alcohol Use: None Drug Use: None General Adult EDM: Chief Complaint: CHEST PAIN HPI: HPI: Patient is a 66 year old male who present to ER for evaluation of left-sided chest pain that radiated to his left jaw area started last night. Patient feels nauseous, he had vomited several times. Patient has history of coronary disease, had bypass surgery. Patient had Covid infection last June. Patient denies any cough or fever, no abdominal pain, no diarrhea. Patient said the chest pain is getting worse with any kind of activity, chest pain associated with trouble breathing. Review of Systems: Review of Systems: Constitutional: Denies fever or chills. [] Eyes: Denies change in visual acuity. [] HENT: Denies nasal congestion or sore throat. [] Respiratory: Denies cough , positive for shortness of air Cardiovascular: Positive for chest pain, no edema GI: Denies abdominal pain, positive for nausea vomiting, no diarrhea : Denies dysuria. [] Musculoskeletal: Denies back pain or joint pain. [] Integument: Denies rash. [] Neurologic: Denies headache, focal weakness or sensory changes. [] Endocrine: Denies polyuria or polydipsia. [] Lymphatic: Denies swollen glands. [] Psychiatric: Denies depression or anxiety. [] Heart Score: C/O Chest Pain: Yes HEART Score for Chest Pain: HEART Score for Chest Pain Response (Comments) Value History Moderately Suspicious 1 ECG Nonspecific Repolarizatio 1 Age > 65 2 Risk Factors >3 Risk Factors or Hx CAD 2 Troponin < Normal Limit 0 Total 6 Risk Factors: Risk Factors: DM, Current or recent (<one month) smoker, HTN, HLP, family his tory of CAD, obesity. Risk Scores: Score 0 - 3: 2.5% MACE over next 6 weeks - Discharge Home Score 4 - 6: 20.3% MACE over next 6 weeks - Admit for Clinical Observation Score 7 - 10: 72.7% MACE over next 6 weeks - Early Invasive Strategies Allergies: Allergies: Allergies Coded Allergies Type Severity Reaction Last Updated Verified morphine Adverse Reaction Mild Agitation 04/21/18 Yes Physical Exam: PE: Constitutional: Well developed, well nourished, no acute distress, non-toxic appearance. [] HENT: Normocephalic, atraumatic, bilateral external ears normal, oropharynx moist, no oral exudates, nose normal. [] Eyes: PERRLA, EOMI, conjunctiva normal, no discharge. [] Neck: Normal range of motion, no tenderness, supple, no stridor. [] Cardiovascular:Heart rate regular rhythm, no murmur [] Lungs & Thorax: Bilateral breath sounds clear to auscultation [] Abdomen: Bowel sounds normal, soft, no tenderness, no masses, no pulsatile masses. [] Skin: Warm, dry, no erythema, no rash. [] Back: No tenderness, no CVA tenderness. [] Extremities: No tenderness, no cyanosis, no clubbing, ROM intact, no edema. [] Neurologic: Alert and oriented X 3, normal motor function, normal sensory function, no focal deficits noted. [] Psychologic: Affect normal, judgement normal, mood normal. [] Current Patient Data: Labs: Laboratory Tests Test 06/16/21 07:34 White Blood Count 7.4 x10^3/uL Red Blood Count 3.99 x10^6/uL Hemoglobin 12.5 g/dL Hematocrit 35.9 % Mean Corpuscular Volume 90 fL Mean Corpuscular Hemoglobin 31 pg Mean Corpuscular Hemoglobin Concent 35 g/dL Red Cell Distribution Width 13.4 % Platelet Count 179 x10^3/uL Neutrophils (%) (Auto) 54 % Lymphocytes (%) (Auto) 35 % Monocytes (%) (Auto) 10 % Eosinophils (%) (Auto) 1 % Basophils (%) (Auto) 1 % Neutrophils # (Auto) 3.9 x10^3/uL Lymphocytes # (Auto) 2.5 x10^3/uL Monocytes # (Auto) 0.7 x10^3/uL Eosinophils # (Auto) 0.1 x10^3/uL Basophils # (Auto) 0.1 x10^3/uL Sodium Level 139 mmol/L Potassium Level 3.9 mmol/L Chloride Level 101 mmol/L Carbon Dioxide Level 27 mmol/L Anion Gap 11 Blood Urea Nitrogen 20 mg/dL Creatinine 1.1 mg/dL Estimated GFR (Cockcroft-Gault) 67.2 BUN/Creatinine Ratio 18 Glucose Level 140 mg/dL Calcium Level 9.3 mg/dL Magnesium Level 2.4 mg/dL Total Bilirubin 0.9 mg/dL Aspartate Amino Transf (AST/SGOT) 38 U/L Alanine Aminotransferase (ALT/SGPT) 75 U/L Alkaline Phosphatase 103 U/L Troponin I Quantitative < 0.017 ng/mL AO-Vbi-O-Type Natriuretic Peptide 82 pg/mL Total Protein 7.4 g/dL Albumin 3.6 g/dL Albumin/Globulin Ratio 0.9 Lipase 104 U/L Current Medications Medications (Trade) Dose Ordered Sig/Saad Route PRN Reason Start Time Stop Time Status Last Admin Dose Admin Aspirin (Aspirin Chewable) 324 mg 1X ONCE PO 06/16/21 07:30 06/16/21 07:31 DC 06/16/21 07:42 EKG: EKG: EKG was done at 712, heart rate of 81 bpm, sinus rhythm, no ST segment elevation, left axis deviation. Radiology/Procedures: Radiology/Procedures: [][facility] [address] [place] [address] IMAGING REPORT Signed PATIENT: ERICA CUNHA V ACCOUNT: [id number] : 1955 LOCATION: ER AGE: 66 SEX: M EXAM STATUS: PRE ER ORD. PHYSICIAN: HARRIS GONGORA DO REASON: chest pain PROCEDURE: PORTABLE CHEST 1V XR CHEST 1V History: Chest pain. Comparison: 01/01/2021 Technique: Portable AP radiograph of the chest. Findings: Left chest dual-chamber pacemaker with stable right ventricular and right atrial leads. Postsurgical changes the mediastinum and CABG. Low lung volumes with minimal bibasilar opacities likely atelectasis. No pleural effusion or pneumothorax. Stable cardiac silhouette. Bronchovascular crowding versus mild pulmonary vascular congestion. Osseous structures and soft tissues are unremarkable. Impression: 1. Hypoinflation with bibasilar opacities likely atelectasis. Electronically signed by: Neil Handley MD (06/16/2021 7:44 AM) [facility] DICTATED and SIGNED BY: NEIL HANDLEY MD DATE: 06/16/21 [id number] 0 Course & Med Decision Making: Course & Med Decision Making Pertinent Labs and Imaging studies reviewed. (See chart for details) Patient is a 66-year-old male who present to ER due to substernal chest pain that radiated to his left jaw, EKG cardiac enzymes come back normal so far, patient will be admitted to hospital for further evaluation. Cardiology will be consulted. Discussed with hospital on-call Dr. Hernandez who agreed to admit the patient Parth Disclaimer: Parth Disclaimer: This electronic medical record was generated, in whole or in part, using a voice recognition dictation system. Departure Departure Impression: Primary Impression: Chest pain Disposition: ADMITTED INPATIENT Admitting Physician: YENY (Dr. HERNANDEZ) Condition: STABLE Referrals: NO PCP (PCP) HARRIS GONGORA DO Jun 16, 2021 07:17
[2021-06-16] MEDS ORDERED: ASPIRIN CHEWABLE 81 MG TABLET. PO ONE (07:30)
[2021-06-16 07:44] LABS: BASO # 0.1 x10^3/uL (0.0-0.2); BASO % 1 % (0-3); EOS # 0.1 x10^3/uL (0.0-0.7); EOS % 1 % (0-3); HEMATOCRIT 35.9 % (39.0-53.0); HEMOGLOBIN 12.5 g/dL (13.0-17.5); LYMPH # 2.5 x10^3/uL (1.0-4.8); LYMPH % 35 % (24-48); MEAN CORPUSCULAR HEMOGLOBIN 31 pg (25-35); MEAN CORPUSCULAR HGB CONC 35 g/dL (31-37); MEAN CORPUSCULAR VOLUME 90 fL (79-100); MONO # 0.7 x10^3/uL (0.0-1.1); MONO % 10 % (0-9); NEUT # 3.9 x10^3/uL (1.8-7.7); NEUT % 54 % (31-73); PLATELET COUNT 179 x10^3/uL (140-400); RED BLOOD COUNT 3.99 x10^6/uL (4.30-5.70); RED CELL DISTRIBUTION WIDTH 13.4 % (11.5-14.5); WHITE BLOOD COUNT 7.4 x10^3/uL (4.0-11.0)
--- NOTE | 2021-06-16 07:47 | RAD ---
XR CHEST 1V History: Chest pain. Comparison: 01/01/2021 Technique: Portable AP radiograph of the chest. Findings: Left chest dual-chamber pacemaker with stable right ventricular and right atrial leads. Postsurgical changes the mediastinum and CABG. Low lung volumes with minimal bibasilar opacities likely atelectasis. No pleural effusion or pneumoth orax. Stable cardiac silhouette. Bronchovascular crowding versus mild pulmonary vascular congestion. Osseous structures and soft tissues are unremarkable. Impression: 1. Hypoinflation with bibasilar opacities likely atelectasis. Electronically signed by: Neil Aquino MD (06/16/2021 7:44 AM) [facility] [place] [place]
[2021-06-16 07:58] LABS: CALCIUM 9.3 mg/dL (8.5-10.1); CREATININE 1.1 mg/dL (0.7-1.3); GFR 67.2; POTASSIUM 3.9 mmol/L (3.5-5.1)
[2021-06-16 08:03] LABS: ALBUMIN 3.6 g/dL (3.4-5.0); ALBUMIN/GLOBULIN RATIO 0.9 (1.0-1.7); MAGNESIUM 2.4 mg/dL (1.8-2.4); TOTAL BILIRUBIN 0.9 mg/dL (0.2-1.0); TOTAL PROTEIN 7.4 g/dL (6.4-8.2)
[2021-06-16] MEDS: NITROGLYCERIN SUBLINGUAL 0.4 MG BOTTLE OF 25. SL PRN ×3 (08:29→08:51)
[2021-06-16] MEDS ORDERED: ONDANSETRON PF 4 MG/2 ML VIAL. IVP PRN ×2 (08:30→09:00)
[2021-06-16] MEDS ORDERED: fentaNYL PF VIAL 100 MCG/2 ML VIAL ONE (08:43)
[2021-06-16] MEDS: fentaNYL PF VIAL 100 MCG/2 ML VIAL IVP PRN ×5 (08:52→22:35)
--- NOTE | 2021-06-16 08:59 | PDOC1 ---
History and Physical Date of Admission Date of Admission DATE: 06/16/21 TIME: 08:51 Identification/Chief Complaint Chief Complaint Chest pain Source Source: Chart review, Patient History of Present Illness History of Present Illness Patient is a 66-year-old male with past medical history CABG x2, CAD, who presents to the ED with complaints of left-sided chest pain that started last night. He described chest pain that is more like chest pressure, that radiates to his left jaw and left arm. He reports associated nausea and vomiting. States his pain is worse with exertion. He took home nitroglycerin without significant improvement, although he does note that this nitroglycerin was . States his merchandising execution manager is Dr. Phan Hoffmna. Labs on admission, WBC 7.4, hemoglobin 12.5, hematocrit 35.9, CBG 140, AST 38, ALT 75, troponin <0.017. EKG showed sinus rhythm with left axis deviation. Chest x-ray showed hypoinflation and bibasilar opacities that are likely atelectasis. He received aspirin, nitroglycerin, and fentanyl in the ED. Will admit patient for further medical management. Past Medical History Cardiovascular: CAD, HTN, HI, Syncope, Hyperlipidemia, Other Pulmonary: Pulmonary embolus CENTRAL NERVOUS SYSTEM: CVA GI: Other Heme/Onc: No pertinent hx Hepatobiliary: No pertinent hx Psych: No pertinent hx Musculoskeletal: Osteoarthritis Rheumatologic: No pertinent hx Infectious disease: No pertinent hx Renal/: No pertinent hx Endocrine: No pertinent hx Past Surgical History Past Surgical History: Pacemaker, Appendectomy, Cholecystectomy, CABG, Hernia Repair, Tonsillectomy, Other Family History Family History: Coronary Artery Disease, High Cholestrol, Hypertension Family History: Grandparents Social History Smoke: No ALCOHOL: none Drugs: None Current Problem List Problem List Problems Medical Problems: (1) Chest pain Status: Acute Current Medications Current Medications Current Medications Aspirin (Aspirin Chewable) 324 mg 1X ONCE PO Last administered on 06/16/21at 07:42; Start 06/16/21 at 07:30; Stop 06/16/21 at 07:31; Status DC Nitroglycerin (Nitrostat) 0.4 mg PRN Q5MIN PRN SL CHEST PAIN Last administered on 06/16/21at 08:42; Start 06/16/21 at 08:30 Ondansetron HCl (Zofran) 4 mg PRN Q8HRS PRN IVP NAUSEA/VOMITING Last administered on 06/16/21at 08:29; Start 06/16/21 at 08:30; Stop 06/17/21 at 08:29 Fentanyl Citrate (Fentanyl 2ml Vial) 100 mcg STK-MED ONCE .ROUTE ; Start 06/16/21 at 08:43; Stop 06/16/21 at 08:44; Status DC Fentanyl Citrate (Fentanyl 2ml Vial) 50 mcg PRN Q2HR PRN IVP PAIN; Start 06/16/21 at 09:00; Status UNV Nitroglycerin (Nitrostat) 0.4 mg PRN Q5MIN PRN SL CHEST PAIN; Start 06/16/21 at 09:00; Status UNV Acetaminophen (Tylenol) 650 mg PRN Q6HRS PRN PO MILD PAIN / TEMP > 100.3'F; Start 06/16/21 at 09:00; Status UNV Aspirin (Ecotrin) 81 mg DAILY PO ; Start 06/16/21 at 09:00; Status UNV Atorvastatin Calcium (Lipitor) 40 mg QHS PO ; Start 06/16/21 at 21:00; Status UNV Carvedilol (Coreg) 6.25 mg DAILY08 PO ; Start 06/17/21 at 08:00; Status UNV Clopidogrel Bisulfate (Plavix) 75 mg DAILY07 PO ; Start 06/17/21 at 07:00; Status UNV Isosorbide Mononitrate (Imdur) 30 mg DAILY PO ; Start 06/16/21 at 09:00; Status UNV Active Scripts Active Aspirin Ec (Aspirin) 81 Mg Tablet.dr 1 Tab PO DAILY 30 Days Atorvastatin Calcium 40 Mg Tablet 40 Mg PO QHS 30 Days Tylenol (Acetaminophen) 325 Mg Tablet 650 Mg PO PRN Q6HRS PRN 30 Days Nitrostat (Nitroglycerin) 0.4 Mg Tab.subl 0.4 Mg SL PRN Q5MIN PRN 30 Days Reported Carvedilol (Carvedilol) 6.25 Mg Tablet 6.25 Mg PO DAILY08 Isosorbide Mononitrate Er (Isosorbide Mononitrate) 30 Mg Tab.er.24h 30 Mg PO DAILY Fish Oil ([place]-3 Fatty Acids) 300 Mg Capsule 1,000 Mg PO DAILY Clopidogrel (Clopidogrel Bisulfate) 75 Mg Tablet 75 Mg PO DAILY07 Allergies Allergies: Coded Allergies: No Known Medication Allergies (Verified Allergy, Unknown, 06/16/21) morphine (Verified Adverse Reaction, Mild, Agitation, 04/21/18) ROS Review of System GENERAL: No history of weight change, weakness or fevers. SKIN: No bruising, hair changes or rashes. EYES: No blurred, double or loss of vision. NOSE AND THROAT: No history of nosebleeds, hoarseness or sore throat. HEART: Chest pain. Denies palpitations. LUNGS: Denies cough, hemoptysis, wheezing or shortness of breath. GASTROINTESTINAL: Nausea and vomiting. Denies abdominal pain or diarrhea. GENITOURINARY: Denies dysuria, frequency, urgency, hematuria. NEUROLOGIC: Denies history of numbness, tingling, tremor or weakness. PSYCHIATRIC: Denies anxiety, denies depression. ENDOCRINE: No history of heat or cold intolerance, polyuria or polydipsia. EXTREMITIES: Denies muscle weakness, joint pain, pain on walking or stiffness. Physical Exam Physical Exam General: Alert, Oriented X3, Cooperative, mild distress HEENT: PERRLA, EOMI Lungs: Clear to auscultation, Normal air movement Heart: RRR, systolic murmur. Cardiovascular: S1, S2 Abdomen: Normal bowel sounds, Soft, No tenderness Extremities: No clubbing, No cyanosis Skin: No rashes, No significant lesion Neuro: Normal speech, Normal tone, Sensation intact Psych/Mental Status: Mental status NL, Mood NL Vitals Vitals Vital Signs Date Time Temp Pulse Resp B/P (MAP) Pulse Ox O2 Delivery O2 Flow Rate FiO2 06/16/21 08:42 74 139/82 06/16/21 07:05 97.5 16 99 Room Air 97.5 Labs Labs Laboratory Tests Test 06/16/21 07:34 White Blood Count 7.4 x10^3/uL (4.0-11.0) Red Blood Count 3.99 x10^6/uL (4.30-5.70) Hemoglobin 12.5 g/dL (13.0-17.5) Hematocrit 35.9 % (39.0-53.0) Mean Corpuscular Volume 90 fL (79-100) Mean Corpuscular Hemoglobin 31 pg (25-35) Mean Corpuscular Hemoglobin Concent 35 g/dL (31-37) Red Cell Distribution Width 13.4 % (11.5-14.5) Platelet Count 179 x10^3/uL (140-400) Neutrophils (%) (Auto) 54 % (31-73) Lymphocytes (%) (Auto) 35 % (24-48) Monocytes (%) (Auto) 10 % (0-9) Eosinophils (%) (Auto) 1 % (0-3) Basophils (%) (Auto) 1 % (0-3) Neutrophils # (Auto) 3.9 x10^3/uL (1.8-7.7) Lymphocytes # (Auto) 2.5 x10^3/uL (1.0-4.8) Monocytes # (Auto) 0.7 x10^3/uL (0.0-1.1) Eosinophils # (Auto) 0.1 x10^3/uL (0.0-0.7) Basophils # (Auto) 0.1 x10^3/uL (0.0-0.2) Sodium Level 139 mmol/L (136-145) Potassium Level 3.9 mmol/L (3.5-5.1) Chloride Level 101 mmol/L (98-107) Carbon Dioxide Level 27 mmol/L (21-32) Anion Gap 11 (6-14) Blood Urea Nitrogen 20 mg/dL (8-26) Creatinine 1.1 mg/dL (0.7-1.3) Estimated GFR (Cockcroft-Gault) 67.2 BUN/Creatinine Ratio 18 (6-20) Glucose Level 140 mg/dL (70-99) Calcium Level 9.3 mg/dL (8.5-10.1) Magnesium Level 2.4 mg/dL (1.8-2.4) Total Bilirubin 0.9 mg/dL (0.2-1.0) Aspartate Amino Transf (AST/SGOT) 38 U/L (15-37) Alanine Aminotransferase (ALT/SGPT) 75 U/L (16-63) Alkaline Phosphatase 103 U/L (46-116) Troponin I Quantitative < 0.017 ng/mL (0.000-0.055) XX-Qck-E-Type Natriuretic Peptide 82 pg/mL (0-124) Total Protein 7.4 g/dL (6.4-8.2) Albumin 3.6 g/dL (3.4-5.0) Albumin/Globulin Ratio 0.9 (1.0-1.7) Lipase 104 U/L (73-393) Laboratory Tests Test 06/16/21 07:34 White Blood Count 7.4 x10^3/uL (4.0-11.0) Red Blood Count 3.99 x10^6/uL (4.30-5.70) Hemoglobin 12.5 g/dL (13.0-17.5) Hematocrit 35.9 % (39.0-53.0) Mean Corpuscular Volume 90 fL (79-100) Mean Corpuscular Hemoglobin 31 pg (25-35) Mean Corpuscular Hemoglobin Concent 35 g/dL (31-37) Red Cell Distribution Width 13.4 % (11.5-14.5) Platelet Count 179 x10^3/uL (140-400) Neutrophils (%) (Auto) 54 % (31-73) Lymphocytes (%) (Auto) 35 % (24-48) Monocytes (%) (Auto) 10 % (0-9) Eosinophils (%) (Auto) 1 % (0-3) Basophils (%) (Auto) 1 % (0-3) Neutrophils # (Auto) 3.9 x10^3/uL (1.8-7.7) Lymphocytes # (Auto) 2.5 x10^3/uL (1.0-4.8) Monocytes # (Auto) 0.7 x10^3/uL (0.0-1.1) Eosinophils # (Auto) 0.1 x10^3/uL (0.0-0.7) Basophils # (Auto) 0.1 x10^3/uL (0.0-0.2) Sodium Level 139 mmol/L (136-145) Potassium Level 3.9 mmol/L (3.5-5.1) Chloride Level 101 mmol/L (98-107) Carbon Dioxide Level 27 mmol/L (21-32) Anion Gap 11 (6-14) Blood Urea Nitrogen 20 mg/dL (8-26) Creatinine 1.1 mg/dL (0.7-1.3) Estimated GFR (Cockcroft-Gault) 67.2 BUN/Creatinine Ratio 18 (6-20) Glucose Level 140 mg/dL (70-99) Calcium Level 9.3 mg/dL (8.5-10.1) Magnesium Level 2.4 mg/dL (1.8-2.4) Total Bilirubin 0.9 mg/dL (0.2-1.0) Aspartate Amino Transf (AST/SGOT) 38 U/L (15-37) Alanine Aminotransferase (ALT/SGPT) 75 U/L (16-63) Alkaline Phosphatase 103 U/L (46-116) Troponin I Quantitative < 0.017 ng/mL (0.000-0.055) MV-Ijl-K-Type Natriuretic Peptide 82 pg/mL (0-124) Total Protein 7.4 g/dL (6.4-8.2) Albumin 3.6 g/dL (3.4-5.0) Albumin/Globulin Ratio 0.9 (1.0-1.7) Lipase 104 U/L (73-393) Images Images PATIENT: ERICA CUNHA V ACCOUNT: [id number] : 1955 LOCATION: ER AGE: 66 SEX: M EXAM STATUS: PRE ER ORD. PHYSICIAN: HARRIS GONGORA DO REASON: chest pain PROCEDURE: PORTABLE CHEST 1V XR CHEST 1V History: Chest pain. Comparison: 01/01/2021 Technique: Portable AP radiograph of the chest. Findings: Left chest dual-chamber pacemaker with stable right ventricular and right atrial leads. Postsurgical changes the mediastinum and CABG. Low lung volumes with minimal bibasilar opacities likely atelectasis. No pleural effusion or pneumothorax. Stable cardiac silhouette. Bronchovascular crowding versus mild pulmonary vascular congestion. Osseous structures and soft tissues are unremarkable. Impression: 1. Hypoinflation with bibasilar opacities likely atelectasis. VTE Prophylaxis Ordered VTE Prophylaxis Devices: No VTE Pharmacological Prophylaxi: Yes Assessment/Plan Assessment/Plan Unstable angina History CABG CAD A. fib HTN Plan: Initial troponin 0.017; will continue to trend Nitroglycerin and fentanyl as needed (due to stated morphine allergy) Consultation placed to cardiology Telemetry Recent echocardiogram from 02/01/21 showed normal left ventricular systolic function, with EF 55-60%. Resume home medications FEN - Cardiac diet PPX - Heparin FULL CODE Dispo - OBS for above He names his (Twila Cunha) as surrogate decision-maker. Justifications for Admission Other Justification JULIANA MCMAHON MD Jun 16, 2021 08:59
[2021-06-16] MEDS ORDERED: ACETAMINOPHEN 325 MG TABLET. PO PRN ×2 (09:00)
[2021-06-16] MEDS ORDERED: MAGNESIUM HYDROXIDE 2,400 MG/30 ML ORAL.SUSP. PO PRN (09:00)
[2021-06-16] MEDS ORDERED: CALCIUM CARBONATE 500 MG TAB.CHEW PO PRN (09:00)
[2021-06-16] MEDS ORDERED: MAG HYDROX/ALUMINUM HYD/SIMETH 30 ML ORAL.SUSP PO PRN (09:00)
[2021-06-16] MEDS ORDERED: NITROGLYCERIN SUBLINGUAL 0.4 MG BOTTLE OF 25. SL PRN (09:00)
[2021-06-16] MEDS: ISOSORBIDE MONONITRATE ER 30 MG TAB.ER.24H PO SCH (10:54)
[2021-06-16] MEDS: CARVEDILOL 6.25 MG TABLET. PO SCH (10:55)
[2021-06-16] MEDS: CLOPIDOGREL BISULFATE 75 MG TABLET PO SCH (10:56)
--- NOTE | 2021-06-16 11:29 | PDOC2 ---
CONSULT Date of Consult Date of Consult DATE: 06/16/21 TIME: 11:29 Reason for Consult Reason for Consult: Chest pain Referring Physician Referring Physician: Dr. 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 He had nausea, generalized fatigue and had an episode of vomiting as well. He went back to his trailer but he could not sleep because of the chest pain and he presented to [facility]. The pain is currently at 5/10 severity. He denied any orthopnea/PND, palpitations or syncope. He stated that he has been noticing generalized fatigue in the recent past. Past Medical History Cardiovascular: CAD, HTN, DE, Syncope, Hyperlipidemia, Other Pulmonary: Pulmonary embolus CENTRAL NERVOUS SYSTEM: CVA GI: Other Heme/Onc: No pertinent hx Hepatobiliary: No pertinent hx Psych: No pertinent hx Musculoskeletal: Osteoarthritis Rheumatologic: No pertinent hx Infectious disease: No pertinent hx Renal/: No pertinent hx Endocrine: No pertinent hx Past Surgical History Past Surgical History: Pacemaker, Appendectomy, Cholecystectomy, CABG, Hernia Repair, Tonsillectomy, Other Family History Family History: Coronary Artery Disease, High Cholestrol, Hypertension Social History Social History: Grandparents No ALCOHOL: none Drugs: None Lives: with Family Domestic Violence: Neg Current Problem List Problem List Problems Medical Problems: (1) Chest pain Status: Acute Current Medications Current Medications Current Medications Aspirin (Aspirin Chewable) 324 mg 1X ONCE PO Last administered on 06/16/21at 07:42; Start 06/16/21 at 07:30; Stop 06/16/21 at 07:31; Status DC Nitroglycerin (Nitrostat) 0.4 mg PRN Q5MIN PRN SL CHEST PAIN Last administered on 06/16/21at 08:51; Start 06/16/21 at 08:30; Stop 06/16/21 at 09:06; Status DC Ondansetron HCl (Zofran) 4 mg PRN Q8HRS PRN IVP NAUSEA/VOMITING Last administered on 06/16/21at 08:29; Start 06/16/21 at 08:30; Stop 06/16/21 at 08:51; Status DC Fentanyl Citrate (Fentanyl 2ml Vial) 100 mcg STK-MED ONCE .ROUTE ; Start 06/16/21 at 08:43; Stop 06/16/21 at 08:44; Status DC Fentanyl Citrate (Fentanyl 2ml Vial) 50 mcg PRN Q2HR PRN IVP PAIN Last administered on 06/16/21at 10:57; Start 06/16/21 at 09:00 Nitroglycerin (Nitrostat) 0.4 mg PRN Q5MIN PRN SL CHEST PAIN; Start 06/16/21 at 09:00 Acetaminophen (Tylenol) 650 mg PRN Q6HRS PRN PO MILD PAIN / TEMP > 100.3'F; Start 06/16/21 at 09:00; Stop 06/16/21 at 08:54; Status DC Aspirin (Ecotrin) 81 mg DAILY PO ; Start 06/17/21 at 09:00 Atorvastatin Calcium (Lipitor) 40 mg QHS PO ; Start 06/16/21 at 21:00 Carvedilol (Coreg) 6.25 mg DAILY08 PO Last administered on 06/16/21at 10:55; Start 06/16/21 at 09:00 Clopidogrel Bisulfate (Plavix) 75 mg DAILY07 PO Last administered on 06/16/21at 10:56; Start 06/16/21 at 09:00 Isosorbide Mononitrate (Imdur) 30 mg DAILY PO Last administered on 06/16/21at 10:54; Start 06/16/21 at 09:00 Ondansetron HCl (Zofran) 4 mg PRN Q6HRS PRN IVP NAUSEA/VOMITING; Start 06/16/21 at 09:00 Al Hydroxide/Mg Hydroxide (Mylanta Plus Xs) 30 ml PRN Q3HRS PRN PO HEARTBURN / GAS; Start 06/16/21 at 09:00 Calcium Carbonate/ Glycine (Tums) 500 mg PRN Q3HRS PRN PO UPSET STOMACH; Start 06/16/21 at 09:00 Zolpidem Tartrate (Ambien) 5 mg PRN QHS PRN PO INSOMNIA, MAY REPEAT IN 1HR; Start 06/16/21 at 09:00 Acetaminophen (Tylenol) 650 mg PRN Q6HRS PRN PO Headaches, Temp > 101.5F; Sta rt 06/16/21 at 09:00 Magnesium Hydroxide (Milk Of Magnesia) 2,400 mg PRN Q12HR PRN PO CONSTIPATION; Start 06/16/21 at 09:00 Heparin Sodium (Porcine) (Heparin Sodium) 5,000 unit Q8HRS SQ ; Start 06/16/21 at 14:00 Active Scripts Active Aspirin Ec (Aspirin) 81 Mg Tablet.dr 1 Tab PO DAILY 30 Days Atorvastatin Calcium 40 Mg Tablet 40 Mg PO QHS 30 Days Tylenol (Acetaminophen) 325 Mg Tablet 650 Mg PO PRN Q6HRS PRN 30 Days Nitrostat (Nitroglycerin) 0.4 Mg Tab.subl 0.4 Mg SL PRN Q5MIN PRN 30 Days Reported Carvedilol (Carvedilol) 6.25 Mg Tablet 6.25 Mg PO DAILY08 Isosorbide Mononitrate Er (Isosorbide Mononitrate) 30 Mg Tab.er.24h 30 Mg PO DAILY Fish Oil ([place]-3 Fatty Acids) 300 Mg Capsule 1,000 Mg PO DAILY Clopidogrel (Clopidogrel Bisulfate) 75 Mg Tablet 75 Mg PO DAILY07 Allergies Allergies: Coded Allergies: No Known Medication Allergies (Verified Allergy, Unknown, 06/16/21) morphine (Verified Adverse Reaction, Mild, Agitation, 04/21/18) ROS General: YES: Fatigue PSYCHOLOGICAL ROS: No: Hallucinations Eyes: No Loss of vision HEENT: No: Epistaxis Respiratory: No: Hemoptysis, Shortness of breath Cardiovascular: yes Chest Pain Gastrointestinal: Yes Nausea, Yes Vomiting Genitourinary: No Incontinence Neurological: No Seizures Skin: No Rash Physical Exam General: Alert, Oriented X3 HEENT: Atraumatic Lungs: Clear to auscultation Heart: Regular rate Abdomen: Soft Extremities: No edema Neuro: Normal speech Psych/Mental Status: Mood NL Vitals VITALS Vital Signs Date Time Temp Pulse Resp B/P (MAP) Pulse Ox O2 Delivery O2 Flow Rate FiO2 06/16/21 10:57 24 99 Room Air 06/16/21 10:55 65 117/64 06/16/21 08:55 97.5 97.5 Labs Labs Laboratory Tests Test 06/16/21 07:34 White Blood Count 7.4 x10^3/uL (4.0-11.0) Red Blood Count 3.99 x10^6/uL (4.30-5.70) Hemoglobin 12.5 g/dL (13.0-17.5) Hematocrit 35.9 % (39.0-53.0) Mean Corpuscular Volume 90 fL (79-100) Mean Corpuscular Hemoglobin 31 pg (25-35) Mean Corpuscular Hemoglobin Concent 35 g/dL (31-37) Red Cell Distribution Width 13.4 % (11.5-14.5) Platelet Count 179 x10^3/uL (140-400) Neutrophils (%) (Auto) 54 % (31-73) Lymphocytes (%) (Auto) 35 % (24-48) Monocytes (%) (Auto) 10 % (0-9) Eosinophils (%) (Auto) 1 % (0-3) Basophils (%) (Auto) 1 % (0-3) Neutrophils # (Auto) 3.9 x10^3/uL (1.8-7.7) Lymphocytes # (Auto) 2.5 x10^3/uL (1.0-4.8) Monocytes # (Auto) 0.7 x10^3/uL (0.0-1.1) Eosinophils # (Auto) 0.1 x10^3/uL (0.0-0.7) Basophils # (Auto) 0.1 x10^3/uL (0.0-0.2) Sodium Level 139 mmol/L (136-145) Potassium Level 3.9 mmol/L (3.5-5.1) Chloride Level 101 mmol/L (98-107) Carbon Dioxide Level 27 mmol/L (21-32) Anion Gap 11 (6-14) Blood Urea Nitrogen 20 mg/dL (8-26) Creatinine 1.1 mg/dL (0.7-1.3) Estimated GFR (Cockcroft-Gault) 67.2 BUN/Creatinine Ratio 18 (6-20) Glucose Level 140 mg/dL (70-99) Calcium Level 9.3 mg/dL (8.5-10.1) Magnesium Level 2.4 mg/dL (1.8-2.4) Total Bilirubin 0.9 mg/dL (0.2-1.0) Aspartate Amino Transf (AST/SGOT) 38 U/L (15-37) Alanine Aminotransferase (ALT/SGPT) 75 U/L (16-63) Alkaline Phosphatase 103 U/L (46-116) Troponin I Quantitative < 0.017 ng/mL (0.000-0.055) II-Qcy-B-Type Natriuretic Peptide 82 pg/mL (0-124) Total Protein 7.4 g/dL (6.4-8.2) Albumin 3.6 g/dL (3.4-5.0) Albumin/Globulin Ratio 0.9 (1.0-1.7) Lipase 104 U/L (73-393) Laboratory Tests Test 06/16/21 07:34 White Blood Count 7.4 x10^3/uL (4.0-11.0) Red Blood Count 3.99 x10^6/uL (4.30-5.70) Hemoglobin 12.5 g/dL (13.0-17.5) Hematocrit 35.9 % (39.0-53.0) Mean Corpuscular Volume 90 fL (79-100) Mean Corpuscular Hemoglobin 31 pg (25-35) Mean Corpuscular Hemoglobin Concent 35 g/dL (31-37) Red Cell Distribution Width 13.4 % (11.5-14.5) Platelet Count 179 x10^3/uL (140-400) Neutrophils (%) (Auto) 54 % (31-73) Lymphocytes (%) (Auto) 35 % (24-48) Monocytes (%) (Auto) 10 % (0-9) Eosinophils (%) (Auto) 1 % (0-3) Basophils (%) (Auto) 1 % (0-3) Neutrophils # (Auto) 3.9 x10^3/uL (1.8-7.7) Lymphocytes # (Auto) 2.5 x10^3/uL (1.0-4.8) Monocytes # (Auto) 0.7 x10^3/uL (0.0-1.1) Eosinophils # (Auto) 0.1 x10^3/uL (0.0-0.7) Basophils # (Auto) 0.1 x10^3/uL (0.0-0.2) Sodium Level 139 mmol/L (136-145) Potassium Level 3.9 mmol/L (3.5-5.1) Chloride Level 101 mmol/L (98-107) Carbon Dioxide Level 27 mmol/L (21-32) Anion Gap 11 (6-14) Blood Urea Nitrogen 20 mg/dL (8-26) Creatinine 1.1 mg/dL (0.7-1.3) Estimated GFR (Cockcroft-Gault) 67.2 BUN/Creatinine Ratio 18 (6-20) Glucose Level 140 mg/dL (70-99) Calcium Level 9.3 mg/dL (8.5-10.1) Magnesium Level 2.4 mg/dL (1.8-2.4) Total Bilirubin 0.9 mg/dL (0.2-1.0) Aspartate Amino Transf (AST/SGOT) 38 U/L (15-37) Alanine Aminotransferase (ALT/SGPT) 75 U/L (16-63) Alkaline Phosphatase 103 U/L (46-116) Troponin I Quantitative < 0.017 ng/mL (0.000-0.055) AC-Grw-X-Type Natriuretic Peptide 82 pg/mL (0-124) Total Protein 7.4 g/dL (6.4-8.2) Albumin 3.6 g/dL (3.4-5.0) Albumin/Globulin Ratio 0.9 (1.0-1.7) Lipase 104 U/L (73-393) Assessment/Plan Assessment/Plan 1. Chest pain with mixed features. Myocardial infarction has been ruled out. Doubt cardiac etiology since recent cardiac catheterization did not show any lesions needing intervention. 2. Coronary artery disease s/p CABG with recent cardiac catheterization in December 2020 showing patent CARRERO to LAD, 50% stenosis in SVG to OM1, patent SVG to RCA and patent LMCA stent. No lesions needing intervention were noted. Continue current secondary prevention measures. 3. Sick sinus syndrome s/p permanent pacemaker implantation. He denied any syncope or near syncope. Recent device check showed normal function. Recent 2D echo showed LVEF 55 to 60%. 4. Hypertension: Controlled 5. Hyperlipidemia: Lipid profile showed significantly elevated LDL of 203. Increase atorvastatin dose to 80 mg nightly. 6. h/o CVA, PE, covid, presently with generalized fatigue. Per IM. Thank you for your consultation ALLIE ESPARZA MD Jun 16, 2021 11:29
[2021-06-16 13:44] VITALS: BP 122/62
--- NOTE | 2021-06-16 14:00 | NUR ---
admitted to room 662 with complaints of chest pain that started last night. He took 2 nitros but pain did not go away and drove himself to ER this am He is rating his pain 5-6 and has been medicated with fentanyl.nursing history completed.
[2021-06-16] MEDS: HEPARIN for SUB-Q USE 5,000 UNIT/ML VIAL. SQ SCH ×2 (14:19→21:44)
[2021-06-16 15:00] VITALS: BP 131/77
[2021-06-16 19:00] VITALS: BP 114/61
--- NOTE | 2021-06-16 19:20 | NUR ---
Pt c/o chest pain, pt medicated assessment completed vss poc explained call light placed in reach will resume care and continue to monitor pt.
[2021-06-16] MEDS ORDERED: ATORVASTATIN CALCIUM 40 MG TABLET. PO SCH (21:00)
[2021-06-16] MEDS: ATORVASTATIN CALCIUM 40 MG TABLET. PO SCH (21:42)
[2021-06-16] MEDS: ZOLPIDEM 5 MG TABLET. PO PRN (21:42)
[2021-06-16 22:36] VITALS: BP 118/66
[2021-06-17 03:00] VITALS: BP 114/65
--- NOTE | 2021-06-17 03:53 | EKG ---
[address] [place] [address] Test Date: 2021-06-16 Test Time: 07:12:24 Pat Name: ERICA CUNHA Department: Room: Gender: M Faculty Instructor: : [id number] Requested By: HARRIS GONGORA Order Number: [id number] Reading MD: Measurements Intervals [place] Rate: 81 P: 32 CO: 154 QRS: -2 QRSD: 100 T: 31 QT: 386 QTc: 454 Interpretive Statements SINUS RHYTHM LEFTWARD AXIS OTHERWISE NORMAL ECG RI6.02 No previous ECG available for comparison
[2021-06-17] MEDS: CLOPIDOGREL BISULFATE 75 MG TABLET PO SCH (06:03)
[2021-06-17] MEDS: HEPARIN for SUB-Q USE 5,000 UNIT/ML VIAL. SQ SCH ×3 (06:04→21:26)
[2021-06-17] MEDS: fentaNYL PF VIAL 100 MCG/2 ML VIAL IVP PRN ×4 (06:04→20:10)
[2021-06-17 07:00] VITALS: BP 109/70
[2021-06-17] MEDS: ASPIRIN ENTERIC COATED 81 MG TABLET.DR. PO SCH (10:00)
[2021-06-17] MEDS: ISOSORBIDE MONONITRATE ER 30 MG TAB.ER.24H PO SCH (10:01)
[2021-06-17] MEDS: CARVEDILOL 6.25 MG TABLET. PO SCH (10:02)
[2021-06-17 10:51] VITALS: BP 127/65
--- NOTE | 2021-06-17 12:25 | PDOC ---
PROGRESS NOTES Date of Service: DATE: 06/17/21 TIME: 12:23 Subjective Subjective c/o lower abdominal pain, denied any chest pain today Objective Objective Vital Signs Date Time Temp Pulse Resp B/P (MAP) Pulse Ox O2 Delivery O2 Flow Rate FiO2 06/17/21 10:51 97.6 75 18 127/65 (85) 97 Room Air 97.6 Intake and Output 06/17/21 07:00 Intake Total 1040 ml Balance 1040 ml Intake Oral 1040 ml # Voids 2 Physical Exam Abdomen: Soft Heart: Regular rate Extremities: No edema General: Alert, Oriented X3 HEENT: Atraumatic Lungs: Clear to auscultation MUSCULOSKELETAL: Osteoarthritic changes both hands Neuro: Normal speech Psych/Mental Status: Mood NL Assessment Assessment 1. Chest pain with mixed features. Myocardial infarction has been ruled out. Doubt cardiac etiology since recent cardiac catheterization did not show any lesions needing intervention. 2. Coronary artery disease s/p CABG with recent cardiac catheterization in December 2020 showing patent CARRERO to LAD, 50% stenosis in SVG to OM1, patent SVG to RCA and patent LMCA stent. No lesions needing intervention were noted. Continue current secondary prevention measures. 3. Sick sinus syndrome s/p permanent pacemaker implantation. He denied any syncope or near syncope. Recent device check showed normal function. Recent 2D echo showed LVEF 55 to 60%. 4. Hypertension: Controlled 5. Hyperlipidemia: Lipid profile showed significantly elevated LDL of 203. Atorvastatin dose has been increased to 80 mg nightly. 6. h/o CVA, PE, covid, presently with generalized fatigue and lower abdominal pain. Per IM. Okay for DC from cardiac standpoint. Follow-up in 1 month. Plan Plan of Care Problems Medical Problems: (1) Chest pain Status: Acute Comment Review of Relevant I have reviewed the following items mirian (where applicable) has been applied. Labs Laboratory Tests Test 06/16/21 13:55 Troponin I Quantitative 0.023 ng/mL (0.000-0.055) Medications Current Medications Aspirin (Ecotrin) 81 mg DAILY PO Last administered on 06/17/21at 10:00; Start 06/17/21 at 09:00 Atorvastatin Calcium (Lipitor) 40 mg QHS PO ; Start 06/16/21 at 21:00; Stop 06/16/21 at 12:02; Status DC Atorvastatin Calcium (Lipitor) 80 mg QHS PO Last administered on 06/16/21at 21:42; Start 06/16/21 at 21:00 Heparin Sodium (Porcine) (Heparin Sodium) 5,000 unit Q8HRS SQ Last administered on 06/17/21at 06:04; Start 06/16/21 at 14:00 Vitals/I & O Vital Sign - Last 24 Hours 06/16/21 06/16/21 06/16/21 06/16/21 12:35 13:05 13:44 14:22 Pulse 74 77 71 Resp 17 17 16 B/P (MAP) 117/68 (84) 113/68 (83) 122/62 (82) Pulse Ox 97 96 99 O2 Delivery Room Air Room Air Room Air Room Air 06/16/21 06/16/21 06/16/21 06/16/21 14:35 15:00 19:00 19:20 Temp 96.5 98.4 96.5 98.4 Pulse 73 75 Resp 16 18 B/P (MAP) 131/77 (95) 114/61 (78) Pulse Ox 97 97 O2 Delivery Room Air Room Air Room Air Room Air 06/16/21 06/16/21 06/16/21 06/16/21 19:23 19:53 22:35 22:36 Temp 99.0 99.0 Pulse 76 Resp 18 18 18 B/P (MAP) 118/66 (83) Pulse Ox 97 96 96 O2 Delivery Room Air Room Air Room Air Room Air 06/16/21 06/17/21 06/17/21 06/17/21 23:05 03:00 06:04 06:34 Temp 98.8 98.8 Pulse 75 Resp 18 16 18 18 B/P (MAP) 114/65 (81) Pulse Ox 96 98 96 96 O2 Delivery Room Air Room Air Room Air Room Air 06/17/21 06/17/21 06/17/21 06/17/21 07:00 10:01 10:02 10:03 Temp 98.0 98.0 Pulse 68 75 76 Resp 18 B/P (MAP) 109/70 (83) 109/70 109/70 Pulse Ox 96 O2 Delivery Room Air Room Air 06/17/21 06/17/21 10:33 10:51 Temp 97.6 97.6 Pulse 75 Resp 18 B/P (MAP) 127/65 (85) Pulse Ox 97 O2 Delivery Room Air Room Air Intake and Output 06/16/21 06/16/21 06/17/21 15:00 23:00 07:00 Intake Total 700 ml 340 ml Balance 700 ml 340 ml ALLIE ESPARZA MD Jun 17, 2021 12:25
--- NOTE | 2021-06-17 13:40 | PDOC ---
[facility] PROGRESS NOTE Date of Service DOS: DATE: 06/17/21 TIME: 13:26 Chief Complaint Chief Complaint Chest pain History of Present Illness History of Present Illness Patient is a 66-year-old male with past medical history CABG x2, CAD, who presents to the ED with complaints of left-sided chest pain that started last night. He described chest pain that is more like chest pressure, that radiates to his left jaw and left arm. He reports associated nausea and vomiting. States his pain is worse with exertion. He took home nitroglycerin without significant improvement, although he does note that this nitroglycerin was . States his staff developer is Dr. Phan Hoffman. Labs on admission, WBC 7.4, hemoglobin 12.5, hematocrit 35.9, CBG 140, AST 38, ALT 75, troponin <0.017. EKG showed sinus rhythm with left axis deviation. Chest x-ray showed hypoinflation and bibasilar opacities that are likely atelectasis. He received aspirin, nitroglycerin, and fentanyl in the ED. Will admit patient for further medical management. 06/17/21 Patient seen and examined in bed Patient was concerned about a CT scan he had at [facility] last week and showed the report DWRN Chart reviewed Vitals/I&O Vitals/I&O: Vital Signs Date Time Temp Pulse Resp B/P (MAP) Pulse Ox O2 Delivery O2 Flow Rate FiO2 06/17/21 10:51 97.6 75 18 127/65 (85) 97 Room Air 97.6 I & O 06/16/21 06/16/21 06/17/21 15:00 23:00 07:00 Intake Total 700 ml 340 ml Balance 700 ml 340 ml Physical Exam General: Alert, Oriented X3 Heart: Regular rate Lungs: Clear Abdomen: Soft Extremities: No edema Labs Labs: Laboratory Tests Test 06/16/21 13:55 Troponin I Quantitative 0.023 ng/mL (0.000-0.055) Review of Systems Review of Systems: Denies weight change Denies fever Denies SOB Assessment and Plan Assessmemt and Plan Assessment Chest Pain Abnormal CT scan at [place] Plan Cardiac monitoring Appreciate subspecialty input Consult heme/onc regarding abnormal CT scan Serial enzymes Serial EKGs DVT prophylaxis Full code PT/OT Trend labs Comment Review of Relevant I have reviewed the following items mirian (where applicable) has been applied. Medications: Current Medications Medications (Trade) Dose Ordered Sig/Saad Route PRN Reason Start Time Stop Time Status Last Admin Dose Admin Aspirin (Ecotrin) 81 mg DAILY PO 06/17/21 09:00 06/17/21 10:00 Heparin Sodium (Porcine) (Heparin Sodium) 5,000 unit Q8HRS SQ 06/16/21 14:00 06/17/21 06:04 Atorvastatin Calcium (Lipitor) 80 mg QHS PO 06/16/21 21:00 06/16/21 21:42 Justifications for Admission Other Justification EMILI HUMMEL III DO Jun 17, 2021 13:40
[2021-06-17 14:52] VITALS: BP 132/77
[2021-06-17 19:00] VITALS: BP 132/70
--- NOTE | 2021-06-17 20:00 | NUR ---
T UP AMBULATING HALLWAY, PT ASSESSMENT COMPLETED VSS POC EXPLAINED PT C/O Addendum: 06/17/21 at 2345 by Martha Flores RN OF ABDOMEN PAIN AND MID CHEST PAIN WILL MEDICATE PT AND RESUME CARE. CALL LIGHT IN REACH.
[2021-06-17] MEDS: ZOLPIDEM 5 MG TABLET. PO PRN (21:23)
[2021-06-17] MEDS: ATORVASTATIN CALCIUM 40 MG TABLET. PO SCH (21:23)
[2021-06-17 23:00] VITALS: BP 98/55
[2021-06-18] MEDS: fentaNYL PF VIAL 100 MCG/2 ML VIAL IVP PRN ×2 (01:19→05:19)
[2021-06-18 02:44] VITALS: BP 103/59
[2021-06-18] MEDS: HEPARIN for SUB-Q USE 5,000 UNIT/ML VIAL. SQ SCH (05:20)
[2021-06-18 06:44] VITALS: BP 134/68
[2021-06-18] MEDS: CLOPIDOGREL BISULFATE 75 MG TABLET PO SCH (06:46)
[2021-06-18 08:16] LABS: BASO % 0 % (0-3); EOS # 0.1 x10^3/uL (0.0-0.7); EOS % 1 % (0-3); HEMATOCRIT 35.6 % (39.0-53.0); HEMOGLOBIN 12.3 g/dL (13.0-17.5); LYMPH # 2.2 x10^3/uL (1.0-4.8); LYMPH % 37 % (24-48); MEAN CORPUSCULAR HEMOGLOBIN 31 pg (25-35); MEAN CORPUSCULAR HGB CONC 34 g/dL (31-37); MEAN CORPUSCULAR VOLUME 89 fL (79-100); MONO # 0.5 x10^3/uL (0.0-1.1); MONO % 8 % (0-9); NEUT # 3.1 x10^3/uL (1.8-7.7); NEUT % 53 % (31-73); PLATELET COUNT 165 x10^3/uL (140-400); RED BLOOD COUNT 3.99 x10^6/uL (4.30-5.70); RED CELL DISTRIBUTION WIDTH 13.5 % (11.5-14.5); WHITE BLOOD COUNT 5.8 x10^3/uL (4.0-11.0)
[2021-06-18 08:45] LABS: ALBUMIN 3.2 g/dL (3.4-5.0); ALBUMIN/GLOBULIN RATIO 0.9 (1.0-1.7); CALCIUM 8.4 mg/dL (8.5-10.1); POTASSIUM 3.9 mmol/L (3.5-5.1); TOTAL BILIRUBIN 0.7 mg/dL (0.2-1.0); TOTAL PROTEIN 6.9 g/dL (6.4-8.2)
[2021-06-18] MEDS: CARVEDILOL 6.25 MG TABLET. PO SCH (09:34)
[2021-06-18] MEDS: ASPIRIN ENTERIC COATED 81 MG TABLET.DR. PO SCH (09:34)
[2021-06-18] MEDS: ISOSORBIDE MONONITRATE ER 30 MG TAB.ER.24H PO SCH (09:34)
[2021-06-18] MEDS ORDERED: HYDROcodone/APAP 5/325MG 1 TAB TABLET PO PRN (09:45)
[2021-06-18 11:35] VITALS: BP 109/69
[2021-06-18] MEDS ORDERED: HYDR-2761 PO (11:48)
--- NOTE | 2021-06-18 13:05 | NUR ---
Discharge Note: ERICA CUNHA [address] Discharge instructions and discharge home medications reviewed with Patient and a copy given. All questions have been answered and understanding verbalized. The following instructions and handouts were given: CHEST PAIN Discontinued lines and drains: Peripheral IV intact. Patient discharged to Home or Self Care with[facility]
--- NOTE | 2021-06-18 13:41 | DS ---
DATE OF DISCHARGE: 06/18/2021 ADMISSION DIAGNOSIS: Chest pain. DISCHARGE DIAGNOSIS: Resolving atypical chest pain. CONSULTS: Cardiology. PROCEDURES: None. HOSPITAL COURSE: The patient is a pleasant middle-aged male, well known to our service. He has some narcotic seeking behavior. He presented with some chest pain. We admitted him. Consulted Cardiology. We did serial enzymes, serial EKGs. Today, I saw and examined him. He is at his baseline. He did show me CAT scan report that he has done at [facility] where he had some possible inguinal lymphadenopathy bilaterally. I called Dr. Lazar of our Oncology Service. He would like to see the patient in his office. We are going to go ahead and discharge. DISPOSITION: Home. ACTIVITY: As tolerated. DIET: Low sodium. MEDICATIONS: Please see the MRAD. Hydrocodone 5 q. 6 hours p.r.n., p.r.n. Tylenol, aspirin 81 a day, atorvastatin 40 a day, carvedilol 6.25 b.i.d., Plavix 75 a day, Imdur 30 a day, p.r.n. nitro and omega-3 fatty acids. TOTAL TIME: 34 minutes. MORIS/OLIVIA/MARLEY DR: MORIS/roma TID: [id number]
== END 2021-06-18 13:15 | disposition home or self-care (01) ==
LOC: ER 07:04 → ED HOLD 08:10 → 6 SOUTH 13:51 → OBSVTOIN 06-17 23:32 → INTOOBSV 06-17 23:32
PROVIDERS: ADMIT Family Medicine; ATTEND Family Medicine
DX: I25.110 Atherosclerotic heart disease of native coronary artery with unstable angina pectoris (principal); E78.5 Hyperlipidemia, unspecified; I10 Essential (primary) hypertension; I49.5 Sick sinus syndrome; R11.2 Nausea with vomiting, unspecified; I48.91 Unspecified atrial fibrillation; I25.2 Old myocardial infarction; Z86.711 Personal history of pulmonary embolism; Z86.73 Personal history of transient ischemic attack (TIA), and cerebral infarction without residual deficits; Z90.49 Acquired absence of other specified parts of digestive tract; J98.11 Atelectasis; Z76.5 Malingerer [conscious simulation]; Z98.890 Other specified postprocedural states; Z95.0 Presence of cardiac pacemaker; Z95.1 Presence of aortocoronary bypass graft; Z82.49 Family history of ischemic heart disease and other diseases of the circulatory system
CPT/HCPCS: 36415; 71045; 80053; 83690; 83735; 83880; 84484; 85025; 93005; 96372; 96374; 96375; 96376; 99285; G0378; J1644; J2405; J3010; G0379

== ENCOUNTER → 2021-08-06 | Outpatient (CLI) | payer MEDICARE ==
--- NOTE | 2021-08-06 14:21 | RAD ---
MR#: [id number] Date of Study: 08/06/2021 Ordering Physician: ALLIE ESPARZA, Referring Physician: ALLIE ESPARZA, Tech: Davide Galeano MBA, RDMS, RVT, RDCS, RTR APPROVED REPORT Patient Location: OUT-PATIENT Indications Rest Pain:Bilaterally VELOCITY AND DOPPLER WAVEFORM ANALYSIS RIGHT cm/secWaveformSeverity LEFT cm/secWaveform Severity dCFA 514.0MonophasicdCFA 153.0Triphasic Prof Fem Art. 167.0MonophasicProf Fem Art. 75.0Biphasic Fem Art Prox. 89.0MonophasicFem Art Prox. 126.0Biphasic Fem Art Mid. 69.0TriphasicFem Art Mid. 128.0Biphasic Fem Art Dist. 82.0MonophasicFem Art Dist. 105.0Biphasic Pop Art(Fossa) 42.0MonophasicPop Art(AK) 93.0Biphasic MARKETING COORDINATOR Prox. 41.0MonophasicPTA Prox. 55.0Biphasic MARKETING COORDINATOR Dist. 49.0MonophasicPTA Dist. 66.0Biphasic Per Art Mid. 42.0MonophasicPer Art Mid. 73.0Triphasic BON Prox. 34.0MonophasicATA Prox. 64.0Biphasic DPA 29MonophasicDPA 110Biphasic Findings Grayscale images the bilateral lower extremity arterial vessels demonstrates moderate diffuse atheros clerotic plaque mostly localized to the right common femoral artery. On the right side there is likely a greater than 75% stenosis involving the distal right common femor al artery. There are monophasic waveforms in the remainder of the arterial vessels on the right side . No focal high-grade stenosis identified otherwise with three-vessel runoff below the knee. On the left side velocities are within normal limits with triphasic waveforms. No critical obstructi on noted with three-vessel runoff. Critical Notification Critical Value: No <Conclusion> 1. Greater than 75% stenosis involving the distal right common femoral artery. Clinical correlation recommended. Signed by : Efrain Molina, Electronically Approved : 08/06/2021 14:21:00
== END ==
LOC: US 08:47
PROVIDERS: ATTEND Internal Medicine Cardiovascular Disease
DX: I70.201 Unspecified atherosclerosis of native arteries of extremities, right leg (principal)
CPT/HCPCS: 93925

== ENCOUNTER 2021-08-31 06:54 | Outpatient (CLI) | payer MEDICARE ==
[2021-08-31] VITALS (13 sets, daily range): BP systolic 93–147; BP diastolic 67–89
[~2021-08-31] VITALS: Ht 177.8 cm; Wt 88.6 kg
[2021-08-31 07:37] LABS: HEMOGLOBIN 13.8 g/dL (13.0-17.5); RED BLOOD COUNT 4.48 x10^6/uL (4.30-5.70); RED CELL DISTRIBUTION WIDTH 13.1 % (11.5-14.5); WHITE BLOOD COUNT 6.7 x10^3/uL (4.0-11.0)
[2021-08-31] MEDS ORDERED: IODIXANOL 320 MG/ML 100 ML VIAL. ONE (07:43)
[2021-08-31 07:58] LABS: CALCIUM 8.9 mg/dL (8.5-10.1); POTASSIUM 3.8 mmol/L (3.5-5.1)
[2021-08-31] MEDS ORDERED: LIDOCAINE 1% PF 2 ML VIAL. ONE (08:00)
[2021-08-31] MEDS ORDERED: PANT40TA77 PO (08:18)
[2021-08-31] MEDS ORDERED: ALBU2.5V8 IH (08:18)
[2021-08-31] MEDS ORDERED: fentaNYL PF VIAL 100 MCG/2 ML VIAL ONE ×2 (08:35→09:17)
[2021-08-31] MEDS ORDERED: HEPARIN for IV BOLUS 10,000 UNIT/10 ML VIAL. ONE (08:35)
[2021-08-31] MEDS ORDERED: VERAPAMIL 5 MG/2 ML VIAL. ONE (08:35)
[2021-08-31] MEDS ORDERED: MIDAZOLAM HCL/PF 2 MG/2 ML VIAL. ONE ×2 (08:35→08:54)
[2021-08-31] MEDS ORDERED: NITROGLYCERIN 200 MCG/2 ML SYRINGE FOR CATH/VASC LAB. ONE (08:36)
[2021-08-31] MEDS ORDERED: MIDAZOLAM HCL/PF 2 MG/2 ML VIAL. IV ONE (09:30)
[2021-08-31] MEDS ORDERED: LIDOCAINE 1% PF 2 ML VIAL. INJ ONE (09:30)
[2021-08-31] MEDS ORDERED: IODIXANOL 320 MG/ML 100 ML VIAL. IART ONE (09:30)
[2021-08-31] MEDS ORDERED: fentaNYL PF VIAL 100 MCG/2 ML VIAL IV ONE (09:30)
[2021-08-31] MEDS ORDERED: VERAPAMIL 5 MG/2 ML VIAL. IART ONE (09:30)
[2021-08-31] MEDS ORDERED: HEPARIN for IV BOLUS 10,000 UNIT/10 ML VIAL. IART ONE (09:30)
[2021-08-31] MEDS ORDERED: NITROGLYCERIN 200 MCG/2 ML SYRINGE FOR CATH/VASC LAB. IART ONE (09:30)
--- NOTE | 2021-08-31 09:43 | PDOC ---
MODERATE SEDATION ASSESSMENT RISKS/ALTERNATIVES Risks/Alternatives Risks and alternatives of this type of sedation and procedure discussed with: RISK/ALTERNATIVES: Patient H & P ON CHART H & P H & P on chart and reviewed for co-morbid conditions and appropriate labs. H&P ON CHART: Yes STATUS PREG STATUS ASSESSED: N/A MEDS/ALLERGIES REVIEWED Meds/Allergies Reviewed Medications and Allergies including time and route of recently administered narcotics and sedatives. MEDS/ALLERGIES REVIEWED: Yes ASA RATING ASA RATING: III AIRWAY ASSESSMENT Airway Assessment Airway patency, oral function limitations, presence of caps, crowns, dentures, partials, and ability to extend neck assessed. AIRWAY ASSESSMENT: Yes MALLAMPATI SCORE MALLAMPATI SCORE: II PRE-SEDATION ASSESSMENT PRE-SEDATION ASSESSMENT: Yes ALLIE ESPARZA MD Aug 31, 2021 09:43
[2021-08-31] MEDS ORDERED: IV 1/2 NORMAL SALINE 1,000 ML IV SCH (09:45)
[2021-08-31] MEDS ORDERED: NITROGLYCERIN SUBLINGUAL 0.4 MG BOTTLE OF 25. SL PRN (09:45)
--- NOTE | 2021-08-31 10:19 | CARD ---
MR#: [id number] Date of Study: 08/31/2021 Ordering Physician: ALLIE LE, Referring Physician: ALLIE LE, Tech: RT Willian(R) APPROVED REPORT Patient StatusCLI Gluing Pressman: RT Willian(R) Procedure(s) performed: Aortogram with bilateral lower extremity runoff via right transradial approac h MODERATE SEDATION: 45 MINUTES FLOURO TIME: 3.4 MINUTES 56.1 gYCM2 CONTRAST: 74cc VISI INDICATION FOR PROCEDURE The indication(s) include : Peripheral artery disease with claudication, abnormal arterial duplex sca n. CASE TECHNIQUE After explaining the risks, benefits, and alternative options, informed consent was obtained from the patient. IV conscious sedation was used throughout procedure with appropriate monitoring and was per formed in the presence of a registered nurse who was an independent trained observer other than the darion escobar performing the procedure. During this case, Fluoroscopy and low osmolar contrast were used f or imaging. Specimen(s) Removed: No Estimated Blood loss: 10 cc's. PROCEDURE NARRATIVE After explaining the risk, benefits and alternative options, informed consent was obtained for patien t. Patient was brought to the cardiac Recruiting Consultant and his right wrist was prepped and draped in the usu al fashion after confirming a positive modified Mika's test. Arterial access was obtained in the [facility] radial artery and a 6 [place] sheath was inserted. A 4 [place] R2P PVI multicurve catheter was adv anced under fluoroscopic guidance and with the tip positioned in the distal descending aorta, aorto i liac angiography was performed. The catheter was then advanced into the right external iliac artery and selective right lower extremity angiography was performed. The catheter was withdrawn and then a dvanced under fluoroscopic guidance into the left external iliac artery and selective left lower extr emity angiography was performed. Patient tolerated the procedure well. Hemostasis was achieved usin g TR band. There were no immediate complications. FINDINGS 1. No significant stenosis involving the distal descending aorta 2. No significant stenosis involving bilateral common and external iliac arteries 3. The right common femoral artery showed 70 to 80% stenosis. The left common iliac artery did not show any significant stenosis. 4. The right superficial femoral artery showed 30% stenosis in the midsegment. The left superficial femoral artery did not show any significant stenosis. 5. The popliteal arteries bilaterally did not show any significant stenosis. 6. There is three-vessel runoff below the knee in the proximal to mid segments. The distal segments were not well visualized. Conclusion 70 to 80% discrete stenosis involving the right common femoral artery, probably caused by Angio-Seal closure device that was used to close his arteriotomy site after cardiac catheterization/PCI recently . Recommendations Vascular surgery referral for possible SENIOR IT SPECIALIST endarterectomy Signed by : Allie Le, Electronically Approved : 08/31/2021 10:18:43
[2021-08-31] MEDS ORDERED: CONTRAST GIVEN. MC PRN (11:15)
[2021-08-31] MEDS ORDERED: TAMS0.4C97 PO (11:30)
--- NOTE | 2021-08-31 12:20 | NUR ---
Pt A&O x4. pt is disappointed that we were unable to fix his leg issues. He has been referred to the Vascular Surgery group. VSS. no bleeding from the rt radial site TR band removed and bandage applied and arm board was reapplied to rt hand/wrist area. pt has repeatedly been told multiple times to not use his rt hand. d/c instructions given and questions answered. out to vehicle per w/c , to drive him home
== END 2021-08-31 12:20 | disposition home or self-care (01) ==
LOC: CCL 06:54
PROVIDERS: ATTEND Internal Medicine Cardiovascular Disease
DX: I73.9 Peripheral vascular disease, unspecified (principal); I25.10 Atherosclerotic heart disease of native coronary artery without angina pectoris; I10 Essential (primary) hypertension; E78.00 Pure hypercholesterolemia, unspecified; K21.9 Gastro-esophageal reflux disease without esophagitis; F41.9 Anxiety disorder, unspecified; Z86.73 Personal history of transient ischemic attack (TIA), and cerebral infarction without residual deficits; Z87.891 Personal history of nicotine dependence; Z79.82 Long term (current) use of aspirin; Z79.899 Other long term (current) drug therapy; Z90.49 Acquired absence of other specified parts of digestive tract; Z98.890 Other specified postprocedural states; Z20.822 Contact with and (suspected) exposure to COVID-19
CPT/HCPCS: 36245; 36415; 75625; 75716; 80048; 85027; 87426; 99152; 99153; C1769; C1894; J1644; J2250; J3010; J3490; Q9967

== ENCOUNTER 2021-09-18 06:10 | Inpatient (IN) | payer MEDICARE ==
[~2021-09-18] VITALS: Ht 180.3 cm; Wt 97.7 kg
[~2021-09-18 06:10] MED LIST changes: +ALBU2.5V8 IH; +HEPARIN SODIUM 5,000 UNIT in IV NORMAL SALINE 500ML BAG 500 ML IRR ONE; +IV RINGERS,LACTATED 1000ML 1,000 ML IV SCH; -LISI-517 PO; +LISI5TAB15 PO; +MORPHINE SULFATE 2 MG/ML INJ. IVP PRN; +PROCHLORPERAZINE 10 MG/2 ML VIAL. IVP PRN; +TAMS0.4C97 PO; +fentaNYL PF VIAL 100 MCG/2 ML VIAL IVP PRN
[2021-09-18] MEDS ORDERED: ALFU10TA4 PO (06:36)
[2021-09-18 06:38] VITALS: BP 174/83
[2021-09-18] MEDS ORDERED: LIDOCAINE 2% PF 5 ML VIAL. ONE (06:46)
[2021-09-18] MEDS ORDERED: HEPARIN for IV BOLUS 10,000 UNIT/10 ML VIAL. ONE (06:46)
[2021-09-18] MEDS ORDERED: PROTAMINE 50 MG/5 ML VIAL. IV ONE (06:46)
[2021-09-18] MEDS ORDERED: ROCURONIUM 50 MG/5 ML VIAL. ONE (06:46)
[2021-09-18] MEDS ORDERED: ONDANSETRON PF 4 MG/2 ML VIAL. ONE (06:46)
[2021-09-18] MEDS ORDERED: PROPOFOL 10 MG/ML (20ML) VIAL. IV ONE (06:46)
[2021-09-18] MEDS ORDERED: VASOPRESSIN 20 UNIT/ML VIAL. ONE (06:47)
[2021-09-18] MEDS ORDERED: fentaNYL PF VIAL 100 MCG/2 ML VIAL ONE ×2 (06:47→08:05)
[2021-09-18] MEDS ORDERED: PHENYLEPHRINE 10 MG/ML VIAL. ONE (06:47)
[2021-09-18] MEDS ORDERED: FAMOTIDINE 20 MG/2 ML VIAL ONE ×2 (06:48→09:27)
[2021-09-18] MEDS ORDERED: diphenhydrAMINE 50 MG/ML VIAL ONE (06:48)
[2021-09-18] MEDS ORDERED: GELATIN SPONGE SIZE 12-7MM SPONGE. ONE (06:59)
[2021-09-18] MEDS ORDERED: THROMBIN TOPICAL 5,000 UNIT VIAL. ONE (07:00)
[2021-09-18] MEDS ORDERED: IOHEXOL 300 MG/ML 50 ML VIAL. ONE (07:00)
[2021-09-18] MEDS ORDERED: SURGICEL FIBRILLAR 1X2 EACH. ONE ×2 (07:00→09:19)
[2021-09-18] MEDS ORDERED: PAPAVERINE 60 MG/2 ML VIAL. ONE (07:00)
[2021-09-18 07:06] LABS: CALCIUM 8.7 mg/dL (8.5-10.1); CREATININE 1.2 mg/dL (0.7-1.3); GFR 60.8; POTASSIUM 3.9 mmol/L (3.5-5.1)
[2021-09-18] MEDS ORDERED: LABETALOL 20 MG/4 ML DISP.SYRIN. IVP ONE ×2 (07:19→07:20)
[2021-09-18 07:40] LABS: BASO % 0 % (0-3); EOS # 0.1 x10^3/uL (0.0-0.7); EOS % 2 % (0-3); HEMATOCRIT 39.2 % (39.0-53.0); HEMOGLOBIN 13.6 g/dL (13.0-17.5); LYMPH # 2.7 x10^3/uL (1.0-4.8); LYMPH % 46 % (24-48); MEAN CORPUSCULAR HEMOGLOBIN 31 pg (25-35); MEAN CORPUSCULAR HGB CONC 35 g/dL (31-37); MEAN CORPUSCULAR VOLUME 89 fL (79-100); MONO # 0.5 x10^3/uL (0.0-1.1); MONO % 8 % (0-9); NEUT # 2.7 x10^3/uL (1.8-7.7); NEUT % 45 % (31-73); PLATELET COUNT 164 x10^3/uL (140-400); RED BLOOD COUNT 4.39 x10^6/uL (4.30-5.70); RED CELL DISTRIBUTION WIDTH 13.1 % (11.5-14.5)
[2021-09-18] MEDS ORDERED: ALBUTEROL SULFATE 2.5 MG/3 ML NEBU. NEB PRN (07:45)
[2021-09-18] MEDS ORDERED: ACETAMINOPHEN 325 MG TABLET. PO PRN ×2 (07:45→12:00)
[2021-09-18] MEDS ORDERED: NITROGLYCERIN SUBLINGUAL 0.4 MG BOTTLE OF 25. SL PRN (07:45)
[2021-09-18] MEDS ORDERED: DEXAMETHASONE SOD PHOS 4 MG/ML VIAL ONE (08:26)
[2021-09-18] MEDS ORDERED: ePHEDrine PF IN SALINE 50 MG/10 ML SYRINGE. IV ONE (09:03)
[2021-09-18] MEDS ORDERED: NEOSTIGMINE METHYLSULFATE 5 MG/5 ML SYRINGE. ONE (09:27)
[2021-09-18] MEDS ORDERED: GLYCOPYRROLATE 1 MG/5 ML VIAL. ONE (09:27)
[2021-09-18] MEDS ORDERED: hydrALAZINE 20 MG/ML VIAL. IVP PRN (10:00)
[2021-09-18] MEDS ORDERED: IV NORMAL SALINE 1000ML BAG 1,000 ML IV SCH (10:00)
[2021-09-18] MEDS ORDERED: MORPHINE SULFATE 2 MG/ML INJ. IV PRN (10:00)
[2021-09-18] MEDS ORDERED: ZOLPIDEM 5 MG TABLET. PO PRN (10:00)
[2021-09-18] MEDS ORDERED: LABETALOL 20 MG/4 ML DISP.SYRIN. IVP PRN (10:00)
[2021-09-18] MEDS ORDERED: HYDROmorphone 2 MG/ML VIAL ONE (10:06)
[2021-09-18] MEDS ORDERED: PROCHLORPERAZINE 10 MG/2 ML VIAL. ONE (10:07)
[2021-09-18] MEDS: HYDROmorphone 2 MG/ML VIAL IVP PRN ×4 (10:18→13:17)
--- NOTE | 2021-09-18 10:19 | OP ---
DATE OF SURGERY: 09/18/2021 PREOPERATIVE DIAGNOSIS: Right lower extremity claudication. POSTOPERATIVE DIAGNOSIS: Right lower extremity claudication. PROCEDURE: Right femoral endarterectomy with bovine pericardial patch angioplasty. COMPLICATIONS: None. IMPLANTS: Bovine pericardial patch. DRAINS: None. PRIMARY SURGEON: Indy Stokes DO. COMPONENT ENGINEER: Abbie Pool APRN. ESTIMATED BLOOD LOSS: 150 mL. ANESTHESIA: General. SPECIMENS REMOVED: None. INDICATIONS: The patient is a 66-year-old male with extensive cardiac history who was noted on a recent angiogram to have a high-grade stenosis of his right common femoral artery and disabling claudication. Risks, benefits and alternatives to operative intervention were discussed in detail with the patient who understood and wished to proceed with surgery. Informed consent was obtained. DESCRIPTION OF PROCEDURE: After informed consent was obtained, the patient was brought to the operating room and placed in the supine position on the table. General anesthesia was induced. A timeout was performed confirming the correct patient, positioning, procedure, allergies and antibiotics. The patient was prepped and draped in the usual sterile fashion with the right groin exposed. A longitudinal incision was made over top of the femoral pulse and was extended down to the femoral sheath. The femoral artery was mobilized throughout its course. There was a significant amount of scarring from his prior arterial accesses and we encountered several closure devices. I was able to get control of the common femoral artery proximally and the profunda and the superficial femoral artery distally. The patient was then systemically heparinized. The arteriotomy was then created with an 11 blade and extended with the [place] scissors. The artery was inspected and was noted to have a very focal plaque in the common femoral artery, which appeared to have lifted from the posterior wall of the vessel itself. This plaque was removed utilizing a [place]. The SFA and the profunda had clean edges once the plaque was removed. The inside of the vessel was expected and any additional debris was removed as well. I then brought a bovine pericardial patch onto the field and sewed into place utilizing a 5-0 Prolene in a running fashion. The vessels were allowed to forward and backbled prior to completion of the patch anastomosis. All air and debris was flushed free. I then restored flow through the profunda first. There was 1 area that did have some bleeding, which was oversewn utilizing a 5-0 Prolene as well. We then restored flow down the remainder of the right lower extremity. Doppler signals were very strong in the SFA and the profunda without any evidence of impairment. The DP and the PT signals at the ankle were also very strong. The wound was thoroughly irrigated and hemostasis was achieved. Protamine was given. The wound was then closed in layers of 2-0, 3-0, and 4-0 Vicryl. The skin was dressed with Steri-Strips and a sterile dressing. The patient tolerated the procedure well and was extubated in the OR and transferred to the PACU in stable condition. All sponge and needle counts were reported as correct at the end of the case. I was present and scrubbed throughout the duration of the procedure. DARLENE DR: Lola TID: [id number]
[2021-09-18] MEDS: IV NORMAL SALINE 1000ML BAG 1,000 ML IV SCH ×2 (11:11→20:00)
[2021-09-18] MEDS ORDERED: 0.9 % SODIUM CHLORIDE 10 ML DISP.SYRIN. IV PRN (12:00)
[2021-09-18] MEDS ORDERED: CALCIUM CARBONATE 500 MG TAB.CHEW PO PRN (12:00)
[2021-09-18] MEDS ORDERED: PROCHLORPERAZINE 10 MG/2 ML VIAL. IV PRN (12:00)
[2021-09-18] MEDS ORDERED: ONDANSETRON PF 4 MG/2 ML VIAL. IVP PRN (12:00)
[2021-09-18] MEDS ORDERED: oxyCODONE/APAP 5/325 1 TAB TABLET PO PRN (12:00)
[2021-09-18] MEDS ORDERED: MAG HYDROX/ALUMINUM HYD/SIMETH 30 ML ORAL.SUSP PO PRN (12:00)
[2021-09-18] MEDS ORDERED: diphenhydrAMINE 50 MG/ML VIAL IV PRN (12:00)
[2021-09-18] MEDS ORDERED: diphenhydrAMINE HCL 25 MG CAPSULE PO PRN (12:00)
[2021-09-18] MEDS ORDERED: NALOXONE 0.4 MG/ML VIAL. IV PRN ×2 (12:00)
[2021-09-18] MEDS: oxyCODONE/APAP 5/325 1 TAB TABLET PO PRN (16:12)
[2021-09-18 16:16] VITALS: BP 144/75
[2021-09-18 19:00] VITALS: BP 138/70
[2021-09-18] MEDS: TAMSULOSIN 0.4 MG CAP.ER.24H. PO SCH (20:42)
[2021-09-18] MEDS: HYDROmorphone 2 MG/ML VIAL IV PRN (20:43)
[2021-09-18 22:56] VITALS: BP 120/57
[2021-09-19] MEDS: HYDROmorphone 2 MG/ML VIAL IV PRN ×5 (02:15→21:55)
[2021-09-19 03:00] VITALS: BP 112/61
[2021-09-19 06:01] LABS: BASO % 0 % (0-3); EOS % 0 % (0-3); HEMATOCRIT 37.1 % (39.0-53.0); HEMOGLOBIN 12.8 g/dL (13.0-17.5); LYMPH # 1.6 x10^3/uL (1.0-4.8); LYMPH % 15 % (24-48); MEAN CORPUSCULAR HEMOGLOBIN 31 pg (25-35); MEAN CORPUSCULAR HGB CONC 35 g/dL (31-37); MEAN CORPUSCULAR VOLUME 89 fL (79-100); MONO # 0.7 x10^3/uL (0.0-1.1); MONO % 6 % (0-9); NEUT # 8.6 x10^3/uL (1.8-7.7); NEUT % 79 % (31-73); PLATELET COUNT 184 x10^3/uL (140-400); RED BLOOD COUNT 4.16 x10^6/uL (4.30-5.70); WHITE BLOOD COUNT 10.9 x10^3/uL (4.0-11.0)
[2021-09-19] MEDS: CLOPIDOGREL BISULFATE 75 MG TABLET PO SCH (06:03)
[2021-09-19 06:29] LABS: CALCIUM 8.9 mg/dL (8.5-10.1); CREATININE 1.1 mg/dL (0.7-1.3); GFR 67.2; MAGNESIUM 2.2 mg/dL (1.8-2.4); PHOSPHORUS 4.3 mg/dL (2.6-4.7); POTASSIUM 4.3 mmol/L (3.5-5.1)
[2021-09-19 07:55] VITALS: BP 132/64
[2021-09-19] MEDS: IV NORMAL SALINE 1000ML BAG 1,000 ML IV SCH ×2 (08:00→18:00)
[2021-09-19] MEDS: CARVEDILOL 6.25 MG TABLET. PO SCH (08:25)
[2021-09-19] MEDS: ASPIRIN ENTERIC COATED 81 MG TABLET.DR. PO SCH (08:25)
[2021-09-19] MEDS: PANTOPRAZOLE 40 MG TABLET.DR. PO SCH (08:25)
[2021-09-19] MEDS: ELECTROLYTE (NON-ICU) PROTOCOL. MC SCH (09:00)
--- NOTE | 2021-09-19 09:19 | PDOC ---
Provider Note Date of Service: DATE: 09/19/21 TIME: 09:15 Provider Note Provider Note Vascular S: Patient sitting in bed, eating breakfast. He is tolerating his diet He complains of moderate right groin pain still requiring IV pain medication Urine clearing with minimal blood tinged. O: Awake and alert VSS, afebrile Right groin dressing dry and intact Foot warm, palpable DP A/P: POD #1 Right femoral endarterectomy with bovine pericardial patch angioplasty. Doing well. Discontinue urinary catheter. Continue flomax. Continue Aspirin and Plavix and statin. Encouraged ambulation and transition to oral pain medication. Justicifation of Admission Dx: Justifications for Admission: Justification of Admission Dx: Yes ELVIN URBANO INSULATION HOSEMAN Sep 19, 2021 09:19
[2021-09-19] MEDS ORDERED: OXYC1TAB15 PO (09:21)
[2021-09-19 10:39] VITALS: BP 130/71
--- NOTE | 2021-09-19 13:53 | NUR ---
SS following for discharge planning. SS reviewed pt chart and discussed with pt RN. Pt is from home with spouse and is currently on room air. COVID19 negative. Pt had right femoral endarterectomy on 09/18/2021. Discharge plan is currently to home when medically ready for discharge. SS will continue to follow for discharge planning.
[2021-09-19 15:25] VITALS: BP 127/75
[2021-09-19 19:20] VITALS: BP 124/71
[2021-09-19] MEDS: TAMSULOSIN 0.4 MG CAP.ER.24H. PO SCH (21:54)
[2021-09-19 23:15] VITALS: BP 149/71
[2021-09-20] MEDS: oxyCODONE/APAP 5/325 1 TAB TABLET PO PRN ×3 (01:45→12:39)
[2021-09-20] MEDS: IV NORMAL SALINE 1000ML BAG 1,000 ML IV SCH (01:46)
[2021-09-20 02:42] VITALS: BP 125/66
[2021-09-20 07:00] VITALS: BP 119/55
[2021-09-20] MEDS: ASPIRIN ENTERIC COATED 81 MG TABLET.DR. PO SCH (08:26)
[2021-09-20] MEDS: PANTOPRAZOLE 40 MG TABLET.DR. PO SCH (08:27)
[2021-09-20] MEDS: CLOPIDOGREL BISULFATE 75 MG TABLET PO SCH (08:27)
[2021-09-20] MEDS: CARVEDILOL 6.25 MG TABLET. PO SCH (08:27)
[2021-09-20] MEDS: ELECTROLYTE (NON-ICU) PROTOCOL. MC SCH (09:00)
[2021-09-20 11:00] VITALS: BP 128/68
--- NOTE | 2021-09-20 11:30 | NUR ---
SS following up with discharge planning. SS reviewed pt chart and discussed with pt RN. Pt is currently on room air. COVID19 negative. Pt had right femoral endarterectomy on 09/18/2021. Discharge plan is currently to home when medically ready for discharge. SS will continue to follow for discharge planning
--- NOTE | 2021-09-20 12:06 | DISCH ---
DISCHARGE INSTRUCTIONS Condition on Discharge Condition on Discharge: Stable Activity After Discharge Activity Instructions for Disc: Activity as tolerated Bathing Instructions: Shower-keep dressing dry, No Tub Bath until see Lifting Instructions after Dis: No heavy lifting, No pulling or pushing, Do not lift >10 pounds Exercise Instruction after Dis: Walk 10 min, 3 x per day, Progress as tolerated Driving Instructions after Dis: Do not drive today Weight Bearing Status after Di: No restrictions Diet after Discharge Diet after Discharge: Cardiac Diet Texture: Regular Liquid Texture: Thin Liquid Swallowing Supervision: None needed Wound Incision Care Wound/Incision Care: Keep wound/cast CDI Checks after Discharge Checks after discharge: Check blood press - daily Contacting the DRLance after DC Call your doctor for: If your condition worsens Treatment/Equipment after DC Adaptive Equipment Issued: None KAYLA JEREZ MD Sep 20, 2021 12:06
--- NOTE | 2021-09-20 12:09 | PDOC ---
Provider Note Date of Service: DATE: 09/20/21 TIME: 12:08 Provider Note Provider Note S: patient reports pain controlled with oral meds with am. Tolerating diet O: CVpalpable right DP/PT. RRR SKIN: incision c/d/i with steri strips in place. No hematoma A: POD 2 right femoral endarterectomy P: stable for discharge to home. Postoperative instructions reviewed. Justicifation of Admission Dx: Justifications for Admission: Justification of Admission Dx: Yes KAYLA JEREZ MD Sep 20, 2021 12:09
[2021-09-20 15:00] VITALS: BP 136/61
== END 2021-09-20 15:48 | disposition home or self-care (01) | DRG 254 ==
LOC: OPSVCIP 06:10 → 6 SOUTH 15:47
PROVIDERS: ADMIT Surgery Vascular Surgery; ATTEND Surgery Vascular Surgery
PROC: 04UK0JZ Supplement Right Femoral Artery with Synthetic Substitute, Open Approach (ICD-10-PCS; 2021-09-18)
PROC: 04CK0ZZ Extirpation of Matter from Right Femoral Artery, Open Approach (ICD-10-PCS; principal; 2021-09-18 07:30)
DX: I73.9 Peripheral vascular disease, unspecified (principal); Z79.02 Long term (current) use of antithrombotics/antiplatelets; Z79.82 Long term (current) use of aspirin; Z88.8 Allergy status to other drugs, medicaments and biological substances; Z79.899 Other long term (current) drug therapy
CPT/HCPCS: 36415; 80048; 83735; 84100; 85025; A4223; A4314; A4364; A4452; A4930; A6402; C1751; C1768; J0690; J0780; J1100; J1170; J1200; J1644; J2370; J2405; J2440; J2704; J2710; J2720; J3010; J3490; J7030; J7040; J7120; Q9967; G0378; Q0163

== ENCOUNTER 2022-01-24 12:00 | Observation (INO) | payer MEDICARE ==
[~2022-01-24] VITALS: Ht 177.8 cm; Wt 94.0 kg
[~2022-01-24 12:00] MED LIST changes: +ALFU10TA4 PO; -HEPARIN SODIUM 5,000 UNIT in IV NORMAL SALINE 500ML BAG 500 ML IRR ONE; -IV RINGERS,LACTATED 1000ML 1,000 ML IV SCH; -MORPHINE SULFATE 2 MG/ML INJ. IVP PRN; -PROCHLORPERAZINE 10 MG/2 ML VIAL. IVP PRN; -fentaNYL PF VIAL 100 MCG/2 ML VIAL IVP PRN
[2022-01-24] MEDS ORDERED: fentaNYL PF VIAL 100 MCG/2 ML VIAL IV PRN (12:30)
[2022-01-24] MEDS ORDERED: ASPIRIN CHEWABLE 81 MG TABLET. PO ONE (12:30)
--- NOTE | 2022-01-24 12:33 | ED.ADGEN ---
Past Medical History Past Medical History: CAD, CVA, NE, Other Additional Past Medical Histor: cvd, Patient is a poor historian. Past Surgical History: Appendectomy, Cholecystectomy, Coronary Bypass Surgery, Pacemaker, Other Additional Past Surgical Histo: SBO SURGERY, CABG X 3 2006,2011 Smoking Status: Never Smoker Alcohol Use: None Drug Use: None General Adult EDM: Chief Complaint: CHEST PAIN HPI: HPI: Patient is a 66 year old male coming in for chest pain started 1 hour prior to arrival. Patient states he was walking at the time. Patient states that his arms feel numb with exertion. Patient has had similar episodes in the past and has a history of CABG x2, stents x5. Takes at 81 mg aspirin daily, no other anticoagulants. Review of Systems: Review of Systems: All other systems within normal limits except for as noted in the HPI Current Medications: Current Medications Medications (Trade) Dose Ordered Sig/Saad Start Time Stop Time Status Last Admin Dose Admin Aspirin (Aspirin Chewable) 324 mg 1X ONCE 01/24/22 12:30 01/24/22 12:31 DC 01/24/22 12:35 324 MG Fentanyl Citrate (Fentanyl 2ml Vial) 50 mcg PRN Q15MIN PRN 01/24/22 12:30 01/25/22 12:29 01/24/22 12:36 50 MCG Nitroglycerin (Nitrostat) 0.4 mg STK-MED ONCE 01/24/22 13:41 01/24/22 13:41 DC Allergies: Allergies: Allergies Coded Allergies Type Severity Reaction Last Updated Verified morphine Allergy Intermediate Agitation 01/24/22 Yes Physical Exam: PE: Constitutional: Well developed, well nourished, no acute distress, non-toxic appearance. [] HENT: Normocephalic, atraumatic, bilateral external ears normal, nose normal. [] Eyes: PERRLA, conjunctiva normal, no discharge. [] Neck: No rigidity, supple, no stridor. [] Cardiovascular: Regular rate and rhythm, brisk cap refill [] Lungs & Thorax: Non labored symmetric respirations, no tachypnea or respiratory distress [] Abdomen: Soft, nondistended. Skin: Warm, dry, no erythema, no rash. [] Back: Unremarkable Extremities: No deformities, range of motion grossly intact, no lower extremity edema [] Neurologic: Alert and oriented X 3, no focal deficits noted. [] Psychologic: Affect normal, judgement normal, mood normal. [] Current Patient Data: Labs: Laboratory Tests Test 01/24/22 12:32 White Blood Count 5.8 x10^3/uL (4.0-11.0) Red Blood Count 4.40 x10^6/uL (4.30-5.70) Hemoglobin 13.3 g/dL (13.0-17.5) Hematocrit 38.0 % (39.0-53.0) L Mean Corpuscular Volume 87 fL (79-100) Mean Corpuscular Hemoglobin 30 pg (25-35) Mean Corpuscular Hemoglobin Concent 35 g/dL (31-37) Red Cell Distribution Width 13.3 % (11.5-14.5) Platelet Count 190 x10^3/uL (140-400) Neutrophils (%) (Auto) 49 % (31-73) Lymphocytes (%) (Auto) 44 % (24-48) Monocytes (%) (Auto) 6 % (0-9) Eosinophils (%) (Auto) 1 % (0-3) Basophils (%) (Auto) 0 % (0-3) Neutrophils # (Auto) 2.9 x10^3/uL (1.8-7.7) Lymphocytes # (Auto) 2.5 x10^3/uL (1.0-4.8) Monocytes # (Auto) 0.4 x10^3/uL (0.0-1.1) Eosinophils # (Auto) 0.1 x10^3/uL (0.0-0.7) Basophils # (Auto) 0.0 x10^3/uL (0.0-0.2) Prothrombin Time 12.0 SEC (11.7-14.0) Prothrombin Time INR 0.9 (0.8-1.1) Sodium Level 139 mmol/L (136-145) Potassium Level 4.0 mmol/L (3.5-5.1) Chloride Level 105 mmol/L (98-107) Carbon Dioxide Level 25 mmol/L (21-32) Anion Gap 9 (6-14) Blood Urea Nitrogen 16 mg/dL (8-26) Creatinine 1.1 mg/dL (0.7-1.3) Estimated GFR (Cockcroft-Gault) 67.2 BUN/Creatinine Ratio 15 (6-20) Glucose Level 115 mg/dL (70-99) H Calcium Level 8.8 mg/dL (8.5-10.1) Magnesium Level 2.3 mg/dL (1.8-2.4) Total Bilirubin 0.5 mg/dL (0.2-1.0) Aspartate Amino Transferase (AST) 19 U/L (15-37) Alanine Aminotransferase (ALT) 58 U/L (16-63) Alkaline Phosphatase 96 U/L (46-116) Troponin I High Sensitivity 5 ng/L (4-75) EG-Fja-O-Type Natriuretic Peptide 36 pg/mL (0-124) Total Protein 7.4 g/dL (6.4-8.2) Albumin 4.0 g/dL (3.4-5.0) Albumin/Globulin Ratio 1.2 (1.0-1.7) Laboratory Tests 01/24/22 12:32 Laboratory Tests 01/24/22 12:32 Vital Signs: Vital Signs Date Time Temp Pulse Resp B/P (MAP) Pulse Ox O2 Delivery O2 Flow Rate FiO2 01/24/22 14:05 66 18 125/67 (86) 97 01/24/22 12:36 Room Air 01/24/22 12:01 97.6 97.6 EKG: EK: Sinus rhythm, heart rate 70 beats minute, left axis deviation, incomplete right bundle much block, no STEMI no significant changes from EKG dated 8720[] 1336: Sinus rhythm, heart rate 60 bpm, no change from previous EKG Heart Score: C/O Chest Pain: Yes HEART Score for Chest Pain: HEART Score for Chest Pain Response (Comments) Value History Highly Suspicious 2 ECG Nonspecific Repolarizatio 1 Age > 65 2 Risk Factors >3 Risk Factors or Hx CAD 2 Troponin < Normal Limit 0 Total 7 Risk Factors: Risk Factors: DM, Current or recent (<one month) smoker, HTN, HLP, family history of CAD, obesity. Risk Scores: Score 0 - 3: 2.5% MACE over next 6 weeks - Discharge Home Score 4 - 6: 20.3% MACE over next 6 weeks - Admit for Clinical Observation Score 7 - 10: 72.7% MACE over next 6 weeks - Early Invasive Strategies Radiology/Procedures: Radiology/Procedures: [][facility] [address] [place] [address] IMAGING REPORT Signed PATIENT: ERICA CUNHA V ACCOUNT: [id number] : 1955 LOCATION: ER AGE: 66 SEX: M EXAM STATUS: REG ER ORD. PHYSICIAN: JAVI DIOP MD REASON: chest pain PROCEDURE: PORTABLE CHEST 1V EXAM: Chest, single view. HISTORY: Chest pain. COMPARISON: 06/16/2021 FINDINGS: A frontal view of the chest is obtained. There is no infiltrate, pleural effusion or pneumothorax. The heart is normal in size. There is a cardiac pacemaker in expected position. There is evidence of prior CABG. IMPRESSION: No acute pulmonary finding. Electronically signed by: Claudia Canales MD (01/24/2022 12:44 PM) [id number] DICTATED and SIGNED BY: CLAUDIA CANALES MD DATE: 01/24/22 1243 Course & Med Decision Making: Course & Med Decision Making Pertinent Labs and Imaging studies reviewed. (See chart for details) [] Dragon Disclaimer: Dragon Disclaimer: This electronic medical record was generated, in whole or in part, using a voice recognition dictation system. Departure Departure Impression: Primary Impression: Chest pain Disposition: ADMITTED INPATIENT Admitting Physician: YENY Condition: STABLE Referrals: VEE CARTY MD (PCP) JAVI DIOP MD Jan 24, 2022 12:33
[2022-01-24 12:45] LABS: BASO % 0 % (0-3); EOS # 0.1 x10^3/uL (0.0-0.7); EOS % 1 % (0-3); HEMOGLOBIN 13.3 g/dL (13.0-17.5); LYMPH # 2.5 x10^3/uL (1.0-4.8); LYMPH % 44 % (24-48); MEAN CORPUSCULAR HEMOGLOBIN 30 pg (25-35); MEAN CORPUSCULAR HGB CONC 35 g/dL (31-37); MEAN CORPUSCULAR VOLUME 87 fL (79-100); MONO # 0.4 x10^3/uL (0.0-1.1); MONO % 6 % (0-9); NEUT # 2.9 x10^3/uL (1.8-7.7); NEUT % 49 % (31-73); PLATELET COUNT 190 x10^3/uL (140-400); RED CELL DISTRIBUTION WIDTH 13.3 % (11.5-14.5); WHITE BLOOD COUNT 5.8 x10^3/uL (4.0-11.0)
--- NOTE | 2022-01-24 12:46 | RAD ---
EXAM: Chest, single view. HISTORY: Chest pain. COMPARISON: 06/16/2021 FINDINGS: A frontal view of the chest is obtained. There is no infiltrate, pleural effusion or pneumo thorax. The heart is normal in size. There is a cardiac pacemaker in expected position. There is evid ence of prior CABG. IMPRESSION: No acute pulmonary finding. Electronically signed by: Claudia Madden MD (01/24/2022 12:44 PM) [id number]
[2022-01-24 13:01] LABS: CALCIUM 8.8 mg/dL (8.5-10.1); CREATININE 1.1 mg/dL (0.7-1.3); GFR 67.2
[2022-01-24 13:07] LABS: ALBUMIN/GLOBULIN RATIO 1.2 (1.0-1.7); MAGNESIUM 2.3 mg/dL (1.8-2.4); TOTAL BILIRUBIN 0.5 mg/dL (0.2-1.0); TOTAL PROTEIN 7.4 g/dL (6.4-8.2)
--- NOTE | 2022-01-24 13:11 | EKG ---
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
[2022-01-24] MEDS ORDERED: NITROGLYCERIN SUBLINGUAL 0.4 MG BOTTLE OF 25. SL ONE (13:41)
--- NOTE | 2022-01-24 13:44 | EKG ---
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
[2022-01-24] MEDS ORDERED: NITROGLYCERIN SUBLINGUAL 0.4 MG BOTTLE OF 25. SL PRN ×2 (14:00→15:00)
[2022-01-24] MEDS ORDERED: fentaNYL PF VIAL 100 MCG/2 ML VIAL IVP ONE (14:30)
[2022-01-24 14:59] LABS: BARBITURATES NEG (NEG); BENZODIAZEPINES NEG (NEG); BILIRUBIN,URINE NEGATIVE (NEG); CANNABINOIDS NEG (NEG); CLARITY,URINE CLEAR; COCAINE NEG (NEG); COLOR,URINE YELLOW; METHADONE NEG (NEG); OPIATES NEG (NEG); PHENCYCLIDINE NEG (NEG); PROTEIN,URINE NEGATIVE (NEG-TRACE)
[2022-01-24 15:00] LABS: NITRITE,URINE NEGATIVE (NEG); UROBILINOGEN,URINE 0.2 mg/dL (0.2 mg/dL)
[2022-01-24] MEDS ORDERED: ONDANSETRON PF 4 MG/2 ML VIAL. IVP PRN (15:00)
[2022-01-24] MEDS ORDERED: ACETAMINOPHEN 325 MG TABLET. PO PRN (15:00)
[2022-01-24 15:01] LABS: AMPHETAMINE/METHAMPHETAMINE NEG (NEG)
[2022-01-24 15:04] LABS: BACTERIA,URINE 0 /HPF (0-FEW); RBC,URINE OCC /HPF (0-2); WBC,URINE OCC /HPF (0-4)
[2022-01-24 15:19] LABS: INFLUENZA A PATIENT NEGATIVE (NEGATIVE); INFLUENZA B PATIENT NEGATIVE (NEGATIVE)
[2022-01-24 15:45] VITALS: BP 139/80
--- NOTE | 2022-01-24 15:45 | NUR ---
Arrived to unit by w/c. Alert and oriented x's 4. Ambulated to bathroom with steady gait. Return to bed. Telemonitor placed SR. Still c/o chest pain. Equal hand product owner and no nausea. Oriented to room and controls. Side rails up x's 2 with call light in reach. Cont. monitor.
--- NOTE | 2022-01-24 16:52 | HP ---
DATE OF SERVICE: 01/24/2022 ADMIT DATE: 01/24/2022 CHIEF COMPLAINT: Chest pain. HISTORY OF PRESENT ILLNESS: The patient is a pleasant 66-year-old male well known to my service. We admitted him quite a few times over the past few years with chest pain. He does have known coronary artery disease with a history of bypass surgery twice. He has also got stents. He also seems to have an element of narcotic seeking at times. Today, he presents with chest pain, rated 7/10, has been worse with moving, better with sitting still. I discussed the case with ER physician. We are going to admit the patient and consult Cardiology. PAST MEDICAL HISTORY: CAD, myocardial infarction, stents, bypass surgery x 2, probable narcotic dependence and/or narcotic-seeking behavior in the past, appendectomy, cholecystectomy, pacemaker, SBO. ALLERGIES: MORPHINE. FAMILY HISTORY: Coronary artery disease. SOCIAL HISTORY: He does not drink, smoke or take drugs. He is . MEDICATIONS: Reviewed, please refer to the MRAD. REVIEW OF SYSTEMS: GENERAL: No history of weight change, weakness or fevers. SKIN: No bruising, hair changes or rashes. EYES: No blurred, double or loss of vision. NOSE AND THROAT: No history of nosebleeds, hoarseness or sore throat. CARDIAC: He complains of chest pain. LUNGS: Denies cough, hemoptysis, wheezing or shortness of breath. GASTROINTESTINAL: Denies changes in appetite, nausea, vomiting, diarrhea or constipation. GENITOURINARY: No history of frequency, urgency, hesitancy or nocturia. NEUROLOGIC: Denies history of numbness, tingling, tremor or weakness. PSYCHIATRIC: No history of panic, anxiety or depression. ENDOCRINE: No history of heat or cold intolerance, polyuria or polydipsia. EXTREMITIES: Denies muscle weakness, joint pain, pain on walking or stiffness. PHYSICAL EXAMINATION: VITALS: Within normal limits and are stable. GENERAL: No apparent distress. Alert and oriented. HEENT: Normal cephalic atraumatic, external auditory canals are patent EYES: Extraocular muscles are intact, pupils are equally round and reactive to light and accommodation MUSCULOSKELETAL: Well developed, well nourished, good range of motion ENDOCRINE: No thyromegaly was palpated LYMPHATICS: No cervical chain or axillary nodes were noted HEMATOPOIETIC: No bruising NECK: Supple, no JVD, no thyromegaly was noted. LUNGS: Clear to auscultation in all lung abbott without rhonchi or wheezing. HEART: RRR, S1, S2 present. Peripheral pulses intact, no obvious murmurs were noted. ABDOMEN: Soft, nontender. Positive bowel sounds no organomegaly, normal bowel sounds. EXTREMITIES: Without any cyanosis, clubbing, or edema. Pedal pulses intact, Homans sign is negative. NEUROLOGIC: Normal speech, normal tone. A and O x 3, moves all extremities, no obvious focal deficits. PSYCHIATRIC: Normal affect, normal mood. Stable. SKIN: No ulcerations or rashes, good skin turgor, no jaundice. VASCULAR: Good capillary refill, neurovascular bundle appears to be intact. LABORATORY DATA: Hematology is normal. Electrolytes are normal. Troponin is 5. INR is 0.9. Drug screen negative. Urinalysis negative. COVID testing negative. Chest x-ray negative. ASSESSMENT AND PLAN: Chest pain in a middle-aged male who has known coronary artery disease. The patient has been admitted to the cardiac floor. We will consult Cardiology. Serial enzymes, serial EKGs, home meds. Deep venous thrombosis prophylaxis. Full code. P.r.n. nitro, p.r.n. Tylenol, p.r.n. fentanyl, p.r.n. Zofran. Trend labs. MORIS/MAHSA DR: MORIS/roma TID: [id number]
[2022-01-24] MEDS: fentaNYL PF VIAL 100 MCG/2 ML VIAL IVP PRN ×2 (17:21→20:33)
[2022-01-24 18:57] VITALS: BP 108/79
--- NOTE | 2022-01-24 21:42 | PDOC2 ---
CONSULT Date of Consult Date of Consult DATE: 01/24/22 TIME: 21:42 Reason for Consult Reason for Consult: Chest pain Referring Physician Referring Physician: Dr. Bradshaw Identification/Chief Complaint Chief Complaint Chest pain Source Source: Chart review, Patient History of Present Illness Reason for Visit: 66-year-old male with history of coronary artery disease s/p coronary artery bypass surgery, sick sinus syndrome s/p permanent pacemaker implantation and peripheral artery disease presented complaining of retrosternal chest pressure associated with mild shortness of breath worse with exertion. The pain apparently radiated to his left arm. He denied any orthopnea/PND, palpitations, syncope or claudication. Past Medical History Cardiovascular: CAD, HTN, [place], Syncope, Hyperlipidemia, Other Pulmonary: Pulmonary embolus CENTRAL NERVOUS SYSTEM: CVA GI: Other Heme/Onc: No pertinent hx Hepatobiliary: No pertinent hx Psych: No pertinent hx Musculoskeletal: Osteoarthritis Rheumatologic: No pertinent hx Infectious disease: No pertinent hx Renal/: No pertinent hx Endocrine: No pertinent hx Past Surgical History Past Surgical History: Pacemaker, Appendectomy, Cholecystectomy, CABG, Hernia Repair, Tonsillectomy, Other Family History Family History: Coronary Artery Disease, High Cholestrol, Hypertension Social History Social History: Grandparents ALCOHOL: none Drugs: None Lives: with Family Domestic Violence: Neg Current Problem List Problem List Problems Medical Problems: (1) Chest pain Status: Acute Current Medications Current Medications Current Medications Aspirin (Aspirin Chewable) 324 mg 1X ONCE PO Last administered on 01/24/22at 12:35; Start 01/24/22 at 12:30; Stop 01/24/22 at 12:31; Status DC Fentanyl Citrate (Fentanyl 2ml Vial) 50 mcg PRN Q15MIN PRN IV PAIN GREATER THAN 3/10 Last administered on 01/24/22at 12:36; Start 01/24/22 at 12:30; Stop 01/25/22 at 12:29 Nitroglycerin (Nitrostat) 0.4 mg PRN Q5MIN PRN SL CHEST PAIN Last administered on 01/24/22at 13:47; Start 01/24/22 at 14:00 Nitroglycerin (Nitrostat) 0.4 mg STK-MED ONCE SL ; Start 01/24/22 at 13:41; Stop 01/24/22 at 13:41; Status DC Fentanyl Citrate (Fentanyl 2ml Vial) 75 mcg 1X ONCE IVP Last administered on 01/24/22at 14:28; Start 01/24/22 at 14:30; Stop 01/24/22 at 14:31; Status DC Ondansetron HCl (Zofran) 4 mg PRN Q8HRS PRN IVP NAUSEA/VOMITING; Start 01/24/22 at 15:00; Stop 01/25/22 at 14:59 Fentanyl Citrate (Fentanyl 2ml Vial) 50 mcg PRN Q1HR PRN IVP PAIN Last administered on 01/24/22at 20:33; Start 01/24/22 at 15:00; Stop 01/25/22 at 14:59 Acetaminophen (Tylenol) 650 mg PRN Q4HRS PRN PO FEVER > 100.3'F; Start 01/24/22 at 15:00; Stop 01/25/22 at 14:59 Nitroglycerin (Nitrostat) 0.4 mg PRN Q5MIN PRN SL CHEST PAIN; Start 01/24/22 at 15:00; Stop 01/25/22 at 14:59 Active Scripts Active Percocet 5-325 Mg Tablet (Oxycodone/Acetaminophen) 1 Each Tablet 2 Tab PO PRN Q4HRS PRN 5 Days Aspirin Ec (Aspirin) 81 Mg Tablet.dr 1 Tab PO DAILY 30 Days Tylenol (Acetaminophen) 325 Mg Tablet 650 Mg PO PRN Q6HRS PRN 30 Days Nitrostat (Nitroglycerin) 0.4 Mg Tab.subl 0.4 Mg SL PRN Q5MIN PRN 30 Days Reported Alfuzosin Hcl 10 Mg Tab.er.24h 1 Tab PO DAILY Pantoprazole Sodium (Pantoprazole Sodium) 40 Mg Tablet.dr 40 Mg PO DAILYAC Proair Hfa Inhaler (Albuterol Sulfate) 8.5 Gm Hfa.aer.ad 2 Puff IH PRN Q4-6HRS PRN 21 Days Carvedilol (Carvedilol) 6.25 Mg Tablet 6.25 Mg PO DAILY08 Clopidogrel (Clopidogrel Bisulfate) 75 Mg Tablet 75 Mg PO DAILY07 Allergies Allergies: Coded Allergies: morphine (Verified Adverse Reaction, Intermediate, Agitation, 01/25/22) ROS PSYCHOLOGICAL ROS: No: Hallucinations Eyes: No Loss of vision HEENT: No: Epistaxis Respiratory: YES: Shortness of breath; No: Hemoptysis Cardiovascular: yes Chest Pain Gastrointestinal: No Vomiting, No Diarrhea Neurological: No Seizures Skin: No Rash Physical Exam General: Alert, Oriented X3 HEENT: Atraumatic Lungs: Clear to auscultation Heart: Regular rate Abdomen: Soft Extremities: No edema Neuro: Normal speech Psych/Mental Status: Mental status NL Vitals VITALS Vital Signs Date Time Temp Pulse Resp B/P (MAP) Pulse Ox O2 Delivery O2 Flow Rate FiO2 01/24/22 20:33 18 97 Room Air 01/24/22 18:57 97.9 73 108/79 (89) 97.9 Labs Labs Laboratory Tests Test 01/24/22 12:32 01/24/22 14:32 01/24/22 14:55 01/24/22 15:25 White Blood Count 5.8 x10^3/uL (4.0-11.0) Red Blood Count 4.40 x10^6/uL (4.30-5.70) Hemoglobin 13.3 g/dL (13.0-17.5) Hematocrit 38.0 % (39.0-53.0) Mean Corpuscular Volume 87 fL (79-100) Mean Corpuscular Hemoglobin 30 pg (25-35) Mean Corpuscular Hemoglobin Concent 35 g/dL (31-37) Red Cell Distribution Width 13.3 % (11.5-14.5) Platelet Count 190 x10^3/uL (140-400) Neutrophils (%) (Auto) 49 % (31-73) Lymphocytes (%) (Auto) 44 % (24-48) Monocytes (%) (Auto) 6 % (0-9) Eosinophils (%) (Auto) 1 % (0-3) Basophils (%) (Auto) 0 % (0-3) Neutrophils # (Auto) 2.9 x10^3/uL (1.8-7.7) Lymphocytes # (Auto) 2.5 x10^3/uL (1.0-4.8) Monocytes # (Auto) 0.4 x10^3/uL (0.0-1.1) Eosinophils # (Auto) 0.1 x10^3/uL (0.0-0.7) Basophils # (Auto) 0.0 x10^3/uL (0.0-0.2) Prothrombin Time 12.0 SEC (11.7-14.0) Prothromb Time International Ratio 0.9 (0.8-1.1) Sodium Level 139 mmol/L (136-145) Potassium Level 4.0 mmol/L (3.5-5.1) Chloride Level 105 mmol/L (98-107) Carbon Dioxide Level 25 mmol/L (21-32) Anion Gap 9 (6-14) Blood Urea Nitrogen 16 mg/dL (8-26) Creatinine 1.1 mg/dL (0.7-1.3) Estimated GFR (Cockcroft-Gault) 67.2 BUN/Creatinine Ratio 15 (6-20) Glucose Level 115 mg/dL (70-99) Calcium Level 8.8 mg/dL (8.5-10.1) Magnesium Level 2.3 mg/dL (1.8-2.4) Total Bilirubin 0.5 mg/dL (0.2-1.0) Aspartate Amino Transf (AST/SGOT) 19 U/L (15-37) Alanine Aminotransferase (ALT/SGPT) 58 U/L (16-63) Alkaline Phosphatase 96 U/L (46-116) Troponin I High Sensitivity 5 ng/L (4-75) 5 ng/L (4-75) DP-Iyr-K-Type Natriuretic Peptide 36 pg/mL (0-124) Total Protein 7.4 g/dL (6.4-8.2) Albumin 4.0 g/dL (3.4-5.0) Albumin/Globulin Ratio 1.2 (1.0-1.7) Urine Collection Type Unknown Urine Color Yellow Urine Clarity Clear Urine pH 7.0 (<5.0-8.0) Urine Specific [place] 1.010 (1.000-1.030) Urine Protein Negative mg/dL (NEG-TRACE) Urine Glucose (UA) Negative mg/dL (NEG) Urine Ketones (Stick) Negative mg/dL (NEG) Urine Blood Negative (NEG) Urine Nitrite Negative (NEG) Urine Bilirubin Negative (NEG) Urine Urobilinogen Dipstick 0.2 mg/dL (0.2 mg/dL) Urine Leukocyte Esterase Negative (NEG) Urine RBC Occ /HPF (0-2) Urine WBC Occ /HPF (0-4) Urine Squamous Epithelial Cells Few /LPF Urine Bacteria 0 /HPF (0-FEW) Urine Mucus Slight /LPF Urine Opiates Screen Neg (NEG) Urine Methadone Screen Neg (NEG) Urine Barbiturates Neg (NEG) Urine Phencyclidine Screen Neg (NEG) Urine Amphetamine/Methamphetamine Neg (NEG) Urine Benzodiazepines Screen Neg (NEG) Urine Cocaine Screen Neg (NEG) Urine Cannabinoids Screen Neg (NEG) Urine Ethyl Alcohol Neg (NEG) Influenza Type A Antigen Negative (NEGATIVE) Influenza Type B Antigen Negative (NEGATIVE) SARS-CoV-2 Antigen (Rapid) Negative (NEGATIVE) Test 01/24/22 19:50 Troponin I High Sensitivity 5 ng/L (4-75) Laboratory Tests Test 01/24/22 12:32 01/24/22 14:32 01/24/22 14:55 01/24/22 15:25 White Blood Count 5.8 x10^3/uL (4.0-11.0) Red Blood Count 4.40 x10^6/uL (4.30-5.70) Hemoglobin 13.3 g/dL (13.0-17.5) Hematocrit 38.0 % (39.0-53.0) Mean Corpuscular Volume 87 fL (79-100) Mean Corpuscular Hemoglobin 30 pg (25-35) Mean Corpuscular Hemoglobin Concent 35 g/dL (31-37) Red Cell Distribution Width 13.3 % (11.5-14.5) Platelet Count 190 x10^3/uL (140-400) Neutrophils (%) (Auto) 49 % (31-73) Lymphocytes (%) (Auto) 44 % (24-48) Monocytes (%) (Auto) 6 % (0-9) Eosinophils (%) (Auto) 1 % (0-3) Basophils (%) (Auto) 0 % (0-3) Neutrophils # (Auto) 2.9 x10^3/uL (1.8-7.7) Lymphocytes # (Auto) 2.5 x10^3/uL (1.0-4.8) Monocytes # (Auto) 0.4 x10^3/uL (0.0-1.1) Eosinophils # (Auto) 0.1 x10^3/uL (0.0-0.7) Basophils # (Auto) 0.0 x10^3/uL (0.0-0.2) Prothrombin Time 12.0 SEC (11.7-14.0) Prothromb Time International Ratio 0.9 (0.8-1.1) Sodium Level 139 mmol/L (136-145) Potassium Level 4.0 mmol/L (3.5-5.1) Chloride Level 105 mmol/L (98-107) Carbon Dioxide Level 25 mmol/L (21-32) Anion Gap 9 (6-14) Blood Urea Nitrogen 16 mg/dL (8-26) Creatinine 1.1 mg/dL (0.7-1.3) Estimated GFR (Cockcroft-Gault) 67.2 BUN/Creatinine Ratio 15 (6-20) Glucose Level 115 mg/dL (70-99) Calcium Level 8.8 mg/dL (8.5-10.1) Magnesium Level 2.3 mg/dL (1.8-2.4) Total Bilirubin 0.5 mg/dL (0.2-1.0) Aspartate Amino Transf (AST/SGOT) 19 U/L (15-37) Alanine Aminotransferase (ALT/SGPT) 58 U/L (16-63) Alkaline Phosphatase 96 U/L (46-116) Troponin I High Sensitivity 5 ng/L (4-75) 5 ng/L (4-75) HU-Twq-O-Type Natriuretic Peptide 36 pg/mL (0-124) Total Protein 7.4 g/dL (6.4-8.2) Albumin 4.0 g/dL (3.4-5.0) Albumin/Globulin Ratio 1.2 (1.0-1.7) Urine Collection Type Unknown Urine Color Yellow Urine Clarity Clear Urine pH 7.0 (<5.0-8.0) Urine Specific [place] 1.010 (1.000-1.030) Urine Protein Negative mg/dL (NEG-TRACE) Urine Glucose (UA) Negative mg/dL (NEG) Urine Ketones (Stick) Negative mg/dL (NEG) Urine Blood Negative (NEG) Urine Nitrite Negative (NEG) Urine Bilirubin Negative (NEG) Urine Urobilinogen Dipstick 0.2 mg/dL (0.2 mg/dL) Urine Leukocyte Esterase Negative (NEG) Urine RBC Occ /HPF (0-2) Urine WBC Occ /HPF (0-4) Urine Squamous Epithelial Cells Few /LPF Urine Bacteria 0 /HPF (0-FEW) Urine Mucus Slight /LPF Urine Opiates Screen Neg (NEG) Urine Methadone Screen Neg (NEG) Urine Barbiturates Neg (NEG) Urine Phencyclidine Screen Neg (NEG) Urine Amphetamine/Methamphetamine Neg (NEG) Urine Benzodiazepines Screen Neg (NEG) Urine Cocaine Screen Neg (NEG) Urine Cannabinoids Screen Neg (NEG) Urine Ethyl Alcohol Neg (NEG) Influenza Type A Antigen Negative (NEGATIVE) Influenza Type B Antigen Negative (NEGATIVE) SARS-CoV-2 Antigen (Rapid) Negative (NEGATIVE) Test 01/24/22 19:50 Troponin I High Sensitivity 5 ng/L (4-75) Assessment/Plan Assessment/Plan 1. Chest pain with mixed features. Myocardial infarction has been ruled out. Patient has had recurrent admissions for similar chest pain. Plan ischemic evaluation as an outpatient. 2. Coronary artery disease s/p CABG with cardiac catheterization in December 2020 showing patent CARRERO to LAD, 50% stenosis in SVG to OM1, patent SVG to RCA and patent LMCA stent. No lesions needing intervention were noted. Continue current secondary prevention measures. 3. Sick sinus syndrome s/p permanent pacemaker implantation. He denied any syncope or near syncope. Recent device check showed normal function. Recent 2D echo showed LVEF 55 to 60%. 4. Hypertension: Controlled 5. Hyperlipidemia: Continue statins 6. Peripheral artery disease: s/p right ORGANIZATION DEVELOPMENT CONSULTANT endarterectomy, stable Thank you for your consultation ALLIE ESPARZA MD Jan 24, 2022 21:42
[2022-01-24] MEDS ORDERED: TEMAZEPAM 15 MG CAPSULE PO PRN (22:15)
[2022-01-24 22:19] VITALS: BP 137/77
[2022-01-25] MEDS: fentaNYL PF VIAL 100 MCG/2 ML VIAL IVP PRN ×2 (00:08→08:35)
[2022-01-25 03:31] VITALS: BP 113/57
[2022-01-25 06:31] VITALS: BP 126/67
[2022-01-25 07:00] VITALS: BP 112/77
[2022-01-25 07:48] LABS: BASO % 0 % (0-3); EOS # 0.1 x10^3/uL (0.0-0.7); EOS % 1 % (0-3); HEMATOCRIT 37.9 % (39.0-53.0); HEMOGLOBIN 12.8 g/dL (13.0-17.5); LYMPH # 2.3 x10^3/uL (1.0-4.8); LYMPH % 42 % (24-48); MEAN CORPUSCULAR HEMOGLOBIN 30 pg (25-35); MEAN CORPUSCULAR HGB CONC 34 g/dL (31-37); MEAN CORPUSCULAR VOLUME 88 fL (79-100); MONO # 0.3 x10^3/uL (0.0-1.1); MONO % 6 % (0-9); NEUT # 2.8 x10^3/uL (1.8-7.7); NEUT % 51 % (31-73); PLATELET COUNT 175 x10^3/uL (140-400); RED BLOOD COUNT 4.31 x10^6/uL (4.30-5.70); RED CELL DISTRIBUTION WIDTH 13.8 % (11.5-14.5); WHITE BLOOD COUNT 5.5 x10^3/uL (4.0-11.0)
[2022-01-25 07:58] LABS: ALBUMIN 3.5 g/dL (3.4-5.0); CALCIUM 8.5 mg/dL (8.5-10.1); CREATININE 1.1 mg/dL (0.7-1.3); GFR 67.2; POTASSIUM 3.7 mmol/L (3.5-5.1); TOTAL BILIRUBIN 0.5 mg/dL (0.2-1.0); TOTAL PROTEIN 6.9 g/dL (6.4-8.2)
--- NOTE | 2022-01-25 09:56 | PDOC ---
[employer] PROGRESS NOTE Date of Service DOS: DATE: 01/25/22 TIME: 09:50 Chief Complaint Chief Complaint Chest pain in middle-aged male with previous known coronary disease History of the following; Cholecystectomy, CAD, myocardial infarction, stents, bypass surgery x 2, probable narcotic dependence and/or narcotic-seeking behavior in the past, appendectomy, cholecystectomy, pacemaker, SBO. Decreasing memory History of Present Illness History of Present Illness 01/25/2022 Patient seen and examined Discussed with RN Chart reviewed The patient still complains of some vague chest discomfort that radiates to his back Vitals/I&O Vitals/I&O: Vital Signs Date Time Temp Pulse Resp B/P (MAP) Pulse Ox O2 Delivery O2 Flow Rate FiO2 01/25/22 08:35 99 Nasal Cannula 2.0 01/25/22 07:00 97.5 65 16 112/77 (89) 97.5 I & O 01/24/22 01/24/22 01/25/22 15:00 23:00 07:00 Intake Total 500 ml 200 ml Output Total 250 ml 400 ml Balance 250 ml -200 ml Physical Exam General: Alert Heart: Regular rate Lungs: Clear Labs Labs: Laboratory Tests Test 01/24/22 12:32 01/24/22 14:32 01/24/22 14:55 01/24/22 15:25 White Blood Count 5.8 x10^3/uL (4.0-11.0) Red Blood Count 4.40 x10^6/uL (4.30-5.70) Hemoglobin 13.3 g/dL (13.0-17.5) Hematocrit 38.0 % (39.0-53.0) Mean Corpuscular Volume 87 fL (79-100) Mean Corpuscular Hemoglobin 30 pg (25-35) Mean Corpuscular Hemoglobin Concent 35 g/dL (31-37) Red Cell Distribution Width 13.3 % (11.5-14.5) Platelet Count 190 x10^3/uL (140-400) Neutrophils (%) (Auto) 49 % (31-73) Lymphocytes (%) (Auto) 44 % (24-48) Monocytes (%) (Auto) 6 % (0-9) Eosinophils (%) (Auto) 1 % (0-3) Basophils (%) (Auto) 0 % (0-3) Neutrophils # (Auto) 2.9 x10^3/uL (1.8-7.7) Lymphocytes # (Auto) 2.5 x10^3/uL (1.0-4.8) Monocytes # (Auto) 0.4 x10^3/uL (0.0-1.1) Eosinophils # (Auto) 0.1 x10^3/uL (0.0-0.7) Basophils # (Auto) 0.0 x10^3/uL (0.0-0.2) Prothrombin Time 12.0 SEC (11.7-14.0) Prothromb Time International Ratio 0.9 (0.8-1.1) Sodium Level 139 mmol/L (136-145) Potassium Level 4.0 mmol/L (3.5-5.1) Chloride Level 105 mmol/L (98-107) Carbon Dioxide Level 25 mmol/L (21-32) Anion Gap 9 (6-14) Blood Urea Nitrogen 16 mg/dL (8-26) Creatinine 1.1 mg/dL (0.7-1.3) Estimated GFR (Cockcroft-Gault) 67.2 BUN/Creatinine Ratio 15 (6-20) Glucose Level 115 mg/dL (70-99) Calcium Level 8.8 mg/dL (8.5-10.1) Magnesium Level 2.3 mg/dL (1.8-2.4) Total Bilirubin 0.5 mg/dL (0.2-1.0) Aspartate Amino Transf (AST/SGOT) 19 U/L (15-37) Alanine Aminotransferase (ALT/SGPT) 58 U/L (16-63) Alkaline Phosphatase 96 U/L (46-116) Troponin I High Sensitivity 5 ng/L (4-75) 5 ng/L (4-75) QU-Xpu-Q-Type Natriuretic Peptide 36 pg/mL (0-124) Total Protein 7.4 g/dL (6.4-8.2) Albumin 4.0 g/dL (3.4-5.0) Albumin/Globulin Ratio 1.2 (1.0-1.7) Urine Collection Type Unknown Urine Color Yellow Urine Clarity Clear Urine pH 7.0 (<5.0-8.0) Urine Specific [place] 1.010 (1.000-1.030) Urine Protein Negative mg/dL (NEG-TRACE) Urine Glucose (UA) Negative mg/dL (NEG) Urine Ketones (Stick) Negative mg/dL (NEG) Urine Blood Negative (NEG) Urine Nitrite Negative (NEG) Urine Bilirubin Negative (NEG) Urine Urobilinogen Dipstick 0.2 mg/dL (0.2 mg/dL) Urine Leukocyte Esterase Negative (NEG) Urine RBC Occ /HPF (0-2) Urine WBC Occ /HPF (0-4) Urine Squamous Epithelial Cells Few /LPF Urine Bacteria 0 /HPF (0-FEW) Urine Mucus Slight /LPF Urine Opiates Screen Neg (NEG) Urine Methadone Screen Neg (NEG) Urine Barbiturates Neg (NEG) Urine Phencyclidine Screen Neg (NEG) Urine Amphetamine/Methamphetamine Neg (NEG) Urine Benzodiazepines Screen Neg (NEG) Urine Cocaine Screen Neg (NEG) Urine Cannabinoids Screen Neg (NEG) Urine Ethyl Alcohol Neg (NEG) Influenza Type A Antigen Negative (NEGATIVE) Influenza Type B Antigen Negative (NEGATIVE) SARS-CoV-2 Antigen (Rapid) Negative (NEGATIVE) Test 01/24/22 19:50 01/25/22 07:20 Troponin I High Sensitivity 5 ng/L (4-75) White Blood Count 5.5 x10^3/uL (4.0-11.0) Red Blood Count 4.31 x10^6/uL (4.30-5.70) Hemoglobin 12.8 g/dL (13.0-17.5) Hematocrit 37.9 % (39.0-53.0) Mean Corpuscular Volume 88 fL (79-100) Mean Corpuscular Hemoglobin 30 pg (25-35) Mean Corpuscular Hemoglobin Concent 34 g/dL (31-37) Red Cell Distribution Width 13.8 % (11.5-14.5) Platelet Count 175 x10^3/uL (140-400) Neutrophils (%) (Auto) 51 % (31-73) Lymphocytes (%) (Auto) 42 % (24-48) Monocytes (%) (Auto) 6 % (0-9) Eosinophils (%) (Auto) 1 % (0-3) Basophils (%) (Auto) 0 % (0-3) Neutrophils # (Auto) 2.8 x10^3/uL (1.8-7.7) Lymphocytes # (Auto) 2.3 x10^3/uL (1.0-4.8) Monocytes # (Auto) 0.3 x10^3/uL (0.0-1.1) Eosinophils # (Auto) 0.1 x10^3/uL (0.0-0.7) Basophils # (Auto) 0.0 x10^3/uL (0.0-0.2) Sodium Level 141 mmol/L (136-145) Potassium Level 3.7 mmol/L (3.5-5.1) Chloride Level 105 mmol/L (98-107) Carbon Dioxide Level 26 mmol/L (21-32) Anion Gap 10 (6-14) Blood Urea Nitrogen 15 mg/dL (8-26) Creatinine 1.1 mg/dL (0.7-1.3) Estimated GFR (Cockcroft-Gault) 67.2 BUN/Creatinine Ratio 14 (6-20) Glucose Level 103 mg/dL (70-99) Calcium Level 8.5 mg/dL (8.5-10.1) Total Bilirubin 0.5 mg/dL (0.2-1.0) Aspartate Amino Transf (AST/SGOT) 13 U/L (15-37) Alanine Aminotransferase (ALT/SGPT) 46 U/L (16-63) Alkaline Phosphatase 82 U/L (46-116) Total Protein 6.9 g/dL (6.4-8.2) Albumin 3.5 g/dL (3.4-5.0) Albumin/Globulin Ratio 1.0 (1.0-1.7) Assessment and Plan Assessmemt and Plan Problems Medical Problems: (1) Chest pain Status: Acut Chest pain in middle-aged male with previous known coronary disease History of the following; Cholecystectomy, CAD, myocardial infarction, stents, bypass surgery x 2, probable narcotic dependence and/or narcotic-seeking behavior in the past, appendectomy, cholecystectomy, pacemaker, SBO. Decreasing memory Plan I suspect he is at his baseline and could go home? For now we will continue cardiac monitoring and await further cardiology input Home meds DVT prophylaxis Full code Appreciate subspecialist input Comment Review of Relevant I have reviewed the following items mirian (where applicable) has been applied. Medications: Current Medications Medications (Trade) Dose Ordered Sig/Saad Route PRN Reason Start Time Stop Time Status Last Admin Dose Admin Aspirin (Aspirin Chewable) 324 mg 1X ONCE PO 01/24/22 12:30 01/24/22 12:31 DC 01/24/22 12:35 Fentanyl Citrate (Fentanyl 2ml Vial) 50 mcg PRN Q15MIN PRN IV PAIN GREATER THAN 310 01/24/22 12:30 01/25/22 12:29 01/24/22 12:36 Nitroglycerin (Nitrostat) 0.4 mg PRN Q5MIN PRN SL CHEST PAIN 01/24/22 14:00 01/24/22 13:47 Fentanyl Citrate (Fentanyl 2ml Vial) 75 mcg 1X ONCE IVP 01/24/22 14:30 01/24/22 14:31 DC 01/24/22 14:28 Fentanyl Citrate (Fentanyl 2ml Vial) 50 mcg PRN Q1HR PRN IVP PAIN 01/24/22 15:00 01/25/22 14:59 01/25/22 08:35 Temazepam (Restoril) 15 mg PRN QHS PRN PO INSOMNIA 01/24/22 22:15 01/24/22 22:39 Justifications for Admission Other Justification EMILI HUMMEL III DO Jan 25, 2022 09:56
[2022-01-25] MEDS ORDERED: TEMA15CA PO (09:58)
[2022-01-25] MEDS ORDERED: OXYC1TAB15 PO (09:58)
[2022-01-25 11:00] VITALS: BP 140/66
--- NOTE | 2022-01-25 11:15 | DS ---
DATE OF DISCHARGE: 01/25/2022 ADMITTING DIAGNOSIS: Chest pain. DISCHARGE DIAGNOSES: Resolving chest pain, history of coronary disease, history of bypass surgery, history of previous stents, narcotic dependence, appendectomy, cholecystectomy, pacemaker, SBO. CONSULTS: Cardiology. PROCEDURES: None. HOSPITAL COURSE: The patient is a pleasant middle-aged male, well known to our service. He has some issues with chronic chest pain. Once again, he presented to the ER yesterday with chest pain. We admitted him overnight for observation. His troponins have all been negative. I did consult Cardiology. I am not aware of any procedures that are planned. I saw him and examined him today. He wants to go home. I put orders in for discharge if okay with Cardiology. DISPOSITION: Home. ACTIVITY: As tolerated. DIET: Cardiac. MEDICATIONS: Please see the MRAD. Temazepam 15 mg at bedtime p.r.n., p.r.n. Tylenol, alfuzosin 10 a day, aspirin 81 a day, carvedilol 6.25 b.i.d., Plavix 75 a day, p.r.n. nitro, p.r.n. Percocet 5/325 one q.4 hours p.r.n., I sent him a prescription for #20 tablets and Protonix 40 a day. Total time 32 minutes. MORIS/MIGEL DR: MORIS/orma TID: [id number]
[2022-01-25] MEDS: oxyCODONE/APAP 5/325 1 TAB TABLET PO PRN ×2 (11:26→16:26)
--- NOTE | 2022-01-25 11:28 | NUR ---
SS following up with discharge planning. SS reviewed pt chart and discussed with pt RN. Pt is from home with spouse and is currently on room air. COVID19 negative. Discharge order on the chart for home with self care.
--- NOTE | 2022-01-25 12:50 | PDOC ---
[facility] [employer] CL[employer] 01/25/22 1250: CARDIO Progress Notes Date and Time Date of Service 01/25/2022 Time of Evaluation 1240 Subjective Subjective: No Chest Pain, No shortness of breath, No Palpitations Vitals Vitals Vital Signs Date Time Temp Pulse Resp B/P (MAP) Pulse Ox O2 Delivery O2 Flow Rate FiO2 01/25/22 12:28 98 Nasal Cannula 2.0 01/25/22 11:00 97.2 59 18 140/66 (90) 97.2 Weight Weight [ ] Input and Output Intake and Output Intake and Output 01/25/22 07:00 Intake Total 700 ml Output Total 650 ml Balance 50 ml Intake Oral 700 ml Output Urine Total 650 ml Laboratory Labs Laboratory Tests Test 01/24/22 14:32 01/24/22 14:55 01/24/22 15:25 01/24/22 19:50 Urine Collection Type Unknown Urine Color Yellow Urine Clarity Clear Urine pH 7.0 (<5.0-8.0) Urine Specific [place] 1.010 (1.000-1.030) Urine Protein Negative mg/dL (NEG-TRACE) Urine Glucose (UA) Negative mg/dL (NEG) Urine Ketones (Stick) Negative mg/dL (NEG) Urine Blood Negative (NEG) Urine Nitrite Negative (NEG) Urine Bilirubin Negative (NEG) Urine Urobilinogen Dipstick 0.2 mg/dL (0.2 mg/dL) Urine Leukocyte Esterase Negative (NEG) Urine RBC Occ /HPF (0-2) Urine WBC Occ /HPF (0-4) Urine Squamous Epithelial Cells Few /LPF Urine Bacteria 0 /HPF (0-FEW) Urine Mucus Slight /LPF Urine Opiates Screen Neg (NEG) Urine Methadone Screen Neg (NEG) Urine Barbiturates Neg (NEG) Urine Phencyclidine Screen Neg (NEG) Urine Amphetamine/Methamphetamine Neg (NEG) Urine Benzodiazepines Screen Neg (NEG) Urine Cocaine Screen Neg (NEG) Urine Cannabinoids Screen Neg (NEG) Urine Ethyl Alcohol Neg (NEG) Influenza Type A Antigen Negative (NEGATIVE) Influenza Type B Antigen Negative (NEGATIVE) SARS-CoV-2 Antigen (Rapid) Negative (NEGATIVE) Troponin I High Sensitivity 5 ng/L (4-75) 5 ng/L (4-75) Test 01/25/22 07:20 White Blood Count 5.5 x10^3/uL (4.0-11.0) Red Blood Count 4.31 x10^6/uL (4.30-5.70) Hemoglobin 12.8 g/dL (13.0-17.5) Hematocrit 37.9 % (39.0-53.0) Mean Corpuscular Volume 88 fL (79-100) Mean Corpuscular Hemoglobin 30 pg (25-35) Mean Corpuscular Hemoglobin Concent 34 g/dL (31-37) Red Cell Distribution Width 13.8 % (11.5-14.5) Platelet Count 175 x10^3/uL (140-400) Neutrophils (%) (Auto) 51 % (31-73) Lymphocytes (%) (Auto) 42 % (24-48) Monocytes (%) (Auto) 6 % (0-9) Eosinophils (%) (Auto) 1 % (0-3) Basophils (%) (Auto) 0 % (0-3) Neutrophils # (Auto) 2.8 x10^3/uL (1.8-7.7) Lymphocytes # (Auto) 2.3 x10^3/uL (1.0-4.8) Monocytes # (Auto) 0.3 x10^3/uL (0.0-1.1) Eosinophils # (Auto) 0.1 x10^3/uL (0.0-0.7) Basophils # (Auto) 0.0 x10^3/uL (0.0-0.2) Sodium Level 141 mmol/L (136-145) Potassium Level 3.7 mmol/L (3.5-5.1) Chloride Level 105 mmol/L (98-107) Carbon Dioxide Level 26 mmol/L (21-32) Anion Gap 10 (6-14) Blood Urea Nitrogen 15 mg/dL (8-26) Creatinine 1.1 mg/dL (0.7-1.3) Estimated GFR (Cockcroft-Gault) 67.2 BUN/Creatinine Ratio 14 (6-20) Glucose Level 103 mg/dL (70-99) Calcium Level 8.5 mg/dL (8.5-10.1) Total Bilirubin 0.5 mg/dL (0.2-1.0) Aspartate Amino Transf (AST/SGOT) 13 U/L (15-37) Alanine Aminotransferase (ALT/SGPT) 46 U/L (16-63) Alkaline Phosphatase 82 U/L (46-116) Total Protein 6.9 g/dL (6.4-8.2) Albumin 3.5 g/dL (3.4-5.0) Albumin/Globulin Ratio 1.0 (1.0-1.7) Physical Exam HEENT: Neck Supple W Full Motion Chest: Symmetric LUNGS: Clear to Auscultation Heart: S1S2, RRR (SR) Abdomen: Soft N/T Extremities: No Calf Tenderness Neurology: alert, oriented, follow commands Assessment Assessment 1. Chest pain with mixed features. Myocardial infarction has been ruled out. Patient has had recurrent admissions for similar chest pain. Normal troponin. No significnat arrhythmias. Treadmill MPI as an outpatient. 2. Coronary artery disease s/p CABG with cardiac catheterization in December 2020 showing patent CARRERO to LAD, 50% stenosis in SVG to OM1, patent SVG to RCA and patent LMCA stent. No lesions needing intervention were noted. Continue current secondary prevention measures. March DC per cardiac perspective 3. Sick sinus syndrome s/p permanent pacemaker implantation. He denied any syncope or near syncope. Recent device check showed normal function. Recent 2D echo showed LVEF 55 to 60%. 4. Hypertension: Controlled 5. Hyperlipidemia: Continue statins 6. Peripheral artery disease: s/p right [employer] endarterectomy, stable Justicifation of Admission Dx: Justifications for Admission: Justification of Admission Dx: Yes ALLIE ESPARZA MD 01/25/22 1711: CARDIO Progress Notes Assessment Assessment Patient seen and examined. Agree with [employer] SPECIALIST's assessment and plan. Plan ischemic evaluation as an outpatient as stated above. MAJO BALTAZAR APRN Jan 25, 2022 12:50 ALLIE ESPARZA MD Jan 25, 2022 17:11
[2022-01-25 15:00] VITALS: BP 140/73
== END 2022-01-25 16:44 | disposition home or self-care (01) ==
LOC: ER 12:00 → 6 SOUTH 14:22
PROVIDERS: ADMIT Internal Medicine; ATTEND Internal Medicine
DX: R07.89 Other chest pain (principal); Z20.822 Contact with and (suspected) exposure to COVID-19; I10 Essential (primary) hypertension; I25.10 Atherosclerotic heart disease of native coronary artery without angina pectoris; I25.2 Old myocardial infarction; I49.5 Sick sinus syndrome; I73.9 Peripheral vascular disease, unspecified; E78.5 Hyperlipidemia, unspecified; M19.90 Unspecified osteoarthritis, unspecified site; G89.29 Other chronic pain; Z79.82 Long term (current) use of aspirin; Z86.711 Personal history of pulmonary embolism; Z86.73 Personal history of transient ischemic attack (TIA), and cerebral infarction without residual deficits; Z90.49 Acquired absence of other specified parts of digestive tract; Z95.0 Presence of cardiac pacemaker; Z95.1 Presence of aortocoronary bypass graft; Z79.899 Other long term (current) drug therapy; Z98.890 Other specified postprocedural states
CPT/HCPCS: 36415; 71045; 80053; 80307; 81001; 83735; 83880; 84484; 85025; 85610; 87428; 93005; 96374; 96376; 99285; G0378; J3010; U0003; G0379

== ENCOUNTER → 2022-02-08 | Outpatient (CLI) | payer MEDICARE ==
[2022-01-25 15:00] VITALS: BP 140/73
[~2022-02-08] MED LIST changes: +REGADENOSON 0.4 MG/5 ML DISP.SYRIN. IV ONE; +TEMA15CA PO
--- NOTE | 2022-02-08 19:06 | RAD ---
MR#: [id number] Date of Study: 02/08/2022 Ordering Physician: ALLIE ESPARZA, Referring Physician: MARIO ALBERTO IVY Tech: MARKUS Witt APPROVED REPORT Test Type: Exercise Stress Nurse/Tech: Charlotte Martínez RN Test Indications: chest pain Cardiac History: CABG, CAD, PTCA,PPM Medications: See Electronic Medical Record Medical History: See Electronic Medical Record Resting ECG: SR Resting Heart Rate: 69 bpm Resting Blood Pressure: 129/75mmHg Pretest Chest Pain: Typical angina Nurse/Tech Notes Lunga CTA Consent: The procedure was explained to the patient in lay terms. Informed consent was witnessed. Jm eout was entered into [employer]. History and Stress Test performed by AMINA Montenegro, ARRT (R) (N) Stress Symptoms Dyspnea, chest pain that resolved with rest POST EXERCISE Reason for Termination: Reached target heart rate Target HR: Yes Max HR: 134 bpm 86% of Maximum Predicted HR: 155 bpm Exercise duration: 5:16 min:sec, 2 Stage Max Blood Pressure: 175/74mmHg Blood Pressure response to exercise: Normal blood pressure response during stress. Heart Rate response to exercise: normal response Chest Pain: Yes. 04/19. resolved by termination of exam Arrhythmia: No. ST Change: No. INTERPRETATION Stress EKG Conclusion: The resting EKG shows sinus rhythm with nonspecific ST-T wave changes and a pa rtial bundle branch block. The stress EKG showed no significant changes from baseline. Abnormal baseline EKG but no EKG evidence of stress-induced ischemia. Imaging Protocol IMAGE PROTOCOL: Rest Tc-99m/stress Tc-99m 1 day Rest: Stress: Viability: Radiopharm.Tc99m WpamgsturIq91j Sestamibi [id number] 32mCi Duration 15min. 10min. Img Date 02/08/2022 02/08/2022 Inj-Img [id number]. 60min. Post-Injection Exercise: 1 minute Rest Admin Site:IV - Right HandAdministrator:AMINA Montenegro, PRINCE (R)(N) Stress Admin Site: IV - Right HandAdministrator: Tobias Torres, RT (R)(N) STRESS DATA End Diast. Vol.94.0mlAv. Heart Rate74.0bpm End Syst. Vol.26.0mlCO Index BSA0.0L/min Myocardial Aemu329.0gEject. Qaifdsdd14.0% Stress Rates Pk. Fill Rate3.35EDV/secLVtime Pk. Fill 173.21msec Pk. Empty Rate3.93ESV/secLVtime Pk. Erwrc431.21msec 11/12 Pk. Fill1.56EDV/sec Stress Scores Regional WT0.00Summed WT0.00 Regional WM0.00Summed WM9.00 LV Perfusion The stress scans showed no significant defects. The rest scans showed no significant defects. Nuclear imaging shows no reversible ischemia or infarct. Wall Motion Left ventricular systolic function is intact with an ejection fraction of 72%. LV Perf. Quant 17 Seg. SSS0.00 17 Seg. SRS0.00 17 Seg. SDS0.00 Stress Defect Extent (% LAD)0.00Rest Defect Extent (% LAD)0.00Rev. Defect Extent (% LAD)0.00 Stress Defect Extent (% LCX) 0.00Rest Defect Extent (% LCX)0.00Rev. Defect Extent (% LCX)0.00 Stress Defect Extent (% RCA)0.00Rest Defect Extent (% RCA)0.00Rev. Defect Extent (% RCA)0.00 Stress Defect Extent (% ARA)0.00Rest Defect Extent (% ARA)0.00Rev. Defect Extent (% ARA)0.00 Conclusion 1. Good exercise tolerance with the patient walking for 5 minutes and 16 seconds on a Regan protocol. 2. Reported chest discomfort with exertion that resolved by the end of the test. 3. Baseline abnormal EKG but no EKG evidence of stress-induced ischemia. 4. Nuclear imaging shows no reversible ischemia or infarct. 5. Intact LV systolic function with an ejection fraction of 72%. 6. Moderately low risk treadmill nuclear stress test. Signed by : Tamir Gaona MD Electronically Approved : 02/08/2022 19:06:01
== END ==
LOC: NM 09:03
PROVIDERS: ATTEND Internal Medicine Cardiovascular Disease
DX: R94.31 Abnormal electrocardiogram [ECG] [EKG] (principal); R07.9 Chest pain, unspecified
CPT/HCPCS: 78452; 93017; A9500

== ENCOUNTER 2022-03-05 09:42 | Outpatient (CLI) | payer MEDICARE ==
[2022-03-05] VITALS (12 sets, daily range): BP systolic 109–156; BP diastolic 68–84
[~2022-03-05] VITALS: Ht 175.3 cm; Wt 96.0 kg
[~2022-03-05 09:42] MED LIST changes: +CLOPIDOGREL BISULFATE 75 MG TABLET ONE; +LIDOCAINE 1% Multi-Dose 20 ML VIAL. ONE; -REGADENOSON 0.4 MG/5 ML DISP.SYRIN. IV ONE
[2022-03-05] MEDS ORDERED: ISOS30TA68 PO (10:00)
[2022-03-05] MEDS ORDERED: fentaNYL PF VIAL 100 MCG/2 ML VIAL ONE (10:05)
[2022-03-05] MEDS ORDERED: MIDAZOLAM HCL/PF 5 MG/5 ML VIAL. ONE (10:06)
[2022-03-05 10:25] LABS: HEMATOCRIT 37.4 % (39.0-53.0); HEMOGLOBIN 12.9 g/dL (13.0-17.5); RED BLOOD COUNT 4.25 x10^6/uL (4.30-5.70); RED CELL DISTRIBUTION WIDTH 14.1 % (11.5-14.5); WHITE BLOOD COUNT 5.3 x10^3/uL (4.0-11.0)
[2022-03-05] MEDS ORDERED: diphenhydrAMINE 50 MG/ML VIAL ONE (10:35)
[2022-03-05] MEDS ORDERED: diphenhydrAMINE 50 MG/ML VIAL IVP ONE (10:45)
[2022-03-05] MEDS ORDERED: LIDOCAINE 1% Multi-Dose 20 ML VIAL. INJ ONE (10:45)
[2022-03-05] MEDS ORDERED: IODIXANOL 320 MG/ML 100 ML VIAL. IART ONE (10:45)
[2022-03-05] MEDS ORDERED: fentaNYL PF VIAL 100 MCG/2 ML VIAL IV ONE (10:45)
[2022-03-05] MEDS ORDERED: MIDAZOLAM HCL/PF 5 MG/5 ML VIAL. IV ONE (10:45)
[2022-03-05 10:50] LABS: PROTHROMBIN TIME PATIENT 12.3 SEC (11.7-14.0)
--- NOTE | 2022-03-05 11:01 | PDOC ---
MODERATE SEDATION ASSESSMENT RISKS/ALTERNATIVES Risks/Alternatives Risks and alternatives of this type of sedation and procedure discussed with: RISK/ALTERNATIVES: Patient H & P ON CHART H & P H & P on chart and reviewed for co-morbid conditions and appropriate labs. H&P ON CHART: Yes STATUS PREG STATUS ASSESSED: N/A MEDS/ALLERGIES REVIEWED Meds/Allergies Reviewed Medications and Allergies including time and route of recently administered narcotics and sedatives. MEDS/ALLERGIES REVIEWED: Yes ASA RATING ASA RATING: III AIRWAY ASSESSMENT Airway Assessment Airway patency, oral function limitations, presence of caps, crowns, dentures, partials, and ability to extend neck assessed. AIRWAY ASSESSMENT: Yes MALLAMPATI SCORE MALLAMPATI SCORE: II PRE-SEDATION ASSESSMENT PRE-SEDATION ASSESSMENT: Yes ALLIE ESPARZA MD Mar 05, 2022 11:01
[2022-03-05] MEDS ORDERED: IV 1/2 NORMAL SALINE 1,000 ML IV SCH (11:15)
--- NOTE | 2022-03-05 11:21 | CARD ---
MR#: [id number] Date of Study: 03/05/2022 Ordering Physician: ALLIE ESPARZA, Referring Physician: ALLIE ESPARZA Tech: FRANKIE FELIPE APPROVED REPORT Technologist: FRANKIE FELIPE Nurse: Giulia Watson RN Procedure(s) performed: Left heart catheterization, selective coronary angiography and selective cheryle ography of the bypass grafts FL TIME: 5.9 MIN DOSE: 32 GYCM2 CONTRAST: 73 ML MODERATE SEDATION: 31 MIN INDICATION The indication(s) include : unstable angina . CSHA Clinical Frailty Scale [facility] Clinical Frailty Scale: Mildly Frail Heart Failure Heart Failure: No CASE TECHNIQUE IV conscious sedation was used throughout procedure with appropriate monitoring and was performed in the presence of a registered nurse who was an independent trained observer other than the physician p erforming the procedure. During this case, Fluoroscopy and low osmolar contrast were used for imaging . Specimen(s) Removed: No Estimated Blood loss: 15 cc's. PROCEDURE NARRATIVE After explaining the risk, benefits and alternative options, informed consent was obtained from patie nt. Patient was brought to the cardiac Graphic User Interface Designer and his left groin was prepped and draped in the usu al fashion. 20 cc of 2% lidocaine was infiltrated into the skin and subcutaneous tissues for local a nesthesia. Arterial access was obtained in the left common femoral artery and a 6 Indian sheath was inserted. 6 Indian JL 4 and 6 Indian JR4 catheters were used to perform selective angiography of the left and right coronary arteries. The JR4 catheter was then used to perform selective angiography o f the saphenous vein graft to the right coronary artery, saphenous vein graft to the obtuse marginal branch of left circumflex artery and also the left internal mammary artery graft to the left anterior descending artery. LVEDP and transaortic gradients were measured. Patient tolerated the procedure well. Hemostasis was achieved using Mynx closure device. There were no immediate complications FINDINGS 1. Hemodynamics: Left ventricular end-diastolic pressure 19 mmHg. No pullback gradient across aorti c valve. 2. Coronary and bypass graft angiography: a. The left main coronary artery arose from the left sinus of Valsalva and showed widely patent prev iously placed stent. b. The left anterior descending artery showed 100% chronic total occlusion in the midsegment after t he takeoff of a diagonal branch. c. The left circumflex artery showed 100% chronic total occlusion proximally. d. The right coronary artery arose from the right sinus of Valsalva and showed 90% stenosis proximal ly and 100% chronic total occlusion in the midsegment. e. The saphenous vein graft to the right coronary artery was widely patent. Distal to the anastomos is, the [place] vessel did not show any significant stenosis. The SVG to RCA from his first bypass [facility] in 2005 is chronically occluded proximally. f. The saphenous vein graft to the first obtuse marginal branch of left circumflex artery was widely patent with patent previously placed stent in the distal segment. The second obtuse marginal branch fills retrogradely and did not show any significant stenosis. g. The left internal mammary artery graft to the left anterior descending artery was widely patent. Distal to the anastomosis, the [place] left and to descending artery did not show any significant abdiaziz nosis. The proximal portion of the left subclavian artery did not show any significant stenosis. Conclusion Severe [place] vessel coronary artery disease s/p coronary artery bypass surgery with patent CARRERO to L AD, patent SVG to OM/LCx and patent SVG to RCA. Recommendations Optimization of medical therapy and cardiovascular risk factor modification. Signed by : Allie Esparza, Electronically Approved : 03/05/2022 11:21:17
--- NOTE | 2022-03-05 14:06 | NUR ---
Discharge Note: ERICA CUNHA [facility] Discharge instructions and discharge home medications reviewed with Patient and a copy given. All questions have been answered and understanding verbalized. The following instructions and handouts were given: groin site care and adult moderate sedation, mynx info. Discontinued lines and drains: Peripheral IV intact. Patient discharged to Home or Self Care withSpousevia Wheelchair
== END 2022-03-05 14:13 | disposition home or self-care (01) ==
LOC: CCL 09:42
PROVIDERS: ATTEND Internal Medicine Cardiovascular Disease
DX: I25.110 Atherosclerotic heart disease of native coronary artery with unstable angina pectoris (principal); I10 Essential (primary) hypertension; E78.00 Pure hypercholesterolemia, unspecified; K21.9 Gastro-esophageal reflux disease without esophagitis; F41.9 Anxiety disorder, unspecified; Z86.73 Personal history of transient ischemic attack (TIA), and cerebral infarction without residual deficits; Z90.49 Acquired absence of other specified parts of digestive tract; Z98.890 Other specified postprocedural states; Z79.899 Other long term (current) drug therapy; Z87.891 Personal history of nicotine dependence; Z79.82 Long term (current) use of aspirin; Z88.6 Allergy status to analgesic agent
CPT/HCPCS: 36415; 85027; 85610; 93459; 99152; 99153; C1760; C1894; G0269; J1200; J1644; J2250; J3010; J3490; Q9967